=== PATIENT | male | born 1950 | race Caucasian/White ===

== ENCOUNTER 2017-03-31 11:46 | Inpatient (IN) | payer MEDICARE, OTHER ==
[2017-03-31] MEDS ORDERED: HYDROmorphone 1 MG/ML 1 ML SYRINGE IVP STA (12:28)
[2017-03-31] MEDS: ONDANSETRON 4 MG/2 ML VIAL IVP STA (12:55)
--- NOTE | 2017-03-31 13:01 | XR ---
EXAMINATION TYPE: XR Hip Complete RT DATE OF EXAM: 03/31/2017 CLINICAL HISTORY: Fall and right hip pain with concern for fracture TECHNIQUE: AP and frogleg views of the right hip are obtained. COMPARISON: CT abdomen pelvis dated 09/21/2015 FINDINGS: There is concern for an impacted basicervical femoral neck fracture as the lateral femoral head neck junction appears protuberant with questionable cortical discontinuity and there is abnormal linear lucency in the femoral neck. No cam deformity is seen on the prior CT abdomen pelvis to corre spond to this head neck junction protuberance. Overlying soft tissues are unremarkable. Mild right f emoral acetabular arthrosis changes are seen as medial joint space narrowing and acetabular sclerosis . IMPRESSION: Findings concerning for impacted basicervical right femoral neck fracture. Additional vie ws of the right hip are recommended with AP, internal and external rotation views.
--- NOTE | 2017-03-31 13:01 | XR ---
EXAMINATION TYPE: XR chest 2V DATE OF EXAM: 03/31/2017 COMPARISON: Chest x-ray 09/26/2015, CT of the chest 03/03/2016 HISTORY: Shortness of breath, fall TECHNIQUE: Frontal and lateral views of the chest are obtained on 3 images. FINDINGS: There is no focal air space opacity, pleural effusion, or pneumothorax seen. The cardiac silhouette size is within normal limits. Prominent lung volumes suggest underlying COPD. The osseou s structures are intact. IMPRESSION: No acute cardiopulmonary process.
--- NOTE | 2017-03-31 13:02 | XR ---
EXAMINATION TYPE: XR knee limited RT DATE OF EXAM: 03/31/2017 CLINICAL HISTORY: Fall and right knee pain. TECHNIQUE: Frontal and lateral views of the right knee are obtained. COMPARISON: None. FINDINGS: There is no acute fracture/dislocation evident in right knee. Medial compartment joint spa ce narrowing is appreciated with tibial plateau sclerosis and marginal medial femoral condyle osteoph ytes. Chondrocalcinosis is seen of the lateral compartment and to a lesser degree at the medial katerin rtment suggestive of CPPD.. The overlying soft tissue appears unremarkable. IMPRESSION: 1. There is no acute fracture or dislocation in the right knee. 2. Findings suggestive of CPPD. 3. Unicompartmental osteoarthrosis.
[2017-03-31 13:15] LABS: ALT 48 U/L (21-72); AST 37 U/L (17-59); Alkaline Phosphatase 117 U/L (38-126); Anion Gap 9 mmol/L; Blood Urea Nitrogen 26 mg/dL (9-20); Calcium 8.7 mg/dL (8.4-10.2); Carbon Dioxide 21 mmol/L (22-30); Chloride 107 mmol/L (98-107); Glucose 98 mg/dL (74-99); Non-African American GFR(MDRD) >60 (>60 ml/min/1.73 sqM); Potassium 4.6 mmol/L (3.5-5.1); Sodium 137 mmol/L (137-145); Total Bilirubin 2.4 mg/dL (0.2-1.3); Total Protein 7.2 g/dL (6.3-8.2)
[2017-03-31 13:16] LABS: INR 1.2 (<1.2); Partial Thromboplastin Time 28.4 sec (22.0-30.0); Prothrombin Time 11.8 sec (9.0-12.0)
[2017-03-31 13:18] LABS: Basophils # (A) 0.1 k/uL (0-0.2); Basophils % (A) 1 %; CH 31.7; CHCM 32.5; Eosinophils # (A) 0.8 k/uL (0-0.7); Eosinophils % (A) 7 %; HDW 2.33; HGB 12.5 gm/dL (13.0-17.5); Luc # (Auto) 0.35; Luc % (Auto) 3; Lymphocytes # (A) 2.2 k/uL (1.0-4.8); Lymphocytes % (A) 21 %; MCH 32.3 pg (25.0-35.0); MCHC 32.9 g/dL (31.0-37.0); MCV 98.3 fL (80.0-100.0); Mean Platelet Volume 8.4; Monocytes % (A) 10 %; Neutrophils # (A) 5.9 k/uL (1.3-7.7); Neutrophils % (A) 57 %; RBC 3.86 m/uL (4.30-5.90); RDW 13.7 % (11.5-15.5); WBC 10.2 k/uL (3.8-10.6); WBC (Perox) 9.94
--- NOTE | 2017-03-31 14:41 | ED ---
Fall HPI - General Chief Complaint: Fall Stated Complaint: Fall Time Seen by Provider: 03/31/17 11:58 Source: patient, EMS Mode of arrival: EMS - History of Present Illness Initial Comments: This 66-year-old white male presents with a complaint of right hip pain. He states that he fell approximately 2 days ago on his right side. He is also complaining of some mild pain to his right knee. He has not been able to ambulate since that time. He states that the pain is fairly severe in nature. He denies any other injuries or complaints or modifying factors. He does not have an orthopedic physician currently. No other complaints or modifying factors. - Related Data Home Medications Medication Instructions Recorded Confirmed Atenolol [Tenormin] 50 mg PO BID 09/21/15 03/31/17 Cyclobenzaprine HCl 10 mg PO TID 03/31/17 03/31/17 [Cyclobenzaprine HCl] HYDROcodone/APAP 7.5-325MG [[place] 1 tab PO QID PRN 03/31/17 03/31/17 7.5-325] Omeprazole [PriLOSEC] 20 mg PO BID 03/31/17 03/31/17 Primidone [Mysoline] 50 mg PO TID 03/31/17 03/31/17 Allergies Allergy/AdvReac Type Severity Reaction Status Date / Time Penicillins Allergy Rash/Hives Verified 03/31/17 12:23 peginterferon peg-2a AdvReac Unknown Verified 03/31/17 12:23 [From Pegasys] Review of Systems ROS Statement: Those systems with pertinent positive or pertinent negative responses have been documented in the HPI. ROS Other: All systems not noted in ROS Statement are negative. Past Medical History Past Medical History: COPD, Hypertension, Myocardial Infarction ([place]) Last Myocardial Infarction Date:: 2007 History of Any Multi-Drug Resistant Organisms: None Reported Additional Past Surgical History / Comment(s): vasectomy, cataract Past Anesthesia/Blood Transfusion Reactions: No Reported Reaction Past Psychological History: No Psychological Hx Reported Smoking Status: Current every day smoker Past Alcohol Use History: None Reported Past Drug Use History: None Reported - Past Family History Mother History Unknown: Yes Family Medical History: Cancer, Diabetes Mellitus, Hypertension Father History Unknown: Yes Family Medical History: Liver Disease, Seizure Disorder Additional Family Medical History / Comment(s): alcoholic Brother(s) History Unknown: Yes Family Medical History: Liver Disease Additional Family Medical History / Comment(s): aneurysm General Exam - General Exam Comments Initial Comments: GENERAL: The patient is well nourished and well hydrated. VITAL SIGNS: Heart rate, blood pressure, respiratory rate reviewed as recorded in nurse's notes. EYES: Pupils are round and reactive. Extraocular movements are intact. No conjunctival / lid redness or swelling. ENT: No external evidence of injury, swelling, or ecchymosis. Airway is patent. Throat is clear. NECK: Nontender. No swelling or evidence of injury. No subcutaneous emphysema. Trachea is midline. No thyroid mass. HEART: Regular rate and rhythm. Good peripheral pulses. LUNGS/CHEST: Breath sounds clear and equal bilaterally. No rales, rhonchi, or wheezes. No ecchymosis, subcutaneous emphysema, or tenderness. ABDOMEN: Abdomen soft without tenderness. No palpable masses or organomegaly. No peritoneal signs. There is abdominal wall distention consistent with ascites. EXTREMITIES: There is significant tenderness noted to the right hip upon palpation. There is extreme tenderness with any attempted range of motion. There is some mild tenderness noted diffusely to the right knee without any effusion. Normal muscle tone and function. No thoracolumbar tenderness. NEUROLOGIC: Sensation is grossly intact. Cranial nerve exam reveals face is symmetrical, tongue is midline, speech is clear. SKIN: No abrasions or ecchymosis is noted. No induration or masses noted. There are multiple spider telangestasias noted. PSYCHIATRIC: Alert and oriented. Appropriate behavior and judgment. Limitations: no limitations Course Vital Signs 03/31/17 03/31/17 12:04 15:00 Temperature 99.6 F 98.2 F Pulse Rate 89 91 Respiratory 18 18 Rate Blood Pressure 188/77 153/73 O2 Sat by Pulse 98 95 Oximetry Medical Decision Making - Medical Decision Making The patient was seen and examined. All diagnostics are reviewed. He had an x- ray done of his right hip which does show findings concerning for impacted basicervical right femoral neck fracture. The patient also had an x-ray of the right knee and this does not show any evidence of fracture but there is some arthritic changes. The chest x-ray did not show any evidence of acute process. The patient had an EKG done as well and this shows a normal sinus rhythm with T-wave inversions in lead's to 3 and aVF. There is no ST elevation. The NC interval is 80, QRS duration is 94, and QTc interval is 444. The patient had an IV established and receives 1 mg of Dilaudid IV and his feeling much improved on recheck. He also received 4 mg of Zofran for nausea prophylaxis. The case will be discussed with orthopedic surgery in the near future and patient will be admitted to the hospital for further definitive treatment. The laboratory is reviewed and this does show some evidence of anemia as well as elevation of the bilirubin. Given patient's physical exam findings of ascites and spider telangiectasias, it is felt as though he does have some liver disease. He states that he previously was told by his primary care physician that he has hepatitis C. He then followed up with hepatology at [facility] and was told that he does not have hepatitis C. He denies drinking any alcohol. Exact cause of suspected hepatic disease therefore is not definitively determined but it is felt as though it should be looked into further. The case is discussed with Dr. Ugalde and he is agreeable to admission with orthopedics to consult. - Lab Data Result diagrams: 03/31/17 12:41 03/31/17 12:41 Lab Results 03/31/17 03/31/17 03/31/17 Range/Units 12:41 12:41 12:41 WBC 10.2 (3.8-10.6) k/uL RBC 3.86 L (4.30-5.90) m/uL Hgb 12.5 L (13.0-17.5) gm/dL Hct 38.0 L (39.0-53.0) % MCV 98.3 (80.0-100.0) fL MCH 32.3 (25.0-35.0) pg MCHC 32.9 (31.0-37.0) g/dL RDW 13.7 (11.5-15.5) % Plt Count 217 (150-450) k/uL Neutrophils % 57 % Lymphocytes % 21 % Monocytes % 10 % Eosinophils % 7 % Basophils % 1 % Neutrophils # 5.9 (1.3-7.7) k/uL Lymphocytes # 2.2 (1.0-4.8) k/uL Monocytes # 1.0 (0-1.0) k/uL Eosinophils # 0.8 H (0-0.7) k/uL Basophils # 0.1 (0-0.2) k/uL PT 11.8 (9.0-12.0) sec INR 1.2 H (<1.2) APTT 28.4 (22.0-30.0) sec Sodium 137 (137-145) mmol/L Potassium 4.6 (3.5-5.1) mmol/L Chloride 107 (98-107) mmol/L Carbon Dioxide 21 L (22-30) mmol/L Anion Gap 9 mmol/L BUN 26 H (9-20) mg/dL Creatinine 1.00 (0.66-1.25) mg/dL Est GFR (MDRD) Af Amer >60 (>60 ml/min/1.73 sqM) Est GFR (MDRD) Non-Af >60 (>60 ml/min/1.73 sqM) Glucose 98 (74-99) mg/dL Calcium 8.7 (8.4-10.2) mg/dL Total Bilirubin 2.4 H (0.2-1.3) mg/dL AST 37 (17-59) U/L ALT 48 (21-72) U/L Alkaline Phosphatase 117 (38-126) U/L Total Protein 7.2 (6.3-8.2) g/dL Albumin 3.0 L (3.5-5.0) g/dL Disposition Clinical Impression: Closed right hip fracture, Fall, Right knee sprain, Hepatic disease, Ascites Disposition: ADMITTED IP TO THIS [facility] Condition: Fair Time of Disposition: 14:43 Decision Date: 03/31/17 Decision Time: 14:44
[2017-03-31] MEDS ORDERED: ONDANSETRON 4 MG/2 ML VIAL IVP PRN (15:19)
[2017-03-31] MEDS ORDERED: NALOXONE 0.4 MG/ML 1 ML VIAL IV PRN (15:19)
[2017-03-31] MEDS ORDERED: ACETAMINOPHEN TAB 325 MG TAB PO PRN (15:19)
[2017-03-31] MEDS ORDERED: HYDROcodone/APAP 7.5-325MG 1 EACH TAB PO PRN (15:23)
--- NOTE | 2017-03-31 17:09 | P.HPOR ---
History of Present Illness H&P Date: 03/31/17 Chief Complaint: Right femoral neck fracture This is a 66-year-old male who is seen and evaluated today Santosh Dowd [place]. Patient was brought to the hospital due to extreme pain in his right hip. Patient had a fall about 2 days ago, and has been unable to weight-bear on it since then. Patient fell in his home. He is unable to put any weight on that right leg. Upon arrival to the hospital, imaging and lab studies were done. Images demonstrated a impacted nondisplaced right femoral neck fracture. I was contacted by the emergency room staff regarding this patient, he was admitted under our care. Medical and cardiac of both on for clearances. He is examined today at bedside, there was concern of a bedbug infection. I was properly down during the exam. Patients belongings have been properly sealed. The patient was showered in the emergency room before coming to the floor. Patient states he only has pain in the right hip. She denies pain in the left lower extremity, bilateral upper extremities, cervical, lumbar thoracic pain. Patient denies any previous surgery involving the right lower extremity. Review of Systems Constitutional: Reports as per HPI Past Medical History Past Medical History: Coronary Artery Disease (CAD), COPD, GERD/Reflux, Hypertension, Myocardial Infarction ([place]), Osteoarthritis (OA) Additional Past Medical History / Comment(s): perforatic gastric ulcer 2015(had sx), ddd lumbar, hemorrhoids, per past medical hx from 2008 hep c. Last Myocardial Infarction Date:: 2007 History of Any Multi-Drug Resistant Organisms: None Reported Additional Past Surgical History / Comment(s): vasectomy, cataracts,per pmh from 2008 liver bx 2006- found hep c. antrectomy w/gastroenterostomy 2015 Past Anesthesia/Blood Transfusion Reactions: No Reported Reaction Smoking Status: Current every day smoker - Past Family History Mother History Unknown: Yes Family Medical History: Cancer, Diabetes Mellitus, Hypertension Father History Unknown: Yes Family Medical History: Liver Disease, Seizure Disorder Additional Family Medical History / Comment(s): alcoholic Brother(s) History Unknown: Yes Family Medical History: Liver Disease Additional Family Medical History / Comment(s): aneurysm Medications and Allergies Home Medications Medication Instructions Recorded Confirmed Type Atenolol [Tenormin] 50 mg PO BID 09/21/15 03/31/17 History Cyclobenzaprine HCl 10 mg PO TID 03/31/17 03/31/17 History [Cyclobenzaprine HCl] HYDROcodone/APAP 7.5-325MG [[place] 1 tab PO QID PRN 03/31/17 03/31/17 History 7.5-325] Omeprazole [PriLOSEC] 20 mg PO BID 03/31/17 03/31/17 History Primidone [Mysoline] 50 mg PO TID 03/31/17 03/31/17 History Allergies Allergy/AdvReac Type Severity Reaction Status Date / Time Penicillins Allergy Rash/Hives Verified 03/31/17 12:23 peginterferon peg-2a AdvReac Unknown Verified 03/31/17 12:23 [From Pegasys] Physical Examination Right lower extremity: No obvious open lesions or sores present. There are multiple small erythematous papules on the anterior aspect of the thigh. These are also noted throughout the patient's left lower extremity, chest, and bilateral upper extremities. No significant malformation nor malalignment noted when compared to the opposite extremity Patient is unable to straight leg raise, logroll maneuver reproduces pain Calf is soft, no tenderness with palpation Plantar flexion, dorsiflexion, EHL, FHL are intact Sensory exam to light touch throughout the extremity is intact Dorsal pedis pulses 2+ Results - Labs Labs: Abnormal Lab Results - Last 24 Hours (Table) 03/31/17 03/31/17 03/31/17 Range/Units 12:41 12:41 12:41 RBC 3.86 L (4.30-5.90) m/uL Hgb 12.5 L (13.0-17.5) gm/dL Hct 38.0 L (39.0-53.0) % Eosinophils # 0.8 H (0-0.7) k/uL INR 1.2 H (<1.2) Carbon Dioxide 21 L (22-30) mmol/L BUN 26 H (9-20) mg/dL Total Bilirubin 2.4 H (0.2-1.3) mg/dL Albumin 3.0 L (3.5-5.0) g/dL H & H 03/31/17 Range/Units 12:41 Hgb 12.5 L (13.0-17.5) gm/dL Hct 38.0 L (39.0-53.0) % Coagulation 03/31/17 Range/Units 12:41 INR 1.2 H (<1.2) Result Diagrams: 03/31/17 12:41 03/31/17 12:41 - Diagnostic results Hip x-ray: report reviewed, image reviewed Assessment and Plan Plan: Imaging: Images reviewed of the right hip, images demonstrate a nondisplaced impacted right femoral neck fracture Assessment: 1. Right nondisplaced femoral neck fracture 2. Status post fall from standing 3. Likely bedbug infection 4. Other medical comorbidities Plan: 1. I was able to discuss the case with Dr. James, including both physical exam findings and imaging studies. We would like to proceed with surgical intervention tomorrow afternoon. More specifically a closed reduction with percutaneous pinning of the right hip. I did discuss the procedure with the patient today at bedside, including risk and benefits. He is in agreement and would like to proceed 2. Medical and cardiac clearance 3. Nonweightbearing 4. Nothing by mouth after midnight 5. Pain control 6. GI and DVT prophylaxis, utilize subcu medication at this time 7. Plan for surgery tomorrow afternoon 8. Further recommendations to follow Time with Patient: Less than 30
[2017-03-31] MEDS: CYCLOBENZAPRINE 10 MG TAB PO SCH ×2 (17:15→23:15)
[2017-03-31] MEDS: PRIMIDONE 50 MG TAB PO SCH ×2 (17:15→23:14)
[2017-03-31] MEDS: HYDROmorphone 1 MG/ML 1 ML SYRINGE IV PRN (17:18)
[2017-03-31] MEDS: ATENOLOL 50 MG TAB PO SCH (23:15)
[2017-04-01] MEDS: HYDROmorphone 1 MG/ML 1 ML SYRINGE IV PRN ×2 (03:47→12:08)
[2017-04-01] MEDS ORDERED: FUROSEMIDE 10 MG/ML 2 ML VIAL IV STA (08:27)
[2017-04-01] MEDS: PANTOPRAZOLE 40 MG/10 ML VIAL IV SCH (08:47)
[2017-04-01] MEDS: ATENOLOL 50 MG TAB PO SCH ×2 (08:47→22:22)
--- NOTE | 2017-04-01 08:49 | P.CONS ---
History of Present Illness - Reason for Consult Consult date: 04/01/17 - History of Present Illness This is a consultation note on a 66-year-old white male who we've been trying to get a power wheelchair device 4, unfortunately he states with his normal daily activities yesterday he fell resulting in hip fracture. Has normal history and COPD with DJD elements. Review of Systems Constitutional: Denies chills, Denies fever Eyes: denies blurred vision, denies pain Cardiovascular: Reports shortness of breath, Denies dyspnea on exertion Respiratory: Reports cough Gastrointestinal: Denies abdominal pain, Denies diarrhea, Denies nausea, Denies vomiting Musculoskeletal: Denies myalgias Past Medical History Past Medical History: Coronary Artery Disease (CAD), COPD, GERD/Reflux, Hypertension, Myocardial Infarction ([place]), Osteoarthritis (OA) Additional Past Medical History / Comment(s): perforatic gastric ulcer 2015(had sx), ddd lumbar, hemorrhoids, per past medical hx from 2008 hep c. Last Myocardial Infarction Date:: 2007 History of Any Multi-Drug Resistant Organisms: None Reported Additional Past Surgical History / Comment(s): vasectomy, cataracts,per pmh from 2008 liver bx 2006- found hep c. antrectomy w/gastroenterostomy 2016 Past Anesthesia/Blood Transfusion Reactions: No Reported Reaction Smoking Status: Current every day smoker - Past Family History Mother History Unknown: Yes Family Medical History: Cancer, Diabetes Mellitus, Hypertension Father History Unknown: Yes Family Medical History: Liver Disease, Seizure Disorder Additional Family Medical History / Comment(s): alcoholic Brother(s) History Unknown: Yes Family Medical History: Liver Disease Additional Family Medical History / Comment(s): aneurysm Medications and Allergies Home Medications Medication Instructions Recorded Confirmed Type Atenolol [Tenormin] 50 mg PO BID 09/21/15 03/31/17 History Cyclobenzaprine HCl 10 mg PO TID 03/31/17 03/31/17 History [Cyclobenzaprine HCl] HYDROcodone/APAP 7.5-325MG [[place] 1 tab PO QID PRN 03/31/17 03/31/17 History 7.5-325] Omeprazole [PriLOSEC] 20 mg PO BID 03/31/17 03/31/17 History Primidone [Mysoline] 50 mg PO TID 03/31/17 03/31/17 History Allergies Allergy/AdvReac Type Severity Reaction Status Date / Time Penicillins Allergy Rash/Hives Verified 03/31/17 12:23 peginterferon peg-2a AdvReac Unknown Verified 03/31/17 12:23 [From Pegasys] Physical Exam Vitals: Vital Signs Temp Pulse Pulse Resp BP BP Pulse Ox 04/01/17 07:00 97.8 F 74 12 128/61 98 04/01/17 04:06 96.0 F L 73 16 122/58 93 L 03/31/17 20:00 97.6 F 63 16 146/81 93 L 03/31/17 18:16 18 03/31/17 15:00 98.2 F 91 18 153/73 95 03/31/17 12:04 99.6 F 89 18 188/77 98 Intake and Output 03/31/17 04/01/17 04/01/17 22:59 06:59 14:59 Intake Total 150 Balance 150 Intake: IV 150 150 150 Other: Voiding Method Indwelling Catheter - Constitutional General appearance: no acute distress, thin - EENT Eyes: EOMI - Neck Neck: no lymphadenopathy - Respiratory Respiratory: bilateral: diminished - Cardiovascular Rhythm: regular Heart sounds: normal: S1, S2 - Gastrointestinal General gastrointestinal: soft, no tenderness - Neurologic Neurologic: CNII-XII intact Results CBC & Chem 7: 03/31/17 12:41 03/31/17 12:41 Labs: Abnormal Lab Results - Last 24 Hours (Table) 03/31/17 03/31/17 03/31/17 Range/Units 12:41 12:41 12:41 RBC 3.86 L (4.30-5.90) m/uL Hgb 12.5 L (13.0-17.5) gm/dL Hct 38.0 L (39.0-53.0) % Eosinophils # 0.8 H (0-0.7) k/uL INR 1.2 H (<1.2) Carbon Dioxide 21 L (22-30) mmol/L BUN 26 H (9-20) mg/dL Total Bilirubin 2.4 H (0.2-1.3) mg/dL Albumin 3.0 L (3.5-5.0) g/dL Assessment and Plan (1) Closed right hip fracture Status: Acute (2) Fall Status: Acute (3) Nicotine dependence Status: Acute Plan: Chest x-ray is nominal. We had a long discussion regarding tobacco cessation. Medically cleared for appropriate procedure for hip fracture repair. We'll continue to follow. Dr. Trent group will be covering for the weekend. CBC and CMP in a.m.
[2017-04-01] MEDS: PRIMIDONE 50 MG TAB PO SCH ×3 (08:52→21:20)
[2017-04-01] MEDS: CYCLOBENZAPRINE 10 MG TAB PO SCH ×3 (08:54→21:20)
[2017-04-01] MEDS: ENOXAPARIN 40 MG/0.4 ML SYRINGE SQ SCH (08:54)
--- NOTE | 2017-04-01 10:54 | ECHOF ---
Referral Reason:surgical clearance MEASUREMENTS -------- HEIGHT: 180.3 cm WEIGHT: 68.0 kg BP: 122/58 RVIDd: 3.2 cm (< 3.3) IVSd: 1.0 cm (0.6 - 1.1) LVIDd: 4.8 cm (3.9 - 5.3) LVPWd: 1.1 cm (0.6 - 1.1) IVSs: 1.4 cm LVIDs: 3.3 cm LVPWs: 1.6 cm LA Diam: 3.8 cm (2.7 - 3.8) LAESV Index (A-L): 25.83 ml/m Ao Diam: 2.9 cm (2.0 - 3.7) MV EXCURSION: 22.256 mm (> 18.000) MV EF SLOPE: 134 mm/s (70 - 150) EPSS: 2.4 cm MV E Tj: 0.98 m/s MV DecT: 257 ms MV A Tj: 0.60 m/s MV E/A Ratio: 1.63 AV maxP.81 mmHg AV meanP.83 mmHg RAP: 5.00 mmHg RVSP: 40.98 mmHg FINDINGS -------- Sinus rhythm. This was a technically adequate study. The left ventricular size is normal. Left ventricular wall thickness is normal. Overall left ventricular systolic function is normal with, an EF between 55 - 60 %. The right ventricle is normal in size. Normal LA size by volume 22+/-6 ml/m2. The right atrium is normal in size. There is mild to moderate aortic valve sclerosis. There is mild aortic stenosis present. Peak/mean gradient across the Aortic Valve is 25.81mmHg / 11.83mmHg. Mild mitral annular calcification present. There is trace to mild mitral regurgitation. Mild tricuspid regurgitation present. There is mild pulmonary hypertension. The right ventricular systolic pressure, as measured by Doppler, is 40.98mmHg. There is no pulmonic regurgitation present. The aortic root size is normal. Normal inferior vena cava with normal inspiratory collapse consistent with estimated right atrial pressure of 5 mmHg. There is no pericardial effusion. CONCLUSIONS -------- 1. Sinus rhythm. 2. Peak/mean gradient across the Aortic Valve is 25.81mmHg / 11.83mmHg. 3. Mild mitral annular calcification present. 4. There is trace to mild mitral regurgitation. 5. Mild tricuspid regurgitation present. 6. There is mild pulmonary hypertension. 7. The right ventricular systolic pressure, as measured by Doppler, is 40.98mmHg. 8. There is no pulmonic regurgitation present. 9. The aortic root size is normal. 10. Normal inferior vena cava with normal inspiratory collapse consistent with estimated right atrial pressure of 5 mmHg. 11. There is no pericardial effusion. 12. This was a technically adequate study. 13. The left ventricular size is normal. 14. Left ventricular wall thickness is normal. 15. The right ventricle is normal in size. 16. Normal LA size by volume 22+/-6 ml/m2. 17. The right atrium is normal in size. 18. There is mild to moderate aortic valve sclerosis. 19. There is mild aortic stenosis present. GROCERY STOCKER: Ailyn Whitaker RDCS
[2017-04-01] MEDS: ONDANSETRON 4 MG/2 ML VIAL IVP STA (14:14)
[2017-04-01] MEDS ORDERED: IV FLUID CONTINUATION 1,000 ML IV ONE (14:14)
[2017-04-01] MEDS ORDERED: DEXAMETHASONE SOD PHOSPHATE 10 MG/ML 1 ML VIAL IV ONE (14:20)
[2017-04-01] MEDS ORDERED: MIDAZOLAM 2 MG/2 ML VIAL ONE (15:04)
[2017-04-01] MEDS ORDERED: ePHEDrine SULFATE/0.9% NACL/PF 50 MG/5 ML SYRINGE IV ONE (15:04)
[2017-04-01] MEDS ORDERED: SUCCINYLCHOLINE CHLORIDE 100 MG/5 ML SYR IV ONE (15:04)
[2017-04-01] MEDS ORDERED: PROPOFOL 10 MG/ML 20 ML VIAL IV ONE (15:04)
[2017-04-01] MEDS ORDERED: KETAMINE 10 MG/ML 20 ML VIAL ONE (15:04)
[2017-04-01] MEDS ORDERED: fentaNYL (PF) 50 MCG/ML 2 ML AMP ONE (15:04)
[2017-04-01] MEDS ORDERED: PHENYLEPHRINE-0.9% NACL SYG 1 MG/10 ML SYRINGE ONE (15:04)
[2017-04-01] MEDS ORDERED: SODIUM CHLORIDE 0.9% 50 ML with ceFAZolin 2,000 MG IV ONE ×2 (15:15)
--- NOTE | 2017-04-01 15:20 | CONS ---
This is a 66-year-old gentleman who is known to me, since I see him in the office on a regular basis. This gentleman has history of hypertension and smoking. He also has previous history of alcoholism, with which he has cardiomyopathy, but since he quit alcohol LV function has improved. He does not ambulate much. He uses a wheelchair and complains of discomfort in his back. He is not a very ambulatory person. Apparently 2 days ago he tripped and fell, and since then he has been having a lot of hip pain. He has a right hip fracture and is going for surgery. I was asked to see him from a preoperative standpoint. He denies any chest pain. Stable shortness of breath. Continues to smoke one pack a day. He has a history of remote atrial fibrillation more than 10 years ago. He has history of smoking, COPD and a stress test that was negative within the last one year; and also had a preserved ejection fraction on echo that was performed today in the range of 55%. At the time of my evaluation he is resting comfortably without symptoms. PAST MEDICAL HISTORY: 1. Smoking and COPD. 2. Hypertension. 3. Hypercholesterolemia. 4. Remote history of atrial fibrillation. 5. History of alcoholism; he has finally quit alcohol and cardiomyopathy has resolved. There is also a question of hepatitis C. On examination, blood pressure is 120/70. Pulse rate is about 70, regular. HEENT: Unremarkable. Fundus was not examined by me. Neck is supple. There is JVD of 1 cm. No carotid bruit. Heart exam reveals S1, S2 heard normally. Short systolic murmur at left lower sternal border. Lungs reveal bilateral diminished air entry. Abdomen is soft, non-tender. Lower extremities reveal diminished pulses. CENTRAL NERVOUS SYSTEM: Grossly no focal deficits. Right hip and right lower extremity exam was not performed. EKG revealed sinus mechanism, non-specific ST-T changes, short UT interval. IMPRESSION: 1. History of hypertension. 2. Right hip fracture; going for hip arthroplasty. 3. History of smoking and chronic obstructive pulmonary disease. RECOMMENDATIONS: There is no contraindication, but the risk is moderate to high , given his comorbid conditions. I would recommend all his medications, including Tenormin. Given his pulmonary status, spinal anesthesia would be better. Cautious fluid administration and optimal blood pressure control are advised. Discussed my thoughts in detail with the patient. Thank you very much for the consult. MARSHALL
--- NOTE | 2017-04-01 16:14 | XR ---
Limited right hip HISTORY: Fracture 2 intraoperative C-arm images document the procedure
--- NOTE | 2017-04-01 16:15 | FL ---
Fluoroscopy HISTORY: Fracture 1 minute 7 seconds fluoroscopy time supplied to the referring clinician. 2 intraoperative C-arm imag es document the procedure. See dictated report from orthopedic surgery.
[2017-04-01] MEDS ORDERED: HYDROmorphone 1 MG/ML 1 ML SYRINGE IVP PRN ×2 (16:21)
[2017-04-01] MEDS ORDERED: ONDANSETRON 4 MG/2 ML VIAL IVP PRN (16:21)
[2017-04-01] MEDS ORDERED: HYDROcodone/APAP 5-325MG 1 EACH TAB PO PRN (16:21)
[2017-04-01] MEDS ORDERED: NALOXONE 0.4 MG/ML 1 ML VIAL IV PRN (16:21)
--- NOTE | 2017-04-01 16:21 | P.OP ---
Date of Procedure: 04/01/17 Preoperative Diagnosis: Right hip femoral neck fracture Postoperative Diagnosis: Same Procedure(s) Performed: Open reduction and fixation right hip femoral neck fracture Implants: 2-6.5 cannulated screws Anesthesia: CATHY Surgeon: Malcolm James Visual Basic .Net Developer #1: Shiraz Montoya Estimated Blood Loss (ml): 35 Pathology: none sent Condition: stable Disposition: PACU Indications for Procedure: 66-year-old patient seen with a right hip femoral neck fracture. I discussed options with the patient. I reviewed open reduction and internal fixation. The procedure, risks, complications and recovery were discussed thoroughly and and simple layman's terms with the patient. The patient was agreeable and consent was obtained. Clearances were obtained. Operative Findings: see description of procedure Description of Procedure: Patient was taken to the operative suite. Patient underwent a general anesthetic by the department of anesthesia. The patient was transferred to a fracture table. The right lower extremity was placed in standard longitudinal traction. Left lower extremity was placed in well-padded well-leg sprague. The patient received preoperative IV antibiotics. The C-arm was brought in confirming adequate alignment of the fracture. The right hip area was prepped and draped in normal sterile orthopedic fashion. A lateral incision was made sharply through skin. Dissection was taken down to the IT band. An incision was made through the IT band. A small incision made through the fascia. I introduced a guidewire into the head neck/complex and confirmed adequate alignment and positioning under AP and lateral intraoperative imaging. A parallel a second guidewire was introduced superior and posteriorly. At this point I didn't think more than 2 screws would fit appropriately into the head that 2 screws would give us good overall stability. I probably depth gauged both the guidewires. I now introduced to 6.5 cannulated screws both having good bite and purchase. The guidewires were removed. We noted continued adequate alignment of the fracture and good position of our cannulated hip screws. This was confirmed both under AP and lateral intraoperative imaging. The wound was irrigated. The IT band was were approximated with Vicryl suture. The subcu soft tissues were proximal Vicryl suture. The skin was approximated with nori. Sterile dressings were applied. The patient was transferred to bed and then recovery. Pato MORENO assisted procedure.
[2017-04-01] MEDS: LACTATED RINGERS 1,000 ML IV SCH (17:48)
[2017-04-01 19:14] LABS: Basophils % (A) 0 %; CH 31.6; CHCM 31.5; Eosinophils # (A) 0.3 k/uL (0-0.7); Eosinophils % (A) 4 %; HCT 35.4 % (39.0-53.0); HGB 11.5 gm/dL (13.0-17.5); Luc # (Auto) 0.09; Luc % (Auto) 1; Lymphocytes # (A) 0.5 k/uL (1.0-4.8); Lymphocytes % (A) 8 %; MCH 32.8 pg (25.0-35.0); MCHC 32.5 g/dL (31.0-37.0); Mean Platelet Volume 7.9; Monocytes # (A) 0.2 k/uL (0-1.0); Monocytes % (A) 3 %; Neutrophils # (A) 5.5 k/uL (1.3-7.7); Neutrophils % (A) 83 %; RDW 13.4 % (11.5-15.5); WBC 6.6 k/uL (3.8-10.6); WBC (Perox) 6.61
[2017-04-01] MEDS: SENNOSIDES-DOCUSATE SODIUM 1 EACH TAB PO SCH (21:20)
[2017-04-01] MEDS: ceFAZolin 2 GM in SODIUM CHLORIDE 0.9% 100 ML IVPB SCH (23:31)
[2017-04-02] MEDS: LACTATED RINGERS 1,000 ML IV SCH ×2 (05:39→20:04)
[2017-04-02] MEDS: CYCLOBENZAPRINE 10 MG TAB PO SCH ×3 (08:57→22:26)
[2017-04-02] MEDS: ATENOLOL 50 MG TAB PO SCH ×2 (08:57→22:13)
[2017-04-02] MEDS: ceFAZolin 2 GM in SODIUM CHLORIDE 0.9% 100 ML IVPB SCH (08:57)
[2017-04-02] MEDS: PRIMIDONE 50 MG TAB PO SCH ×3 (08:58→22:26)
[2017-04-02] MEDS: ENOXAPARIN 40 MG/0.4 ML SYRINGE SQ SCH (08:58)
[2017-04-02] MEDS: PANTOPRAZOLE 40 MG/10 ML VIAL IV SCH (08:58)
[2017-04-02] MEDS ORDERED: ENOXAPARIN 40 MG/0.4 ML SYRINGE SQ SCH (09:00)
[2017-04-02] MEDS ORDERED: IPRATROPIUM-ALBUTEROL 3 ML NEB INHALATION PRN (10:32)
--- NOTE | 2017-04-02 12:17 | P.PN ---
Subjective Principal diagnosis: s/p closed reduction percutaneous pinning right hip Patient is seen today on selective care unit, he was transferred there from recovery room. He appears comfortable, pain is controlled. He remains non weightbearing at this time. He denies chest pain or shortness of breath. Objective - Vital Signs Vital signs: Vital Signs Temp 96.8 F L 04/02/17 08:00 Pulse 74 04/02/17 08:00 Resp 18 04/02/17 08:00 BP 101/51 04/02/17 08:00 Pulse Ox 95 04/02/17 08:00 Intake & Output 04/01/17 04/02/17 04/02/17 18:59 06:59 18:59 Intake Total 650 100 Output Total 635 650 Balance 15 -550 Weight 68.5 kg Intake: IV 650 Intake, IV Titration 100 Amount ceFAZolin 2 gm In Sodium 100 Chloride 0.9% 100 ml @ 100 mls/hr IVPB Q8HR [facility] Rx#:[id number] Output: Urine 600 650 Estimated Blood Loss 35 Other: Voiding Method Indwelling Catheter Indwelling Catheter Indwelling Catheter # Voids 2 - Exam Right lower extremity: Postop bandage in place, no significant swelling throughout the extremity. Calf is soft, no tenderness with palpation. Plantar flexion, dorsiflexion, EHL , FHL are intact. Sensory exam light touch throughout the extremity is intact. Logroll maneuver reproduces minimal pain in the right hip region. Dorsal pedis pulses 2+ - Labs CBC & Chem 7: 04/01/17 18:47 03/31/17 12:41 Labs: Abnormal Lab Results - Last 24 Hours (Table) 04/01/17 Range/Units 18:47 RBC 3.50 L (4.30-5.90) m/uL Hgb 11.5 L (13.0-17.5) gm/dL Hct 35.4 L (39.0-53.0) % MCV 101.0 H (80.0-100.0) fL Lymphocytes # 0.5 L (1.0-4.8) k/uL Assessment and Plan Plan: Assessment: 1. Postop day #1 status post closed reduction and percutaneous pinning right hip Plan: 1. Pain control, continue supportive oral medication 2. Nonweightbearing right lower extremity 3. Daily dressing changes 4. Ice and elevate 5. GI and DVT prophylaxis, continue subcu medication 6. Medical and cardiac recommendations 7. Discharge planning: Patient will be likely discharged to a rehab facility Tuesday Time with Patient: Less than 30
--- NOTE | 2017-04-02 13:12 | P.CNPUL ---
History of Present Illness Consult date: 04/02/17 Requesting physician: Johnny Ugalde Reason for consult: COPD Chief complaint: Status post fall and right hip fracture. History of present illness: This is a 66-year-old white male with history of COPD, underlying coronary artery disease, previous OR, hypertension, gastric ulcer disease, history of hepatitis C, patient was admitted on 03/31/2018, and he was mostly admitted with right hip fracture secondary to fall at home. Patient was seen by cardiology preoperatively, and he was cleared for surgery. On 04/01/2017, patient underwent open reduction and fixation of right hip femoral neck fracture. Postoperatively he was admitted to a monitored bed on selective, and I was asked to see him on consultation. During my evaluation, patient felt well, he had no pulmonary symptoms whatsoever. No cough no wheezing no shortness of breath no chest pain. Patient is known to have history of underlying COPD, severity of which is unclear. Patient has been a heavy smoker over the years. And he had a previous history of alcoholism. Review of Systems 14 point review of systems were obtained, please refer to HPI. Past Medical History Past Medical History: Coronary Artery Disease (CAD), COPD, GERD/Reflux, Hypertension, Myocardial Infarction ([place]), Osteoarthritis (OA) Additional Past Medical History / Comment(s): perforatic gastric ulcer 2016(had sx), ddd lumbar, hemorrhoids, per past medical hx from 2008 hep c. Last Myocardial Infarction Date:: 2007 History of Any Multi-Drug Resistant Organisms: None Reported Additional Past Surgical History / Comment(s): vasectomy, cataracts,per pmh from 2008 liver bx 2006- found hep c. antrectomy w/gastroenterostomy 2016 Past Anesthesia/Blood Transfusion Reactions: No Reported Reaction Smoking Status: Current every day smoker - Past Family History Mother History Unknown: Yes Family Medical History: Cancer, Diabetes Mellitus, Hypertension Father History Unknown: Yes Family Medical History: Liver Disease, Seizure Disorder Additional Family Medical History / Comment(s): alcoholic Brother(s) History Unknown: Yes Family Medical History: Liver Disease Additional Family Medical History / Comment(s): aneurysm Medications and Allergies Home Medications Medication Instructions Recorded Confirmed Type Atenolol [Tenormin] 50 mg PO BID 09/21/15 03/31/17 History Cyclobenzaprine HCl 10 mg PO TID 03/31/17 03/31/17 History [Cyclobenzaprine HCl] HYDROcodone/APAP 7.5-325MG [[place] 1 tab PO QID PRN 03/31/17 03/31/17 History 7.5-325] Omeprazole [PriLOSEC] 20 mg PO BID 03/31/17 03/31/17 History Primidone [Mysoline] 50 mg PO TID 03/31/17 03/31/17 History Allergies Allergy/AdvReac Type Severity Reaction Status Date / Time Penicillins Allergy Rash/Hives Verified 03/31/17 12:23 peginterferon peg-2a AdvReac Unknown Verified 03/31/17 12:23 [From Pegasys] Physical Exam Vitals: Vital Signs Temp Pulse Pulse Pulse Resp BP BP 04/02/17 08:00 96.8 F L 74 18 101/51 04/02/17 04:00 97.8 F 74 18 102/53 04/02/17 00:00 97.4 F L 64 18 95/54 04/01/17 20:00 97.3 F L 70 18 91/54 04/01/17 18:20 97.3 F L 71 18 101/57 04/01/17 17:50 69 16 94/52 04/01/17 17:34 68 16 91/52 04/01/17 17:19 68 14 95/51 04/01/17 17:04 66 14 95/54 04/01/17 16:49 69 16 100/52 04/01/17 16:34 98.1 F 73 10 L 111/58 04/01/17 13:53 98.5 F 75 16 103/54 Pulse Ox 04/02/17 08:00 95 04/02/17 04:00 98 04/02/17 00:00 98 04/01/17 20:00 96 04/01/17 18:20 96 04/01/17 17:50 95 04/01/17 17:34 98 04/01/17 17:19 99 04/01/17 17:04 99 04/01/17 16:49 100 04/01/17 16:34 99 04/01/17 13:53 95 Intake and Output 04/01/17 04/02/17 04/02/17 22:59 06:59 14:59 Intake Total 550 100 Output Total 885 400 Balance -335 -300 Intake: IV 550 Intake, IV Titration 100 Amount ceFAZolin 2 gm In Sodium 100 Chloride 0.9% 100 ml @ 100 mls/hr IVPB Q8HR [facility] Rx#:[id number] Output: Urine 850 400 Estimated Blood Loss 35 Other: Voiding Method Indwelling Catheter Indwelling Catheter Indwelling Catheter Weight 68.5 kg Physical Exam: Revealed a 66-year-old white male in no distress. HEENT:[Neck is supple.] [No neck masses.] [No thyromegaly.] [No JVD.] Chest: [Clear throughout, no crackles, no rhonchi, no wheezes.] Cardiac Exam: [Normal S1 and S2, no S3 gallop, no murmur.] Abdomen: [Soft, nontender, no megaly, no rebound, no guarding, normal bowel sounds.] Extremities: [No clubbing, no edema, no cyanosis. Evidence of multiple spider angiomas related to alcoholism throughout his whole body. Neurological Exam: [No focal neurologic deficit.] Results - Laboratory Findings CBC and BMP: 04/01/17 18:47 03/31/17 12:41 PT/INR, D-dimer PT 11.8 sec (9.0-12.0) 03/31/17 12:41 INR 1.2 (<1.2) H 03/31/17 12:41 Abnormal lab findings: Abnormal Labs 03/31/17 03/31/17 03/31/17 12:41 12:41 12:41 RBC 3.86 L Hgb 12.5 L Hct 38.0 L MCV Lymphocytes # Eosinophils # 0.8 H INR 1.2 H Carbon Dioxide 21 L BUN 26 H Total Bilirubin 2.4 H Albumin 3.0 L 04/01/17 18:47 RBC 3.50 L Hgb 11.5 L Hct 35.4 L MCV 101.0 H Lymphocytes # 0.5 L Eosinophils # INR Carbon Dioxide BUN Total Bilirubin Albumin - Diagnostic Findings Chest x-ray: image reviewed (No evidence of active disease.) Assessment and Plan Plan: Impression: 1 status post open reduction and internal fixation of right hip femoral neck fracture. Postoperative day #1. 2 history of underlying COPD, but relatively under control at present. Patient will be placed on DuoNeb updrafts 4 times a day and when necessary. 3 multiple comorbidities including history of coronary artery disease, hepatitis C, remote history of alcoholism and remote history of atrial fibrillation. History of hypertension, and history of hypercholesterolemia. History of osteoarthritis, history of perforated gastric ulcer disease. Recommendation: Agree with present treatment plan, continue bronchodilators, continue incentive spirometry, will follow. Time with Patient: Greater than 30
[2017-04-02] MEDS: HYDROcodone/APAP 5-325MG 1 EACH TAB PO PRN (13:30)
[2017-04-02] MEDS: MULTIVITAMINS, THERA 1 EACH TAB PO SCH (13:31)
[2017-04-02] MEDS: HYDROmorphone 1 MG/ML 1 ML SYRINGE IVP PRN (17:51)
[2017-04-02] MEDS: SENNOSIDES-DOCUSATE SODIUM 1 EACH TAB PO SCH (22:26)
[2017-04-03 07:53] LABS: Aty Lym Flag Slight; CH 32.1; CHCM 32.1; HCT 31.1 % (39.0-53.0); HDW 2.33; HGB 10.2 gm/dL (13.0-17.5); MCH 32.9 pg (25.0-35.0); MCHC 32.8 g/dL (31.0-37.0); MCV 100.4 fL (80.0-100.0); Macrocytosis Slight; Mean Platelet Volume 7.9; RDW 13.8 % (11.5-15.5); WBC 8.2 k/uL (3.8-10.6); WBC (Perox) 7.36
[2017-04-03] MEDS: LACTATED RINGERS 1,000 ML IV SCH (08:05)
[2017-04-03] MEDS: HYDROcodone/APAP 5-325MG 1 EACH TAB PO PRN ×2 (08:06→18:10)
[2017-04-03] MEDS: ENOXAPARIN 40 MG/0.4 ML SYRINGE SQ SCH (08:06)
[2017-04-03] MEDS: PANTOPRAZOLE 40 MG/10 ML VIAL IV SCH (08:06)
[2017-04-03] MEDS: ATENOLOL 50 MG TAB PO SCH ×2 (08:06→21:32)
[2017-04-03] MEDS: CYCLOBENZAPRINE 10 MG TAB PO SCH ×3 (08:06→21:32)
[2017-04-03] MEDS: PRIMIDONE 50 MG TAB PO SCH ×3 (08:06→21:32)
[2017-04-03 08:18] LABS: Add Differential Manual Differential
[2017-04-03 08:21] LABS: Nucleated Red Blood Cells 0 /100 WBC (0-0); Total Cells Counted 100
[2017-04-03 08:22] LABS: Target Cells Present
[2017-04-03] MEDS: HYDROmorphone 1 MG/ML 1 ML SYRINGE IVP PRN (10:45)
[2017-04-03] MEDS: MULTIVITAMINS, THERA 1 EACH TAB PO SCH (11:40)
--- NOTE | 2017-04-03 11:41 | P.PN ---
Subjective Principal diagnosis: Status post fall and right hip fracture requiring repair. This is a 66-year-old white male with history of COPD, underlying coronary artery disease, previous AR, hypertension, gastric ulcer disease, history of hepatitis C, patient was admitted on 03/31/2018, and he was mostly admitted with right hip fracture secondary to fall at home. Patient was seen by cardiology preoperatively, and he was cleared for surgery. On 04/01/2017, patient underwent open reduction and fixation of right hip femoral neck fracture. Postoperatively he was admitted to a monitored bed on selective, and I was asked to see him on consultation. During my evaluation, patient felt well, he had no pulmonary symptoms whatsoever. No cough no wheezing no shortness of breath no chest pain. Patient is known to have history of underlying COPD, severity of which is unclear. Patient has been a heavy smoker over the years. And he had a previous history of alcoholism. Patient was reevaluated today on 04/03/2017, seems to be doing relatively well, relatively asymptomatic, no cough no wheezing no shortness of breath. Remains on bronchodilators for his underlying COPD. Objective - Vital Signs Vital signs: Vital Signs Temp 97.0 F L 04/03/17 08:00 Pulse 63 04/03/17 08:00 Resp 18 04/03/17 08:00 BP 104/59 04/03/17 08:00 Pulse Ox 96 04/03/17 08:00 Intake & Output 04/02/17 04/03/17 04/03/17 18:59 06:59 18:59 Intake Total 1020 550 Output Total 400 1100 550 Balance 620 -550 -550 Weight 68.5 kg 68.5 kg Intake: Intake, IV Titration 500 Amount Sodium Chloride 0.9% 50 500 ml As IV .STK-MED ONE with ceFAZolin 2,000 mg Rx#:[id number] Oral 520 550 Output: Urine 400 1100 550 Other: Voiding Method Indwelling Catheter Indwelling Catheter Indwelling Catheter # Voids 2 2 2 - Exam Physical Exam: Revealed a 66-year-old white male in no distress. HEENT:[Neck is supple.] [No neck masses.] [No thyromegaly.] [No JVD.] Chest: [Clear throughout, no crackles, no rhonchi, no wheezes.] Cardiac Exam: [Normal S1 and S2, no S3 gallop, no murmur.] Abdomen: [Soft, nontender, no megaly, no rebound, no guarding, normal bowel sounds.] Extremities: [No clubbing, no edema, no cyanosis. Evidence of multiple spider angiomas related to alcoholism throughout his whole body. Neurological Exam: [No focal neurologic deficit.] - Labs CBC & Chem 7: 04/03/17 06:58 03/31/17 12:41 Labs: Abnormal Lab Results - Last 24 Hours (Table) 04/03/17 Range/Units 06:58 RBC 3.10 L (4.30-5.90) m/uL Hgb 10.2 L (13.0-17.5) gm/dL Hct 31.1 L (39.0-53.0) % MCV 100.4 H (80.0-100.0) fL Eosinophils # (Manual) 1.07 H (0-0.7) k/uL Assessment and Plan Plan: Impression: 1 status post open reduction and internal fixation of right hip femoral neck fracture. Postoperative day #2 2 history of underlying COPD, but relatively under control at present. Patient will be placed on DuoNeb updrafts 4 times a day and when necessary. 3 multiple comorbidities including history of coronary artery disease, hepatitis C, remote history of alcoholism and remote history of atrial fibrillation. History of hypertension, and history of hypercholesterolemia. History of osteoarthritis, history of perforated gastric ulcer disease. Recommendation: Continue present treatment plan, consider referral to rehab early next week, will follow on when necessary basis. Time with Patient: Less than 30
--- NOTE | 2017-04-03 13:34 | P.PN ---
Subjective Principal diagnosis: s/p closed reduction percutaneous pinning right hip Patient seen today resting on the 3 surgical floor. He appears comfortable. He has no significant pain involving the right hip. He denies any chest pain or shortness of breath. Objective - Vital Signs Vital signs: Vital Signs Temp 97.0 F L 04/03/17 08:00 Pulse 63 04/03/17 08:00 Resp 18 04/03/17 08:00 BP 104/59 04/03/17 08:00 Pulse Ox 96 04/03/17 08:00 Intake & Output 04/02/17 04/03/17 04/03/17 18:59 06:59 18:59 Intake Total 1020 550 Output Total 400 1100 550 Balance 620 -550 -550 Weight 68.5 kg 68.5 kg Intake: Intake, IV Titration 500 Amount Sodium Chloride 0.9% 50 500 ml As IV .STK-MED ONE with ceFAZolin 2,000 mg Rx#:[id number] Oral 520 550 Output: Urine 400 1100 550 Other: Voiding Method Indwelling Catheter Indwelling Catheter Indwelling Catheter # Voids 2 2 2 - Exam Right lower extremity: Incision is clean, dry and intact.. Calf is soft, no tenderness with palpation. Plantar flexion, dorsiflexion, EHL, FHL are intact. Sensory exam light touch throughout the extremity is intact. Logroll maneuver reproduces minimal pain in the right hip region. Dorsal pedis pulses 2+ - Labs CBC & Chem 7: 04/03/17 06:58 03/31/17 12:41 Labs: Abnormal Lab Results - Last 24 Hours (Table) 04/03/17 Range/Units 06:58 RBC 3.10 L (4.30-5.90) m/uL Hgb 10.2 L (13.0-17.5) gm/dL Hct 31.1 L (39.0-53.0) % MCV 100.4 H (80.0-100.0) fL Eosinophils # (Manual) 1.07 H (0-0.7) k/uL Assessment and Plan Plan: Assessment: 1. Postop day #2 status post closed reduction and percutaneous pinning right hip Plan: 1. Pain control, continue oral medication 2. Nonweightbearing right lower extremity 3. Daily dressing changes 4. Ice and elevate 5. GI and DVT prophylaxis, continue subcu medication 6. Medical and cardiac recommendations 7. Discharge planning: Anticipated discharge to rehab tomorrow Time with Patient: Less than 30
[2017-04-03] MEDS: SENNOSIDES-DOCUSATE SODIUM 1 EACH TAB PO SCH (21:32)
--- NOTE | 2017-04-04 00:40 | P.PN ---
Subjective Principal diagnosis: Status post repair of right hip This is a consultation note on a 66-year-old white male who we've been trying to get a power wheelchair device 4, unfortunately he states with his normal daily activities yesterday he fell resulting in hip fracture. Has normal history and COPD with DJD elements. 04/03/2017 Patient denied any worsening right hip pain. No chest pain no short of breath. No acute overnight issues. Objective - Vital Signs Vital signs: Vital Signs Temp 97.7 F 04/03/17 14:12 Pulse 63 04/03/17 16:00 Resp 17 04/03/17 16:00 BP 104/55 04/03/17 14:12 Pulse Ox 94 L 04/03/17 14:12 Intake & Output 04/03/17 04/03/17 04/04/17 06:59 18:59 06:59 Intake Total 550 1437 Output Total 1100 2400 Balance -550 -963 Weight 68.5 kg Intake: Intake, IV Titration 800 Amount Sodium Chloride 0.9% 50 800 ml As IV .STK-MED ONE with ceFAZolin 2,000 mg Rx#:[id number] Oral 550 637 Output: Urine 1100 2400 Other: Voiding Method Indwelling Catheter Indwelling Catheter # Voids 2 2 - Exam PHYSICAL EXAMINATION: Patient is lying in the bed comfortably, no acute distress, awake alert and oriented.. HEENT: Normocephalic. Neck is supple. Pupils reactive. Nostrils clear. Oral cavity is moist. Ears reveal no drainage. Neck reveals no JVD, carotid bruits, or thyromegaly. CHEST EXAMINATION: Trachea is central. Symmetrical expansion. Lung clark clear to auscultation and percussion. CARDIAC: Normal S1, S2 with no gallops. No murmurs ABDOMEN: Soft. Bowel sounds normal. No organomegaly. No abdominal bruits. Extremities reveal no edema. No clubbing or cyanosis Neurologically awake, alert, oriented x3 with well-coordinated movements. Skin: no rash or skin lesions Musculoskeletal: no joint swelling or deformity. Right hip decreased range of motion due to pain - Labs CBC & Chem 7: 04/03/17 06:58 03/31/17 12:41 Labs: Abnormal Lab Results - Last 24 Hours (Table) 04/03/17 Range/Units 06:58 RBC 3.10 L (4.30-5.90) m/uL Hgb 10.2 L (13.0-17.5) gm/dL Hct 31.1 L (39.0-53.0) % MCV 100.4 H (80.0-100.0) fL Eosinophils # (Manual) 1.07 H (0-0.7) k/uL Assessment and Plan Plan: Postop day #2 status post closed reduction and percutaneous pinning right hip Nicotine addiction Hepatitis C History of perforated gastric ulcer Multiple medical problems including CAD, COPD, GERD/Reflux, Hypertension, Myocardial Infarction ([place]), Osteoarthritis (OA) Plan: Patient will continue her current management and then medications and bowel regimen. Encouraged ambulation and incentive spirometry. Anticipate discharge to rehab in in 1-2 days
[2017-04-04] MEDS: ENOXAPARIN 40 MG/0.4 ML SYRINGE SQ SCH (08:09)
[2017-04-04] MEDS: PRIMIDONE 50 MG TAB PO SCH (08:09)
[2017-04-04] MEDS: PANTOPRAZOLE 40 MG/10 ML VIAL IV SCH (08:09)
[2017-04-04] MEDS: CYCLOBENZAPRINE 10 MG TAB PO SCH (08:09)
[2017-04-04] MEDS: ATENOLOL 50 MG TAB PO SCH (08:09)
--- NOTE | 2017-04-04 08:48 | P.PN ---
Subjective Principal diagnosis: Hip fracture. The patient is postop day #4 for hip fracture. He wishes to go home with home health. No significant chest pain stated at this time. No other voiding difficulty stated. We need to start rehabilitation. I did suggest rehab facility, but he is adamant about going home. Pain is seems to be fairly well- controlled. Objective - Vital Signs Vital signs: Vital Signs Temp 96.9 F L 04/04/17 07:12 Pulse 71 04/04/17 07:12 Resp 14 04/04/17 07:12 BP 116/54 04/04/17 07:12 Pulse Ox 97 04/04/17 07:12 Intake & Output 04/03/17 04/04/17 04/04/17 18:59 06:59 18:59 Intake Total 1437 Output Total 2400 Balance -963 Weight 68.5 kg Intake: Intake, IV Titration 800 Amount Sodium Chloride 0.9% 50 800 ml As IV .STK-MED ONE with ceFAZolin 2,000 mg Rx#:[id number] Oral 637 Output: Urine 2400 Other: Voiding Method Indwelling Catheter Indwelling Catheter # Voids 2 - Constitutional General appearance: Present: thin - Respiratory Respiratory: bilateral: diminished - Cardiovascular Rhythm: regular Heart sounds: normal: S1, S2 - Gastrointestinal General gastrointestinal: Present: soft. Absent: tenderness - Psychiatric Psychiatric: Present: A&O x's 3 - Labs CBC & Chem 7: 04/03/17 06:58 03/31/17 12:41 Assessment and Plan (1) Closed right hip fracture Status: Acute (2) Fall Status: Acute (3) Nicotine dependence Status: Acute Plan: Advance activity per rehab. We'll continue to follow. I anticipate discharge in the next several days.
--- NOTE | 2017-04-04 10:31 | P.PN ---
Subjective Principal diagnosis: s/p closed reduction percutaneous pinning right hip Patient seen today resting on the 3 surgical floor. He appears comfortable. He has no significant pain involving the right hip. He denies any chest pain or shortness of breath. Objective - Vital Signs Vital signs: Vital Signs Temp 96.9 F L 04/04/17 07:12 Pulse 70 04/04/17 08:00 Resp 15 04/04/17 08:00 BP 116/54 04/04/17 07:12 Pulse Ox 97 04/04/17 07:12 Intake & Output 04/03/17 04/04/17 04/04/17 18:59 06:59 18:59 Intake Total 1437 Output Total 2400 Balance -963 Weight 68.5 kg Intake: Intake, IV Titration 800 Amount Sodium Chloride 0.9% 50 800 ml As IV .STK-MED ONE with ceFAZolin 2,000 mg Rx#:[id number] Oral 637 Output: Urine 2400 Other: Voiding Method Indwelling Catheter Indwelling Catheter Indwelling Catheter # Voids 2 - Exam Right lower extremity: Incision is clean, dry and intact.. Calf is soft, no tenderness with palpation. Plantar flexion, dorsiflexion, EHL, FHL are intact. Sensory exam light touch throughout the extremity is intact. Logroll maneuver reproduces minimal pain in the right hip region. Dorsal pedis pulses 2+ - Labs CBC & Chem 7: 04/03/17 06:58 03/31/17 12:41 Assessment and Plan Plan: Assessment: 1. Postop day #3 status post closed reduction and percutaneous pinning right hip Plan: 1. Pain control, continue oral medication 2. Nonweightbearing right lower extremity 3. Daily dressing changes 4. Ice and elevate 5. GI and DVT prophylaxis, continue subcu medication 6. Medical and cardiac recommendations 7. Discharge planning: Anticipate discharge to rehab today Time with Patient: Less than 30
--- NOTE | 2017-04-04 10:39 | P.DS ---
Providers Date of admission: 03/31/17 15:19 Expected date of discharge: 04/04/17 Attending physician: Malcolm James Consults: 03/31/17 15:20 Consult Physician Urgent Consulting Provider: Johnny Ugalde Consult Reason/Comments: medical mgmt Do you want consulting provider notified?: Yes 04/01/17 07:28 Consult Physician Urgent Consulting Provider: Jayson Harmon Consult Reason/Comments: surgical clearance Do you want consulting provider notified?: Yes 04/01/17 16:53 Consult Physician Urgent Consulting Provider: Tino Pierce Consult Reason/Comments: COPD Do you want consulting provider notified?: Yes Primary care physician: Johnny Ugalde Hospital Course: Date of admission: 03/31/2017 Date of discharge: 04/04/2017 Admission diagnosis: Nondisplaced impacted right femoral neck fracture Discharge diagnosis: Status post closed reduction with percutaneous pinning right hip Attending physician: Dr. James Surgical procedures: Closed reduction with percutaneous pinning right hip Brief history: Patient is a 66-year-old male who is seen and evaluated to [facility] on 03/31/2017 with regards to right hip pain. Apparently the patient had fallen a few days before at his house. Since the fall patient has noted increasing pain and inability to weight-bear on that leg. Imaging studies were done at the hospital, they demonstrated a nondisplaced impacted right femoral neck fracture. Patient was admitted under orthopedic care, proper consults were placed for clearance. Patient underwent surgery on 2016. Hospital course: Details of patient's surgery can be found in operative report. Patient tolerated the procedure well and was subsequently transported to orthopedic floor. Patient's orthopeidc and medical care was provided daily. Patient had daily laboratory tests performed for evaluation of overall blood counts. Patient had daily physical therapy to include strengthening range of motion as well as education with walker ambulation. Patient was treated with Lovenox for their postoperative DVT prophylaxis during their inpatient stay. Patient was noted to have a relatively uneventful postoperative course. Patient reported satisfactory pain control with oral pain medications by postoperative day 0. Patient showed satisfactory progress with physical therapy. Patient moved steadily through the program and had no difficulty meeting the goals by postoperative day 3. Given patient's otherwise satisfactory course and having met physical therapy goals, plan is to discharge patient rehab on postoperative day 3. Discharge condition/disposition: Patient will be discharged to rehab in stable condition. Discharge medications: Instructions are given on resumption of patient's normal daily medications per primary care recommendation, in addition patient will be prescribed [place] 5 mg/325 mg, Colace 100 mg, Lovenox 40 mg. Discharge instructions: 1. Wound care and infection precautions, keep incision dry and covered while showering, no lotions, creams, moisturizers. No soaking, tubs, pools, hottubs. Do not scrub over the incision. 2. Nonweightbearing right lower extremity 3. Ice and elevate when necessary. Do not exceed 20 minutes per hour with ice pack. 4. Utilize compression sleeve until seen at first follow up appointment. 5. Visiting nursing care. 6. Home physical therapy. 7. Pain meds and anticoagulants per prescription. 8. Pain medication has potential to cause constipation. Increase oral fluid and fiber intake. Contact primary care provider if you have not had a bowel movement within 48 hours after discharge 9. No anti-inflammatory medication until discussed at first post operative visit, this including Motrin, Aleve, Mobic, Diclofenac. 10. Follow up in office at 2 weeks postop with Pato Montoya PA-C 11. Follow up with your primary care doctor 7-10 days after discharge. 12. Contact [facility] with any questions, . Procedures: Closed reduction and percutaneous pinning of right femoral neck fracture Patient Condition at Discharge: Fair Plan - Discharge Summary New Discharge Prescriptions: New Docusate [Colace] 100 mg PO DAILY #30 capsule Enoxaparin [Lovenox] 40 mg SQ DAILY #30 syringe Hydrocodone/Acetaminophen [[place] 5-325] 1 - 2 each PO Q6HR PRN #60 tab PRN Reason: Pain No Action Atenolol [Tenormin] 50 mg PO BID Omeprazole [PriLOSEC] 20 mg PO BID Cyclobenzaprine HCl [Cyclobenzaprine HCl] 10 mg PO TID Primidone [Mysoline] 50 mg PO TID Discharge Medication List Atenolol [Tenormin] 50 mg PO BID 09/21/15 [History] Cyclobenzaprine HCl [Cyclobenzaprine HCl] 10 mg PO TID 03/31/17 [History] Omeprazole [PriLOSEC] 20 mg PO BID 03/31/17 [History] Primidone [Mysoline] 50 mg PO TID 03/31/17 [History] Docusate [Colace] 100 mg PO DAILY #30 capsule 04/04/17 [Rx] Enoxaparin [Lovenox] 40 mg SQ DAILY #30 syringe 04/04/17 [Rx] Hydrocodone/Acetaminophen [[place] 5-325] 1 - 2 each PO Q6HR PRN #60 tab 04/04/17 [Rx] Follow up Appointment(s)/Referral(s): Johnny Ugalde MD [Primary Care Provider] - 1-2 days [facility], [NON-STAFF] - Shiraz Montoya PAC [PHYSICIAN FRAME HAND] - 2 Weeks Activity/Diet/Wound Care/Special Instructions: Wheelchair through [facility] [phone]. Orthopedic Discharge Instructions: 1. Wound care and infection precautions, keep incision dry and covered while showering, no lotions, creams, moisturizers. No soaking, pools, hot tubs. Do not scrub over incision. 2. Nonweightbearing right lower extremity 3. Ice and elevate when necessary. Do not exceed 20 minutes per hour with ice pack. 4. Utilize compression sleeve until seen at first follow up appointment. 5. Visiting nursing care. 6. Home physical therapy. 7. Pain meds and anticoagulants per prescription. 8. Pain medication has potential to cause constipation. Increase oral fluid and fiber intake. Contact primary care provider if you have not had a bowel movement within 48 hours after discharge. 9. No anti-inflammatory medication until discussed at first post operative visit, this including Motrin, Aleve, Mobic, Diclofenac. 10. Follow up in office at 2 weeks postop with Pato Montoya PA-C 11. Follow up with your primary care doctor 7-10 days after discharge. 12. Contact [facility] with any questions, . Discharge Disposition: TRANSFER TO SNF/ECF
[2017-04-04] MEDS: HYDROcodone/APAP 5-325MG 1 EACH TAB PO PRN (11:28)
[2017-04-04] MEDS: MULTIVITAMINS, THERA 1 EACH TAB PO SCH (11:29)
--- NOTE | 2017-04-04 13:13 | P.PN ---
Subjective Progress note dated 04/04/2017 This a 66-year-old white male with a history of underlying COPD CAD myocardial infarction hypertension gastric ulcer disease hepatitis C. The patient was admitted on March 31 with a right hip fracture secondary to a fall at home. The patient was seen by cardiology and cleared for surgery. On April 01 he underwent an open reduction internal fixation of the right hip femoral neck fracture. The patient was admitted to a monitored bed on and seen by my partner. The patient is doing relatively well. No pulmonary complaints. No shortness of breath or cough no wheezing. Doesn't receive underlying COPD although the severity of his COPD is not well-known. Dr. Weeks start him on bronchodilators. Objective - Vital Signs Vital signs: Vital Signs Temp 96.9 F L 04/04/17 07:12 Pulse 70 04/04/17 08:00 Resp 15 04/04/17 08:00 BP 116/54 04/04/17 07:12 Pulse Ox 97 04/04/17 07:12 Intake & Output 04/03/17 04/04/17 04/04/17 18:59 06:59 18:59 Intake Total 1437 Output Total 2400 Balance -963 Weight 68.5 kg Intake: Intake, IV Titration 800 Amount Sodium Chloride 0.9% 50 800 ml As IV .STK-MED ONE with ceFAZolin 2,000 mg Rx#:[id number] Oral 637 Output: Urine 2400 Other: Voiding Method Indwelling Catheter Indwelling Catheter Indwelling Catheter # Voids 2 # Bowel Movements 0 - Exam No acute distress, oriented 3. Was talking on the phone. H EENT examination is grossly unremarkable. Mixed membranes are moist. Neck Supple. Full range of motion. No adenopathy or thyromegaly. Cardiovascular examination reveals regular rhythm rate. S1-S2 normal. No S3- S4 or murmur. Lungs reveal clear but diminished breath sounds. No wheezes or rhonchi. No crackles. Abdomen soft bowel sounds are heard. Extremities are intact. No cyanosis clubbing or edema. Skin without rash. Neurologic examination is nonfocal. - Labs CBC & Chem 7: 04/03/17 06:58 03/31/17 12:41 Assessment and Plan (1) Hepatitis C Status: Acute (2) CAD (coronary artery disease) Status: Acute (3) Atrial fibrillation Status: Acute (4) Hypertension Status: Acute (5) Closed right hip fracture Status: Acute (6) Nicotine dependence Status: Acute Plan: Plan dated 04/04/2017 The patient's doing well. We'll continue treatment with bronchodilators. Rehab soon. Pulmonary status is stable. We'll continue to follow as needed. Time with Patient: Less than 30
[2017-04-04 14:37] VITALS: BP 97/58; PULSE 66; RESP 18; TEMP 98.9
== END 2017-04-04 15:44 | DRG 481 ==
LOC: EC 11:46 → 3SUR 15:19 → 6SEL 04-01 17:02 → 3SUR 04-02 11:24 → 6SEL 04-02 11:42 → 3SUR 04-02 12:40
PROVIDERS: ADMIT Orthopaedic Surgery; ATTEND Orthopaedic Surgery
PROC: 0QH634Z Insertion of Internal Fixation Device into Right Upper Femur, Percutaneous Approach (ICD-10-PCS; principal; 2017-04-01 07:30)
DX: S72.001A Fracture of unspecified part of neck of right femur, initial encounter for closed fracture (principal); R18.8 Other ascites; D62 Acute posthemorrhagic anemia; J44.9 Chronic obstructive pulmonary disease, unspecified; I10 Essential (primary) hypertension; B19.20 Unspecified viral hepatitis C without hepatic coma; S83.91XA Sprain of unspecified site of right knee, initial encounter; E78.00 Pure hypercholesterolemia, unspecified; F10.21 Alcohol dependence, in remission; I25.10 Atherosclerotic heart disease of native coronary artery without angina pectoris; I25.2 Old myocardial infarction; K21.9 Gastro-esophageal reflux disease without esophagitis; M19.90 Unspecified osteoarthritis, unspecified site; K64.9 Unspecified hemorrhoids; M51.36 Other intervertebral disc degeneration, lumbar region; R01.1 Cardiac murmur, unspecified; F17.200 Nicotine dependence, unspecified, uncomplicated; S80.862A Insect bite (nonvenomous), left lower leg, initial encounter; S80.861A Insect bite (nonvenomous), right lower leg, initial encounter; S20.369A Insect bite (nonvenomous) of unspecified front wall of thorax, initial encounter; S40.862A Insect bite (nonvenomous) of left upper arm, initial encounter; S40.861A Insect bite (nonvenomous) of right upper arm, initial encounter; Z79.899 Other long term (current) drug therapy; Z88.0 Allergy status to penicillin; Z88.8 Allergy status to other drugs, medicaments and biological substances; Z82.49 Family history of ischemic heart disease and other diseases of the circulatory system; W01.0XXA Fall on same level from slipping, tripping and stumbling without subsequent striking against object, initial encounter; Y92.009 Unspecified place in unspecified non-institutional (private) residence as the place of occurrence of the external cause
CPT/HCPCS: 36415; 71020; 73502; 80053; 85025; 85610; 85730; 93005; 93306; 96374; 96375; 99285

== ENCOUNTER 2017-04-15 10:51 | Inpatient (IN) | payer MEDICARE, OTHER ==
[2017-04-15 11:55] LABS: Appearance,Urine Clear (Clear); Bilirubin,Urine Negative (Negative); Glucose,Urine (UA) Negative (Negative); Ketones,Urine Negative (Negative); Leukocyte Esterase,Urine Trace (Negative); Nitrite,Urine Negative (Negative); Particle Count 2873; Protein,Urine Negative (Negative); RBC,Urine 7 /hpf (0-5); Specific Gravity,Urine 1.012 (1.001-1.035); UA Billing (MACRO vs. MICRO) MICRO; Urobilinogen,Urine <2.0 mg/dL (<2.0); WBC,Urine 13 /hpf (0-5)
[2017-04-15 12:02] LABS: CH 32.1; CHCM 32.8; HCT 32.3 % (39.0-53.0); HDW 2.57; HGB 10.8 gm/dL (13.0-17.5); MCH 32.9 pg (25.0-35.0); MCHC 33.4 g/dL (31.0-37.0); MCV 98.5 fL (80.0-100.0); Macrocytosis Slight; Mean Platelet Volume 8.7; RBC 3.28 m/uL (4.30-5.90); WBC 10.6 k/uL (3.8-10.6)
[2017-04-15 12:13] LABS: Calcium 8.1 mg/dL (8.4-10.2); Potassium 5.7 mmol/L (3.5-5.1); Total Bilirubin 1.7 mg/dL (0.2-1.3); Total Protein 6.6 g/dL (6.3-8.2)
[2017-04-15] MEDS ORDERED: SODIUM POLYSTYRENE SULFONATE 15 GM/60 ML BOTTLE PO STA (12:44)
--- NOTE | 2017-04-15 12:49 | ED ---
Male Urogenital HPI - General Chief complaint: Urogenital Stated complaint: Urinary Retention Time Seen by Provider: 04/15/17 11:15 Source: patient, EMS Mode of arrival: EMS Limitations: no limitations - History of Present Illness Initial comments: 67 years old male resident of a large [facility]ci sent and is warning for urinary retention 24 hours on arrival scan his bladder showed more than 1 L, Martin was inserted and drained more than 1 L. He is legally blind, denies any headaches no neck stiffness no chest pain or shortness of breath no abdominal pain no frequency urgency dysuria - Related Data Home Medications Medication Instructions Recorded Confirmed Atenolol [Tenormin] 50 mg PO BID 09/21/15 04/15/17 Cyclobenzaprine HCl 10 mg PO TID 03/31/17 04/15/17 [Cyclobenzaprine HCl] Omeprazole [PriLOSEC] 20 mg PO BID 03/31/17 04/15/17 Primidone [Mysoline] 50 mg PO TID 03/31/17 04/15/17 Hydrocodone/Acetaminophen [[place] 1 - 2 tab PO Q6HR PRN 04/15/17 04/15/17 5-325] Previous Rx's Medication Instructions Recorded Docusate [Colace] 100 mg PO DAILY #30 capsule 04/04/17 Enoxaparin [Lovenox] 40 mg SQ DAILY #30 syringe 04/04/17 Allergies Allergy/AdvReac Type Severity Reaction Status Date / Time Penicillins Allergy Rash/Hives Verified 04/15/17 11:40 peginterferon peg-2a AdvReac Unknown Verified 04/15/17 11:40 [From Pegasys] Review of Systems ROS Statement: Those systems with pertinent positive or pertinent negative responses have been documented in the HPI. ROS Other: All systems not noted in ROS Statement are negative. Past Medical History Past Medical History: Coronary Artery Disease (CAD), COPD, GERD/Reflux, Hypertension, Myocardial Infarction ([place]), Osteoarthritis (OA) Additional Past Medical History / Comment(s): perforatic gastric ulcer 2015(had sx), ddd lumbar, hemorrhoids, per past medical hx from 2008 hep c. Last Myocardial Infarction Date:: 2007 History of Any Multi-Drug Resistant Organisms: None Reported Additional Past Surgical History / Comment(s): vasectomy, cataracts,per pmh from 2009 liver bx 2007- found hep c. antrectomy w/gastroenterostomy 2016 Past Anesthesia/Blood Transfusion Reactions: No Reported Reaction Past Psychological History: No Psychological Hx Reported Smoking Status: Current every day smoker - Past Family History Mother History Unknown: Yes Family Medical History: Cancer, Diabetes Mellitus, Hypertension Father History Unknown: Yes Family Medical History: Liver Disease, Seizure Disorder Additional Family Medical History / Comment(s): alcoholic Brother(s) History Unknown: Yes Family Medical History: Liver Disease Additional Family Medical History / Comment(s): aneurysm General Exam - General Exam Comments Initial Comments: General: The patient is awake and alert, in no distress, and does not appear acutely ill. Skin: Skin is warm and dry and no rashes or lesions are noted. Eye: Patient is legally blind, he is not keeping his eyes open for the Ears, nose, mouth and throat: Exam is normal Neck: The neck is supple, there is no tenderness or JVD. Cardiovascular: There is a regular rate and rhythm. No murmur, rub or gallop is appreciated. Respiratory: To auscultation bilateral, no wheezing no rhonchi no distress respiratory guido noticed Gastrointestinal: Soft, non-distended, non-tender abdomen without masses or organomegaly noted. There is no rebound or guarding present. Bowel sounds are unremarkable. Back: There is no tenderness to palpation in the midline. There is no obvious deformity. Musculoskeletal: Normal ROM, no tenderness, There is no pedal edema. There is no calf tenderness or swelling. No cords were appreciated. Neurological: CN II-XII intact, Cranial nerves III through XII are intact. There are no obvious motor or sensory deficits. Coordination appears grossly intact. Speech is normal. Psychiatric: Cooperative, appropriate mood & affect, normal judgment. Limitations: no limitations Course Vital Signs 04/15/17 04/15/17 11:02 11:55 Temperature 97.1 F L Pulse Rate 63 61 Respiratory 18 18 Rate Blood Pressure 103/55 102/68 O2 Sat by Pulse 96 96 Oximetry Medical Decision Making - Lab Data Result diagrams: 04/15/17 11:53 04/15/17 11:53 Lab Results 04/15/17 04/15/17 04/15/17 Range/Units 11:30 11:53 11:53 WBC 10.6 (3.8-10.6) k/uL RBC 3.28 L (4.30-5.90) m/uL Hgb 10.8 L (13.0-17.5) gm/dL Hct 32.3 L (39.0-53.0) % MCV 98.5 (80.0-100.0) fL MCH 32.9 (25.0-35.0) pg MCHC 33.4 (31.0-37.0) g/dL RDW 15.0 (11.5-15.5) % Plt Count 317 (150-450) k/uL Macrocytosis Slight Sodium 139 (137-145) mmol/L Potassium 5.7 H (3.5-5.1) mmol/L Chloride 106 (98-107) mmol/L Carbon Dioxide 16 L (22-30) mmol/L Anion Gap 17 mmol/L BUN 130 H* (9-20) mg/dL Creatinine 12.19 H* (0.66-1.25) mg/dL Est GFR (MDRD) Af Amer 5 (>60 ml/min/1.73 sqM) Est GFR (MDRD) Non-Af 4 (>60 ml/min/1.73 sqM) Glucose 102 H (74-99) mg/dL Calcium 8.1 L (8.4-10.2) mg/dL Total Bilirubin 1.7 H (0.2-1.3) mg/dL AST 55 (17-59) U/L ALT 75 H (21-72) U/L Alkaline Phosphatase 87 (38-126) U/L Total Protein 6.6 (6.3-8.2) g/dL Albumin 2.6 L (3.5-5.0) g/dL Urine Color Dark Brown Urine Appearance Clear (Clear) Urine pH 5.0 (5.0-8.0) Ur Specific [place] 1.012 (1.001-1.035) Urine Protein Negative (Negative) Urine Glucose (UA) Negative (Negative) Urine Ketones Negative (Negative) Urine Blood Moderate H (Negative) Urine Nitrite Negative (Negative) Urine Bilirubin Negative (Negative) Urine Urobilinogen <2.0 (<2.0) mg/dL Ur Leukocyte Esterase Trace H (Negative) Urine RBC 7 H (0-5) /hpf Urine WBC 13 H (0-5) /hpf Disposition Clinical Impression: Acute renal failure, Urinary retention, Hyperkalemia, Metabolic acidosis Disposition: ADMITTED IP TO THIS HOSP Referrals: Ana Cristina Lorenz MD [Primary Care Provider] - 1-2 days
[2017-04-15] MEDS ORDERED: NALOXONE 0.4 MG/ML 1 ML VIAL IV PRN (12:57)
[2017-04-15] MEDS ORDERED: ONDANSETRON 4 MG/2 ML VIAL IVP PRN (12:57)
[2017-04-15] MEDS: SODIUM CHLORIDE 0.9% 1,000 ML IV SCH ×2 (13:33→23:23)
[2017-04-15] MEDS: CYCLOBENZAPRINE 10 MG TAB PO SCH ×2 (14:53→21:37)
[2017-04-15] MEDS: PRIMIDONE 50 MG TAB PO SCH ×2 (15:54→21:37)
[2017-04-15] MEDS: HYDROcodone/APAP 5-325MG 1 EACH TAB PO PRN (20:10)
[2017-04-15] MEDS: ATENOLOL 50 MG TAB PO SCH (20:11)
[2017-04-16] MEDS: HYDROcodone/APAP 5-325MG 1 EACH TAB PO PRN (06:34)
[2017-04-16 08:12] LABS: Basophils % (A) 0 %; CH 31.8; CHCM 32.2; Eosinophils # (A) 0.4 k/uL (0-0.7); Eosinophils % (A) 5 %; HCT 30.9 % (39.0-53.0); HDW 2.68; HGB 10.3 gm/dL (13.0-17.5); Luc # (Auto) 0.31; Luc % (Auto) 4; Lymphocytes # (A) 1.3 k/uL (1.0-4.8); Lymphocytes % (A) 17 %; MCH 33.1 pg (25.0-35.0); MCHC 33.2 g/dL (31.0-37.0); MCV 99.5 fL (80.0-100.0); Macrocytosis Slight; Mean Platelet Volume 8.6; Monocytes # (A) 0.6 k/uL (0-1.0); Monocytes % (A) 8 %; Neutrophils # (A) 5.1 k/uL (1.3-7.7); Neutrophils % (A) 66 %; RDW 15.5 % (11.5-15.5); WBC 7.7 k/uL (3.8-10.6); WBC (Perox) 7.32
[2017-04-16 08:18] LABS: Calcium 7.8 mg/dL (8.4-10.2); Potassium 3.9 mmol/L (3.5-5.1); Total Bilirubin 1.3 mg/dL (0.2-1.3)
[2017-04-16] MEDS: CYCLOBENZAPRINE 10 MG TAB PO SCH ×3 (08:22→21:27)
[2017-04-16] MEDS: DOCUSATE 100 MG CAP PO SCH (08:22)
[2017-04-16] MEDS: PANTOPRAZOLE 40 MG TABLET PO SCH (08:22)
[2017-04-16] MEDS: ATENOLOL 50 MG TAB PO SCH ×2 (08:22→21:27)
[2017-04-16] MEDS: SODIUM CHLORIDE 0.9% 1,000 ML IV SCH ×2 (08:23→21:27)
[2017-04-16] MEDS: PRIMIDONE 50 MG TAB PO SCH ×3 (08:23→21:27)
[2017-04-16 08:38] LABS: Polychromasia Present
[2017-04-16] MEDS ORDERED: ENOXAPARIN 40 MG/0.4 ML SYRINGE SQ SCH (09:00)
[2017-04-16] MEDS ORDERED: Potassium Replacement Protocol 1 EACH MISC MISCELLANE PRN (11:26)
[2017-04-16] MEDS ORDERED: Magnesium Replacement Protocol 1 EACH MISC MISCELLANE PRN (11:26)
--- NOTE | 2017-04-16 11:35 | P.HPIM ---
History of Present Illness H&P Date: 04/16/17 Chief Complaint: Confusion This is a 67-year-old gentleman with very complex past medical history who presented to the emergency room from a local group home with worsening confusion and altered mental status. Patient was having difficulty urinating for the past few days and upon arrival to the emergency room was found to be in significant kidney failure with creatinine up to 12. He was also noted to have approximately a liter of urine retained status post Martin catheter insertion. Patient was admitted to the hospital for further evaluation. His creatinine has improved significantly since admission. He was awake and alert today. He appeared slow and confused. He was able to answer simple questions only. He is oriented to himself and to the place. He was noted to have significant lower extremity edema and a distended abdomen. He is known to have history of liver cirrhosis. Review of Systems Review of system: 14 points review of systems were obtained and were negative except to what were mentioned in the HPI. Past Medical History Past Medical History: Coronary Artery Disease (CAD), COPD, GERD/Reflux, Hypertension, Liver Disease, Myocardial Infarction ([place]), Osteoarthritis (OA) Additional Past Medical History / Comment(s): 03/31/17 R hip fracture with surgery (still has nori), perforatic gastric ulcer 2016(had sx), ddd lumbar, hemorrhoids, hep c, legally blind, past alcoholism. Last Myocardial Infarction Date:: 2007 History of Any Multi-Drug Resistant Organisms: None Reported Past Surgical History: Orthopedic Surgery Additional Past Surgical History / Comment(s): 04/01/17 closed reduction percutaneous pinning R hip, vasectomy, cataracts, liver bx 2006, antrectomy w/ gastroenterostomy 2015 Past Anesthesia/Blood Transfusion Reactions: No Reported Reaction Smoking Status: Current every day smoker - Past Family History Mother History Unknown: Yes Family Medical History: Cancer, Diabetes Mellitus, Hypertension Father History Unknown: Yes Family Medical History: Liver Disease, Seizure Disorder Additional Family Medical History / Comment(s): alcoholic Brother(s) History Unknown: Yes Family Medical History: Liver Disease Additional Family Medical History / Comment(s): aneurysm Medications and Allergies Home Medications Medication Instructions Recorded Confirmed Type Atenolol [Tenormin] 50 mg PO BID 09/21/15 04/15/17 History Cyclobenzaprine HCl 10 mg PO TID 03/31/17 04/15/17 History [Cyclobenzaprine HCl] Omeprazole [PriLOSEC] 20 mg PO BID 03/31/17 04/15/17 History Primidone [Mysoline] 50 mg PO TID 03/31/17 04/15/17 History Docusate [Colace] 100 mg PO DAILY #30 capsule 04/04/17 04/15/17 Rx Enoxaparin [Lovenox] 40 mg SQ DAILY #30 syringe 04/04/17 04/15/17 Rx Hydrocodone/Acetaminophen [[place] 1 - 2 tab PO Q6HR PRN 04/15/17 04/15/17 History 5-325] Allergies Allergy/AdvReac Type Severity Reaction Status Date / Time Penicillins Allergy Rash/Hives Verified 04/15/17 11:40 peginterferon peg-2a AdvReac Unknown Verified 04/15/17 11:40 [From Pegasys] Physical Exam Vitals: Vital Signs Temp Pulse Pulse Pulse Resp BP BP 04/16/17 07:00 97.4 F L 70 18 119/69 04/16/17 00:00 18 04/15/17 23:00 97.8 F 65 18 109/53 04/15/17 21:07 106/68 04/15/17 20:01 68 16 120/62 04/15/17 17:11 76 16 04/15/17 15:00 96.4 F L 63 19 94/51 04/15/17 14:57 18 04/15/17 14:06 97.8 F 68 20 116/68 04/15/17 11:55 61 18 102/68 Pulse Ox 04/16/17 07:00 96 04/16/17 00:00 04/15/17 23:00 97 04/15/17 21:07 04/15/17 20:01 04/15/17 17:11 04/15/17 15:00 97 04/15/17 14:57 04/15/17 14:06 95 04/15/17 11:55 96 Intake and Output 04/15/17 04/16/17 04/16/17 22:59 06:59 14:59 Output Total 2500 500 Balance -2500 -500 Output: Urine 2500 500 Other: Voiding Method Indwelling Catheter Indwelling Catheter Indwelling Catheter Weight 69.5 kg 74 kg General: The patient is awake and alert, in no distress. He appeared confused and slow. Eye: there is normal conjunctiva bilaterally. Neck: The neck is supple, there is no JVD. Cardiovascular: Normal S1-S2, no S3-S4, no murmurs. Respiratory: Lungs clear to auscultation bilaterally Gastrointestinal: Abdomen is distended but nontender Musculoskeletal: There is +1-2 pedal edema. Neurological:. There is no obvious neurological deficit Skin: Skin is warm and dry Results CBC & Chem 7: 04/16/17 07:30 04/16/17 07:30 Labs: Abnormal Lab Results - Last 24 Hours (Table) 04/15/17 04/15/17 04/15/17 Range/Units 11:30 11:53 11:53 RBC 3.28 L (4.30-5.90) m/uL Hgb 10.8 L (13.0-17.5) gm/dL Hct 32.3 L (39.0-53.0) % Potassium 5.7 H (3.5-5.1) mmol/L Chloride (98-107) mmol/L Carbon Dioxide 16 L (22-30) mmol/L BUN 130 H* (9-20) mg/dL Creatinine 12.19 H* (0.66-1.25) mg/dL Glucose 102 H (74-99) mg/dL Calcium 8.1 L (8.4-10.2) mg/dL Total Bilirubin 1.7 H (0.2-1.3) mg/dL ALT 75 H (21-72) U/L Total Protein (6.3-8.2) g/dL Albumin 2.6 L (3.5-5.0) g/dL Urine Blood Moderate H (Negative) Ur Leukocyte Esterase Trace H (Negative) Urine RBC 7 H (0-5) /hpf Urine WBC 13 H (0-5) /hpf 04/16/17 04/16/17 Range/Units 07:30 07:30 RBC 3.10 L (4.30-5.90) m/uL Hgb 10.3 L (13.0-17.5) gm/dL Hct 30.9 L (39.0-53.0) % Potassium (3.5-5.1) mmol/L Chloride 116 H (98-107) mmol/L Carbon Dioxide 20 L (22-30) mmol/L BUN 73 H (9-20) mg/dL Creatinine 2.77 H (0.66-1.25) mg/dL Glucose (74-99) mg/dL Calcium 7.8 L (8.4-10.2) mg/dL Total Bilirubin (0.2-1.3) mg/dL ALT (21-72) U/L Total Protein 6.0 L (6.3-8.2) g/dL Albumin 2.3 L (3.5-5.0) g/dL Urine Blood (Negative) Ur Leukocyte Esterase (Negative) Urine RBC (0-5) /hpf Urine WBC (0-5) /hpf Thrombosis Risk Factor Assmnt - Choose All That Apply Any of the Below Risk Factors Present?: Yes Each Factor Represents 1 point: Abnormal pulmonary function (COPD) Other Risk Factors: Yes Each Risk Factor Represents 2 Points: Age 61-74 years Other congenital or acquired thrombophilia - If yes, enter type in comment: No Each Risk Factor Represents 5 Points: Hip, pelvis, or leg fracture (< 1 month) Thrombosis Risk Factor Assessment Total Risk Factor Score: 8 Thrombosis Risk Factor Assessment Level: High Risk Assessment and Plan Plan: 1. Acute kidney failure 2. Obstructive uropathy 3. Altered mental status 4. Toxo metabolic encephalopathy attributed to #1 and 2 5. Suspected hepatic encephalopathy 6. History of alcoholic cirrhosis 7. History of perforated antral ulcer status post enterectomy in September 2015 8. Recent right hip fracture status post ORIF 9. Essential hypertension: Blood pressure well controlled 10. Underlying COPD with no evidence of exacerbation Today, I reviewed his medication list and lab work results. I would obtain an ammonia level. Start lactulose 3 times a day scheduled. Obtain computed tomography scan of the abdomen with oral contrast for further evaluation of abdominal distention and to rule out large ascites. Continue IV fluid hydration and monitor for fluid overload. Kidney function is improving. Nephrology consulted appreciate recommendations. Repeat lab work in the morning.
--- NOTE | 2017-04-16 12:00 | P.NPCON ---
History of Present Illness - Reason for Consult Consult date: 04/16/17 acute renal failure - Chief Complaint Acute kidney injury, hyperkalemia - History of Present Illness This is a 67-year-old male who is unable to give me any history. He seems to be somewhat confused. He was recently admitted with a fall and had ORIF done 04/01/2017. He was discharged on 04/04/2017 and went to a long term. He was brought back to the hospital because of confusion. On admission his creatinine was 12 he had urinary retention and a Martin catheter has been inserted and is improving with creatinine coming down. He still unable to answer any question he opens eyes seems to have difficulty focusing and not following any commands She is known with coronary artery disease COPD hypertension liver disease history of [place] and previous perforated peptic ulcer. Past Medical History Past Medical History: Coronary Artery Disease (CAD), COPD, GERD/Reflux, Hypertension, Liver Disease, Myocardial Infarction ([place]), Osteoarthritis (OA) Additional Past Medical History / Comment(s): 03/31/17 R hip fracture with surgery (still has nori), perforatic gastric ulcer 2016(had sx), ddd lumbar, hemorrhoids, hep c, legally blind, past alcoholism. Last Myocardial Infarction Date:: 2007 History of Any Multi-Drug Resistant Organisms: None Reported Past Surgical History: Orthopedic Surgery Additional Past Surgical History / Comment(s): 04/01/17 closed reduction percutaneous pinning R hip, vasectomy, cataracts, liver bx 2006, antrectomy w/ gastroenterostomy 2016 Past Anesthesia/Blood Transfusion Reactions: No Reported Reaction Smoking Status: Current every day smoker - Past Family History Mother History Unknown: Yes Family Medical History: Cancer, Diabetes Mellitus, Hypertension Father History Unknown: Yes Family Medical History: Liver Disease, Seizure Disorder Additional Family Medical History / Comment(s): alcoholic Brother(s) History Unknown: Yes Family Medical History: Liver Disease Additional Family Medical History / Comment(s): aneurysm Medications and Allergies Home Medications Medication Instructions Recorded Confirmed Type Atenolol [Tenormin] 50 mg PO BID 09/21/15 04/15/17 History Cyclobenzaprine HCl 10 mg PO TID 03/31/17 04/15/17 History [Cyclobenzaprine HCl] Omeprazole [PriLOSEC] 20 mg PO BID 03/31/17 04/15/17 History Primidone [Mysoline] 50 mg PO TID 03/31/17 04/15/17 History Docusate [Colace] 100 mg PO DAILY #30 capsule 04/04/17 04/15/17 Rx Enoxaparin [Lovenox] 40 mg SQ DAILY #30 syringe 04/04/17 04/15/17 Rx Hydrocodone/Acetaminophen [Roma 1 - 2 tab PO Q6HR PRN 04/15/17 04/15/17 History 5-325] Allergies Allergy/AdvReac Type Severity Reaction Status Date / Time Penicillins Allergy Rash/Hives Verified 04/15/17 11:40 peginterferon peg-2a AdvReac Unknown Verified 04/15/17 11:40 [From Pegasys] Physical Exam Vitals: Vital Signs Temp Pulse Pulse Pulse Resp BP BP 04/16/17 07:00 97.4 F L 70 18 119/69 04/16/17 00:00 18 04/15/17 23:00 97.8 F 65 18 109/53 04/15/17 21:07 106/68 04/15/17 20:01 68 16 120/62 04/15/17 17:11 76 16 04/15/17 15:00 96.4 F L 63 19 94/51 04/15/17 14:57 18 04/15/17 14:06 97.8 F 68 20 116/68 04/15/17 11:55 61 18 102/68 Pulse Ox 04/16/17 07:00 96 04/16/17 00:00 04/15/17 23:00 97 04/15/17 21:07 04/15/17 20:01 04/15/17 17:11 04/15/17 15:00 97 04/15/17 14:57 04/15/17 14:06 95 04/15/17 11:55 96 Intake and Output 04/15/17 04/16/17 04/16/17 22:59 06:59 14:59 Output Total 2500 500 Balance -2500 -500 Output: Urine 2500 500 Other: Voiding Method Indwelling Catheter Indwelling Catheter Indwelling Catheter Weight 69.5 kg 74 kg Currently on exam arousable and opens eyes and mumbles some response but is unintelligible. A chin exam no JVP neck is supple no facial asymmetry. Difficult to examine his eyes might have some problem with his left eye. No carotid bruit. Lungs are clear but poor air entry bilaterally because of poor inspiratory effort. Heart sounds are unremarkable for any murmur rub gallop Abdomen soft nontender nondistended no masses felt Extremity exam was mild edema Neurologically as mentioned above. He seems to move all his legs Results - Lab Results Most recent lab results Calcium 7.8 mg/dL (8.4-10.2) L 04/16/17 07:30 04/16/17 07:30 04/16/17 07:30 Assessment and Plan Plan: Impression. 1. Urinary retention with acute kidney injury secondary to outlet obstruction, creatinine was normal a month ago, 0.58 on 09/26/2015, and was 1 dated 2016. His ago, and now came in with creatinine of 12 and is improved to creatinine of 2.7 this morning. 2. Mild hyperkalemia potassium was 5.7 secondary to obstructive nephropathy. Improved to 3.9. 3. Moderate amount of gap and non-gap acidosis, bicarb was 16 and anion gap was 17. Etiology was acute kidney injury resolving, bicarb is up to 20 and gap is down to 8. 4. Confusion, might be explained by the acute kidney injury but other causes should be looked at, including sepsis, CT brain scan. 5. History of ASHD, 6. past history of hep C 7. COPD, Recommendation. 1. Maintain IV fluids normal saline 100 mL an hour. We will watch his bicarb seems to have significantly improved 2. Workup for other causes of confusion and encephalopathy including rule out sepsis and obtain a CT brain scan if one has not been ordered. 3. Monitor labs closely. 4. Avoid any nephrotoxic medication. Thank you for this consultation
[2017-04-16] MEDS: LACTULOSE 20 GM/30 ML CUP PO SCH ×3 (12:35→21:27)
[2017-04-16] MEDS: IOHEXOL 350 MG/ML 25 ML BOTTLE (ORAL USE) PO PRN ×2 (12:35→13:34)
[2017-04-16] MEDS ORDERED: ENOXAPARIN 30 MG/0.3 ML SYRINGE SQ SCH (13:40)
--- NOTE | 2017-04-16 14:43 | CT ---
EXAMINATION TYPE: CT abdomen pelvis wo con DATE OF EXAM: 04/16/2017 HISTORY: Patient poor historian. Abdominal distension. Evaluate for ascites. CT DLP: 439.7 mGycm. Automated Exposure Control for Dose Reduction was Utilized. TECHNIQUE: CT scan of the abdomen and pelvis is performed with oral but without IV contrast. COMPARISON: CT abdomen and pelvis September 21, 2015 FINDINGS: Within the limitations of a non-contrast study, the following observations are made. LUNG BASES: There are new small to tiny right greater than left pleural effusions and associated comp ressive atelectasis. LIVER/GB: There are new suspicious vague hypodense lesions scattered throughout the liver, for refere nce a 2.5 cm lesion left hepatic lobe medial segment near interlobar fissure as seen on axial image 1 7. Liver is somewhat small in size with lobulated peripheral nodular contour raising concern for unde rlying cirrhosis. PANCREAS: No significant abnormality is seen. SPLEEN: No significant abnormality is seen. ADRENALS: New oval 4.2 cm hyperdense lesion left adrenal gland Hounsfield units averaging 41 raises c oncern for mass versus hematoma KIDNEYS: Martin catheter is seen within decompressed bladder. Central vascular calcifications in both kidneys are redemonstrated. BOWEL: Oral contrast reaches level of redundant sigmoid colon. There are several ingested pills noted in the left and sigmoid colon. There is no suspicious small or large bowel dilatation. GENITAL ORGANS: No gross abnormality seen. LYMPH NODES: No greater than 1cm abdominal or pelvic lymph nodes are appreciated. OSSEOUS STRUCTURES: Mild height loss superior L2 endplate is noted. 2 large fixating nails through ri ght femoral neck fracture are now present. OTHER: There is small amount of ascites in the right pelvis on axial image 63. IMPRESSION: 1. Small amount of ascites in the right pelvis. No significant abdominal ascites. New small to tiny r ight greater than left pleural effusions. 2. Small lobulated liver which could reflect cirrhosis, clinical and lab correlation advised. New het erogeneous hypodense lesions are felt present. New Left adrenal hyperdense mass. Consider new neoplas m or metastatic disease. Further investigation with multi phase contrast-enhanced CT or MRI can asses s both findings.
[2017-04-17] MEDS: SODIUM CHLORIDE 0.9% 1,000 ML IV SCH (06:22)
[2017-04-17 09:18] LABS: Aty Lym Flag Slight; CH 31.5; CHCM 31.6; HCT 30.9 % (39.0-53.0); HDW 2.84; Hypochromasia Slight; MCH 32.8 pg (25.0-35.0); MCHC 32.5 g/dL (31.0-37.0); MCV 100.8 fL (80.0-100.0); Macrocytosis Slight; RBC 3.07 m/uL (4.30-5.90); RDW 15.5 % (11.5-15.5); WBC 7.6 k/uL (3.8-10.6); WBC (Perox) 8.11
[2017-04-17 09:45] LABS: ALT 54 U/L (21-72); AST 38 U/L (17-59); Alkaline Phosphatase 81 U/L (38-126); Anion Gap 6 mmol/L; Blood Urea Nitrogen 28 mg/dL (9-20); Calcium 7.5 mg/dL (8.4-10.2); Carbon Dioxide 22 mmol/L (22-30); Glucose 92 mg/dL (74-99); Magnesium 1.6 mg/dL (1.6-2.3); Non-African American GFR(MDRD) >60 (>60 ml/min/1.73 sqM); Phosphorous 2.1 mg/dL (2.5-4.5); Potassium 3.9 mmol/L (3.5-5.1); Sodium 148 mmol/L (137-145); Total Bilirubin 1.4 mg/dL (0.2-1.3); Total Protein 5.9 g/dL (6.3-8.2)
[2017-04-17 09:51] LABS: Chloride 120 mmol/L (98-107)
[2017-04-17 09:55] LABS: Add Differential Manual Differential
[2017-04-17 09:59] LABS: Band Neutrophils % 1 %; Metamyelocytes % 1 %; Nucleated Red Blood Cells 0 /100 WBC (0-0); Polychromasia Present; Total Cells Counted 200
[2017-04-17] MEDS: PANTOPRAZOLE 40 MG TABLET PO SCH (10:01)
[2017-04-17] MEDS: DOCUSATE 100 MG CAP PO SCH (10:02)
[2017-04-17] MEDS: CYCLOBENZAPRINE 10 MG TAB PO SCH ×3 (10:02→20:53)
[2017-04-17] MEDS: ATENOLOL 50 MG TAB PO SCH ×2 (10:02→20:53)
[2017-04-17] MEDS: LACTULOSE 20 GM/30 ML CUP PO SCH (10:03)
[2017-04-17] MEDS: PRIMIDONE 50 MG TAB PO SCH ×3 (10:03→20:53)
[2017-04-17] MEDS ORDERED: LACTULOSE 20 GM/30 ML CUP PO PRN (13:40)
--- NOTE | 2017-04-17 13:42 | P.PN ---
Subjective Patient mentation is significantly better today. He is awake and alert 3. Objective - Vital Signs Vital signs: Vital Signs Temp 97.8 F 04/17/17 07:00 Pulse 82 04/17/17 07:00 Resp 16 04/17/17 07:00 BP 124/70 04/17/17 07:00 Pulse Ox 100 04/17/17 07:00 Intake & Output 04/16/17 04/17/17 04/17/17 18:59 06:59 18:59 Output Total 800 400 Balance -800 -400 Weight 67.5 kg Output: Urine 800 400 Other: Voiding Method Indwelling Catheter Indwelling Catheter Indwelling Catheter # Voids 1 # Bowel Movements 1 1 - Exam General: The patient is awake and alert, in no distress Eye: there is normal conjunctiva bilaterally. Neck: The neck is supple, there is no JVD. Cardiovascular: Normal S1-S2, no S3-S4, no murmurs. Respiratory: Lungs clear to auscultation bilaterally Gastrointestinal: Abdomen is soft, nontender Musculoskeletal: There is no pedal edema. Neurological:. Speech is normal. Skin: Skin is warm and dry - Labs CBC & Chem 7: 04/17/17 08:05 04/17/17 08:05 Labs: Abnormal Lab Results - Last 24 Hours (Table) 04/17/17 04/17/17 Range/Units 08:05 08:05 RBC 3.07 L (4.30-5.90) m/uL Hgb 10.0 L (13.0-17.5) gm/dL Hct 30.9 L (39.0-53.0) % MCV 100.8 H (80.0-100.0) fL Metamyelocytes # (Man) 0.08 H (0) k/uL Sodium 148 H (137-145) mmol/L Chloride 120 H* (98-107) mmol/L BUN 28 H (9-20) mg/dL Calcium 7.5 L (8.4-10.2) mg/dL Phosphorus 2.1 L (2.5-4.5) mg/dL Total Bilirubin 1.4 H (0.2-1.3) mg/dL Total Protein 5.9 L (6.3-8.2) g/dL Albumin 2.2 L (3.5-5.0) g/dL Microbiology - Last 24 Hours (Table) 04/16/17 12:48 Urine Culture - Final Urine,Catheterized Assessment and Plan Plan: 1. Acute kidney failure 2. Obstructive uropathy 3. Altered mental status 4. Toxo metabolic encephalopathy attributed to #1 and 2 5. Suspected hepatic encephalopathy 6. History of alcoholic cirrhosis 7. History of perforated antral ulcer status post enterectomy in September 2015 8. Recent right hip fracture status post ORIF 9. Essential hypertension: Blood pressure well controlled 10. Underlying COPD with no evidence of exacerbation 11. Suspected hypodense lesion of the liver with known left adrenal hyperdense mass noted on computed tomography scan of the abdomen concerning for possible underlying malignancy. I would consider obtaining abdominal MRI for further evaluation within the next day or 2 awaiting his kidney function to recover. Today, I reviewed his medication list and lab work results. Discontinue IV fluid hydration. Kidney function is improving. Nephrology consulted appreciate recommendations. Repeat lab work in the morning.
--- NOTE | 2017-04-17 14:14 | P.PN ---
Subjective This is a 67-year-old male who was seen in consultation because of acute kidney injury secondary to outlet obstruction. With insertion of Martin his creatinine has come down from 12 mg 2.75. Urine output is significantly increased. His mental status is improved to the point that he is able to converse and give me the date and the month accurately. He did not know which hospital he was then. He said he is eating better. Denies any other complaints such as cough shortness of breath fever chills. No abdominal pain he has a Martin catheter. 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 HEENT exam is unremarkable with no JVP neck is supple no facial asymmetry. Lungs are clear to auscultation and percussion good air entry bilaterally. Heart sounds are unremarkable for any murmur rub gallop Abdomen is soft slightly protuberant. He is cachectic. Extremity examination reveals no edema. Neurologically awake alert and moves all his extremities. - Labs CBC & Chem 7: 04/17/17 08:05 04/17/17 08:05 Labs: Abnormal Lab Results - Last 24 Hours (Table) 04/17/17 04/17/17 Range/Units 08:05 08:05 RBC 3.07 L (4.30-5.90) m/uL Hgb 10.0 L (13.0-17.5) gm/dL Hct 30.9 L (39.0-53.0) % MCV 100.8 H (80.0-100.0) fL Metamyelocytes # (Man) 0.08 H (0) k/uL Sodium 148 H (137-145) mmol/L Chloride 120 H* (98-107) mmol/L BUN 28 H (9-20) mg/dL Calcium 7.5 L (8.4-10.2) mg/dL Phosphorus 2.1 L (2.5-4.5) mg/dL Total Bilirubin 1.4 H (0.2-1.3) mg/dL Total Protein 5.9 L (6.3-8.2) g/dL Albumin 2.2 L (3.5-5.0) g/dL Microbiology - Last 24 Hours (Table) 04/16/17 12:48 Urine Culture - Final Urine,Catheterized Assessment and Plan Plan: Impression. 1. Urinary retention with acute kidney injury secondary to outlet obstruction, creatinine was normal a month ago, 0.58 on 09/26/2015, and was 1 dated 2016. His ago, and now came in with creatinine of 12 and is improved to creatinine of 0.7 this morning. 2. Mild hyperkalemia potassium was 5.7 secondary to obstructive nephropathy. Improved to 3.9. 3. gap and non-gap acidosis, Etiology was acute kidney injury resolving, bicarb is up to 22 and gap 6 . 4. 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 History of ASHD, 6. past history of hep C 7. COPD, Recommendation. 1. Increase free water intake orally. 2. DC IV fluids We will watch his sodium and bicarb 3. Monitor labs closely. 4. Avoid any nephrotoxic medication.
[2017-04-17] MEDS: HYDROcodone/APAP 5-325MG 1 EACH TAB PO PRN (20:53)
[2017-04-17] MEDS: ACETAMINOPHEN TAB 325 MG TAB PO PRN (23:09)
[2017-04-18] MEDS: DOCUSATE 100 MG CAP PO SCH (08:02)
[2017-04-18] MEDS: PANTOPRAZOLE 40 MG TABLET PO SCH (08:02)
[2017-04-18] MEDS: PRIMIDONE 50 MG TAB PO SCH ×3 (08:02→21:00)
[2017-04-18] MEDS: CYCLOBENZAPRINE 10 MG TAB PO SCH ×3 (08:02→21:00)
[2017-04-18] MEDS: ATENOLOL 50 MG TAB PO SCH ×2 (08:02→20:18)
[2017-04-18] MEDS: ENOXAPARIN 40 MG/0.4 ML SYRINGE SQ SCH (08:02)
[2017-04-18 08:23] LABS: Aty Lym Flag Slight; CH 31.6; CHCM 31.1; HCT 29.7 % (39.0-53.0); HDW 2.89; HGB 9.5 gm/dL (13.0-17.5); Hypochromasia Moderate; MCH 32.7 pg (25.0-35.0); MCHC 31.9 g/dL (31.0-37.0); MCV 102.6 fL (80.0-100.0); Macrocytosis Slight; RBC 2.89 m/uL (4.30-5.90); RDW 15.6 % (11.5-15.5); WBC 6.9 k/uL (3.8-10.6); WBC (Perox) 6.27
[2017-04-18 08:24] LABS: ALT 41 U/L (21-72); AST 29 U/L (17-59); Alkaline Phosphatase 72 U/L (38-126); Anion Gap 4 mmol/L; Blood Urea Nitrogen 19 mg/dL (9-20); Calcium 7.4 mg/dL (8.4-10.2); Carbon Dioxide 23 mmol/L (22-30); Glucose 88 mg/dL (74-99); Magnesium 1.7 mg/dL (1.6-2.3); Non-African American GFR(MDRD) >60 (>60 ml/min/1.73 sqM); Potassium 3.6 mmol/L (3.5-5.1); Sodium 147 mmol/L (137-145); Total Bilirubin 1.2 mg/dL (0.2-1.3); Total Protein 5.6 g/dL (6.3-8.2)
[2017-04-18 08:25] LABS: Chloride 120 mmol/L (98-107)
[2017-04-18 08:44] LABS: Add Differential Manual Differential
[2017-04-18 08:46] LABS: Band Neutrophils % 2 %; Metamyelocytes % 1 %; Nucleated Red Blood Cells 0 /100 WBC (0-0); Polychromasia Present; Total Cells Counted 100
--- NOTE | 2017-04-18 12:43 | P.PN ---
Subjective Patient mentation is significantly better today. He is awake and alert 3. Objective - Vital Signs Vital signs: Vital Signs Temp 97.0 F L 04/18/17 07:00 Pulse 96 04/18/17 07:00 Resp 22 04/18/17 07:00 BP 119/70 04/18/17 07:00 Pulse Ox 96 04/18/17 07:00 Intake & Output 04/17/17 04/18/17 04/18/17 18:59 06:59 18:59 Output Total 600 325 Balance -600 -325 Weight 65 kg Output: Urine 600 325 Other: Voiding Method Indwelling Catheter Indwelling Catheter Indwelling Catheter # Voids 1 # Bowel Movements 1 - Exam General: The patient is awake and alert, in no distress Eye: there is normal conjunctiva bilaterally. Neck: The neck is supple, there is no JVD. Cardiovascular: Normal S1-S2, no S3-S4, no murmurs. Respiratory: Lungs clear to auscultation bilaterally Gastrointestinal: Abdomen is soft, nontender Musculoskeletal: There is no pedal edema. Neurological:. Speech is normal. Skin: Skin is warm and dry - Labs CBC & Chem 7: 04/18/17 07:25 04/18/17 07:25 Labs: Abnormal Lab Results - Last 24 Hours (Table) 04/18/17 04/18/17 Range/Units 07:25 07:25 RBC 2.89 L (4.30-5.90) m/uL Hgb 9.5 L (13.0-17.5) gm/dL Hct 29.7 L (39.0-53.0) % MCV 102.6 H (80.0-100.0) fL RDW 15.6 H (11.5-15.5) % Eosinophils # (Manual) 1.04 H (0-0.7) k/uL Metamyelocytes # (Man) 0.07 H (0) k/uL Sodium 147 H (137-145) mmol/L Chloride 120 H* (98-107) mmol/L Calcium 7.4 L (8.4-10.2) mg/dL Phosphorus 2.0 L (2.5-4.5) mg/dL Total Protein 5.6 L (6.3-8.2) g/dL Albumin 2.0 L (3.5-5.0) g/dL Microbiology - Last 24 Hours (Table) 04/16/17 12:28 Blood Culture - Preliminary Blood No Growth after 24 hours 04/16/17 12:48 Urine Culture - Final Urine,Catheterized Assessment and Plan Plan: 1. Acute kidney failure 2. Obstructive uropathy 3. Altered mental status 4. Toxo metabolic encephalopathy attributed to #1 and 2 5. Suspected hepatic encephalopathy 6. History of alcoholic cirrhosis 7. History of perforated antral ulcer status post enterectomy in September 2015 8. Recent right hip fracture status post ORIF 9. Essential hypertension: Blood pressure well controlled 10. Underlying COPD with no evidence of exacerbation 11. Suspected hypodense lesion of the liver with known left adrenal hyperdense mass noted on computed tomography scan of the abdomen concerning for possible underlying malignancy. Patient told me that he was evaluated previously for those lesions a year ago at and underwent a biopsy of the liver showing no malignancy. May consider obtaining abdominal MRI for further evaluation as an outpatient. Today, I reviewed his medication list and lab work results. We will consult urology for obstructive uropathy. Kidney function is improving. Nephrology consulted appreciate recommendations. Repeat lab work in the morning.
--- NOTE | 2017-04-18 12:44 | P.PN ---
Subjective This is a 67-year-old male who was seen in consultation because of acute kidney injury secondary to outlet obstruction. With insertion of Martin his creatinine has come down from 12 mg to 0.68. His mental status is improved to the point that he is able to converse and give me the date and the month accurately. He did not know which hospital he was then. He said he is eating better. Denies any other complaints such as cough shortness of breath fever chills. No abdominal pain he has a Martin catheter. His sodium has gone up from 144-148 yesterday, and is 147 this morning. 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 Objective - Vital Signs Vital signs: Vital Signs Temp 97.0 F L 04/18/17 07:00 Pulse 96 04/18/17 07:00 Resp 22 04/18/17 07:00 BP 119/70 04/18/17 07:00 Pulse Ox 96 04/18/17 07:00 Intake & Output 04/17/17 04/18/17 04/18/17 18:59 06:59 18:59 Output Total 600 325 Balance -600 -325 Weight 65 kg Output: Urine 600 325 Other: Voiding Method Indwelling Catheter Indwelling Catheter Indwelling Catheter # Voids 1 # Bowel Movements 1 - Labs CBC & Chem 7: 04/18/17 07:25 04/18/17 07:25 Labs: Abnormal Lab Results - Last 24 Hours (Table) 04/18/17 04/18/17 Range/Units 07:25 07:25 RBC 2.89 L (4.30-5.90) m/uL Hgb 9.5 L (13.0-17.5) gm/dL Hct 29.7 L (39.0-53.0) % MCV 102.6 H (80.0-100.0) fL RDW 15.6 H (11.5-15.5) % Eosinophils # (Manual) 1.04 H (0-0.7) k/uL Metamyelocytes # (Man) 0.07 H (0) k/uL Sodium 147 H (137-145) mmol/L Chloride 120 H* (98-107) mmol/L Calcium 7.4 L (8.4-10.2) mg/dL Phosphorus 2.0 L (2.5-4.5) mg/dL Total Protein 5.6 L (6.3-8.2) g/dL Albumin 2.0 L (3.5-5.0) g/dL Microbiology - Last 24 Hours (Table) 04/16/17 12:28 Blood Culture - Preliminary Blood No Growth after 24 hours 04/16/17 12:48 Urine Culture - Final Urine,Catheterized Assessment and Plan Plan: Impression. 1. Urinary retention with acute kidney injury secondary to outlet obstruction, creatinine was normal a month ago, 0.58 on 09/26/2015, and was 1 dated 2016. His ago, and now came in with creatinine of 12 and is improved to creatinine of 0.6 this morning. 3. gap and non-gap acidosis, Etiology was acute kidney injury resolving, bicarb is up to 22 and gap 6 . 4. 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 Confusion, might be explained by the acute kidney injury - resolving 5. History of ASHD, 6. past history of hep C 7. COPD, 8. Hypophosphatemia secondary to decreased intake. Recommendation. 1. Increase free water intake orally. 2. We will give him neutrophos i pkg tid for one day. 3. Monitor labs closely. 4. redo phos tomorrow
[2017-04-18] MEDS: HYDROcodone/APAP 5-325MG 1 EACH TAB PO PRN (13:20)
[2017-04-18] MEDS: POTAS-SOD-PHOS 278-164-250 MG 1 EACH PACKET PO SCH ×3 (13:27→21:00)
[2017-04-18] MEDS ORDERED: TAMSULOSIN 0.4 MG CAP.ER.24H PO STA (19:01)
--- NOTE | 2017-04-18 19:01 | P.GSCN ---
History of Present Illness History of present illness: The patient is a 67-year-old alcoholic who was transferred from the emergency room because of failure to thrive and malaise secondary to renal failure. The renal failure appears to be due to urinary retention. The renal failure has been corrected with an indwelling catheter. The patient is status post hip fracture repair 03/31/2017. He has been in a prison since then. Patient denies problems urinating prior to coming in the hospital. He has not had urologic procedures prior to this. Review of Systems - Constitutional Reports anorexia - Gastrointestinal Reports as per HPI - Genitourinary Reports as per HPI Past Medical History Past Medical History: Coronary Artery Disease (CAD), COPD, GERD/Reflux, Hypertension, Liver Disease, Myocardial Infarction (MD), Osteoarthritis (OA) Additional Past Medical History / Comment(s): 03/31/17 R hip fracture with surgery (still has nori), perforatic gastric ulcer 2015(had sx), ddd lumbar, hemorrhoids, hep c, legally blind, past alcoholism. Last Myocardial Infarction Date:: 2007 History of Any Multi-Drug Resistant Organisms: None Reported Past Surgical History: Orthopedic Surgery Additional Past Surgical History / Comment(s): 04/01/17 closed reduction percutaneous pinning R hip, vasectomy, cataracts, liver bx 2006, antrectomy w/ gastroenterostomy 2015 Past Anesthesia/Blood Transfusion Reactions: No Reported Reaction Smoking Status: Current every day smoker - Past Family History Mother History Unknown: Yes Family Medical History: Cancer, Diabetes Mellitus, Hypertension Father History Unknown: Yes Family Medical History: Liver Disease, Seizure Disorder Additional Family Medical History / Comment(s): alcoholic Brother(s) History Unknown: Yes Family Medical History: Liver Disease Additional Family Medical History / Comment(s): aneurysm Medications and Allergies Home Medications Medication Instructions Recorded Confirmed Type Atenolol [Tenormin] 50 mg PO BID 09/21/15 04/15/17 History Cyclobenzaprine HCl 10 mg PO TID 03/31/17 04/15/17 History [Cyclobenzaprine HCl] Omeprazole [PriLOSEC] 20 mg PO BID 03/31/17 04/15/17 History Primidone [Mysoline] 50 mg PO TID 03/31/17 04/15/17 History Docusate [Colace] 100 mg PO DAILY #30 capsule 04/04/17 04/15/17 Rx Enoxaparin [Lovenox] 40 mg SQ DAILY #30 syringe 04/04/17 04/15/17 Rx Hydrocodone/Acetaminophen [[place] 1 - 2 tab PO Q6HR PRN 04/15/17 04/15/17 History 5-325] Allergies Allergy/AdvReac Type Severity Reaction Status Date / Time Penicillins Allergy Rash/Hives Verified 04/15/17 11:40 peginterferon peg-2a AdvReac Unknown Verified 04/15/17 11:40 [From Pegasys] Surgical - Exam Vital Signs Temp Pulse Resp BP Pulse Ox 97.1 F L 63 18 103/55 96 04/15/17 11:02 04/15/17 11:02 04/15/17 11:02 04/15/17 11:02 04/15/17 11:02 - General well developed, chronically ill - ENT no hearing loss - Neck no masses - Respiratory normal expansion, normal respiratory effort - Abdomen Abdomen: soft, non tender, distended - Genitourinary The penis has an indwelling catheter. He is uncircumcised with a paraphimosis. Testes are descended. The prostate is 20 g benign with some stool in the rectum. - Integumentary no rash, no growths - Neurologic normal sensation - Psychiatric oriented to person, oriented to place Results - Labs 04/18/17 07:25 04/18/17 07:25 Abnormal Lab Results - Last 24 Hours (Table) 04/18/17 04/18/17 Range/Units 07:25 07:25 RBC 2.89 L (4.30-5.90) m/uL Hgb 9.5 L (13.0-17.5) gm/dL Hct 29.7 L (39.0-53.0) % MCV 102.6 H (80.0-100.0) fL RDW 15.6 H (11.5-15.5) % Eosinophils # (Manual) 1.04 H (0-0.7) k/uL Metamyelocytes # (Man) 0.07 H (0) k/uL Sodium 147 H (137-145) mmol/L Chloride 120 H* (98-107) mmol/L Calcium 7.4 L (8.4-10.2) mg/dL Phosphorus 2.0 L (2.5-4.5) mg/dL Total Protein 5.6 L (6.3-8.2) g/dL Albumin 2.0 L (3.5-5.0) g/dL Microbiology - Last 24 Hours (Table) 04/16/17 12:28 Blood Culture - Preliminary Blood No Growth after 48 hours Diabetes panel 04/18/17 Range/Units 07:25 Sodium 147 H (137-145) mmol/L Potassium 3.6 (3.5-5.1) mmol/L Chloride 120 H* (98-107) mmol/L Carbon Dioxide 23 (22-30) mmol/L BUN 19 (9-20) mg/dL Creatinine 0.68 (0.66-1.25) mg/dL Glucose 88 (74-99) mg/dL Calcium 7.4 L (8.4-10.2) mg/dL AST 29 (17-59) U/L ALT 41 (21-72) U/L Alkaline Phosphatase 72 (38-126) U/L Total Protein 5.6 L (6.3-8.2) g/dL Albumin 2.0 L (3.5-5.0) g/dL Calcium panel 04/18/17 Range/Units 07:25 Calcium 7.4 L (8.4-10.2) mg/dL Phosphorus 2.0 L (2.5-4.5) mg/dL Albumin 2.0 L (3.5-5.0) g/dL Pituitary panel 04/18/17 Range/Units 07:25 Sodium 147 H (137-145) mmol/L Potassium 3.6 (3.5-5.1) mmol/L Chloride 120 H* (98-107) mmol/L Carbon Dioxide 23 (22-30) mmol/L BUN 19 (9-20) mg/dL Creatinine 0.68 (0.66-1.25) mg/dL Glucose 88 (74-99) mg/dL Calcium 7.4 L (8.4-10.2) mg/dL Adrenal panel 04/18/17 Range/Units 07:25 Sodium 147 H (137-145) mmol/L Potassium 3.6 (3.5-5.1) mmol/L Chloride 120 H* (98-107) mmol/L Carbon Dioxide 23 (22-30) mmol/L BUN 19 (9-20) mg/dL Creatinine 0.68 (0.66-1.25) mg/dL Glucose 88 (74-99) mg/dL Calcium 7.4 L (8.4-10.2) mg/dL Total Bilirubin 1.2 (0.2-1.3) mg/dL AST 29 (17-59) U/L ALT 41 (21-72) U/L Alkaline Phosphatase 72 (38-126) U/L Total Protein 5.6 L (6.3-8.2) g/dL Albumin 2.0 L (3.5-5.0) g/dL Assessment and Plan Plan: Impression: Urine retention leading to acute renal failure corrected with an indwelling catheter, paraphimosis secondary to catheter placement. Alcoholism with cirrhosis. Multiple medical problems. Recommendations: Reduction of paraphimosis., Alpha lou for urine retention. The patient should be given a voiding trial after he ambulates given that his prostate is small and he had no previous problems urinating.
--- NOTE | 2017-04-18 19:14 | P.PCN ---
Date of Procedure: 04/18/17 Preoperative Diagnosis: Paraphimosis Postoperative Diagnosis: Paraphimosis Procedure(s) Performed: Reduction of paraphimosis Implants: Anesthesia: none Indications for Procedure: Operative Findings: Description of Procedure: The patient has a paraphimosis after an indwelling catheter. I will reduce this. I manually reduce the paraphimosis by placing my thumbs on the glans penis and with my forefinger and middle finger of each and pulled the foreskin over the head of the penis reducing the paraphimosis. The swelling disappears almost immediately.
[2017-04-19] MEDS: PANTOPRAZOLE 40 MG TABLET PO SCH (07:43)
[2017-04-19] MEDS: ATENOLOL 50 MG TAB PO SCH ×2 (07:43→22:08)
[2017-04-19] MEDS: DOCUSATE 100 MG CAP PO SCH (07:44)
[2017-04-19] MEDS: CYCLOBENZAPRINE 10 MG TAB PO SCH ×3 (07:44→22:08)
[2017-04-19] MEDS: ENOXAPARIN 40 MG/0.4 ML SYRINGE SQ SCH (07:44)
[2017-04-19] MEDS: PRIMIDONE 50 MG TAB PO SCH ×3 (07:45→22:09)
[2017-04-19] MEDS: POTAS-SOD-PHOS 278-164-250 MG 1 EACH PACKET PO SCH ×3 (07:45→22:08)
[2017-04-19 08:52] LABS: Basophils # (A) 0.1 k/uL (0-0.2); Basophils % (A) 1 %; CH 31.6; Eosinophils # (A) 0.9 k/uL (0-0.7); Eosinophils % (A) 12 %; HDW 2.85; HGB 11.4 gm/dL (13.0-17.5); Hypochromasia Moderate; Luc # (Auto) 0.15; Luc % (Auto) 2; Lymphocytes # (A) 1.2 k/uL (1.0-4.8); Lymphocytes % (A) 16 %; MCH 33.7 pg (25.0-35.0); MCHC 32.7 g/dL (31.0-37.0); MCV 102.8 fL (80.0-100.0); Macrocytosis Slight; Mean Platelet Volume 8.5; Monocytes # (A) 0.4 k/uL (0-1.0); Monocytes % (A) 5 %; Neutrophils # (A) 4.9 k/uL (1.3-7.7); Neutrophils % (A) 65 %; RDW 15.1 % (11.5-15.5); WBC 7.6 k/uL (3.8-10.6); WBC (Perox) 7.54
[2017-04-19 08:57] LABS: ALT 42 U/L (21-72); AST 29 U/L (17-59); Alkaline Phosphatase 80 U/L (38-126); Anion Gap 5 mmol/L; Blood Urea Nitrogen 16 mg/dL (9-20); Calcium 7.5 mg/dL (8.4-10.2); Carbon Dioxide 23 mmol/L (22-30); Chloride 116 mmol/L (98-107); Glucose 130 mg/dL (74-99); Magnesium 1.6 mg/dL (1.6-2.3); Non-African American GFR(MDRD) >60 (>60 ml/min/1.73 sqM); Potassium 3.9 mmol/L (3.5-5.1); Sodium 144 mmol/L (137-145); Total Bilirubin 1.2 mg/dL (0.2-1.3); Total Protein 6.2 g/dL (6.3-8.2)
[2017-04-19 09:01] LABS: Manual Review Performed
[2017-04-19 09:05] LABS: Large Platelets Present
--- NOTE | 2017-04-19 12:53 | P.DS ---
Providers Date of admission: 04/15/17 12:58 Expected date of discharge: 04/19/17 Attending physician: Ana Cristina Lorenz Consults: 04/15/17 13:06 Consult Physician Routine Consulting Provider: Patty Bolden Consult Reason/Comments: Acute renal failure Do you want consulting provider notified?: Yes 04/18/17 12:08 Consult Physician Routine Consulting Provider: Ayan Castaneda Consult Reason/Comments: retention, penile swelling Do you want consulting provider notified?: Yes Primary care physician: [facility] Course: 1. Acute kidney failure 2. Obstructive uropathy, status post reduction of paraphimosis by urology 3. Altered mental status 4. Toxo metabolic encephalopathy attributed to #1 and 2 5. Suspected hepatic encephalopathy 6. History of alcoholic cirrhosis 7. History of perforated antral ulcer status post enterectomy in September 2015 8. Recent right hip fracture status post ORIF 9. Essential hypertension: Blood pressure well controlled 10. Underlying COPD with no evidence of exacerbation 11. Suspected hypodense lesion of the liver with known left adrenal hyperdense mass noted on computed tomography scan of the abdomen concerning for possible underlying malignancy. Patient told me that he was evaluated previously for those lesions a year ago at [facility] and underwent a biopsy of the liver showing no malignancy. May consider obtaining abdominal MRI for further evaluation as an outpatient. Plan - Discharge Summary New Discharge Prescriptions: New Pantoprazole [Protonix] 40 mg PO AC-BRKFST #30 tab Continue Atenolol [Tenormin] 50 mg PO BID Primidone [Mysoline] 50 mg PO TID Docusate [Colace] 100 mg PO DAILY #30 capsule Enoxaparin [Lovenox] 40 mg SQ DAILY #30 syringe Hydrocodone/Acetaminophen [[place] 5-325] 1 - 2 tab PO Q6HR PRN PRN Reason: Pain Changed Cyclobenzaprine HCl 10 mg PO BID PRN #0 PRN Reason: Muscle Spasm Discontinued Omeprazole [PriLOSEC] 20 mg PO BID Discharge Medication List Atenolol [Tenormin] 50 mg PO BID 09/21/15 [History] Primidone [Mysoline] 50 mg PO TID 03/31/17 [History] Docusate [Colace] 100 mg PO DAILY #30 capsule 04/04/17 [Rx] Enoxaparin [Lovenox] 40 mg SQ DAILY #30 syringe 04/04/17 [Rx] Hydrocodone/Acetaminophen [[place] 5-325] 1 - 2 tab PO Q6HR PRN 04/15/17 [History] Cyclobenzaprine HCl 10 mg PO BID PRN #0 04/19/17 [Rx] Pantoprazole [Protonix] 40 mg PO AC-BRKFST #30 tab 04/19/17 [Rx] Follow up Appointment(s)/Referral(s): Ana Cristina Lorenz MD [Primary Care Provider] - 1-2 days Discharge Disposition: TRANSFER TO SNF/ECF
[2017-04-19] MEDS: HYDROcodone/APAP 5-325MG 1 EACH TAB PO PRN (14:15)
[2017-04-20 07:01] VITALS: BP 126/70; TEMP 99.1
[2017-04-20] MEDS: ATENOLOL 50 MG TAB PO SCH (08:19)
[2017-04-20] MEDS: ENOXAPARIN 40 MG/0.4 ML SYRINGE SQ SCH (08:19)
[2017-04-20] MEDS: PANTOPRAZOLE 40 MG TABLET PO SCH (08:19)
[2017-04-20] MEDS: POTAS-SOD-PHOS 278-164-250 MG 1 EACH PACKET PO SCH (08:19)
[2017-04-20] MEDS: DOCUSATE 100 MG CAP PO SCH (08:19)
[2017-04-20] MEDS: CYCLOBENZAPRINE 10 MG TAB PO SCH (08:19)
[2017-04-20] MEDS: PRIMIDONE 50 MG TAB PO SCH (08:19)
[2017-04-20 09:22] LABS: ALT 38 U/L (21-72); AST 31 U/L (17-59); Alkaline Phosphatase 70 U/L (38-126); Anion Gap 4 mmol/L; Blood Urea Nitrogen 15 mg/dL (9-20); Calcium 7.3 mg/dL (8.4-10.2); Carbon Dioxide 23 mmol/L (22-30); Chloride 116 mmol/L (98-107); Glucose 105 mg/dL (74-99); Magnesium 1.7 mg/dL (1.6-2.3); Non-African American GFR(MDRD) >60 (>60 ml/min/1.73 sqM); Phosphorous 2.1 mg/dL (2.5-4.5); Sodium 143 mmol/L (137-145); Total Bilirubin 0.9 mg/dL (0.2-1.3); Total Protein 5.7 g/dL (6.3-8.2)
[2017-04-20 09:24] VITALS: PULSE 82; RESP 19
[2017-04-20 10:32] LABS: Aty Lym Flag Slight; CH 32.7; CHCM 31.8; HCT 31.1 % (39.0-53.0); HDW 2.84; Hypochromasia Slight; MCH 32.7 pg (25.0-35.0); MCHC 31.4 g/dL (31.0-37.0); Macrocytosis Moderate; Mean Platelet Volume 9.2; RBC 2.99 m/uL (4.30-5.90); RDW 15.5 % (11.5-15.5); WBC 7.2 k/uL (3.8-10.6); WBC (Perox) 7.28
[2017-04-20 10:36] LABS: HGB 9.8 gm/dL (13.0-17.5)
--- NOTE | 2017-04-20 10:52 | P.PN ---
Progress Note - Text Patient discharge was delayed yesterday by receiving ECF. He is frustrated today that his discharge was delayed an extra day for no good reason. I advised to discharge the patient yesterday but he was kept in the hospital. He will be discharged today to [facility] for subacute rehab. I will continue to follow him closely. Please refer to the discharge summary dictated by me on 04/19 for further details about this hospitalization.
[2017-04-20 11:40] LABS: Add Differential Manual Differential
[2017-04-20 11:43] LABS: Manual Review Performed; Metamyelocytes % 1 %; Myelocytes % 1 %; Nucleated Red Blood Cells 0 /100 WBC (0-0); Total Cells Counted 200
[2017-04-20] MEDS: ACETAMINOPHEN TAB 325 MG TAB PO PRN (13:54)
== END 2017-04-20 14:02 | DRG 682 ==
LOC: EC 10:51 → 4MS4W 12:58
PROVIDERS: ADMIT Internal Medicine; ATTEND Internal Medicine
PROC: 0T9B70Z Drainage of Bladder with Drainage Device, Via Natural or Artificial Opening (ICD-10-PCS; principal; 2017-04-15)
DX: N17.8 Other acute kidney failure (principal); G93.41 Metabolic encephalopathy; R64 Cachexia; K70.30 Alcoholic cirrhosis of liver without ascites; J44.9 Chronic obstructive pulmonary disease, unspecified; I25.10 Atherosclerotic heart disease of native coronary artery without angina pectoris; R60.0 Localized edema; R14.0 Abdominal distension (gaseous); N48.89 Other specified disorders of penis; N47.2 Paraphimosis; R53.81 Other malaise; I10 Essential (primary) hypertension; R62.7 Adult failure to thrive; N25.1 Nephrogenic diabetes insipidus; N13.9 Obstructive and reflux uropathy, unspecified; K70.40 Alcoholic hepatic failure without coma; F10.20 Alcohol dependence, uncomplicated; B19.20 Unspecified viral hepatitis C without hepatic coma; R93.8 Abnormal findings on diagnostic imaging of other specified body structures; M19.90 Unspecified osteoarthritis, unspecified site; M51.36 Other intervertebral disc degeneration, lumbar region; I25.2 Old myocardial infarction; R93.2 Abnormal findings on diagnostic imaging of liver and biliary tract; K21.9 Gastro-esophageal reflux disease without esophagitis; H54.8 Legal blindness, as defined in USA; F17.200 Nicotine dependence, unspecified, uncomplicated; Z87.81 Personal history of (healed) traumatic fracture; Z87.11 Personal history of peptic ulcer disease; Z79.899 Other long term (current) drug therapy; Z82.49 Family history of ischemic heart disease and other diseases of the circulatory system; Z83.3 Family history of diabetes mellitus; Z82.0 Family history of epilepsy and other diseases of the nervous system; Z88.0 Allergy status to penicillin; Z88.8 Allergy status to other drugs, medicaments and biological substances; Z79.891 Long term (current) use of opiate analgesic; Z98.52 Vasectomy status; Z98.49 Cataract extraction status, unspecified eye; Z81.1 Family history of alcohol abuse and dependence; Z83.79 Family history of other diseases of the digestive system; Z80.9 Family history of malignant neoplasm, unspecified; Z87.19 Personal history of other diseases of the digestive system; Z68.21 Body mass index [BMI] 21.0-21.9, adult; Z91.81 History of falling; Z98.890 Other specified postprocedural states
CPT/HCPCS: 36415; 51702; 74176; 80053; 81001; 82140; 83735; 84100; 85025; 85027; 87040; 87086; 96360; 99284

== ENCOUNTER → 2017-05-02 | Outpatient (CLI) | payer MEDICARE, OTHER ==
[2017-05-02 12:58] LABS: Potassium 4.1 mmol/L (3.5-5.1)
[2017-05-02 12:59] LABS: INR 1.5 (<1.2); Prothrombin Time 14.4 sec (9.0-12.0)
[2017-05-02 13:20] LABS: CH 31.4; CHCM 31.1; HCT 34.9 % (39.0-53.0); HDW 2.76; HGB 11.1 gm/dL (13.0-17.5); Hypochromasia Moderate; MCH 32.4 pg (25.0-35.0); MCHC 31.8 g/dL (31.0-37.0); MCV 101.8 fL (80.0-100.0); Macrocytosis Slight; Mean Platelet Volume 7.8; RBC 3.43 m/uL (4.30-5.90); RDW 14.7 % (11.5-15.5); WBC 9.2 k/uL (3.8-10.6); WBC (Perox) 9.27
[2017-05-02 14:10] LABS: Add Differential Manual Differential
[2017-05-02 14:12] LABS: Nucleated Red Blood Cells 0 /100 WBC (0-0)
[2017-05-02 14:16] LABS: Total Cells Counted 200
== END | disposition home or self-care (01) ==
LOC: LABPAT 11:45
PROVIDERS: ATTEND Orthopaedic Surgery
DX: Z01.812 Encounter for preprocedural laboratory examination (principal); M16.11 Unilateral primary osteoarthritis, right hip; Z79.01 Long term (current) use of anticoagulants
CPT/HCPCS: 36415; 80051; 85025; 85610; 85730; 87070

== ENCOUNTER 2017-05-25 10:42 | Inpatient (IN) | payer MEDICARE, OTHER ==
[2017-05-25] MEDS ORDERED: SODIUM CHLORIDE 0.9% 1,000 ML IV STA (11:05)
[2017-05-25] MEDS ORDERED: VANCOMYCIN IV PER PHARMACY 1 EACH MISC MISCELLANE PRN (11:05)
[2017-05-25] MEDS ORDERED: CEFEPIME 2 GM in SODIUM CHLORIDE 0.9% 50 ML IVPB STA (11:07)
[2017-05-25 11:33] LABS: Anion Gap 5 mmol/L; Blood Urea Nitrogen 17 mg/dL (9-20); Calcium 7.3 mg/dL (8.4-10.2); Carbon Dioxide 26 mmol/L (22-30); Chloride 108 mmol/L (98-107); Glucose 99 mg/dL (74-99); Non-African American GFR(MDRD) >60 (>60 ml/min/1.73 sqM); Potassium 3.8 mmol/L (3.5-5.1); Sodium 139 mmol/L (137-145)
--- NOTE | 2017-05-25 11:39 | ED ---
Extremity Problem HPI - General Chief complaint: Extremity Problem,Nontraumatic Stated complaint: wound on rt foot Time Seen by Provider: 05/25/17 10:54 Source: patient Mode of arrival: EMS Limitations: no limitations - History of Present Illness Initial comments: This is a 67-year-old male with a history of H of fibrillation, liver cirrhosis , CKD, peripheral vascular disease who presents emergency department for right foot pain and wound. The patient has been battling a right foot wound for the last couple of months. He's been seen by a legal specialist at [facility]. He's been on Ciprofloxacillin as well there. He states that his pain is continued to worsen. He was evaluated by the legal specialist today who advised her to come emergency department for likely amputation. Patient denies any fevers or chills. No chest pain or shortness of breath. No other complaints. - Related Data Home Medications Medication Instructions Recorded Confirmed Atenolol [Tenormin] 50 mg PO BID 09/21/15 05/25/17 Primidone [Mysoline] 50 mg PO TID 03/31/17 05/25/17 HYDROcodone/APAP 5-325MG [[place] 1 tab PO Q6HR PRN 05/25/17 05/25/17 5-325] Multivitamins, Thera [Multivitamin 1 tab PO DAILY 05/25/17 05/25/17 (formulary)] Sennosides-Docusate Sodium 2 tab PO HS 05/25/17 05/25/17 [Senokot-S] Previous Rx's Medication Instructions Recorded Docusate [Colace] 100 mg PO DAILY #30 capsule 04/04/17 Enoxaparin [Lovenox] 40 mg SQ DAILY #30 syringe 04/04/17 Cyclobenzaprine HCl 10 mg PO BID PRN #0 04/19/17 Pantoprazole [Protonix] 40 mg PO AC-BRKFST #30 tab 04/19/17 Acetaminophen Tab [Tylenol] 500 mg PO Q6H PRN #30 tablet 04/20/17 Ciprofloxacin HCl [Cipro] 500 mg PO BID #14 tab 05/17/17 Furosemide [Lasix] 40 mg PO DAILY tab 05/17/17 Tamsulosin [Flomax] 0.8 mg PO PC-BRKFST cap 05/17/17 Allergies Allergy/AdvReac Type Severity Reaction Status Date / Time peginterferon peg-2a Allergy Unknown Verified 05/25/17 10:56 [From Pegasys] Penicillins Allergy Rash/Hives Verified 05/25/17 10:56 Review of Systems ROS Statement: Those systems with pertinent positive or pertinent negative responses have been documented in the HPI. ROS Other: All systems not noted in ROS Statement are negative. Past Medical History Past Medical History: COPD, GERD/Reflux, Hypertension, Liver Disease, Myocardial Infarction (CA), Osteoarthritis (OA) Additional Past Medical History / Comment(s): 04/15/17 admitted to [facility] for acute kidney failure/obstructive uropathy/AMS, admitted 03/31/17 R hip fracture with surgery-needs total replacement soon, pt states he has an "irregular heart beat at times.", perforatic gastric ulcer 2015(had sx), ddd lumbar, herniated discs, hemorrhoids, liver lesions and L adrenal mass which pt states where worked up at [facility] and are benign, hep c, legally blind-sees better with R eye, past alcoholism, current L foot skin issue ?tear/buttock pinkened area. Last Myocardial Infarction Date:: 2007 History of Any Multi-Drug Resistant Organisms: MRSA Date of last positivie culture/infection: 05/08/17 MDRO Source:: ,FOOT Past Surgical History: Orthopedic Surgery Additional Past Surgical History / Comment(s): 04/01/17 closed reduction percutaneous pinning R hip, vasectomy, bilateral cataracts removed with lens implants, liver bxs 2006, antrectomy w/gastroenterostomy 2015, colonoscopy, reduction paraphimosis. Past Anesthesia/Blood Transfusion Reactions: No Reported Reaction Past Psychological History: No Psychological Hx Reported Smoking Status: Current every day smoker Past Alcohol Use History: Occasional Past Drug Use History: None Reported - Past Family History Mother History Unknown: Yes Family Medical History: Cancer, Diabetes Mellitus, Hypertension Father History Unknown: Yes Family Medical History: Liver Disease, Seizure Disorder Additional Family Medical History / Comment(s): alcoholic Brother(s) History Unknown: Yes Family Medical History: Liver Disease Additional Family Medical History / Comment(s): aneurysm General Exam - General Exam Comments Initial Comments: Constitutional: Awake alert Appears comfortable Head: Normocephalic atraumatic Eyes: no conjunctival injection No scleral icterus EOMI Neck: No JVD Supple Heart: Regular rate rhythm normal S1-S2 no murmurs Lungs: Clear to auscultation bilaterally No wheezing No rales Abdomen: Soft nondistended nontender Extremities: Non edematous Radial pulses intact, the patient has a large 4-5 cm diameter yellow and foul odorous wound to the dorsum of the right foot. He also has duskiness and dark fourth and fifth digits on the right foot. There is edema in bilateral lower extremities and difficult to palpate PT pulses. No DP pulses were palpated. Neuro: A&Ox3 No focal neurologic deficits Psych: Appropriate mood and affect Limitations: no limitations Course Vital Signs 05/25/17 05/25/17 10:48 11:49 Temperature 98.5 F Pulse Rate 76 68 Respiratory 18 15 Rate Blood Pressure 113/53 98/57 O2 Sat by Pulse 100 99 Oximetry Medical Decision Making - Medical Decision Making This is a 67-year-old male who presented for right foot wound and black toes. He was sent in for likely foot amputation by legal specialist. The patient does have what appears to be a an infected right foot wound even though is been on ciprofloxacin at the nursing facility. He is to be evaluated by vascular surgery for possible amputation. He also needs infectious disease. Spoke with Dr. Ugalde who agrees with this. The patient was started on vancomycin and cefepime empirically. He is ALLERGIC to penicillins. He will be admitted for further evaluation and treatment. Patient was updated and agrees. - Lab Data Result diagrams: 05/25/17 11:15 05/25/17 11:15 Lab Results 05/25/17 05/25/17 05/25/17 Range/Units 11:15 11:15 11:15 WBC 9.1 (3.8-10.6) k/uL RBC 2.69 L (4.30-5.90) m/uL Hgb 8.3 L (13.0-17.5) gm/dL Hct 28.2 L (39.0-53.0) % MCV 104.9 H (80.0-100.0) fL MCH 30.9 (25.0-35.0) pg MCHC 29.4 L (31.0-37.0) g/dL RDW 15.2 (11.5-15.5) % Plt Count 358 (150-450) k/uL Neutrophils % 52 % Lymphocytes % 19 % Monocytes % 9 % Eosinophils % 17 % Basophils % 1 % Neutrophils # 4.7 (1.3-7.7) k/uL Lymphocytes # 1.7 (1.0-4.8) k/uL Monocytes # 0.8 (0-1.0) k/uL Eosinophils # 1.5 H (0-0.7) k/uL Basophils # 0.1 (0-0.2) k/uL Manual Slide Review Performed Polychromasia Present Hypochromasia Marked Macrocytosis Moderate PT 12.1 H (9.0-12.0) sec INR 1.2 H (<1.2) APTT 34.4 H (22.0-30.0) sec Sodium 139 (137-145) mmol/L Potassium 3.8 (3.5-5.1) mmol/L Chloride 108 H (98-107) mmol/L Carbon Dioxide 26 (22-30) mmol/L Anion Gap 5 mmol/L BUN 17 (9-20) mg/dL Creatinine 0.72 (0.66-1.25) mg/dL Est GFR (MDRD) Af Amer >60 (>60 ml/min/1.73 sqM) Est GFR (MDRD) Non-Af >60 (>60 ml/min/1.73 sqM) Glucose 99 (74-99) mg/dL Calcium 7.3 L (8.4-10.2) mg/dL Disposition Clinical Impression: Foot infection, PVD (peripheral vascular disease) Disposition: ADMITTED IP TO THIS [facility] Condition: Stable
[2017-05-25 11:44] LABS: INR 1.2 (<1.2); Partial Thromboplastin Time 34.4 sec (22.0-30.0); Prothrombin Time 12.1 sec (9.0-12.0)
[2017-05-25 11:46] LABS: Basophils # (A) 0.1 k/uL (0-0.2); Basophils % (A) 1 %; CH 31.5; CHCM 30.3; Eosinophils # (A) 1.5 k/uL (0-0.7); Eosinophils % (A) 17 %; HCT 28.2 % (39.0-53.0); HGB 8.3 gm/dL (13.0-17.5); Hypochromasia Marked; Luc # (Auto) 0.23; Luc % (Auto) 3; Lymphocytes # (A) 1.7 k/uL (1.0-4.8); Lymphocytes % (A) 19 %; MCH 30.9 pg (25.0-35.0); MCHC 29.4 g/dL (31.0-37.0); MCV 104.9 fL (80.0-100.0); Macrocytosis Moderate; Mean Platelet Volume 7.4; Monocytes # (A) 0.8 k/uL (0-1.0); Monocytes % (A) 9 %; Neutrophils # (A) 4.7 k/uL (1.3-7.7); Neutrophils % (A) 52 %; RBC 2.69 m/uL (4.30-5.90); RDW 15.2 % (11.5-15.5); WBC 9.1 k/uL (3.8-10.6); WBC (Perox) 8.94
[2017-05-25] MEDS ORDERED: VANCOMYCIN 1,750 MG in SODIUM CHLORIDE 0.9% 250 ML IVPB ONE (12:00)
--- NOTE | 2017-05-25 12:00 | XR ---
Right foot HISTORY: Right foot pain 3 views of the right foot No comparisons Bone mineralization is reduced. Alignment, joint spaces are maintained. Mild degenerative change pres ent at the first metatarsophalangeal joint. Soft tissue swelling is noted. No periostitis to suggest osteomyelitis. There is a small plantar calcaneus spur. IMPRESSION: Osteopenia and soft tissue swelling.
[2017-05-25 12:03] LABS: Manual Review Performed
[2017-05-25 12:04] LABS: Polychromasia Present
[2017-05-25] MEDS ORDERED: ONDANSETRON 4 MG/2 ML VIAL IVP PRN (12:17)
[2017-05-25] MEDS ORDERED: MORPHINE SULFATE 4 MG/ML SYRINGE IV PRN (12:17)
[2017-05-25] MEDS ORDERED: NALOXONE 0.4 MG/ML 1 ML VIAL IV PRN (12:17)
[2017-05-25] MEDS: MORPHINE SULFATE 2 MG/ML SYRINGE IV PRN (14:26)
--- NOTE | 2017-05-25 14:34 | P.CONS ---
History of Present Illness - Reason for Consult Consult date: 05/25/17 Infected right foot wound - History of Present Illness This is a 67-year-old male known to ID service as he was seen on his last admission May 03 through May 17. He had a previous admission following a fall where he fractured his right hip and he underwent surgical therapy with open reduction internal fixation with . There was concern for hardware failure to the ORIF and he returned to the OR and treated with hemiarthroplasty. Patient sustained an injury to the dorsum of his right foot which resulted in a blister. Patient did not recall any trauma. He was also seen by Dr. Ellison who provided debridement of the right dorsal foot wound. Patient was placed on Ceftaroline due to vancomycin MILDRED of 2. His foot wound culture was positive for MRSA and Flavobacterium odoratum. Patient was discharged to [facility] for subacute rehab and was continued on ciprofloxacin. Patient was seen there by jewel bearing turner and recommended that the patient come into the hospital for amputation of the foot. There is a consult in place with Dr. Ellison. Patient received 1 dose of cefepime and was started on vancomycin in the emergency center. Patient is complaining of severe pain to the right foot. He denies fever or chills. He denies change in appetite. No nausea, vomiting diarrhea diarrhea he denies any chest pain, cough, sputum production. He denies any new injury to the foot. He has noted lower extremity edema and he states this is because he sits in a wheelchair all day. Patient presents with a stage III pressure ulcer in the coccyx area. Review of Systems All systems: negative Constitutional: Denies chills, Denies fever Eyes: denies blurred vision, denies pain Ears, nose, mouth and throat: Denies headache, Denies sore throat Cardiovascular: Reports leg edema, Denies chest pain, Denies shortness of breath Respiratory: Denies cough Gastrointestinal: Denies abdominal pain, Denies diarrhea, Denies nausea, Denies vomiting Musculoskeletal: Denies myalgias Musculoskeletal: right: foot pain Integumentary: Denies pruritus, Denies rash Neurological: Denies numbness, Denies weakness Psychiatric: Denies anxiety, Denies depression Endocrine: Denies fatigue, Denies weight change Past Medical History Past Medical History: Atrial Fibrillation, COPD, GERD/Reflux, Hypertension, Liver Disease, Myocardial Infarction ([place]), Osteoarthritis (OA) Additional Past Medical History / Comment(s): Acute kidney failure/obstructive uropathy-has IDC/AMS, UTI with sepsis, 03/31/17 R hip fracture with surgery twice , perforatic gastric ulcer 2016(had sx), ddd lumbar, herniated discs, hemorrhoids, liver lesions and L adrenal mass which pt states where worked up at [facility] and are benign, hep c, legally blind-sees better with R eye , past alcoholism, PVD, nonocclusive trombosis R lower leg, current R foot infection and decub on coccyx currently being tx. Last Myocardial Infarction Date:: 2007 History of Any Multi-Drug Resistant Organisms: MRSA Year Discovered:: 05/08/17 MDRO Source:: ,FOOT Past Surgical History: Orthopedic Surgery Additional Past Surgical History / Comment(s): 04/01/17 closed reduction percutaneous pinning R hip-then removal of hardware and hemiathroplasty done, vasectomy, bilateral cataracts removed with lens implants, liver bxs 2006, antrectomy w/gastroenterostomy 2015, colonoscopy, reduction paraphimosis. Past Anesthesia/Blood Transfusion Reactions: No Reported Reaction Smoking Status: Current every day smoker - Past Family History Mother History Unknown: Yes Family Medical History: Cancer, Diabetes Mellitus, Hypertension Father History Unknown: Yes Family Medical History: Liver Disease, Seizure Disorder Additional Family Medical History / Comment(s): alcoholic Brother(s) History Unknown: Yes Family Medical History: Liver Disease Additional Family Medical History / Comment(s): aneurysm Medications and Allergies Home Medications Medication Instructions Recorded Confirmed Type Atenolol [Tenormin] 50 mg PO BID 09/21/15 05/25/17 History Primidone [Mysoline] 50 mg PO TID 03/31/17 05/25/17 History Docusate [Colace] 100 mg PO DAILY #30 capsule 04/04/17 05/25/17 Rx Enoxaparin [Lovenox] 40 mg SQ DAILY #30 syringe 04/04/17 05/25/17 Rx Cyclobenzaprine HCl 10 mg PO BID PRN #0 04/19/17 05/25/17 Rx Pantoprazole [Protonix] 40 mg PO AC-BRKFST #30 tab 04/19/17 05/25/17 Rx Acetaminophen Tab [Tylenol] 500 mg PO Q6H PRN #30 tablet 04/20/17 05/25/17 Rx Ciprofloxacin HCl [Cipro] 500 mg PO BID #14 tab 05/17/17 05/25/17 Rx Furosemide [Lasix] 40 mg PO DAILY tab 05/17/17 05/25/17 Rx Tamsulosin [Flomax] 0.8 mg PO PC-BRKFST cap 05/17/17 05/25/17 Rx HYDROcodone/APAP 5-325MG [[place] 1 tab PO Q6HR PRN 05/25/17 05/25/17 History 5-325] Multivitamins, Thera [Multivitamin 1 tab PO DAILY 05/25/17 05/25/17 History (formulary)] Sennosides-Docusate Sodium 2 tab PO HS 05/25/17 05/25/17 History [Senokot-S] Allergies Allergy/AdvReac Type Severity Reaction Status Date / Time peginterferon peg-2a Allergy Unknown Verified 05/25/17 10:56 [From Pegasys] Penicillins Allergy Rash/Hives Verified 05/25/17 10:56 Physical Exam Vitals: Vital Signs Temp Pulse Resp BP Pulse Ox 05/25/17 12:49 99 F 74 16 106/52 100 05/25/17 11:49 68 15 98/57 99 05/25/17 10:48 98.5 F 76 18 113/53 100 Intake and Output 05/24/17 05/25/17 05/25/17 22:59 06:59 14:59 Other: Weight 77.111 kg Patient Weight 05/26/17 06:59 Weight 77.111 kg Gen: This is a disheveled appearing 67-year-old male. HEENT: Head is atraumatic, normocephalic. Pupils right is round and reactive to light, left is abnormally shaped. Sclerae is anicteric. Conjunctiva pink. Mucous membranes of the mouth are slightly dry. Patient is edentulous NECK: Supple. No JVD. No lymphadenopathy. No thyromegaly. LUNGS: Scattered wheezes noted throughout. Good air exchange.. No intercostal retractions. HEART: Regular rate and rhythm. No murmur. ABDOMEN: Soft. Bowel sounds are present. No masses. No tenderness. EXTREMITIES: 2+ pedal edema to the left foot. To the right dorsal foot patient has a large wound covering most of the dorsum area with black fourth and fifth toes as well as a wound to the lateral third toe with blackness from the base to the DIP. NEUROLOGICAL: Patient is awake, alert and oriented x3. Cranial nerves 2 through 12 are grossly intact. Results Results: Laboratory Results WBC 9.1 k/uL (3.8-10.6) 05/25/17 11:15 RBC 2.69 m/uL (4.30-5.90) L 05/25/17 11:15 Hgb 8.3 gm/dL (13.0-17.5) L 05/25/17 11:15 Hct 28.2 % (39.0-53.0) L 05/25/17 11:15 MCV 104.9 fL (80.0-100.0) H 05/25/17 11:15 MCH 30.9 pg (25.0-35.0) 05/25/17 11:15 MCHC 29.4 g/dL (31.0-37.0) L 05/25/17 11:15 RDW 15.2 % (11.5-15.5) 05/25/17 11:15 Plt Count 358 k/uL (150-450) 05/25/17 11:15 Neutrophils % 52 % 05/25/17 11:15 Lymphocytes % 19 % 05/25/17 11:15 Monocytes % 9 % 05/25/17 11:15 Eosinophils % 17 % 05/25/17 11:15 Basophils % 1 % 05/25/17 11:15 Neutrophils # 4.7 k/uL (1.3-7.7) 05/25/17 11:15 Lymphocytes # 1.7 k/uL (1.0-4.8) 05/25/17 11:15 Monocytes # 0.8 k/uL (0-1.0) 05/25/17 11:15 Eosinophils # 1.5 k/uL (0-0.7) H 05/25/17 11:15 Basophils # 0.1 k/uL (0-0.2) 05/25/17 11:15 Manual Slide Review Performed 05/25/17 11:15 Polychromasia Present 05/25/17 11:15 Hypochromasia Marked 05/25/17 11:15 Macrocytosis Moderate 05/25/17 11:15 PT 12.1 sec (9.0-12.0) H 05/25/17 11:15 INR 1.2 (<1.2) H 05/25/17 11:15 APTT 34.4 sec (22.0-30.0) H 05/25/17 11:15 Sodium 139 mmol/L (137-145) 05/25/17 11:15 Potassium 3.8 mmol/L (3.5-5.1) 05/25/17 11:15 Chloride 108 mmol/L (98-107) H 05/25/17 11:15 Carbon Dioxide 26 mmol/L (22-30) 05/25/17 11:15 Anion Gap 5 mmol/L 05/25/17 11:15 BUN 17 mg/dL (9-20) 05/25/17 11:15 Creatinine 0.72 mg/dL (0.66-1.25) 05/25/17 11:15 Est GFR (MDRD) Af Amer >60 (>60 ml/min/1.73 sqM) 05/25/17 11:15 Est GFR (MDRD) Non-Af >60 (>60 ml/min/1.73 sqM) 05/25/17 11:15 Glucose 99 mg/dL (74-99) 05/25/17 11:15 Calcium 7.3 mg/dL (8.4-10.2) L 05/25/17 11:15 CBC & Chem 7: 05/25/17 11:15 05/25/17 11:15 Labs: Abnormal Lab Results - Last 24 Hours (Table) 05/25/17 05/25/17 05/25/17 Range/Units 11:15 11:15 11:15 RBC 2.69 L (4.30-5.90) m/uL Hgb 8.3 L (13.0-17.5) gm/dL Hct 28.2 L (39.0-53.0) % MCV 104.9 H (80.0-100.0) fL MCHC 29.4 L (31.0-37.0) g/dL Eosinophils # 1.5 H (0-0.7) k/uL PT 12.1 H (9.0-12.0) sec INR 1.2 H (<1.2) APTT 34.4 H (22.0-30.0) sec Chloride 108 H (98-107) mmol/L Calcium 7.3 L (8.4-10.2) mg/dL Assessment and Plan Plan: This is a 67-year-old male patient who has presented with nonhealing wound to the dorsum right foot. Patient has been treated with ciprofloxacin and failed treatment with only worsening. He has been given a dose of Rocephin upon and vancomycin and these will be changed to Ceftaroline. Consult in place for Dr. Quintanilla. Blood culture is status received. Continue supportive care. Further recommendations as patient progresses. The above dictated assessment and findings were discussed with Dr. Lagos. The impression and plan of care have been directed as dictated. Eugenie Wilson nurse practitioner acting as scribe for Dr. Lagos.
[2017-05-25] MEDS ORDERED: ACETAMINOPHEN TAB 500 MG TAB PO PRN (16:28)
[2017-05-25] MEDS: CEFTAROLINE FOSAMIL 600 MG in SODIUM CHLORIDE 0.9% 250 ML IVPB SCH (17:16)
[2017-05-25 18:09] VITALS: BMI 24.3
[2017-05-25] MEDS ORDERED: VANCOMYCIN 1,500 MG in SODIUM CHLORIDE 0.9% 250 ML IVPB SCH (21:00)
--- NOTE | 2017-05-25 21:22 | P.CON ---
Consult Note - . Consult date: 05/25/17 Assessment/Plan:: This is a 67-year-old male known to ID service as he was seen on his last admission May 03 through May 17. He had a previous admission following a fall where he fractured his right hip and he underwent surgical therapy with open reduction internal fixation with . There was concern for hardware failure to the ORIF and he returned to the OR and treated with hemiarthroplasty. Patient sustained an injury to the dorsum of his right foot which resulted in a blister. Patient did not recall any trauma. He was also seen by Dr. Ellison who provided debridement of the right dorsal foot wound. Patient was placed on Ceftaroline due to vancomycin MILDRED of 2. His foot wound culture was positive for MRSA and Flavobacterium odoratum. Patient was discharged to [facility] for subacute rehab and was continued on ciprofloxacin. Patient was seen there by assistant counsel and recommended that the patient come into the hospital for amputation of the foot. There is a consult in place with Dr. Ellison. Patient received 1 dose of cefepime and was started on vancomycin in the emergency center. Patient is complaining of severe pain to the right foot. He denies fever or chills. He denies change in appetite. No nausea, vomiting diarrhea diarrhea he denies any chest pain, cough, sputum production. He denies any new injury to the foot. He has noted lower extremity edema and he states this is because he sits in a wheelchair all day. Patient presents with a stage II pressure ulcer in the coccyx area. Please see the consult note is dictated by nurse practitioner Mrs. Eugenie Wilson. The patient relates that the pain in the foot has increased. Doing well with current pain medications. Vascular Surgery consult is in progress. The patient is developed the purple blue discoloration of the fourth and fifth toes with increasing pain. He has known severe peripheral vascular disease. Await the surgical plan. As noted during his last stay he had computed tomography scan that showed the adrenal mass with multiple liver metastasis. He was seen by oncology during his last stay. Unclear how this will impact the surgical plan for the right lower extremity. Antimicrobial therapy is altered to Ceftaroline pending further culture data. I agree with the evaluation, assessment and plan as dictated by nurse practitioner Mrs. Eugenie Wilson.
[2017-05-25] MEDS: PRIMIDONE 50 MG TAB PO SCH (21:38)
[2017-05-25] MEDS: ATENOLOL 50 MG TAB PO SCH (21:39)
[2017-05-26] MEDS: MORPHINE SULFATE 2 MG/ML SYRINGE IV PRN ×2 (02:49→07:04)
[2017-05-26] MEDS: CEFTAROLINE FOSAMIL 600 MG in SODIUM CHLORIDE 0.9% 250 ML IVPB SCH ×2 (06:09→19:07)
--- NOTE | 2017-05-26 07:45 | P.HPIM ---
History of Present Illness H&P Date: 05/26/17 Chief Complaint: cellulitis with peripheral arterial disease in the right lower extremity. This is a history and physical an 67-year-old white male who was recently discharged for hip revision and acute renal failure several weeks ago. He has been to [facility] for rehab secondary to the hip fracture revision. But has had element of cellulitis and foot ulcer of the right lower extremity. Unfortunately, the foot has been becoming worse. He has underlying history of COPD with most likely PAD with [id number] smoking history. He is now readmitted for severe PAD and ulceration of the right lower extremity. Review of Systems Constitutional: Denies chills, Denies fever Eyes: denies blurred vision, denies pain Ears, nose, mouth and throat: Denies headache, Denies sore throat Cardiovascular: Denies chest pain, Denies shortness of breath Respiratory: Denies cough Gastrointestinal: Denies abdominal pain, Denies diarrhea, Denies nausea, Denies vomiting Musculoskeletal: Denies myalgias Integumentary: Reports color changes, Reports rash Neurological: Denies numbness, Denies weakness Past Medical History Past Medical History: Atrial Fibrillation, COPD, GERD/Reflux, Hypertension, Liver Disease, Myocardial Infarction ([place]), Osteoarthritis (OA) Additional Past Medical History / Comment(s): Acute kidney failure/obstructive uropathy-has IDC/AMS, UTI with sepsis, 03/31/17 R hip fracture with surgery twice , perforatic gastric ulcer 2016(had sx), ddd lumbar, herniated discs, hemorrhoids, liver lesions and L adrenal mass which pt states where worked up at [facility] and are benign, hep c, legally blind-sees better with R eye , past alcoholism, PVD, nonocclusive trombosis R lower leg, current R foot infection and decub on coccyx currently being tx. Last Myocardial Infarction Date:: 2007 History of Any Multi-Drug Resistant Organisms: MRSA Date of last positivie culture/infection: 05/08/17 MDRO Source:: ,FOOT Past Surgical History: Orthopedic Surgery Additional Past Surgical History / Comment(s): 04/01/17 closed reduction percutaneous pinning R hip-then removal of hardware and hemiathroplasty done, vasectomy, bilateral cataracts removed with lens implants, liver bxs 2006, antrectomy w/gastroenterostomy 2016, colonoscopy, reduction paraphimosis. Past Anesthesia/Blood Transfusion Reactions: No Reported Reaction Smoking Status: Current every day smoker - Past Family History Mother History Unknown: Yes Family Medical History: Cancer, Diabetes Mellitus, Hypertension Father History Unknown: Yes Family Medical History: Liver Disease, Seizure Disorder Additional Family Medical History / Comment(s): alcoholic Brother(s) History Unknown: Yes Family Medical History: Liver Disease Additional Family Medical History / Comment(s): aneurysm Medications and Allergies Home Medications Medication Instructions Recorded Confirmed Type Atenolol [Tenormin] 50 mg PO BID 09/21/15 05/25/17 History Primidone [Mysoline] 50 mg PO TID 03/31/17 05/25/17 History Docusate [Colace] 100 mg PO DAILY #30 capsule 04/04/17 05/25/17 Rx Enoxaparin [Lovenox] 40 mg SQ DAILY #30 syringe 04/04/17 05/25/17 Rx Cyclobenzaprine HCl 10 mg PO BID PRN #0 04/19/17 05/25/17 Rx Pantoprazole [Protonix] 40 mg PO AC-BRKFST #30 tab 04/19/17 05/25/17 Rx Acetaminophen Tab [Tylenol] 500 mg PO Q6H PRN #30 tablet 04/20/17 05/25/17 Rx Ciprofloxacin HCl [Cipro] 500 mg PO BID #14 tab 05/17/17 05/25/17 Rx Furosemide [Lasix] 40 mg PO DAILY tab 05/17/17 05/25/17 Rx Tamsulosin [Flomax] 0.8 mg PO PC-BRKFST cap 05/17/17 05/25/17 Rx HYDROcodone/APAP 5-325MG [[place] 1 tab PO Q6HR PRN 05/25/17 05/25/17 History 5-325] Multivitamins, Thera [Multivitamin 1 tab PO DAILY 05/25/17 05/25/17 History (formulary)] Sennosides-Docusate Sodium 2 tab PO HS 05/25/17 05/25/17 History [Senokot-S] Allergies Allergy/AdvReac Type Severity Reaction Status Date / Time peginterferon peg-2a Allergy Unknown Verified 05/25/17 10:56 [From Pegasys] Penicillins Allergy Rash/Hives Verified 05/25/17 10:56 Physical Exam Vitals: Vital Signs Temp Pulse Pulse Resp BP BP Pulse Ox 05/26/17 07:00 98.6 F 84 18 104/52 97 05/25/17 23:00 99.9 F H 80 18 95/55 98 05/25/17 16:00 18 05/25/17 15:00 99.1 F 74 18 145/72 96 05/25/17 12:49 99 F 74 16 106/52 100 05/25/17 11:49 68 15 98/57 99 05/25/17 10:48 98.5 F 76 18 113/53 100 Intake and Output 05/25/17 05/26/17 05/26/17 22:59 06:59 14:59 Intake Total 250 Output Total 925 200 Balance -675 -200 Intake: Intake, IV Titration 250 Amount Ceftaroline Fosamil 600 250 mg In Sodium Chloride 0.9 % 250 ml @ 250 mls/hr IVPB Q12H [facility] Rx#: [id number] Output: Urine 925 200 Other: Voiding Method Indwelling Catheter Indwelling Catheter # Voids 1 1 Weight 77.111 kg - Constitutional General appearance: thin - EENT Eyes: EOMI - Neck Neck: no lymphadenopathy - Respiratory Respiratory: bilateral: CTA - Cardiovascular Rhythm: regular Heart sounds: normal: S1, S2 - Gastrointestinal General gastrointestinal: soft, no tenderness - Integumentary gangrenous-appearing toes. Integumentary: cellulitis - Neurologic Neurologic: CNII-XII intact - Musculoskeletal Musculoskeletal: generalized weakness Results CBC & Chem 7: 05/25/17 11:15 05/25/17 11:15 Labs: Abnormal Lab Results - Last 24 Hours (Table) 05/25/17 05/25/17 05/25/17 Range/Units 11:15 11:15 11:15 RBC 2.69 L (4.30-5.90) m/uL Hgb 8.3 L (13.0-17.5) gm/dL Hct 28.2 L (39.0-53.0) % MCV 104.9 H (80.0-100.0) fL MCHC 29.4 L (31.0-37.0) g/dL Eosinophils # 1.5 H (0-0.7) k/uL PT 12.1 H (9.0-12.0) sec INR 1.2 H (<1.2) APTT 34.4 H (22.0-30.0) sec Chloride 108 H (98-107) mmol/L Calcium 7.3 L (8.4-10.2) mg/dL Thrombosis Risk Factor Assmnt - Choose All That Apply Any of the Below Risk Factors Present?: Yes Other Risk Factors: Yes Each Risk Factor Represents 2 Points: Age 61-74 years Each Risk Factor Represents 3 Points: History of DVT/PE Thrombosis Risk Factor Assessment Total Risk Factor Score: 5 Thrombosis Risk Factor Assessment Level: High Risk Assessment and Plan (1) Foot infection Status: Acute (2) PVD (peripheral vascular disease) Status: Acute (3) CAD (coronary artery disease) Status: Acute (4) Paroxysmal a-fib Status: Acute (5) Pedal edema Status: Acute Plan: continue current regimen of antibiotic treatment. Appreciate infectious disease input. Check CBC CMP 80/INR in a.m. I suspect he most likely will need possible amputation. Vascular surgery is been consulted. We'll go ahead and reconcile medications. See orders otherwise. Prognosis is guarded. Time with Patient: Greater than 30
--- NOTE | 2017-05-26 08:09 | P.GSCN ---
History of Present Illness History of present illness: 67-year-old gentleman, who is admitted admitted to [facility] with history of gangrene changes right foot involving the toes and the big toe and a large wound on the dorsal aspect of the foot with exposed tendon. This patient had a wound debridement last admission because of large blister formation, now he has developed gangrene changes in the big toe and fourth and fifth toe. This patient is a wheelchair-bound. History of COPD, history of hypertension, history of heart disease, history of adrenal mass with liver metastases On examination neck is supple no bruit appreciated Chest clear first and second sound present Abdomen distended no peritoneal sign noted Vascular examination femorals are present bilateral posterior tibial dorsal pedis is not palpable bilateral popliteal artery is not palpable bilateral patient has a large wound on the dorsal suspect the right foot with gangrene changes involving the toes Plan is patient will need major amputation I have discussed with the patient detail below-knee versus [id number] because of poor circulation there is a high chance wound wound healed below the knee and he does not want to have a artificial leg so we have discussed about the above-knee amputation discussed with Dr. Alecia Ugalde and we will arrange for amputation risk bleeding infection thrombosis has been discussed Past Medical History Past Medical History: Atrial Fibrillation, COPD, GERD/Reflux, Hypertension, Liver Disease, Myocardial Infarction ([place]), Osteoarthritis (OA) Additional Past Medical History / Comment(s): Acute kidney failure/obstructive uropathy-has IDC/AMS, UTI with sepsis, 03/31/17 R hip fracture with surgery twice , perforatic gastric ulcer 2016(had sx), ddd lumbar, herniated discs, hemorrhoids, liver lesions and L adrenal mass which pt states where worked up at [facility] and are benign, hep c, legally blind-sees better with R eye , past alcoholism, PVD, nonocclusive trombosis R lower leg, current R foot infection and decub on coccyx currently being tx. Last Myocardial Infarction Date:: 2007 History of Any Multi-Drug Resistant Organisms: MRSA Year Discovered:: 05/08/17 MDRO Source:: ,FOOT Past Surgical History: Orthopedic Surgery Additional Past Surgical History / Comment(s): 04/01/17 closed reduction percutaneous pinning R hip-then removal of hardware and hemiathroplasty done, vasectomy, bilateral cataracts removed with lens implants, liver bxs 2006, antrectomy w/gastroenterostomy 2015, colonoscopy, reduction paraphimosis. Past Anesthesia/Blood Transfusion Reactions: No Reported Reaction Smoking Status: Current every day smoker - Past Family History Mother History Unknown: Yes Family Medical History: Cancer, Diabetes Mellitus, Hypertension Father History Unknown: Yes Family Medical History: Liver Disease, Seizure Disorder Additional Family Medical History / Comment(s): alcoholic Brother(s) History Unknown: Yes Family Medical History: Liver Disease Additional Family Medical History / Comment(s): aneurysm Medications and Allergies Home Medications Medication Instructions Recorded Confirmed Type Atenolol [Tenormin] 50 mg PO BID 09/21/15 05/25/17 History Primidone [Mysoline] 50 mg PO TID 03/31/17 05/25/17 History Docusate [Colace] 100 mg PO DAILY #30 capsule 04/04/17 05/25/17 Rx Enoxaparin [Lovenox] 40 mg SQ DAILY #30 syringe 04/04/17 05/25/17 Rx Cyclobenzaprine HCl 10 mg PO BID PRN #0 04/19/17 05/25/17 Rx Pantoprazole [Protonix] 40 mg PO AC-BRKFST #30 tab 04/19/17 05/25/17 Rx Acetaminophen Tab [Tylenol] 500 mg PO Q6H PRN #30 tablet 04/20/17 05/25/17 Rx Ciprofloxacin HCl [Cipro] 500 mg PO BID #14 tab 05/17/17 05/25/17 Rx Furosemide [Lasix] 40 mg PO DAILY tab 05/17/17 05/25/17 Rx Tamsulosin [Flomax] 0.8 mg PO PC-BRKFST cap 05/17/17 05/25/17 Rx HYDROcodone/APAP 5-325MG [[place] 1 tab PO Q6HR PRN 05/25/17 05/25/17 History 5-325] Multivitamins, Thera [Multivitamin 1 tab PO DAILY 05/25/17 05/25/17 History (formulary)] Sennosides-Docusate Sodium 2 tab PO HS 05/25/17 05/25/17 History [Senokot-S] Allergies Allergy/AdvReac Type Severity Reaction Status Date / Time peginterferon peg-2a Allergy Unknown Verified 10/11/17 10:56 [From Pegasys] Penicillins Allergy Rash/Hives Verified 05/25/17 10:56 Surgical - Exam Vital Signs Temp Pulse Resp BP Pulse Ox 98.5 F 76 18 113/53 100 05/25/17 10:48 05/25/17 10:48 05/25/17 10:48 05/25/17 10:48 05/25/17 10:48 Results - Labs 05/25/17 11:15 05/25/17 11:15 Abnormal Lab Results - Last 24 Hours (Table) 05/25/17 05/25/17 05/25/17 Range/Units 11:15 11:15 11:15 RBC 2.69 L (4.30-5.90) m/uL Hgb 8.3 L (13.0-17.5) gm/dL Hct 28.2 L (39.0-53.0) % MCV 104.9 H (80.0-100.0) fL MCHC 29.4 L (31.0-37.0) g/dL Eosinophils # 1.5 H (0-0.7) k/uL PT 12.1 H (9.0-12.0) sec INR 1.2 H (<1.2) APTT 34.4 H (22.0-30.0) sec Chloride 108 H (98-107) mmol/L Calcium 7.3 L (8.4-10.2) mg/dL Diabetes panel 05/25/17 Range/Units 11:15 Sodium 139 (137-145) mmol/L Potassium 3.8 (3.5-5.1) mmol/L Chloride 108 H (98-107) mmol/L Carbon Dioxide 26 (22-30) mmol/L BUN 17 (9-20) mg/dL Creatinine 0.72 (0.66-1.25) mg/dL Glucose 99 (74-99) mg/dL Calcium 7.3 L (8.4-10.2) mg/dL Calcium panel 05/25/17 Range/Units 11:15 Calcium 7.3 L (8.4-10.2) mg/dL Pituitary panel 05/25/17 Range/Units 11:15 Sodium 139 (137-145) mmol/L Potassium 3.8 (3.5-5.1) mmol/L Chloride 108 H (98-107) mmol/L Carbon Dioxide 26 (22-30) mmol/L BUN 17 (9-20) mg/dL Creatinine 0.72 (0.66-1.25) mg/dL Glucose 99 (74-99) mg/dL Calcium 7.3 L (8.4-10.2) mg/dL Adrenal panel 05/25/17 Range/Units 11:15 Sodium 139 (137-145) mmol/L Potassium 3.8 (3.5-5.1) mmol/L Chloride 108 H (98-107) mmol/L Carbon Dioxide 26 (22-30) mmol/L BUN 17 (9-20) mg/dL Creatinine 0.72 (0.66-1.25) mg/dL Glucose 99 (74-99) mg/dL Calcium 7.3 L (8.4-10.2) mg/dL
[2017-05-26 08:22] LABS: INR 1.2 (<1.2); Prothrombin Time 12.3 sec (9.0-12.0)
[2017-05-26 08:34] LABS: Anion Gap 4 mmol/L; Blood Urea Nitrogen 16 mg/dL (9-20); Calcium 7.1 mg/dL (8.4-10.2); Carbon Dioxide 26 mmol/L (22-30); Chloride 110 mmol/L (98-107); Glucose 117 mg/dL (74-99); Non-African American GFR(MDRD) >60 (>60 ml/min/1.73 sqM); Sodium 140 mmol/L (137-145)
[2017-05-26] MEDS: FUROSEMIDE 40 MG TAB PO SCH (08:48)
[2017-05-26] MEDS: TAMSULOSIN 0.4 MG CAP.ER.24H PO SCH (08:48)
[2017-05-26] MEDS: PANTOPRAZOLE 40 MG TABLET PO SCH (08:48)
[2017-05-26] MEDS: DOCUSATE 100 MG CAP PO SCH (08:49)
[2017-05-26] MEDS: PRIMIDONE 50 MG TAB PO SCH ×3 (08:49→21:08)
[2017-05-26] MEDS: ATENOLOL 50 MG TAB PO SCH ×2 (08:49→21:08)
[2017-05-26] MEDS: ENOXAPARIN 40 MG/0.4 ML SYRINGE SQ SCH (08:49)
[2017-05-26] MEDS: MORPHINE SULFATE 4 MG/ML SYRINGE IV PRN (11:22)
[2017-05-26] MEDS: MULTIVITAMINS, THERA 1 EACH TAB PO SCH (11:56)
[2017-05-26] MEDS ORDERED: IV FLUID CONTINUATION 1,000 ML IV ONE ×2 (14:54)
[2017-05-26] MEDS ORDERED: MIDAZOLAM 2 MG/2 ML VIAL ONE (15:26)
[2017-05-26] MEDS ORDERED: SUCCINYLCHOLINE CHLORIDE 100 MG/5 ML SYR IV ONE (15:26)
[2017-05-26] MEDS ORDERED: PROPOFOL 10 MG/ML 20 ML VIAL IV ONE (15:26)
[2017-05-26] MEDS ORDERED: HYDROmorphone (PF) 1 MG/ML ONE (15:26)
[2017-05-26] MEDS ORDERED: PHENYLEPHRINE-0.9% NACL SYG 1 MG/10 ML SYRINGE ONE (15:26)
--- NOTE | 2017-05-26 17:34 | OP ---
OPERATIVE REPORT PREOPERATIVE DIAGNOSIS: Severe peripheral vascular disease and gangrene of the right foot with large wound on the dorsum aspect of the foot with exposed tendon. PROCEDURE: Right above-knee amputation. HISTORY: This patient has history of peripheral vascular disease. He had a right hip surgery done recently and he also has a history of severe peripheral vascular disease with gangrene changes in the right foot toes and large wound on the dorsal aspect of the foot. DESCRIPTION OF PROCEDURE: The patient was brought to the operating room. Right leg was prepped and drapes applied in the usual sterile manner. An incision was made. A circular incision above the patella deepened through skin, fat, and fascia. The anterior compartment muscles were divided and then lateral compartment muscles were divided. After that in the medial compartment muscles. During this dissection we divided the popliteal artery above the knee and suture-ligated with 0-Prolene and popliteal vein was divided and divided with 0 Prolene and then later compartment muscles were divided and then using periosteal elevator we elevated the periosteum from the femur and using Gigli saw we divided the femur and posterior compartment muscles were divided. Sciatic nerves were divided. tied with 0-Prolene and hemostasis was well controlled. The wound was irrigated with saline and hydrogen peroxide. The anterior and posterior compartments were approximated with 0-Vicryl with interrupted sutures around the femur and fascia was approximated with 0-Vicryl with interrupted sutures and skin was closed with 3-0 nylon interrupted suture. Dressing applied. Patient tolerated the procedure well. MMULISESL / IJN: [id number] /
[2017-05-26] MEDS: HYDROmorphone 1 MG/ML 1 ML SYRINGE IVP ONE ×2 (17:45→18:06)
[2017-05-26] MEDS ORDERED: LACTATED RINGERS 1,000 ML IV ONE (17:59)
--- NOTE | 2017-05-26 20:56 | P.PN ---
Subjective Progress Note Date: 05/26/17 Principal diagnosis: Gangrene right foot This is a 67-year-old male known to ID service as he was seen on his last admission May 03 through May 17. He had a previous admission following a fall where he fractured his right hip and he underwent surgical therapy with open reduction internal fixation with . There was concern for hardware failure to the ORIF and he returned to the OR and treated with hemiarthroplasty. Patient sustained an injury to the dorsum of his right foot which resulted in a blister. Patient did not recall any trauma. He was also seen by Dr. Ellison who provided debridement of the right dorsal foot wound. Patient was placed on Ceftaroline due to vancomycin MILDRED of 2. His foot wound culture was positive for MRSA and Flavobacterium odoratum. Patient was discharged to [facility] for subacute rehab and was continued on ciprofloxacin. Patient was seen there by tar roofer and recommended that the patient come into the hospital for amputation of the foot. There is a consult in place with Dr. Ellison. Patient received 1 dose of cefepime and was started on vancomycin in the emergency center. Patient is complaining of severe pain to the right foot. He denies fever or chills. He denies change in appetite. No nausea, vomiting diarrhea diarrhea he denies any chest pain, cough, sputum production. He denies any new injury to the foot. He has noted lower extremity edema and he states this is because he sits in a wheelchair all day. Patient presents with a stage II pressure ulcer in the coccyx area. The patient has been seen by the vascular surgeon have been a pleasure discussing the case. We'll utilize antibiotic therapy for now. However the patient has gangrenous changes to the foot. The patient is aware that he will never walk again. Would like to proceed with an [id number] amputation to limit the amount of surgical interventions. 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 Objective - Vital Signs Vital signs: Vital Signs Temp 98.1 F 05/26/17 18:16 Pulse 69 05/26/17 18:16 Resp 16 05/26/17 18:16 BP 110/62 05/26/17 18:16 Pulse Ox 99 05/26/17 18:16 Intake & Output 10/07/3105/26/17 05/27/17 06:59 18:59 06:59 Intake Total 1150 Output Total 375 850 Balance -375 300 Weight 77.111 kg Intake: IV 910 Oral 240 Output: Urine 375 650 Estimated Blood Loss 200 Other: Voiding Method Indwelling Catheter Indwelling Catheter # Voids 1 - Exam Gen: This is a disheveled appearing 67-year-old male. HEENT: Head is atraumatic, normocephalic. Pupils right is round and reactive to light, left is abnormally shaped. Sclerae is anicteric. Conjunctiva pink. Mucous membranes of the mouth are slightly dry. Patient is edentulous NECK: Supple. No JVD. No lymphadenopathy. No thyromegaly. LUNGS: Scattered wheezes noted throughout. Good air exchange.. No intercostal retractions. HEART: Regular rate and rhythm. No murmur. ABDOMEN: Soft. Bowel sounds are present. No masses. No tenderness. EXTREMITIES: 2+ pedal edema to the left foot. To the right dorsal foot patient has a large necrotic ulcer of the entire dorsum with evidence of the gangrenous changes to the fourth and fifth toes as well as a wound to the lateral third toe with blackness from the base to the DIP. NEUROLOGICAL: Patient is awake, alert and oriented x3. - Labs CBC & Chem 7: 05/25/17 11:15 05/26/17 07:44 Labs: Abnormal Lab Results - Last 24 Hours (Table) 05/26/17 05/26/17 Range/Units 07:44 07:49 PT 12.3 H (9.0-12.0) sec INR 1.2 H (<1.2) Chloride 110 H (98-107) mmol/L Glucose 117 H (74-99) mg/dL Calcium 7.1 L (8.4-10.2) mg/dL Microbiology - Last 24 Hours (Table) 05/25/17 11:15 Blood Culture - Preliminary Blood No Growth after 24 hours Laboratory Results WBC 9.1 k/uL (3.8-10.6) 05/25/17 11:15 RBC 2.69 m/uL (4.30-5.90) L 05/25/17 11:15 Hgb 8.3 gm/dL (13.0-17.5) L 05/25/17 11:15 Hct 28.2 % (39.0-53.0) L 05/25/17 11:15 MCV 104.9 fL (80.0-100.0) H 05/25/17 11:15 MCH 30.9 pg (25.0-35.0) 05/25/17 11:15 MCHC 29.4 g/dL (31.0-37.0) L 05/25/17 11:15 RDW 15.2 % (11.5-15.5) 05/25/17 11:15 Plt Count 358 k/uL (150-450) 05/25/17 11:15 Neutrophils % 52 % 05/25/17 11:15 Lymphocytes % 19 % 05/25/17 11:15 Monocytes % 9 % 05/25/17 11:15 Eosinophils % 17 % 05/25/17 11:15 Basophils % 1 % 05/25/17 11:15 Neutrophils # 4.7 k/uL (1.3-7.7) 05/25/17 11:15 Lymphocytes # 1.7 k/uL (1.0-4.8) 05/25/17 11:15 Monocytes # 0.8 k/uL (0-1.0) 05/25/17 11:15 Eosinophils # 1.5 k/uL (0-0.7) H 05/25/17 11:15 Basophils # 0.1 k/uL (0-0.2) 05/25/17 11:15 Manual Slide Review Performed 05/25/17 11:15 Polychromasia Present 05/25/17 11:15 Hypochromasia Marked 05/25/17 11:15 Macrocytosis Moderate 05/25/17 11:15 PT 12.3 sec (9.0-12.0) H 05/26/17 07:49 INR 1.2 (<1.2) H 05/26/17 07:49 APTT 34.4 sec (22.0-30.0) H 05/25/17 11:15 Sodium 140 mmol/L (137-145) 05/26/17 07:44 Potassium 4.0 mmol/L (3.5-5.1) 05/26/17 07:44 Chloride 110 mmol/L (98-107) H 05/26/17 07:44 Carbon Dioxide 26 mmol/L (22-30) 05/26/17 07:44 Anion Gap 4 mmol/L 05/26/17 07:44 BUN 16 mg/dL (9-20) 05/26/17 07:44 Creatinine 0.72 mg/dL (0.66-1.25) 05/26/17 07:44 Est GFR (MDRD) Af Amer >60 (>60 ml/min/1.73 sqM) 05/26/17 07:44 Est GFR (MDRD) Non-Af >60 (>60 ml/min/1.73 sqM) 05/26/17 07:44 Glucose 117 mg/dL (74-99) H 05/26/17 07:44 Calcium 7.1 mg/dL (8.4-10.2) L 05/26/17 07:44 Blood Type A Positive 05/26/17 14:50 Blood Type Recheck No 05/26/17 14:50 Antibody Screen NEGATIVE 05/26/17 14:50 Spec Expiration Date 05/29/2017 6887 05/26/17 14:50 Microbiology 05/25/17 11:15 Blood Blood Culture - Preliminary No Growth after 24 hours Assessment and Plan (1) Gangrene of right foot Narrative/Plan: 67-year-old male with has a known history of severe peripheral vascular disease is receiving hospitalized after his right hip fracture. He had repair of the hip but then had difficulties and required revision to a hemiarthroplasty. He continues to have increasing difficulties the right lower extremity. Developed extensive bulla on the dorsum of the foot that has progressed into further gangrenous change of the fourth and fifth toes. He's been seen by vascular surgery with plans for the pqnjr-taf-[id number] amputation of the right limb when it can be arranged. Antimicrobial therapy continues with the Ceftaroline based on the prior pathogens. Pain control appears to be adequate. We'll need extensive protein supplementation to help his healing. Further oncology input is in process regarding the adrenal mass and multiple liver metastasis. Status: Acute (2) Adrenal mass, left Status: Acute
[2017-05-27] MEDS: MORPHINE SULFATE 4 MG/ML SYRINGE IV PRN ×4 (00:10→13:24)
[2017-05-27] MEDS: HYDROcodone/APAP 5-325MG 1 EACH TAB PO PRN (03:04)
[2017-05-27] MEDS: CYCLOBENZAPRINE 10 MG TAB PO PRN (04:10)
[2017-05-27] MEDS: CEFTAROLINE FOSAMIL 600 MG in SODIUM CHLORIDE 0.9% 250 ML IVPB SCH ×2 (06:19→17:17)
[2017-05-27] MEDS: FUROSEMIDE 40 MG TAB PO SCH (08:06)
[2017-05-27] MEDS: ENOXAPARIN 40 MG/0.4 ML SYRINGE SQ SCH (08:06)
[2017-05-27] MEDS: PRIMIDONE 50 MG TAB PO SCH ×3 (08:06→21:56)
[2017-05-27] MEDS: TAMSULOSIN 0.4 MG CAP.ER.24H PO SCH (08:07)
[2017-05-27] MEDS: DOCUSATE 100 MG CAP PO SCH (08:07)
[2017-05-27] MEDS: ATENOLOL 50 MG TAB PO SCH ×2 (08:07→21:56)
[2017-05-27] MEDS: PANTOPRAZOLE 40 MG TABLET PO SCH (08:07)
[2017-05-27] MEDS: MULTIVITAMINS, THERA 1 EACH TAB PO SCH (08:07)
[2017-05-27 09:54] LABS: CH 31.7; CHCM 29.8; HCT 28.1 % (39.0-53.0); HDW 2.82; HGB 8.4 gm/dL (13.0-17.5); Hypochromasia Marked; MCH 31.8 pg (25.0-35.0); MCHC 29.7 g/dL (31.0-37.0); MCV 106.9 fL (80.0-100.0); Macrocytosis Moderate; Mean Platelet Volume 8.3; RBC 2.63 m/uL (4.30-5.90); RDW 15.2 % (11.5-15.5)
[2017-05-27 10:40] LABS: ALT 31 U/L (21-72); AST 37 U/L (17-59); Alkaline Phosphatase 99 U/L (38-126); Anion Gap 5 mmol/L; Blood Urea Nitrogen 16 mg/dL (9-20); Calcium 7.3 mg/dL (8.4-10.2); Carbon Dioxide 24 mmol/L (22-30); Chloride 108 mmol/L (98-107); Glucose 147 mg/dL (74-99); Non-African American GFR(MDRD) >60 (>60 ml/min/1.73 sqM); Potassium 3.9 mmol/L (3.5-5.1); Sodium 137 mmol/L (137-145); Total Bilirubin 0.5 mg/dL (0.2-1.3)
--- NOTE | 2017-05-27 18:39 | P.PN ---
Subjective Progress Note Date: 05/27/17 Principal diagnosis: Gangrene right foot This is a 67-year-old male known to ID service as he was seen on his last admission May 03 through May 17. He had a previous admission following a fall where he fractured his right hip and he underwent surgical therapy with open reduction internal fixation with . There was concern for hardware failure to the ORIF and he returned to the OR and treated with hemiarthroplasty. Patient sustained an injury to the dorsum of his right foot which resulted in a blister. Patient did not recall any trauma. He was also seen by Dr. Ellison who provided debridement of the right dorsal foot wound. Patient was placed on Ceftaroline due to vancomycin MILDRED of 2. His foot wound culture was positive for MRSA and Flavobacterium odoratum. Patient was discharged to [facility] for subacute rehab and was continued on ciprofloxacin. Patient was seen there by marking clerk and recommended that the patient come into the hospital for amputation of the foot. There is a consult in place with Dr. Ellison. Patient received 1 dose of cefepime and was started on vancomycin in the emergency center. Patient is complaining of severe pain to the right foot. He denies fever or chills. He denies change in appetite. No nausea, vomiting diarrhea diarrhea he denies any chest pain, cough, sputum production. He denies any new injury to the foot. He has noted lower extremity edema and he states this is because he sits in a wheelchair all day. Patient presents with a stage II pressure ulcer in the coccyx area. The patient has been seen by the vascular surgeon have been a pleasure discussing the case. We'll utilize antibiotic therapy for now. The patient has had the [id number]-[id number]-vdcf amputation of an pain is doing relatively well. Objective - Vital Signs Vital signs: Vital Signs Temp 100.4 F H 05/27/17 15:54 Pulse 70 05/27/17 15:31 Resp 16 05/27/17 15:31 BP 99/56 05/27/17 15:00 Pulse Ox 94 L 05/27/17 15:00 Intake & Output 05/26/17 05/27/17 05/27/17 18:59 06:59 18:59 Intake Total 1150 160 Output Total 850 600 300 Balance 300 -600 -140 Weight 77.111 kg Intake: IV 910 160 Normal saline at KVO 160 Oral 240 Output: Urine 650 600 300 Estimated Blood Loss 200 Other: Voiding Method Indwelling Catheter Indwelling Catheter Indwelling Catheter # Voids 0 # Bowel Movements 0 - Exam Gen: This is a disheveled appearing 67-year-old male. Cachectic. HEENT: Head is atraumatic, normocephalic. Pupils right is round and reactive to light, left is abnormally shaped. Sclerae is anicteric. Conjunctiva pink. Mucous membranes of the mouth are slightly dry. Patient is edentulous NECK: Supple. No JVD. No lymphadenopathy. No thyromegaly. LUNGS: Scattered wheezes noted throughout. Good air exchange.. No intercostal retractions. HEART: Regular rate and rhythm. No murmur. ABDOMEN: Soft. Bowel sounds are present. No masses. No tenderness. EXTREMITIES: 2+ pedal edema to the left foot. The wbihm-pxf-xyve amputation residual limb site is dry at this time in tender. No ascending erythema is seen. No right inguinal lymphadenopathy NEUROLOGICAL: Patient is awake, alert and oriented x3. - Labs CBC & Chem 7: 05/27/17 09:00 05/27/17 09:00 Labs: Abnormal Lab Results - Last 24 Hours (Table) 05/27/17 05/27/17 Range/Units 09:00 09:00 WBC 11.0 H (3.8-10.6) k/uL RBC 2.63 L (4.30-5.90) m/uL Hgb 8.4 L (13.0-17.5) gm/dL Hct 28.1 L (39.0-53.0) % MCV 106.9 H (80.0-100.0) fL MCHC 29.7 L (31.0-37.0) g/dL Chloride 108 H (98-107) mmol/L Glucose 147 H (74-99) mg/dL Calcium 7.3 L (8.4-10.2) mg/dL Total Protein 6.0 L (6.3-8.2) g/dL Albumin 1.9 L (3.5-5.0) g/dL Microbiology - Last 24 Hours (Table) 05/25/17 11:15 Blood Culture - Preliminary Blood No Growth after 48 hours Laboratory Results WBC 11.0 k/uL (3.8-10.6) H 05/27/17 09:00 RBC 2.63 m/uL (4.30-5.90) L 05/27/17 09:00 Hgb 8.4 gm/dL (13.0-17.5) L 05/27/17 09:00 Hct 28.1 % (39.0-53.0) L 05/27/17 09:00 MCV 106.9 fL (80.0-100.0) H 05/27/17 09:00 MCH 31.8 pg (25.0-35.0) 05/27/17 09:00 MCHC 29.7 g/dL (31.0-37.0) L 05/27/17 09:00 RDW 15.2 % (11.5-15.5) 05/27/17 09:00 Plt Count 295 k/uL (150-450) 05/27/17 09:00 Neutrophils % 52 % 05/25/17 11:15 Lymphocytes % 19 % 05/25/17 11:15 Monocytes % 9 % 05/25/17 11:15 Eosinophils % 17 % 05/25/17 11:15 Basophils % 1 % 05/25/17 11:15 Neutrophils # 4.7 k/uL (1.3-7.7) 05/25/17 11:15 Lymphocytes # 1.7 k/uL (1.0-4.8) 05/25/17 11:15 Monocytes # 0.8 k/uL (0-1.0) 05/25/17 11:15 Eosinophils # 1.5 k/uL (0-0.7) H 05/25/17 11:15 Basophils # 0.1 k/uL (0-0.2) 05/25/17 11:15 Manual Slide Review Performed 05/25/17 11:15 Polychromasia Present 05/25/17 11:15 Hypochromasia Marked 05/27/17 09:00 Macrocytosis Moderate 05/27/17 09:00 PT 12.3 sec (9.0-12.0) H 05/26/17 07:49 INR 1.2 (<1.2) H 05/26/17 07:49 APTT 34.4 sec (22.0-30.0) H 05/25/17 11:15 Sodium 137 mmol/L (137-145) 05/27/17 09:00 Potassium 3.9 mmol/L (3.5-5.1) 05/27/17 09:00 Chloride 108 mmol/L (98-107) H 05/27/17 09:00 Carbon Dioxide 24 mmol/L (22-30) 05/27/17 09:00 Anion Gap 5 mmol/L 05/27/17 09:00 BUN 16 mg/dL (9-20) 05/27/17 09:00 Creatinine 0.70 mg/dL (0.66-1.25) 05/27/17 09:00 Est GFR (MDRD) Af Amer >60 (>60 ml/min/1.73 sqM) 05/27/17 09:00 Est GFR (MDRD) Non-Af >60 (>60 ml/min/1.73 sqM) 05/27/17 09:00 Glucose 147 mg/dL (74-99) H 05/27/17 09:00 Calcium 7.3 mg/dL (8.4-10.2) L 05/27/17 09:00 Total Bilirubin 0.5 mg/dL (0.2-1.3) 05/27/17 09:00 AST 37 U/L (17-59) 05/27/17 09:00 ALT 31 U/L (21-72) 05/27/17 09:00 Alkaline Phosphatase 99 U/L (38-126) 05/27/17 09:00 Total Protein 6.0 g/dL (6.3-8.2) L 05/27/17 09:00 Albumin 1.9 g/dL (3.5-5.0) L 05/27/17 09:00 Blood Type A Positive 05/26/17 14:50 Blood Type Recheck No 05/26/17 14:50 Antibody Screen NEGATIVE 05/26/17 14:50 Spec Expiration Date 05/29/2017 - 90305/26/17 14:50 Microbiology 05/25/17 11:15 Blood Blood Culture - Preliminary No Growth after 48 hours Assessment and Plan (1) Gangrene of right foot Narrative/Plan: 67-year-old male with has a known history of severe peripheral vascular disease is receiving hospitalized after his right hip fracture. He had repair of the hip but then had difficulties and required revision to a hemiarthroplasty. As noted the patient has now had the right pqygt-woz-tiqi amputation and his hemodynamic stable. Antimicrobial therapy continues with the Ceftaroline based on the prior pathogens. Pain control appears to be adequate. We'll need extensive protein supplementation to help his healing. Further oncology input is in process regarding the adrenal mass and multiple liver metastasis. We'll not be planning on long-term outpatient intravenous antibiotic therapy. Status: Acute (2) Adrenal mass, left Status: Acute
[2017-05-28] MEDS: CEFTAROLINE FOSAMIL 600 MG in SODIUM CHLORIDE 0.9% 250 ML IVPB SCH ×2 (06:05→17:42)
[2017-05-28 08:55] LABS: Anion Gap 5 mmol/L; Blood Urea Nitrogen 16 mg/dL (9-20); Calcium 7.2 mg/dL (8.4-10.2); Carbon Dioxide 25 mmol/L (22-30); Chloride 108 mmol/L (98-107); Glucose 96 mg/dL (74-99); Non-African American GFR(MDRD) >60 (>60 ml/min/1.73 sqM); Sodium 138 mmol/L (137-145)
[2017-05-28] MEDS: TAMSULOSIN 0.4 MG CAP.ER.24H PO SCH (09:14)
[2017-05-28] MEDS: ENOXAPARIN 40 MG/0.4 ML SYRINGE SQ SCH (09:14)
[2017-05-28] MEDS: DOCUSATE 100 MG CAP PO SCH (09:14)
[2017-05-28] MEDS: PRIMIDONE 50 MG TAB PO SCH ×3 (09:14→20:55)
[2017-05-28] MEDS: PANTOPRAZOLE 40 MG TABLET PO SCH (09:14)
[2017-05-28] MEDS: ATENOLOL 50 MG TAB PO SCH ×2 (09:14→20:55)
[2017-05-28] MEDS: FUROSEMIDE 40 MG TAB PO SCH (09:14)
[2017-05-28] MEDS: MORPHINE SULFATE 4 MG/ML SYRINGE IV PRN (09:17)
--- NOTE | 2017-05-28 12:33 | PN ---
PROGRESS NOTE This is a 67-year-old gentleman who had gangrene of the right foot who went for a right above-knee amputation. The patient is doing well. Dressing is intact and dry. We will continue the IV antibiotic and will change the dressing. MMODL / IJN: [id number] /
--- NOTE | 2017-05-28 16:57 | PN ---
PROGRESS NOTE DATE OF SERVICE: 05/28/2017 I am covering for Dr. Ugalde. INTERVAL HISTORY: This 67-year-old gentleman who was admitted after foot infection had right below -knee amputation. There is no history of chest pain. No history of palpitations. Dr. Hedrick is following the patient closely as well as Infectious Disease. The most recent cultures are negative. EXAM: Alert, oriented x3. Pulse 75, blood pressure 106/59, respirations 16, temperature 99.1, pulse ox 97% on room air. HEENT: Conjunctivae normal. NECK: No jugular venous distention. CARDIOVASCULAR: S1, S2. RESPIRATORY: Breath sounds diminished at the bases. A few scattered rhonchi. No crackles. ABDOMEN: Soft. LEGS: Status post amputation. NERVOUS SYSTEM: No focal deficits. LABS: WBC 11, hemoglobin is 8.4, sodium 140, ASSESSMENT: 1. Right foot infection status post right below-knee amputation. 2. Peripheral vascular disease. 3. History of coronary artery disease. 4. Paroxysmal atrial fibrillation. 5. Pedal edema. RECOMMENDATIONS AND DISCUSSION: I recommend to continue current management and symptomatic treatment. Otherwise closely follow with Vascular Surgery and Infectious Disease. Guarded prognosis. Further recommendations recommendations to follow. MMODL / IJN: [id number] / MARSHALL
[2017-05-28] MEDS: MULTIVITAMINS, THERA 1 EACH TAB PO SCH (17:42)
[2017-05-29] MEDS: CEFTAROLINE FOSAMIL 600 MG in SODIUM CHLORIDE 0.9% 250 ML IVPB SCH ×2 (05:18→17:51)
[2017-05-29 08:15] LABS: Anion Gap 3 mmol/L; Blood Urea Nitrogen 15 mg/dL (9-20); Calcium 7.1 mg/dL (8.4-10.2); Carbon Dioxide 25 mmol/L (22-30); Chloride 109 mmol/L (98-107); Glucose 91 mg/dL (74-99); Non-African American GFR(MDRD) >60 (>60 ml/min/1.73 sqM); Potassium 3.8 mmol/L (3.5-5.1); Sodium 137 mmol/L (137-145)
[2017-05-29 08:34] LABS: Basophils % (A) 0 %; CH 30.7; CHCM 30.2; Eosinophils # (A) 1.4 k/uL (0-0.7); Eosinophils % (A) 17 %; HCT 26.2 % (39.0-53.0); HDW 2.91; HGB 7.9 gm/dL (13.0-17.5); Hypochromasia Marked; Luc % (Auto) 2; Lymphocytes # (A) 1.6 k/uL (1.0-4.8); Lymphocytes % (A) 20 %; MCHC 30.3 g/dL (31.0-37.0); MCV 102.4 fL (80.0-100.0); Macrocytosis Slight; Mean Platelet Volume 7.7; Monocytes # (A) 0.8 k/uL (0-1.0); Monocytes % (A) 10 %; Neutrophils # (A) 4.1 k/uL (1.3-7.7); Neutrophils % (A) 51 %; RBC 2.56 m/uL (4.30-5.90); RDW 14.1 % (11.5-15.5); WBC 8.1 k/uL (3.8-10.6); WBC (Perox) 7.64
[2017-05-29 09:09] LABS: Manual Review Performed
[2017-05-29] MEDS: PANTOPRAZOLE 40 MG TABLET PO SCH (10:28)
[2017-05-29] MEDS: TAMSULOSIN 0.4 MG CAP.ER.24H PO SCH (10:29)
[2017-05-29] MEDS: PRIMIDONE 50 MG TAB PO SCH ×3 (10:29→21:24)
[2017-05-29] MEDS: DOCUSATE 100 MG CAP PO SCH (10:29)
[2017-05-29] MEDS: ATENOLOL 50 MG TAB PO SCH ×2 (10:29→21:24)
[2017-05-29] MEDS: FUROSEMIDE 40 MG TAB PO SCH (10:30)
[2017-05-29] MEDS: ENOXAPARIN 40 MG/0.4 ML SYRINGE SQ SCH (10:30)
[2017-05-29] MEDS: HYDROcodone/APAP 5-325MG 1 EACH TAB PO PRN ×2 (10:30→17:52)
[2017-05-29] MEDS: MULTIVITAMINS, THERA 1 EACH TAB PO SCH (15:15)
[2017-05-29] MEDS: CYCLOBENZAPRINE 10 MG TAB PO PRN (15:15)
[2017-05-29] MEDS: FERROUS SULFATE 325 MG TAB PO SCH (15:15)
--- NOTE | 2017-05-29 17:22 | PN ---
PROGRESS NOTE DATE OF SERVICE: 05/29/2017 I am covering for Dr. Ugalde. HISTORY OF PRESENT ILLNESS: This 67-year-old gentleman with a past medical history of multiple medical problems admitted with right above-knee amputation. No chest pain. No palpitations. No fever. EXAM: Alert, oriented x3. Pulse 68, blood pressure 117/69, respiration 16, temperature 98.2, pulse ox 94% on 2 L. HEENT: Conjunctivae normal. NECK: No jugular venous distention. CARDIOVASCULAR: S1, S2. RESPIRATORY: Breath sounds diminished in the bases. No rhonchi, no crackles. ABDOMEN: Soft, nontender. LEGS: No edema. NERVOUS SYSTEM: No focal deficits. LABS: WBC is 8.2, hemoglobin 7.9, and calcium 7.1. ASSESSMENT: 1. Right foot infection status post right above-knee amputation. 2. Peripheral vascular disease. 3. History of coronary artery disease. 4. Paroxysmal atrial ablation. 5. Pedal edema. RECOMMENDATIONS AND DISCUSSION: I recommend to continue current management and symptomatic treatment, otherwise PT and OT evaluation, possible ECF rehab. Otherwise Dr. Ugalde will follow tomorrow. MMODL / IJN: [id number] /
[2017-05-30] MEDS: CEFTAROLINE FOSAMIL 600 MG in SODIUM CHLORIDE 0.9% 250 ML IVPB SCH ×2 (05:37→17:48)
[2017-05-30] MEDS: DOCUSATE 100 MG CAP PO SCH (08:01)
[2017-05-30] MEDS: ENOXAPARIN 40 MG/0.4 ML SYRINGE SQ SCH (08:01)
[2017-05-30] MEDS: PRIMIDONE 50 MG TAB PO SCH ×3 (08:01→22:08)
[2017-05-30] MEDS: MORPHINE SULFATE 2 MG/ML SYRINGE IV PRN ×2 (08:02→14:01)
[2017-05-30] MEDS: FUROSEMIDE 40 MG TAB PO SCH (08:02)
[2017-05-30] MEDS: ATENOLOL 50 MG TAB PO SCH ×2 (08:02→22:08)
[2017-05-30] MEDS: PANTOPRAZOLE 40 MG TABLET PO SCH (08:02)
[2017-05-30] MEDS: TAMSULOSIN 0.4 MG CAP.ER.24H PO SCH (08:02)
--- NOTE | 2017-05-30 08:23 | P.PN ---
Subjective Progress Note Date: 05/30/17 Objective - Vital Signs Vital signs: Vital Signs Temp 98.0 F 05/30/17 07:00 Pulse 68 05/30/17 07:00 Resp 18 05/30/17 07:00 BP 108/64 05/30/17 07:00 Pulse Ox 96 05/30/17 07:00 Intake & Output 05/29/17 05/30/17 05/30/17 18:59 06:59 18:59 Intake Total 1200 Output Total 600 750 Balance 600 -750 Weight 77.111 kg Intake: Oral 1200 Output: Urine 600 750 Other: Voiding Method Indwelling Catheter Indwelling Catheter # Voids 1 - Constitutional General appearance: Present: thin - EENT Eyes: Absent: abnormal pupil - Respiratory Respiratory: bilateral: CTA - Cardiovascular Rhythm: irregularly irregular Heart sounds: normal: S1, S2 - Gastrointestinal General gastrointestinal: Absent: tenderness - Musculoskeletal Musculoskeletal Comment(s): Status post bxejm-zaj-hluo habitation of the right. - Psychiatric Psychiatric: Present: A&O x's 3, appropriate affect, intact judgment & insight - Allied health notes Allied health notes reviewed: case management - Labs CBC & Chem 7: 05/29/17 07:26 05/29/17 07:26 Labs: Abnormal Lab Results - Last 24 Hours (Table) 05/29/17 Range/Units 07:26 RBC 2.56 L (4.30-5.90) m/uL Hgb 7.9 L (13.0-17.5) gm/dL Hct 26.2 L (39.0-53.0) % MCV 102.4 H (80.0-100.0) fL MCHC 30.3 L (31.0-37.0) g/dL Eosinophils # 1.4 H (0-0.7) k/uL Microbiology - Last 24 Hours (Table) 05/25/17 11:15 Blood Culture - Preliminary Blood No Growth after 96 hours Assessment and Plan (1) Foot infection Status: Acute (2) PVD (peripheral vascular disease) Status: Acute (3) CAD (coronary artery disease) Status: Acute (4) Paroxysmal a-fib Status: Acute (5) Pedal edema Status: Acute Plan: Increase Lasix to 40 mg twice a day IV. New. Check CMP in a.m. Anticipate transfer to ECF in next 24-48 hours. Appreciate input from ID and vascular. Time with Patient: Less than 30
[2017-05-30] MEDS ORDERED: FUROSEMIDE 10 MG/ML 4 ML VIAL IV SCH (09:00)
[2017-05-30 10:01] LABS: Basophils % (A) 1 %; CH 30.8; Eosinophils # (A) 1.8 k/uL (0-0.7); Eosinophils % (A) 25 %; HCT 27.2 % (39.0-53.0); HDW 2.96; HGB 8.1 gm/dL (13.0-17.5); Hypochromasia Marked; Luc % (Auto) 3; Lymphocytes # (A) 1.2 k/uL (1.0-4.8); Lymphocytes % (A) 17 %; MCH 30.7 pg (25.0-35.0); MCHC 29.7 g/dL (31.0-37.0); MCV 103.3 fL (80.0-100.0); Macrocytosis Slight; Mean Platelet Volume 7.6; Monocytes # (A) 0.6 k/uL (0-1.0); Monocytes % (A) 8 %; Neutrophils # (A) 3.3 k/uL (1.3-7.7); Neutrophils % (A) 46 %; RBC 2.63 m/uL (4.30-5.90); RDW 14.2 % (11.5-15.5); WBC (Perox) 6.68
[2017-05-30 10:33] LABS: Anion Gap 4 mmol/L; Blood Urea Nitrogen 14 mg/dL (9-20); Calcium 7.1 mg/dL (8.4-10.2); Carbon Dioxide 26 mmol/L (22-30); Chloride 108 mmol/L (98-107); Glucose 112 mg/dL (74-99); Non-African American GFR(MDRD) >60 (>60 ml/min/1.73 sqM); Potassium 3.8 mmol/L (3.5-5.1); Sodium 138 mmol/L (137-145)
[2017-05-30 10:54] LABS: Ovalocytes Present
--- NOTE | 2017-05-30 12:41 | PN ---
PROGRESS NOTE This is a 67-year-old gentleman who had a right above-knee amputation for gangrene right foot. Postoperative day 4. Patient's dressing is changed today. Incision site is healing good. No discharge or redness noted. PLAN: Continue with physical therapy and if the patient goes for rehab, I will follow up in my office in 2 weeks. The dressing should be changed every 48 hours. . BOWEN / TONIA: [id number] /
[2017-05-30] MEDS ORDERED: FUROSEMIDE 10 MG/ML 4 ML VIAL IV ONE (13:00)
[2017-05-30] MEDS: FERROUS SULFATE 325 MG TAB PO SCH (13:56)
[2017-05-30] MEDS: MULTIVITAMINS, THERA 1 EACH TAB PO SCH (13:56)
--- NOTE | 2017-05-30 19:28 | P.PN ---
Subjective Progress Note Date: 05/30/17 Principal diagnosis: Gangrene right foot This is a 67-year-old male known to ID service as he was seen on his last admission May 03 through May 17. He had a previous admission following a fall where he fractured his right hip and he underwent surgical therapy with open reduction internal fixation with . There was concern for hardware failure to the ORIF and he returned to the OR and treated with hemiarthroplasty. Patient sustained an injury to the dorsum of his right foot which resulted in a blister. Patient did not recall any trauma. He was also seen by Dr. Ellison who provided debridement of the right dorsal foot wound. Patient was placed on Ceftaroline due to vancomycin MILDRED of 2. His foot wound culture was positive for MRSA and Flavobacterium odoratum. Patient was discharged to [facility] for subacute rehab and was continued on ciprofloxacin. Patient was seen there by heel seat sander and recommended that the patient come into the hospital for amputation of the foot. There is a consult in place with Dr. Ellison. Patient received 1 dose of cefepime and was started on vancomycin in the emergency center. Patient is complaining of severe pain to the right foot. He denies fever or chills. He denies change in appetite. No nausea, vomiting diarrhea diarrhea he denies any chest pain, cough, sputum production. He denies any new injury to the foot. He has noted lower extremity edema and he states this is because he sits in a wheelchair all day. Patient presents with a stage II pressure ulcer in the coccyx area. The patient has had the zmueq-ehe-jozh amputation of an pain is doing relatively well. Anticipates transfer to extended care facility soon Objective - Vital Signs Vital signs: Vital Signs Temp 97.7 F 05/30/17 15:00 Pulse 75 05/30/17 15:00 Resp 18 05/30/17 15:00 BP 115/66 05/30/17 15:00 Pulse Ox 95 05/30/17 15:00 Intake & Output 05/30/17 05/30/17 05/31/17 06:59 18:59 06:59 Intake Total 640 Output Total 750 1600 Balance -750 -960 Weight 77.111 kg Intake: Oral 640 Output: Urine 750 1600 Other: Voiding Method Indwelling Catheter Indwelling Catheter # Voids 1 # Bowel Movements 0 - Exam Gen: This is a disheveled appearing 67-year-old male. Cachectic. HEENT: Head is atraumatic, normocephalic. Pupils right is round and reactive to light, left is abnormally shaped. Sclerae is anicteric. Conjunctiva pink. Mucous membranes of the mouth are slightly dry. Patient is edentulous NECK: Supple. No JVD. No lymphadenopathy. No thyromegaly. LUNGS: Scattered wheezes noted throughout. Good air exchange.. No intercostal retractions. HEART: Regular rate and rhythm. No murmur. ABDOMEN: Soft. Bowel sounds are present. No masses. No tenderness. EXTREMITIES: 2+ pedal edema to the left foot. The qgfav-dtz-ogge amputation residual limb site is dry at this time in tender. No ascending erythema is seen. No right inguinal lymphadenopathy NEUROLOGICAL: Patient is awake, alert and oriented x3. - Labs CBC & Chem 7: 05/30/17 09:35 05/30/17 09:35 Labs: Abnormal Lab Results - Last 24 Hours (Table) 05/30/17 05/30/17 Range/Units 09:35 09:35 RBC 2.63 L (4.30-5.90) m/uL Hgb 8.1 L (13.0-17.5) gm/dL Hct 27.2 L (39.0-53.0) % MCV 103.3 H (80.0-100.0) fL MCHC 29.7 L (31.0-37.0) g/dL Eosinophils # 1.8 H (0-0.7) k/uL Chloride 108 H (98-107) mmol/L Creatinine 0.62 L (0.66-1.25) mg/dL Glucose 112 H (74-99) mg/dL Calcium 7.1 L (8.4-10.2) mg/dL Microbiology - Last 24 Hours (Table) 05/25/17 11:15 Blood Culture - Preliminary Blood No Growth after 120 hours Laboratory Results WBC 7.0 k/uL (3.8-10.6) 05/30/17 09:35 RBC 2.63 m/uL (4.30-5.90) L 05/30/17 09:35 Hgb 8.1 gm/dL (13.0-17.5) L 05/30/17 09:35 Hct 27.2 % (39.0-53.0) L 05/30/17 09:35 MCV 103.3 fL (80.0-100.0) H 05/30/17 09:35 MCH 30.7 pg (25.0-35.0) 05/30/17 09:35 MCHC 29.7 g/dL (31.0-37.0) L 05/30/17 09:35 RDW 14.2 % (11.5-15.5) 05/30/17 09:35 Plt Count 265 k/uL (150-450) 05/30/17 09:35 Neutrophils % 46 % 05/30/17 09:35 Lymphocytes % 17 % 05/30/17 09:35 Monocytes % 8 % 05/30/17 09:35 Eosinophils % 25 % 05/30/17 09:35 Basophils % 1 % 05/30/17 09:35 Neutrophils # 3.3 k/uL (1.3-7.7) 05/30/17 09:35 Lymphocytes # 1.2 k/uL (1.0-4.8) 05/30/17 09:35 Monocytes # 0.6 k/uL (0-1.0) 05/30/17 09:35 Eosinophils # 1.8 k/uL (0-0.7) H 05/30/17 09:35 Basophils # 0.0 k/uL (0-0.2) 05/30/17 09:35 Manual Slide Review Performed 05/29/17 07:26 Polychromasia Present 05/25/17 11:15 Hypochromasia Marked 05/30/17 09:35 Poikilocytosis (manual Present 05/30/17 09:35 Macrocytosis Slight 05/30/17 09:35 Ovalocytes Present 05/30/17 09:35 PT 12.3 sec (9.0-12.0) H 05/26/17 07:49 INR 1.2 (<1.2) H 05/26/17 07:49 APTT 34.4 sec (22.0-30.0) H 05/25/17 11:15 Sodium 138 mmol/L (137-145) 05/30/17 09:35 Potassium 3.8 mmol/L (3.5-5.1) 05/30/17 09:35 Chloride 108 mmol/L (98-107) H 05/30/17 09:35 Carbon Dioxide 26 mmol/L (22-30) 05/30/17 09:35 Anion Gap 4 mmol/L 05/30/17 09:35 BUN 14 mg/dL (9-20) 05/30/17 09:35 Creatinine 0.62 mg/dL (0.66-1.25) L 05/30/17 09:35 Est GFR (MDRD) Af Amer >60 (>60 ml/min/1.73 sqM) 05/30/17 09:35 Est GFR (MDRD) Non-Af >60 (>60 ml/min/1.73 sqM) 05/30/17 09:35 Glucose 112 mg/dL (74-99) H 05/30/17 09:35 Calcium 7.1 mg/dL (8.4-10.2) L 05/30/17 09:35 Total Bilirubin 0.5 mg/dL (0.2-1.3) 05/27/17 09:00 AST 37 U/L (17-59) 05/27/17 09:00 ALT 31 U/L (21-72) 05/27/17 09:00 Alkaline Phosphatase 99 U/L (38-126) 05/27/17 09:00 Total Protein 6.0 g/dL (6.3-8.2) L 05/27/17 09:00 Albumin 1.9 g/dL (3.5-5.0) L 05/27/17 09:00 Blood Type A Positive 05/26/17 14:50 Blood Type Recheck No 05/26/17 14:50 Antibody Screen NEGATIVE 05/26/17 14:50 Spec Expiration Date 05/29/2017 4480 05/26/17 14:50 Microbiology 05/25/17 11:15 Blood Blood Culture - Preliminary No Growth after 120 hours Assessment and Plan (1) Gangrene of right foot Narrative/Plan: 67-year-old male with has a known history of severe peripheral vascular disease is receiving hospitalized after his right hip fracture. He had repair of the hip but then had difficulties and required revision to a hemiarthroplasty. As noted the patient has now had the right luwhn-xmy-buvu amputation and his hemodynamic stable. Antimicrobial therapy continues with the Ceftaroline based on the prior pathogens. Would plan on completing the Ceftaroline tomorrow. Pain control appears to be adequate. We'll need extensive protein supplementation to help his healing. Further oncology input is in process regarding the adrenal mass and multiple liver metastasis. We'll not be planning on long-term outpatient intravenous antibiotic therapy. Status: Acute (2) Adrenal mass, left Status: Acute
[2017-05-30] MEDS: FUROSEMIDE 10 MG/ML 4 ML VIAL IV SCH (22:08)
[2017-05-31] MEDS: CEFTAROLINE FOSAMIL 600 MG in SODIUM CHLORIDE 0.9% 250 ML IVPB SCH ×2 (06:28→17:45)
[2017-05-31] MEDS: TAMSULOSIN 0.4 MG CAP.ER.24H PO SCH (08:51)
[2017-05-31] MEDS: ATENOLOL 50 MG TAB PO SCH ×2 (08:51→21:12)
[2017-05-31] MEDS: ENOXAPARIN 40 MG/0.4 ML SYRINGE SQ SCH (08:51)
[2017-05-31] MEDS: FUROSEMIDE 10 MG/ML 4 ML VIAL IV SCH ×2 (08:51→21:12)
[2017-05-31] MEDS: PANTOPRAZOLE 40 MG TABLET PO SCH (08:51)
[2017-05-31] MEDS: DOCUSATE 100 MG CAP PO SCH (08:51)
[2017-05-31] MEDS: PRIMIDONE 50 MG TAB PO SCH ×3 (08:51→21:12)
[2017-05-31] MEDS: MORPHINE SULFATE 2 MG/ML SYRINGE IV PRN ×2 (09:13→18:56)
[2017-05-31 09:22] LABS: ALT 41 U/L (21-72); AST 46 U/L (17-59); Alkaline Phosphatase 95 U/L (38-126); Anion Gap 5 mmol/L; Blood Urea Nitrogen 13 mg/dL (9-20); Calcium 7.2 mg/dL (8.4-10.2); Carbon Dioxide 27 mmol/L (22-30); Chloride 106 mmol/L (98-107); Glucose 117 mg/dL (74-99); Non-African American GFR(MDRD) >60 (>60 ml/min/1.73 sqM); Potassium 3.6 mmol/L (3.5-5.1); Sodium 138 mmol/L (137-145); Total Bilirubin 0.4 mg/dL (0.2-1.3); Total Protein 5.8 g/dL (6.3-8.2)
[2017-05-31 09:29] LABS: CH 31.7; CHCM 30.3; HCT 27.7 % (39.0-53.0); HDW 2.93; HGB 8.4 gm/dL (13.0-17.5); Hypochromasia Marked; MCH 31.8 pg (25.0-35.0); MCHC 30.2 g/dL (31.0-37.0); MCV 105.5 fL (80.0-100.0); Macrocytosis Moderate; Mean Platelet Volume 8.4; RBC 2.63 m/uL (4.30-5.90); RDW 15.1 % (11.5-15.5); WBC 6.4 k/uL (3.8-10.6)
[2017-05-31] MEDS ORDERED: RX INFO: IV CONTRAST WAS GIVEN 1 EACH MISC MISCELLANE PRN (12:39)
[2017-05-31] MEDS: MULTIVITAMINS, THERA 1 EACH TAB PO SCH (13:16)
[2017-05-31] MEDS: FERROUS SULFATE 325 MG TAB PO SCH (13:16)
--- NOTE | 2017-05-31 20:54 | P.PN ---
Subjective Progress Note Date: 05/31/17 Principal diagnosis: Status post [id number]-zhj-mzcp habitation secondary to peripheral arterial disease. The patient is here essentially because of significant problems related to gangrene of the right lower 70 related to severe peripheral vascular disease after having arthroplasty with revision. The patient is doing quite well with pain control but has left lower 70s edema and scrotal edema. Were slowly increasing his diuretic as of today. Objective - Vital Signs Vital signs: Vital Signs Temp 97.7 F 05/31/17 16:44 Pulse 97 05/31/17 16:44 Resp 15 05/31/17 16:44 BP 122/58 05/31/17 16:44 Pulse Ox 95 05/31/17 15:00 Intake & Output 05/31/17 05/31/17 06/01/17 06:59 18:59 06:59 Intake Total 200 1200 Output Total 1250 1350 Balance -1050 -150 Intake: Oral 200 1200 Output: Urine 1250 1350 Other: Voiding Method Indwelling Catheter # Voids 1 # Bowel Movements 1 - Constitutional General appearance: Present: thin - EENT Eyes: Absent: abnormal pupil - Neck Neck: Absent: lymphadenopathy - Respiratory Respiratory: bilateral: diminished - Cardiovascular Rhythm: regular Heart sounds: normal: S1, S2 - Gastrointestinal General gastrointestinal: Absent: tenderness - Labs CBC & Chem 7: 05/31/17 08:15 05/31/17 08:15 Labs: Abnormal Lab Results - Last 24 Hours (Table) 05/31/17 05/31/17 Range/Units 08:15 08:15 RBC 2.63 L (4.30-5.90) m/uL Hgb 8.4 L (13.0-17.5) gm/dL Hct 27.7 L (39.0-53.0) % MCV 105.5 H (80.0-100.0) fL MCHC 30.2 L (31.0-37.0) g/dL Glucose 117 H (74-99) mg/dL Calcium 7.2 L (8.4-10.2) mg/dL Total Protein 5.8 L (6.3-8.2) g/dL Albumin 1.8 L (3.5-5.0) g/dL Microbiology - Last 24 Hours (Table) 05/25/17 11:15 Blood Culture - Final Blood No Growth after 144 hours Assessment and Plan (1) Foot infection Current Visit: Yes Status: Acute Code(s): L08.9 - LOCAL INFECTION OF THE SKIN AND SUBCUTANEOUS TISSUE, UNSP SNOMED Code(s): 982160124 (2) PVD (peripheral vascular disease) Current Visit: Yes Status: Acute Code(s): I73.9 - PERIPHERAL VASCULAR DISEASE, UNSPECIFIED SNOMED Code(s): 916555530 (3) CAD (coronary artery disease) Current Visit: No Status: Acute Code(s): I25.10 - ATHSCL HEART DISEASE OF [place] CORONARY ARTERY W/O ANG PCTRS SNOMED Code(s): 07206782 (4) Paroxysmal a-fib Current Visit: No Status: Acute Code(s): I48.0 - PAROXYSMAL ATRIAL FIBRILLATION SNOMED Code(s): 362353579 (5) Pedal edema Current Visit: No Status: Acute Code(s): R60.0 - LOCALIZED EDEMA SNOMED Code(s): 804127344 (6) Above knee amputation of right lower extremity Current Visit: Yes Status: Acute Code(s): Z89.611 - ACQUIRED ABSENCE OF RIGHT LEG ABOVE KNEE SNOMED Code(s): 418903296 Plan: We will go ahead and continue Lasix for today. If edema does decrease appropriately, Anticipate discharge in next 24-48 hours. Check CBC and see me in a.m. See orders otherwise. Time with Patient: Less than 30
--- NOTE | 2017-05-31 21:57 | P.PN ---
Subjective Progress Note Date: 05/31/17 Principal diagnosis: Gangrene right foot This is a 67-year-old male known to ID service as he was seen on his last admission May 03 through May 17. He had a previous admission following a fall where he fractured his right hip and he underwent surgical therapy with open reduction internal fixation with . There was concern for hardware failure to the ORIF and he returned to the OR and treated with hemiarthroplasty. Patient sustained an injury to the dorsum of his right foot which resulted in a blister. Patient did not recall any trauma. He was also seen by Dr. Ellison who provided debridement of the right dorsal foot wound. Patient was placed on Ceftaroline due to vancomycin MILDRED of 2. His foot wound culture was positive for MRSA and Flavobacterium odoratum. Patient was discharged to [facility] for subacute rehab and was continued on ciprofloxacin. Patient was seen there by coat repair inspector and recommended that the patient come into the hospital for amputation of the foot. There is a consult in place with Dr. Ellison. Patient received 1 dose of cefepime and was started on vancomycin in the emergency center. Patient is complaining of severe pain to the right foot. He denies fever or chills. He denies change in appetite. No nausea, vomiting diarrhea diarrhea he denies any chest pain, cough, sputum production. He denies any new injury to the foot. He has noted lower extremity edema and he states this is because he sits in a wheelchair all day. Patient presents with a stage II pressure ulcer in the coccyx area. The patient has had the ftdhq-kyp-zhww amputation of an pain is doing relatively well. Anticipates transfer to extended care facility soon Objective - Vital Signs Vital signs: Vital Signs Temp 97.7 F 05/31/17 16:44 Pulse 88 05/31/17 21:14 Resp 15 05/31/17 16:44 BP 122/58 05/31/17 16:44 Pulse Ox 95 05/31/17 15:00 Intake & Output 05/31/17 05/31/17 06/01/17 06:59 18:59 06:59 Intake Total 200 1200 Output Total 1250 1350 Balance -1050 -150 Intake: Oral 200 1200 Output: Urine 1250 1350 Other: Voiding Method Indwelling Catheter # Voids 1 # Bowel Movements 1 - Exam Gen: This is a disheveled appearing 67-year-old male. Cachectic. HEENT: Head is atraumatic, normocephalic. Pupils right is round and reactive to light, left is abnormally shaped. Sclerae is anicteric. Conjunctiva pink. Mucous membranes of the mouth are slightly dry. Patient is edentulous NECK: Supple. No JVD. No lymphadenopathy. No thyromegaly. LUNGS: Scattered wheezes noted throughout. Good air exchange.. No intercostal retractions. HEART: Regular rate and rhythm. No murmur. ABDOMEN: Soft. Bowel sounds are present. No masses. No tenderness. EXTREMITIES: 2+ pedal edema to the left foot. The hahtq-vbg-fwyc amputation residual limb site is dry at this time in tender. No ascending erythema is seen. No right inguinal lymphadenopathy NEUROLOGICAL: Patient is awake, alert and oriented x3. - Labs CBC & Chem 7: 05/31/17 08:15 05/31/17 08:15 Labs: Abnormal Lab Results - Last 24 Hours (Table) 05/31/17 05/31/17 Range/Units 08: 08:15 RBC 2.63 L (4.30-5.90) m/uL Hgb 8.4 L (13.0-17.5) gm/dL Hct 27.7 L (39.0-53.0) % MCV 105.5 H (80.0-100.0) fL MCHC 30.2 L (31.0-37.0) g/dL Glucose 117 H (74-99) mg/dL Calcium 7.2 L (8.4-10.2) mg/dL Total Protein 5.8 L (6.3-8.2) g/dL Albumin 1.8 L (3.5-5.0) g/dL Microbiology - Last 24 Hours (Table) 05/25/17 11:15 Blood Culture - Final Blood No Growth after 144 hours Laboratory Results WBC 6.4 k/uL (3.8-10.6) 05/31/17 08:15 RBC 2.63 m/uL (4.30-5.90) L 05/31/17 08:15 Hgb 8.4 gm/dL (13.0-17.5) L 05/31/17 08:15 Hct 27.7 % (39.0-53.0) L 05/31/17 08:15 MCV 105.5 fL (80.0-100.0) H 05/31/17 08:15 MCH 31.8 pg (25.0-35.0) 05/31/17 08:15 MCHC 30.2 g/dL (31.0-37.0) L 05/31/17 08:15 RDW 15.1 % (11.5-15.5) 05/31/17 08:15 Plt Count 258 k/uL (150-450) 05/31/17 08:15 Neutrophils % 46 % 05/30/17 09:35 Lymphocytes % 17 % 05/30/17 09:35 Monocytes % 8 % 05/30/17 09:35 Eosinophils % 25 % 05/30/17 09:35 Basophils % 1 % 05/30/17 09:35 Neutrophils # 3.3 k/uL (1.3-7.7) 05/30/17 09:35 Lymphocytes # 1.2 k/uL (1.0-4.8) 05/30/17 09:35 Monocytes # 0.6 k/uL (0-1.0) 05/30/17 09:35 Eosinophils # 1.8 k/uL (0-0.7) H 05/30/17 09:35 Basophils # 0.0 k/uL (0-0.2) 05/30/17 09:35 Manual Slide Review Performed 05/29/17 07:26 Polychromasia Present 05/25/17 11:15 Hypochromasia Marked 05/31/17 08:15 Poikilocytosis (manual Present 05/30/17 09:35 Macrocytosis Moderate 05/31/17 08:15 Ovalocytes Present 05/30/17 09:35 PT 12.3 sec (9.0-12.0) H 05/26/17 07:49 INR 1.2 (<1.2) H 05/26/17 07:49 APTT 34.4 sec (22.0-30.0) H 05/25/17 11:15 Sodium 138 mmol/L (137-145) 05/31/17 08:15 Potassium 3.6 mmol/L (3.5-5.1) 05/31/17 08:15 Chloride 106 mmol/L (98-107) 05/31/17 08:15 Carbon Dioxide 27 mmol/L (22-30) 05/31/17 08:15 Anion Gap 5 mmol/L 05/31/17 08:15 BUN 13 mg/dL (9-20) 05/31/17 08:15 Creatinine 0.68 mg/dL (0.66-1.25) 05/31/17 08:15 Est GFR (MDRD) Af Amer >60 (>60 ml/min/1.73 sqM) 05/31/17 08:15 Est GFR (MDRD) Non-Af >60 (>60 ml/min/1.73 sqM) 05/31/17 08:15 Glucose 117 mg/dL (74-99) H 05/31/17 08:15 Calcium 7.2 mg/dL (8.4-10.2) L 05/31/17 08:15 Total Bilirubin 0.4 mg/dL (0.2-1.3) 05/31/17 08:15 AST 46 U/L (17-59) 05/31/17 08:15 ALT 41 U/L (21-72) 05/31/17 08:15 Alkaline Phosphatase 95 U/L (38-126) 05/31/17 08:15 Total Protein 5.8 g/dL (6.3-8.2) L 05/31/17 08:15 Albumin 1.8 g/dL (3.5-5.0) L 05/31/17 08:15 Blood Type A Positive 05/26/17 14:50 Blood Type Recheck No 05/26/17 14:50 Antibody Screen NEGATIVE 05/26/17 14:50 Spec Expiration Date 05/29/2017234905/26/17 14:50 Microbiology 05/25/17 11:15 Blood Blood Culture - Final No Growth after 144 hours Assessment and Plan (1) Gangrene of right foot Narrative/Plan: 67-year-old male with has a known history of severe peripheral vascular disease is receiving hospitalized after his right hip fracture. He had repair of the hip but then had difficulties and required revision to a hemiarthroplasty. As noted the patient has now had the right mbodq-gnt-abqy amputation and his hemodynamic stable. Antimicrobial therapy continues with the Ceftaroline based on the prior pathogens. Would plan on completing the Ceftaroline tomorrow. Pain control appears to be adequate. We'll need extensive protein supplementation to help his healing. Further oncology input is in process regarding the adrenal mass and multiple liver metastasis. We'll not be planning on long-term outpatient intravenous antibiotic therapy. Current Visit: Yes Status: Acute Code(s): I96 - GANGRENE, NOT ELSEWHERE CLASSIFIED SNOMED Code(s): 70741725938356426 (2) Adrenal mass, left Current Visit: No Status: Acute Priority: High Code(s): E27.9 - DISORDER OF ADRENAL GLAND, UNSPECIFIED SNOMED Code(s): 879876921
[2017-06-01] MEDS: CEFTAROLINE FOSAMIL 600 MG in SODIUM CHLORIDE 0.9% 250 ML IVPB SCH (06:04)
[2017-06-01 07:35] VITALS: BP 96/51; PULSE 68; RESP 18; TEMP 98.1
--- NOTE | 2017-06-01 08:08 | P.DS ---
Providers Date of admission: 05/25/17 12:17 Attending physician: Johnny Ugalde Consults: 05/25/17 12:18 Consult Physician Routine Consulting Provider: Hiren Lagos Consult Reason/Comments: Infected R foot wound Do you want consulting provider notified?: Yes Consult Physician Routine Consulting Provider: Leonard Hedrick Consult Reason/Comments: R foot wound/Peripheral Vascular disease Do you want consulting provider notified?: Yes Primary care physician: Johnny Ugalde - Discharge Diagnosis(es) (1) Foot infection Current Visit: Yes Status: Acute (2) PVD (peripheral vascular disease) Current Visit: Yes Status: Acute (3) CAD (coronary artery disease) Current Visit: No Status: Acute (4) Paroxysmal a-fib Current Visit: No Status: Acute (5) Pedal edema Current Visit: No Status: Acute (6) Above knee amputation of right lower extremity Current Visit: Yes Status: Acute Hospital Course: This is a discharge summary and a 67-year-old white male who was admitted for right foot cellulitis with PAD and gangrene. The patient ended up having above- knee amputation. He was status post hip arthroplasty that failed and had revision about 2 weeks ago. He probably antibiotic treatment. Appreciate Dr. Lagos's consultation. The patient will not be discharged to ECF once bed is available and antibiotic as clarified by Dr. Lagos. He is discharged in stable condition to follow me as soon as his discharge from Patient Condition at Discharge: Stable Plan - Discharge Summary New Discharge Prescriptions: New Ferrous Sulfate [Iron (65 MG Elemental)] 325 mg PO W/LUNCH tab HYDROcodone/APAP 5-325MG [[place] 5-325] 1 each PO Q6HR PRN #120 tab PRN Reason: Pain Scale 1 To 5 Continue Atenolol [Tenormin] 50 mg PO BID Primidone [Mysoline] 50 mg PO TID Docusate [Colace] 100 mg PO DAILY #30 capsule Enoxaparin [Lovenox] 40 mg SQ DAILY #30 syringe Pantoprazole [Protonix] 40 mg PO AC-BRKFST #30 tab Cyclobenzaprine HCl 10 mg PO BID PRN #0 PRN Reason: Muscle Spasm Acetaminophen Tab [Tylenol] 500 mg PO Q6H PRN #30 tablet PRN Reason: Pain Furosemide [Lasix] 40 mg PO DAILY tab Tamsulosin [Flomax] 0.8 mg PO PC-BRKFST cap Sennosides-Docusate Sodium [Senokot-S] 2 tab PO HS Multivitamins, Thera [Multivitamin (formulary)] 1 tab PO DAILY HYDROcodone/APAP 5-325MG [[place] 5-325] 1 tab PO Q6HR PRN PRN Reason: Pain Scale 1 To 5 Discontinued Ciprofloxacin HCl [Cipro] 500 mg PO BID #14 tab Discharge Medication List Atenolol [Tenormin] 50 mg PO BID 09/21/15 [History] Primidone [Mysoline] 50 mg PO TID 03/31/17 [History] Docusate [Colace] 100 mg PO DAILY #30 capsule 04/04/17 [Rx] Enoxaparin [Lovenox] 40 mg SQ DAILY #30 syringe 04/04/17 [Rx] Cyclobenzaprine HCl 10 mg PO BID PRN #0 04/19/17 [Rx] Pantoprazole [Protonix] 40 mg PO AC-BRKFST #30 tab 04/19/17 [Rx] Acetaminophen Tab [Tylenol] 500 mg PO Q6H PRN #30 tablet 04/20/17 [Rx] Furosemide [Lasix] 40 mg PO DAILY tab 05/17/17 [Rx] Tamsulosin [Flomax] 0.8 mg PO PC-BRKFST cap 05/17/17 [Rx] HYDROcodone/APAP 5-325MG [[place] 5-325] 1 tab PO Q6HR PRN 05/25/17 [History] Multivitamins, Thera [Multivitamin (formulary)] 1 tab PO DAILY 05/25/17 [History ] Sennosides-Docusate Sodium [Senokot-S] 2 tab PO HS 05/25/17 [History] Ferrous Sulfate [Iron (65 MG Elemental)] 325 mg PO W/LUNCH tab 06/01/17 [Rx] HYDROcodone/APAP 5-325MG [[place] 5-325] 1 each PO Q6HR PRN #120 tab 06/01/17 [Rx] Patient Instructions/Handouts: How to Stop Smoking (DC)
[2017-06-01] MEDS: ATENOLOL 50 MG TAB PO SCH (08:37)
[2017-06-01] MEDS: FUROSEMIDE 10 MG/ML 4 ML VIAL IV SCH (08:38)
[2017-06-01] MEDS: PRIMIDONE 50 MG TAB PO SCH (08:40)
[2017-06-01] MEDS: DOCUSATE 100 MG CAP PO SCH (08:40)
[2017-06-01] MEDS: PANTOPRAZOLE 40 MG TABLET PO SCH (08:40)
[2017-06-01] MEDS: TAMSULOSIN 0.4 MG CAP.ER.24H PO SCH (08:40)
[2017-06-01] MEDS: HYDROcodone/APAP 5-325MG 1 EACH TAB PO PRN (08:40)
[2017-06-01] MEDS: ENOXAPARIN 40 MG/0.4 ML SYRINGE SQ SCH (08:41)
[2017-06-01 08:49] LABS: CH 31.6; CHCM 30.7; HCT 26.5 % (39.0-53.0); HDW 2.93; HGB 8.2 gm/dL (13.0-17.5); Hypochromasia Moderate; MCH 32.2 pg (25.0-35.0); MCV 103.9 fL (80.0-100.0); Macrocytosis Slight; Mean Platelet Volume 8.2; RBC 2.55 m/uL (4.30-5.90); RDW 14.8 % (11.5-15.5); WBC 6.9 k/uL (3.8-10.6)
[2017-06-01 09:06] LABS: ALT 41 U/L (21-72); AST 44 U/L (17-59); Alkaline Phosphatase 103 U/L (38-126); Anion Gap 4 mmol/L; Blood Urea Nitrogen 14 mg/dL (9-20); Calcium 7.3 mg/dL (8.4-10.2); Carbon Dioxide 29 mmol/L (22-30); Chloride 105 mmol/L (98-107); Glucose 103 mg/dL (74-99); Non-African American GFR(MDRD) >60 (>60 ml/min/1.73 sqM); Potassium 3.6 mmol/L (3.5-5.1); Sodium 138 mmol/L (137-145); Total Bilirubin 0.3 mg/dL (0.2-1.3)
[2017-06-01] MEDS: MULTIVITAMINS, THERA 1 EACH TAB PO SCH (12:32)
[2017-06-01] MEDS: FERROUS SULFATE 325 MG TAB PO SCH (12:32)
== END 2017-06-01 15:39 | DRG 240 ==
LOC: EC 10:42 → 4MS4W 12:17
PROVIDERS: ADMIT Family Medicine; ATTEND Family Medicine
PROC: 0Y6C0Z3 Detachment at Right Upper Leg, Low, Open Approach (ICD-10-PCS; principal; 2017-05-25)
DX: I70.261 Atherosclerosis of native arteries of extremities with gangrene, right leg (principal); C78.7 Secondary malignant neoplasm of liver and intrahepatic bile duct; L89.152 Pressure ulcer of sacral region, stage 2; E27.8 Other specified disorders of adrenal gland; I48.0 Paroxysmal atrial fibrillation; L03.115 Cellulitis of right lower limb; K74.60 Unspecified cirrhosis of liver; L97.519 Non-pressure chronic ulcer of other part of right foot with unspecified severity; J44.9 Chronic obstructive pulmonary disease, unspecified; F10.21 Alcohol dependence, in remission; F17.200 Nicotine dependence, unspecified, uncomplicated; H54.8 Legal blindness, as defined in USA; I12.9 Hypertensive chronic kidney disease with stage 1 through stage 4 chronic kidney disease, or unspecified chronic kidney disease; I25.10 Atherosclerotic heart disease of native coronary artery without angina pectoris; K21.9 Gastro-esophageal reflux disease without esophagitis; N18.9 Chronic kidney disease, unspecified; Z96.649 Presence of unspecified artificial hip joint; Z96.1 Presence of intraocular lens; N50.89 Other specified disorders of the male genital organs; Z82.0 Family history of epilepsy and other diseases of the nervous system; I25.2 Old myocardial infarction; Z82.49 Family history of ischemic heart disease and other diseases of the circulatory system; Z87.11 Personal history of peptic ulcer disease; Z88.0 Allergy status to penicillin; Z99.3 Dependence on wheelchair; Z79.899 Other long term (current) drug therapy; Z88.8 Allergy status to other drugs, medicaments and biological substances; Z79.2 Long term (current) use of antibiotics; Z79.01 Long term (current) use of anticoagulants; Z71.6 Tobacco abuse counseling; Z86.718 Personal history of other venous thrombosis and embolism; Z91.81 History of falling; Z87.81 Personal history of (healed) traumatic fracture; Z86.14 Personal history of Methicillin resistant Staphylococcus aureus infection; Z98.42 Cataract extraction status, left eye; Z96.0 Presence of urogenital implants
CPT/HCPCS: 36415; 80048; 80053; 85025; 85027; 85610; 85730; 86850; 86900; 86901; 87040; 96365; 96367; 99284

== ENCOUNTER 2017-06-30 11:53 | Emergency (ER) | payer MEDICARE, OTHER ==
[2017-06-30 12:01] VITALS: TEMP 97.8
--- NOTE | 2017-06-30 12:49 | ED ---
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 He did have pain when he try to replace it. He denies any fevers chills nausea vomiting sweats or other symptoms at this time. Her for evaluation. - Related Data Home Medications Medication Instructions Recorded Confirmed Atenolol [Tenormin] 50 mg PO BID 09/21/15 06/30/17 Primidone [Mysoline] 50 mg PO TID 03/31/17 06/30/17 HYDROcodone/APAP 5-325MG [Douglas 1 tab PO Q6HR PRN 05/25/17 06/30/17 5-325] Multivitamins, Thera [Multivitamin 1 tab PO DAILY 05/25/17 06/30/17 (formulary)] Sennosides-Docusate Sodium 2 tab PO HS 05/25/17 06/30/17 [Senokot-S] Sulfamethoxazole/Trimethoprim 1 tab PO BID 06/30/17 06/30/17 [Bactrim DS 800-160 mg] Previous Rx's Medication Instructions Recorded Docusate [Colace] 100 mg PO DAILY #30 capsule 04/04/17 Enoxaparin [Lovenox] 40 mg SQ DAILY #30 syringe 04/04/17 Cyclobenzaprine HCl 10 mg PO BID PRN #0 04/19/17 Pantoprazole [Protonix] 40 mg PO AC-BRKFST #30 tab 04/19/17 Acetaminophen Tab [Tylenol] 500 mg PO Q6H PRN #30 tablet 04/20/17 Furosemide [Lasix] 40 mg PO DAILY tab 05/17/17 Tamsulosin [Flomax] 0.8 mg PO PC-BRKFST cap 05/17/17 Ferrous Sulfate [Iron (65 MG 325 mg PO W/LUNCH tab 06/01/17 Elemental)] Allergies Allergy/AdvReac Type Severity Reaction Status Date / Time peginterferon peg-2a Allergy Unknown Verified 06/30/17 12:09 [From Pegasys] Penicillins Allergy Rash/Hives Verified 06/30/17 12:09 Review of Systems ROS Statement: Those systems with pertinent positive or pertinent negative responses have been documented in the HPI. ROS Other: All systems not noted in ROS Statement are negative. Past Medical History Past Medical History: Atrial Fibrillation, COPD, GERD/Reflux, Hypertension, Liver Disease, Myocardial Infarction ([place]), Osteoarthritis (OA) Additional Past Medical History / Comment(s): Acute kidney failure/obstructive uropathy-has IDC/AMS, UTI with sepsis, 03/31/17 R hip fracture with surgery twice , perforatic gastric ulcer 2016(had sx), ddd lumbar, herniated discs, hemorrhoids, liver lesions and L adrenal mass which pt states where worked up at [facility] and are benign, hep c, legally blind-sees better with R eye , past alcoholism, PVD, nonocclusive trombosis R lower leg, current R foot infection and decub on coccyx currently being tx. Last Myocardial Infarction Date:: 2007 History of Any Multi-Drug Resistant Organisms: MRSA Date of last positivie culture/infection: 05/08/17 MDRO Source:: ,FOOT Past Surgical History: Orthopedic Surgery Additional Past Surgical History / Comment(s): 04/01/17 closed reduction percutaneous pinning R hip-then removal of hardware and hemiathroplasty done, vasectomy, bilateral cataracts removed with lens implants, liver bxs 2006, antrectomy w/gastroenterostomy 2015, colonoscopy, reduction paraphimosis. Past Anesthesia/Blood Transfusion Reactions: No Reported Reaction Past Psychological History: No Psychological Hx Reported Smoking Status: Current every day smoker Past Alcohol Use History: None Reported Past Drug Use History: None Reported - Past Family History Mother History Unknown: Yes Family Medical History: Cancer, Diabetes Mellitus, Hypertension Father History Unknown: Yes Family Medical History: Liver Disease, Seizure Disorder Additional Family Medical History / Comment(s): alcoholic Brother(s) History Unknown: Yes Family Medical History: Liver Disease Additional Family Medical History / Comment(s): aneurysm General Exam - General Exam Comments Initial Comments: This is a well-developed well-nourished awake alert oriented 3 male Limitations: no limitations General appearance: alert, in no apparent distress Head exam: Present: atraumatic, normocephalic, normal inspection Eye exam: Present: normal appearance, PERRL, EOMI. Absent: scleral icterus, conjunctival injection, periorbital swelling ENT exam: Present: normal exam, mucous membranes moist Neck exam: Present: normal inspection. Absent: tenderness, meningismus, lymphadenopathy Respiratory exam: Present: normal lung sounds bilaterally. Absent: respiratory distress, wheezes, rales, rhonchi, stridor Cardiovascular Exam: Present: regular rate, normal rhythm, normal heart sounds. Absent: systolic murmur, diastolic murmur, rubs, gallop, clicks GI/Abdominal exam: Present: soft, distended (Distended bladder), normal bowel sounds. Absent: tenderness, guarding, rebound, rigid, pulsatile mass, hernia exam: Present: other (Patient does demonstrate some mild phimosis with difficulty retracting the foreskin initially.). Absent: circumcision Extremities exam: Present: full ROM, normal capillary refill, other (Above-the- knee amputation on the right mild left lower extremity edema). Absent: tenderness, pedal edema, joint swelling, calf tenderness Back exam: Present: normal inspection Neurological exam: Present: alert, oriented X3, CN II-XII intact Psychiatric exam: Present: normal affect, normal mood Skin exam: Present: warm, dry, intact, normal color. Absent: rash Course Vital Signs 06/30/17 06/30/17 06/30/17 11:55 13:38 14:53 Temperature 97.8 F Pulse Rate 99 91 76 Respiratory 17 16 18 Rate Blood Pressure 165/79 164/79 164/78 O2 Sat by Pulse 98 100 100 Oximetry - Reevaluation(s) Reevaluation #1: 06/30/17 15:03 After topical anesthetic was applied the foreskin was retracted by nursing and fully catheter was successfully placed. Medical Decision Making - Medical Decision Making Patient did require a new Martin catheter. A #16 coud tip was successfully placed by nursing staff. Patient does demonstrate some edema to the foreskin. Patient will be discharged he did have urinary retention with over 500 mL of urine. Disposition Clinical Impression: Acute urinary retention, Martin catheter problem, Phimosis Disposition: HOME SELF-CARE Condition: Good Instructions: Phimosis (ED), Urinary Retention in Men (ED), Martin Catheter Placement and Care (ED) Additional Instructions: Follow-up with urology for consideration of circumcision Referrals: Johnny Ugalde MD [Primary Care Provider] - 1-2 days Tony Rico MD [STAFF PHYSICIAN] - 1-2 days
[2017-06-30] MEDS ORDERED: LIDOCAINE/EPINEPHR/TETRACAINE 5 ML BOTTLE TOPICAL ONE (14:17)
[2017-06-30 14:55] VITALS: BP 164/78; PULSE 76; RESP 18
== END 2017-06-30 16:18 | disposition home or self-care (01) ==
LOC: EC 11:53
DX: T83.83XA Hemorrhage due to genitourinary prosthetic devices, implants and grafts, initial encounter (principal); N47.1 Phimosis; R33.9 Retention of urine, unspecified; I48.91 Unspecified atrial fibrillation; I10 Essential (primary) hypertension; I25.2 Old myocardial infarction; F17.200 Nicotine dependence, unspecified, uncomplicated; Z89.611 Acquired absence of right leg above knee; Z88.0 Allergy status to penicillin; Z88.8 Allergy status to other drugs, medicaments and biological substances; Z79.899 Other long term (current) drug therapy
CPT/HCPCS: 51702; 51798; 99284

== ENCOUNTER → 2017-08-05 | Outpatient (CLI) | payer MEDICARE ==
[2017-08-06 15:39] LABS: Non-African American GFR(MDRD) >60 (>60 ml/min/1.73 sqM)
--- NOTE | 2017-08-07 10:10 | MR ---
MR abdomen with and without contrast HISTORY: Liver mass, adrenal mass Multiplanar multisequence and postcontrast images obtained through the abdomen following 100 cc Omni 300 IV. Correlation to prior CT abdomen pelvis dated 04/16/2017, 09/21/2015 There are too numerous to count foci of abnormal signal within the liver which intensely enhances fol lowing contrast administration, delayed imaging shows enhancing capsules with washout of enhancement. Liver shows a persistent nodular contour. Portal vein is patent. Large left adrenal mass shows heterogeneous enhancement and measures approximately 8.5 cm in greatest dimension, some local mass effect on the superior aspect of the left kidney. 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 Small focus of abnormal enhancement has developed in the left adrenal gland measuring approximately 2.5 cm with similar characteristics. Small hyperdense focus is present at the right re nal hilum similar to prior CT measuring approximately 12 mm. There are multiple subcentimeter retrope ritoneal lymph nodes present. The left L5 transverse process shows a focus of enhancement measuring approximately 17 mm. The awning maker and installer ior aspect of the right L2 vertebral body also shows abnormal enhancement following contrast administ ration. T12 shows a focus of enhancement measuring 15 mm. The gallbladder is within normal limits. Pancreas shows stable cystic foci. Spleen is within normal l imits. No evident bowel obstruction. Aorta and inferior vena cava are patent. Small pleural effusions no longer evident. There is no ascites. IMPRESSION: Metastatic disease.
== END | disposition home or self-care (01) ==
LOC: RADMRIMAIN 11:45
PROVIDERS: ATTEND Internal Medicine Hematology & Oncology
DX: C79.02 Secondary malignant neoplasm of left kidney and renal pelvis (principal); C80.1 Malignant (primary) neoplasm, unspecified; R16.0 Hepatomegaly, not elsewhere classified
CPT/HCPCS: 82565; 74183; 36415; A9581

== ENCOUNTER 2017-10-13 09:12 | Day surgery (SDC) | payer MEDICARE, OTHER ==
[~2017-10-13 09:12] MED LIST: ALPRAZolam 0.25 MG TAB PO ONE; HYDROmorphone 0.5 MG/0.5 ML SYRINGE IVP PRN
[2017-10-13 10:05] VITALS: TEMP 98.3
[2017-10-13 10:08] LABS: Mean Platelet Volume 7.2; Platelet Count 329 k/uL (150-450)
[2017-10-13 10:11] LABS: INR 1.3 (<1.2); Prothrombin Time 12.2 sec (9.0-12.0)
[2017-10-13] MEDS ORDERED: HYDROmorphone 2 MG TAB PO STA (10:19)
[2017-10-13] MEDS ORDERED: NALOXONE 0.4 MG/ML 10 ML VIAL IVP PRN (13:54)
[2017-10-13] MEDS: NALOXONE 0.4 MG/ML 1 ML VIAL IV PRN ×2 (14:29→14:36)
[2017-10-13 15:12] VITALS: RESP 14
[2017-10-13 15:46] VITALS: BP 125/66; PULSE 79
--- NOTE | 2017-10-13 15:57 | CT ---
EXAMINATION TYPE: CT biopsy adrenal gland DATE OF EXAM: 10/13/2017 HISTORY: Adrenal mass COMPARISON: NONE Maximal barrier technique was utilized. The skin overlying a suitable path to the lesion was localiz ed using CT and the overlying skin was prepped and draped. Lidocaine used for local anesthesia. A s kin pranav made with a scalpel. Using CT guidance, access was gained to the lesion with an 18-gauge ne edle through 17-gauge guide needle. Core specimen submitted to pathology. 1 passes were performed in all. Following the procedure no immediate complications. The patient is discharged in stable cond ition. Hemostasis achieved. IMPRESSION: SUCCESSFUL CT GUIDED CORE BIOPSY of left adrenal mass. PATHOLOGY PENDING. THIS PROCEDURE WAS PERFOR MED BY THE UNDERSIGNED.
== END 2017-10-13 16:10 | disposition home or self-care (01) ==
LOC: RADPROMAIN 09:12
PROVIDERS: ATTEND Internal Medicine Hematology & Oncology
DX: Z88.8 Allergy status to other drugs, medicaments and biological substances (principal)
CPT/HCPCS: 60699; 77012; 85049; 85610; 88305; 88341; 88342

== ENCOUNTER 2017-10-18 04:51 | Inpatient (IN) | payer MEDICARE ==
--- NOTE | 2017-10-18 05:23 | ED ---
SOB HPI - General Chief Complaint: Shortness of Breath Stated Complaint: Weakness,fever Time Seen by Provider: 10/18/17 04:57 Source: patient, EMS Mode of arrival: EMS Limitations: altered mental status (The patient does appear to be mildly delirious.) - History of Present Illness Initial Comments: This patient is 67-year-old man who presents to be evaluated for shortness of breath that he states is been getting worse over the past 2 days. History is limited as patient does appear to be mildly delirious. He is able to acknowledge fever and cough. MD Complaint: shortness of breath Onset/Timin -: days(s) - Related Data Home Medications Medication Instructions Recorded Confirmed Atenolol [Tenormin] 50 mg PO BID 09/21/15 10/13/17 Primidone [Mysoline] 50 mg PO TID 03/31/17 10/13/17 HYDROcodone/APAP 5-325MG [[place] 1 tab PO Q6HR PRN 05/25/17 08/29/17 5-325] Multivitamins, Thera [Multivitamin 1 tab PO DAILY 05/25/17 08/29/17 (formulary)] Previous Rx's Medication Instructions Recorded Cyclobenzaprine HCl 10 mg PO BID PRN #0 04/19/17 Pantoprazole [Protonix] 40 mg PO AC-BRKFST #30 tab 04/19/17 Acetaminophen Tab [Tylenol] 500 mg PO Q6H PRN #30 tablet 04/20/17 Furosemide [Lasix] 40 mg PO DAILY tab 05/17/17 Ferrous Sulfate [Iron (65 MG 325 mg PO W/LUNCH tab 06/01/17 Elemental)] Allergies Allergy/AdvReac Type Severity Reaction Status Date / Time peginterferon peg-2a Allergy Unknown Verified 10/13/17 09:40 [From Pegasys] Penicillins Allergy Rash/Hives Verified 10/13/17 09:40 Review of Systems ROS Statement: Those systems with pertinent positive or pertinent negative responses have been documented in the HPI. ROS Other: All systems not noted in ROS Statement are negative. Limitations: ROS unobtainable due to patients medical condition (Delirium) Constitutional: Reports: fever Respiratory: Reports: cough Cardiovascular: Denies: chest pain Gastrointestinal: Denies: abdominal pain, vomiting Musculoskeletal: Denies: back pain Past Medical History Past Medical History: Atrial Fibrillation, COPD, GERD/Reflux, Hypertension, Liver Disease, Myocardial Infarction ([place]), Osteoarthritis (OA) Additional Past Medical History / Comment(s): Acute kidney failure/obstructive uropathy-has IDC/AMS, UTI with sepsis, 03/31/17 R hip fracture with surgery twice , perforatic gastric ulcer 2015(had sx), ddd lumbar, herniated discs, hemorrhoids, liver lesions which pt states where worked up at [facility] and are benign, hep c, legally blind-sees better with R eye, past alcoholism, PVD, nonocclusive trombosis R lower leg, current R foot infection and decub on coccyx currently being tx. Last Myocardial Infarction Date:: 2007 History of Any Multi-Drug Resistant Organisms: MRSA Date of last positivie culture/infection: 05/08/17 MDRO Source:: ,FOOT Past Surgical History: Orthopedic Surgery Additional Past Surgical History / Comment(s): 04/01/17 closed reduction percutaneous pinning R hip-then removal of hardware and hemiathroplasty done, vasectomy, bilateral cataracts removed with lens implants, liver bxs 2006, antrectomy w/gastroenterostomy 2015, colonoscopy, reduction paraphimosis. Past Anesthesia/Blood Transfusion Reactions: No Reported Reaction Past Psychological History: No Psychological Hx Reported Smoking Status: Current every day smoker Past Alcohol Use History: None Reported Past Drug Use History: None Reported - Past Family History Mother History Unknown: Yes Family Medical History: Cancer, Diabetes Mellitus, Hypertension Father History Unknown: Yes Family Medical History: Liver Disease, Seizure Disorder Additional Family Medical History / Comment(s): alcoholic Brother(s) History Unknown: Yes Family Medical History: Liver Disease Additional Family Medical History / Comment(s): aneurysm General Exam Limitations: no limitations General appearance: alert, in distress, cachectic Head exam: Present: atraumatic, normocephalic Eye exam: Present: normal appearance. Absent: scleral icterus, conjunctival injection ENT exam: Present: mucous membranes dry Respiratory exam: Present: wheezes, rales, rhonchi, accessory muscle use, decreased breath sounds, prolonged expiratory. Absent: stridor, chest wall tenderness Cardiovascular Exam: Present: normal rhythm, tachycardia, systolic murmur. Absent: diastolic murmur, rubs, gallop GI/Abdominal exam: Present: soft. Absent: tenderness, guarding, rebound, mass, pulsatile mass Extremities exam: Present: normal capillary refill, other (Right leg glove knee amputation). Absent: pedal edema, calf tenderness Back exam: Present: normal inspection. Absent: CVA tenderness (R), CVA tenderness (L) Neurological exam: Present: CN II-XII intact. Absent: oriented X3, motor sensory deficit Skin exam: Present: warm, dry, intact. Absent: rash Course Vital Signs 10/18/17 10/18/17 10/18/17 04:53 05:43 05:46 Temperature 104.1 F H Pulse Rate 141 H 125 H Respiratory 44 H 20 28 H Rate Blood Pressure 108/63 O2 Sat by Pulse 95 98 Oximetry 10/18/17 10/18/17 10/18/17 05:57 06:00 06:06 Temperature Pulse Rate 138 H 130 H 138 H Respiratory 20 Rate Blood Pressure 144/76 O2 Sat by Pulse 97 Oximetry 10/18/17 10/18/17 06:41 07:08 Temperature 100.3 F H Pulse Rate 125 H Respiratory 20 Rate Blood Pressure 136/71 O2 Sat by Pulse 97 Oximetry Procedures - Sepsis Sepsis Focused Exam #1 Sepsis Focused Exam Time: 07:18 Sepsis Focused Exam Complete: Yes Vital Signs & RN Notes Reviewed: Yes Capillary Refill: < 2 Seconds: Fingers Peripheral Pulses: Normal: Radial (R) Skin Color: Normal for Patient Respiratory Exam: wheezes Cardiovascular Exam: tachycardia Medical Decision Making - Lab Data Result diagrams: 10/18/17 05:03 10/18/17 05:03 Lab Results 10/18/17 10/18/17 10/18/17 Range/Units 05:03 05:03 05:03 WBC 3.0 L (3.8-10.6) k/uL RBC 3.93 L (4.30-5.90) m/uL Hgb 12.2 L (13.0-17.5) gm/dL Hct 36.6 L (39.0-53.0) % MCV 93.1 (80.0-100.0) fL MCH 31.2 (25.0-35.0) pg MCHC 33.5 (31.0-37.0) g/dL RDW 13.6 (11.5-15.5) % Plt Count 271 (150-450) k/uL Neutrophils % 63 % Lymphocytes % 17 % Monocytes % 1 % Eosinophils % 17 % Basophils % 0 % Neutrophils # 1.9 (1.3-7.7) k/uL Lymphocytes # 0.5 L (1.0-4.8) k/uL Monocytes # 0.0 (0-1.0) k/uL Eosinophils # 0.5 (0-0.7) k/uL Basophils # 0.0 (0-0.2) k/uL PT (9.0-12.0) sec INR (<1.2) APTT (22.0-30.0) sec D-Dimer (<0.60) mg/L FEU Sample Site ABG pH (7.35-7.45) ABG pCO2 (35-45) mmHg ABG pO2 (83-108) mmHg ABG HCO3 (21-25) mmol/L ABG Total CO2 (19-24) mmol/L ABG O2 Saturation (94-97) % ABG Base Excess mmol/L Abhilash Test FiO2 % Sodium 139 (137-145) mmol/L Potassium 3.3 L (3.5-5.1) mmol/L Chloride 102 (98-107) mmol/L Carbon Dioxide 26 (22-30) mmol/L Anion Gap 11 mmol/L BUN 13 (9-20) mg/dL Creatinine 0.70 (0.66-1.25) mg/dL Est GFR (MDRD) Af Amer >60 (>60 ml/min/1.73 sqM) Est GFR (MDRD) Non-Af >60 (>60 ml/min/1.73 sqM) Glucose 115 H (74-99) mg/dL Plasma Lactic Acid Felipe 4.1 H* (0.7-2.0) mmol/L Calcium 7.8 L (8.4-10.2) mg/dL Magnesium 1.6 (1.6-2.3) mg/dL Total Bilirubin 1.1 (0.2-1.3) mg/dL AST 35 (17-59) U/L ALT 19 L (21-72) U/L Alkaline Phosphatase 91 (38-126) U/L Troponin I (0.000-0.034) ng/mL NT-Pro-B Natriuret Pep pg/mL Total Protein 6.8 (6.3-8.2) g/dL Albumin 2.6 L (3.5-5.0) g/dL Urine Color Urine Appearance (Clear) Urine pH (5.0-8.0) Ur Specific Ford (1.001-1.035) Urine Protein (Negative) Urine Glucose (UA) (Negative) Urine Ketones (Negative) Urine Blood (Negative) Urine Nitrite (Negative) Urine Bilirubin (Negative) Urine Urobilinogen (<2.0) mg/dL Ur Leukocyte Esterase (Negative) Urine RBC (0-5) /hpf Urine WBC (0-5) /hpf Urine WBC Clumps (None) /hpf Urine Bacteria (None) /hpf Urine Mucus (None) /hpf Influenza Type A RNA (Not Detectd) Influenza Type B (PCR) (Not Detectd) 10/18/17 10/18/17 10/18/17 Range/Units 05:03 05:03 05:03 WBC (3.8-10.6) k/uL RBC (4.30-5.90) m/uL Hgb (13.0-17.5) gm/dL Hct (39.0-53.0) % MCV (80.0-100.0) fL MCH (25.0-35.0) pg MCHC (31.0-37.0) g/dL RDW (11.5-15.5) % Plt Count (150-450) k/uL Neutrophils % % Lymphocytes % % Monocytes % % Eosinophils % % Basophils % % Neutrophils # (1.3-7.7) k/uL Lymphocytes # (1.0-4.8) k/uL Monocytes # (0-1.0) k/uL Eosinophils # (0-0.7) k/uL Basophils # (0-0.2) k/uL PT 12.6 H (9.0-12.0) sec INR 1.3 H (<1.2) APTT 25.3 (22.0-30.0) sec D-Dimer 5.01 H (<0.60) mg/L FEU Sample Site ABG pH (7.35-7.45) ABG pCO2 (35-45) mmHg ABG pO2 (83-108) mmHg ABG HCO3 (21-25) mmol/L ABG Total CO2 (19-24) mmol/L ABG O2 Saturation (94-97) % ABG Base Excess mmol/L Abhilash Test FiO2 % Sodium (137-145) mmol/L Potassium (3.5-5.1) mmol/L Chloride (98-107) mmol/L Carbon Dioxide (22-30) mmol/L Anion Gap mmol/L BUN (9-20) mg/dL Creatinine (0.66-1.25) mg/dL Est GFR (MDRD) Af Amer (>60 ml/min/1.73 sqM) Est GFR (MDRD) Non-Af (>60 ml/min/1.73 sqM) Glucose (74-99) mg/dL Plasma Lactic Acid Felipe (0.7-2.0) mmol/L Calcium (8.4-10.2) mg/dL Magnesium (1.6-2.3) mg/dL Total Bilirubin (0.2-1.3) mg/dL AST (17-59) U/L ALT (21-72) U/L Alkaline Phosphatase (38-126) U/L Troponin I 0.034 (0.000-0.034) ng/mL NT-Pro-B Natriuret Pep 575 pg/mL Total Protein (6.3-8.2) g/dL Albumin (3.5-5.0) g/dL Urine Color Urine Appearance (Clear) Urine pH (5.0-8.0) Ur Specific Ford (1.001-1.035) Urine Protein (Negative) Urine Glucose (UA) (Negative) Urine Ketones (Negative) Urine Blood (Negative) Urine Nitrite (Negative) Urine Bilirubin (Negative) Urine Urobilinogen (<2.0) mg/dL Ur Leukocyte Esterase (Negative) Urine RBC (0-5) /hpf Urine WBC (0-5) /hpf Urine WBC Clumps (None) /hpf Urine Bacteria (None) /hpf Urine Mucus (None) /hpf Influenza Type A RNA (Not Detectd) Influenza Type B (PCR) (Not Detectd) 10/18/17 10/18/17 10/18/17 Range/Units 05:41 05:49 06:03 WBC (3.8-10.6) k/uL RBC (4.30-5.90) m/uL Hgb (13.0-17.5) gm/dL Hct (39.0-53.0) % MCV (80.0-100.0) fL MCH (25.0-35.0) pg MCHC (31.0-37.0) g/dL RDW (11.5-15.5) % Plt Count (150-450) k/uL Neutrophils % % Lymphocytes % % Monocytes % % Eosinophils % % Basophils % % Neutrophils # (1.3-7.7) k/uL Lymphocytes # (1.0-4.8) k/uL Monocytes # (0-1.0) k/uL Eosinophils # (0-0.7) k/uL Basophils # (0-0.2) k/uL PT (9.0-12.0) sec INR (<1.2) APTT (22.0-30.0) sec D-Dimer (<0.60) mg/L FEU Sample Site rbrac ABG pH 7.51 H (7.35-7.45) ABG pCO2 34 L (35-45) mmHg ABG pO2 86 (83-108) mmHg ABG HCO3 27 H (21-25) mmol/L ABG Total CO2 28 H (19-24) mmol/L ABG O2 Saturation 97.8 H (94-97) % ABG Base Excess 3.8 mmol/L Abhilash Test Yes FiO2 28 % Sodium (137-145) mmol/L Potassium (3.5-5.1) mmol/L Chloride (98-107) mmol/L Carbon Dioxide (22-30) mmol/L Anion Gap mmol/L BUN (9-20) mg/dL Creatinine (0.66-1.25) mg/dL Est GFR (MDRD) Af Amer (>60 ml/min/1.73 sqM) Est GFR (MDRD) Non-Af (>60 ml/min/1.73 sqM) Glucose (74-99) mg/dL Plasma Lactic Acid Felipe (0.7-2.0) mmol/L Calcium (8.4-10.2) mg/dL Magnesium (1.6-2.3) mg/dL Total Bilirubin (0.2-1.3) mg/dL AST (17-59) U/L ALT (21-72) U/L Alkaline Phosphatase (38-126) U/L Troponin I (0.000-0.034) ng/mL NT-Pro-B Natriuret Pep pg/mL Total Protein (6.3-8.2) g/dL Albumin (3.5-5.0) g/dL Urine Color Yellow Urine Appearance Turbid (Clear) Urine pH 6.0 (5.0-8.0) Ur Specific Ford 1.016 (1.001-1.035) Urine Protein 2+ H (Negative) Urine Glucose (UA) Negative (Negative) Urine Ketones Negative (Negative) Urine Blood Large H (Negative) Urine Nitrite Negative (Negative) Urine Bilirubin Negative (Negative) Urine Urobilinogen 8.0 (<2.0) mg/dL Ur Leukocyte Esterase Large H (Negative) Urine RBC 101 H (0-5) /hpf Urine WBC >182 H (0-5) /hpf Urine WBC Clumps Many H (None) /hpf Urine Bacteria Many H (None) /hpf Urine Mucus Many H (None) /hpf Influenza Type A RNA Not Detected (Not Detectd) Influenza Type B (PCR) Not Detected (Not Detectd) - EKG Data -: EKG Interpreted by Me EKG shows normal: sinus rhythm, axis (Normal), intervals (Normal) Rate: tachycardia (Rate approximately 139 bpm) Interpretation: LVH Disposition Clinical Impression: Urinary tract infection, Sepsis Disposition: ADMITTED IP TO THIS HOSP Condition: Serious
[2017-10-18] MEDS ORDERED: IPRATROPIUM-ALBUTEROL 3 ML NEB INHALATION STA (05:25)
[2017-10-18] MEDS ORDERED: SODIUM CHLORIDE 0.9% 500 ML IV STA (05:25)
[2017-10-18] MEDS ORDERED: ACETAMINOPHEN TAB 325 MG TAB PO STA (05:28)
[2017-10-18] MEDS ORDERED: LEVOFLOXACIN 750MG-D5W PMX 750 MG in DEXTROSE/WATER 1 150ML.BAG IVPB STA (05:29)
[2017-10-18 05:37] LABS: Basophils % (A) 0 %; Eosinophils # (A) 0.5 k/uL (0-0.7); Eosinophils % (A) 17 %; HCT 36.6 % (39.0-53.0); HGB 12.2 gm/dL (13.0-17.5); Lymphocytes # (A) 0.5 k/uL (1.0-4.8); Lymphocytes % (A) 17 %; MCH 31.2 pg (25.0-35.0); MCHC 33.5 g/dL (31.0-37.0); MCV 93.1 fL (80.0-100.0); Mean Platelet Volume 7.4; Monocytes % (A) 1 %; Neutrophils # (A) 1.9 k/uL (1.3-7.7); Neutrophils % (A) 63 %; Platelet Count 271 k/uL (150-450); RBC 3.93 m/uL (4.30-5.90); RDW 13.6 % (11.5-15.5)
--- NOTE | 2017-10-18 05:49 | XR ---
EXAM: XR Chest, 1 View CLINICAL HISTORY: ITS.REASON XR Reason: Fever TECHNIQUE: Frontal view of the chest. COMPARISON: Chest x-ray dated 05/10/2017. FINDINGS: Lungs: Unremarkable. The lungs are clear. Pleural space: Unremarkable. No pneumothorax. Heart: Unremarkable. No cardiomegaly. Mediastinum: Unremarkable. Bones/joints: Unremarkable. Vasculature: Mild calcification of the aortic arch. IMPRESSION: No acute findings.
[2017-10-18 05:51] LABS: ABG Base Excess 3.8 mmol/L; ABG HCO3 27 mmol/L (21-25); ABG Oxygen Saturation 97.8 % (94-97); ABG PCO2 34 mmHg (35-45); ABG PH 7.51 (7.35-7.45); ABG PO2 86 mmHg (83-108); ABG TCO2 28 mmol/L (19-24)
[2017-10-18 05:52] LABS: ALT 19 U/L (21-72); AST 35 U/L (17-59); Albumin 2.6 g/dL (3.5-5.0); Alkaline Phosphatase 91 U/L (38-126); Anion Gap 11 mmol/L; Blood Urea Nitrogen 13 mg/dL (9-20); Calcium 7.8 mg/dL (8.4-10.2); Carbon Dioxide 26 mmol/L (22-30); Chloride 102 mmol/L (98-107); Glucose 115 mg/dL (74-99); Magnesium 1.6 mg/dL (1.6-2.3); Potassium 3.3 mmol/L (3.5-5.1); Sodium 139 mmol/L (137-145); Total Bilirubin 1.1 mg/dL (0.2-1.3); Total Protein 6.8 g/dL (6.3-8.2)
[2017-10-18] MEDS ORDERED: SODIUM CHLORIDE 0.9% 1,500 ML IV ONE (06:00)
[2017-10-18 06:03] LABS: D-Dimer 5.01 mg/L FEU (<0.60); INR 1.3 (<1.2); Partial Thromboplastin Time 25.3 sec (22.0-30.0); Prothrombin Time 12.6 sec (9.0-12.0)
[2017-10-18 06:16] LABS: Appearance,Urine Turbid (Clear); Bacteria,Urine Many /hpf; Bilirubin,Urine Negative (Negative); Blood,Urine Large (Negative); Color,Urine Yellow; Glucose,Urine (UA) Negative (Negative); Ketones,Urine Negative (Negative); Leukocyte Esterase,Urine Large (Negative); Mucus,Urine Many /hpf; Nitrite,Urine Negative (Negative); Protein,Urine 2+ (Negative); RBC,Urine 101 /hpf (0-5); Specific Gravity,Urine 1.016 (1.001-1.035); WBC,Urine >182 /hpf (0-5)
[2017-10-18] MEDS ORDERED: RX INFO: IV CONTRAST WAS GIVEN 1 EACH MISC MISCELLANE PRN (06:54)
[2017-10-18] MEDS ORDERED: POTASSIUM CHLORIDE ER 20 MEQ TAB.ER PO STA (07:11)
[2017-10-18] MEDS ORDERED: SODIUM CHLORIDE 0.9% 1,000 ML IV STA (07:17)
--- NOTE | 2017-10-18 08:00 | CT ---
EXAMINATION TYPE: CT chest angio for PE DATE OF EXAM: 10/18/2017 COMPARISON: 05/16/2017 HISTORY: 67-year-old male Weakness, Fever TECHNIQUE: Contiguous axial scanning of the chest performed with IV Contrast, patient injected with 1 00 ml mL of Omnipaque 350. Coronal/sagittal MIP reconstructions performed. CT DLP: 273.30 mGycm Automated exposure control for dose reduction was used. FINDINGS: Heart is normal size with trace basilar pericardial effusion. Coronary vessel calcifications are pres ent in the remarkable for coronary artery disease. Aorta normal caliber with mild atelectatic arch calcifications and conventional arch vessel branching anatomy. Suboptimal opacification of the pulmonary arterial system for assessment of pulmonary emboli. No larg e central pulmonary embolus. Lobar, segmental, subsegmental, and more distal pulmonary arterial branc hes are nondiagnostic for assessment of emboli. Scattered nonenlarged mediastinal lymph nodes are present. However, there is an enlarging 1.4 cm subc arinal lymph node previously measuring 9 mm. Two right pericardiac lymph nodes are larger measuring 7 mm now versus 6 mm and 4 mm, previously. A right epiphrenic lymph node is larger at 8 mm versus 6 mm , previously. There is a trace left effusion and dependent atelectasis. Mild diffuse bronchial wall thickening is n oted. Mild biapical pleural-parenchymal scarring.. Previous nodular subpleural density posterior left base has resolved compatible with an area of atelectasis. Small hiatal hernia. Somewhat nodular appearance to the liver may reflect underlying cirrhosis. Mild ascites fluid redemon strated. 10 cm left adrenal mass and gastrohepatic ligament lymphadenopathy also redemonstrated measu ring up to 1.2 cm. Anterior splenule. Multiple hepatic lesions seen on prior CT not as well-demonstra jaime on the current phase of imaging. Bones: New irregular density along the mid sternal body as compared to prior exam. There is also a ne w lytic lesion within the left T5 vertebral body. IMPRESSION: 1. SUBOPTIMAL CONTRAST BOLUS FOR ASSESSMENT OF PULMONARY EMBOLUS. NO LARGE CENTRAL EMBOLUS. THE LOBAR , SEGMENTAL, AND MORE DISTAL PULMONARY ARTERY BRANCHES ARE NONDIAGNOSTIC AND PULMONARY EMBOLI AT THES E LEVELS CANNOT BE EXCLUDED ON THE BASIS OF THIS EXAM. 2. REDEMONSTRATED LARGE 10 CM LEFT ADRENAL MASS. THERE IS GASTROHEPATIC LIGAMENT LYMPHADENOPATHY (1.2 CM), NONENLARGED PERICARDIAC AND RIGHT EPIPHRENIC LYMPH NODES (8 MM) THAT ARE INCREASING IN SIZE, A BORDERLINE SIZED SUBCARINAL LYMPH NODE (1.4 CM) INCREASED IN SIZE, AND NEW LYTIC LESION WITHIN THE T5 VERTEBRAL BODY. FINDINGS SUGGEST METASTATIC DISEASE. NEW IRREGULARITY OF THE MID STERNAL BODY MAY AL SO REFLECT OSSEOUS METASTATIC DISEASE OR INTERVAL POSTTRAUMATIC SEQUELA. CLINICALLY CORRELATE. 3. CIRRHOTIC APPEARANCE TO THE LIVER. PREVIOUSLY SEEN MULTIPLE LIVER LESIONS NOT WELL DEMONSTRATED ON THIS PHASE OF IMAGING. TRACE UPPER ABDOMINAL ASCITES. TRACE LEFT EFFUSION.
[2017-10-18] MEDS ORDERED: METOCLOPRAMIDE 5 MG/ML 2 ML VIAL IVP STA (09:37)
[2017-10-18] MEDS: HEPARIN SODIUM,PORCINE 5,000 UNIT/ML 1 ML VIAL SQ SCH ×3 (10:12→23:33)
[2017-10-18] MEDS ORDERED: CYCLOBENZAPRINE 10 MG TAB PO PRN (16:37)
--- NOTE | 2017-10-18 16:41 | P.HPIM ---
History of Present Illness H&P Date: 10/18/17 Chief Complaint: UTI with sepsis. This is a history of physical 67-year-old white male with known history of COPD and recent below-knee amputation secondary to osteomyelitis and PAD. The patient is now been admitted after having dysuria and UTI with sepsis. The patient states significant shortness of breath. We will go ahead and add albuterol/Atrovent as necessary. The patient has been showing significant signs of sepsis with elevated lactic acid and tachycardia. The patient is now on IV hydration with appropriate antibiotic treatment. Urinary cultures are pending. Review of Systems Constitutional: Denies chills, Denies fever Eyes: denies blurred vision, denies pain Ears, nose, mouth and throat: Denies headache, Denies sore throat Cardiovascular: Denies chest pain, Denies shortness of breath Respiratory: Reports cough, Reports dyspnea, Reports pleurisy, Reports respiratory infections Gastrointestinal: Denies abdominal pain, Denies diarrhea, Denies nausea, Denies vomiting Genitourinary: Reports as per HPI Musculoskeletal: Denies myalgias Past Medical History Past Medical History: Atrial Fibrillation, COPD, GERD/Reflux, Hypertension, Liver Disease, Myocardial Infarction ([place]), Osteoarthritis (OA) Additional Past Medical History / Comment(s): Acute kidney failure/obstructive uropathy-has IDC last changed 10/16/17, UTI with sepsis, AMS, 03/31/17 R hip fracture with surgery twice, perforatic gastric ulcer 2015(had sx), ddd lumbar, herniated discs, hemorrhoids, liver lesions and L adrenal mass which pt states where worked up at [facility] and in the past pt states he was told they are benign-pt had left adrenal biopsy 10/13/17 and does not have results yet, hep c, legally blind-sees better with R eye, past alcoholism, PVD, nonocclusive trombosis R lower leg, past R foot infection now has R aka amputation and decub on coccyx is now healed per pt. Last Myocardial Infarction Date:: 2007 History of Any Multi-Drug Resistant Organisms: MRSA Date of last positivie culture/infection: 05/08/17 MDRO Source:: ,FOOT Past Surgical History: Orthopedic Surgery Additional Past Surgical History / Comment(s): 10/13/17 L adrenal mass bx, 8/18/ 17 closed reduction percutaneous pinning R hip-then removal of hardware and hemiathroplasty done, vasectomy, bilateral cataracts removed with lens implants , liver bxs 2006, antrectomy w/gastroenterostomy 2015, colonoscopy, reduction paraphimosis. Past Anesthesia/Blood Transfusion Reactions: No Reported Reaction Smoking Status: Current every day smoker - Past Family History Mother History Unknown: Yes Family Medical History: Cancer, Diabetes Mellitus, Hypertension Additional Family Medical History / Comment(s): Pt believes that mother had stomach cancer. Father History Unknown: Yes Family Medical History: Liver Disease, Seizure Disorder Additional Family Medical History / Comment(s): alcoholic Brother(s) History Unknown: Yes Family Medical History: Liver Disease Additional Family Medical History / Comment(s): aneurysm Medications and Allergies Home Medications Medication Instructions Recorded Confirmed Type Primidone [Mysoline] 50 mg PO TID 03/31/17 10/18/17 History Cyclobenzaprine HCl 10 mg PO BID PRN #0 04/19/17 10/18/17 Rx Furosemide [Lasix] 40 mg PO DAILY tab 05/17/17 10/18/17 Rx Lisinopril [Zestril] 20 mg PO BID 10/18/17 10/18/17 History Metoprolol Tartrate [Lopressor] 50 mg PO BID 10/18/17 10/18/17 History Omeprazole [Omeprazole] 20 mg PO BID 10/18/17 10/18/17 History Potassium Chloride [K-Tab ER] 10 meq PO DAILY 10/18/17 10/18/17 History Allergies Allergy/AdvReac Type Severity Reaction Status Date / Time peginterferon peg-2a Allergy Unknown Verified 10/18/17 08:42 [From Pegasys] Penicillins Allergy Rash/Hives Verified 10/18/17 08:42 Physical Exam Vitals: Vital Signs Temp Pulse Resp BP Pulse Ox 10/18/17 16:10 98.1 F 80 17 107/64 98 10/18/17 14:46 114 H 18 97/59 98 10/18/17 13:13 118 H 18 109/65 95 10/18/17 09:43 129 H 18 107/68 98 10/18/17 08:37 121 H 20 109/60 99 10/18/17 07:57 96 10/18/17 07:51 98.8 F 123 H 19 120/78 94 L 10/18/17 07:08 100.3 F H 10/18/17 06:41 125 H 20 136/71 97 10/18/17 06:06 138 H 10/18/17 06:00 130 H 20 144/76 97 10/18/17 05:57 138 H 10/18/17 05:46 28 H 10/18/17 05:43 125 H 20 108/63 98 10/18/17 04:53 104.1 F H 141 H 44 H 95 Intake and Output 10/18/17 10/18/17 10/18/17 06:59 14:59 22:59 Other: Weight 68.039 kg - Constitutional General appearance: thin - EENT Eyes: no abnormal pupil - Neck Neck: no lymphadenopathy - Respiratory Respiratory: bilateral: diminished - Cardiovascular Rhythm: irregularly irregular Heart sounds: normal: S1, S2 Abnormal Heart Sounds: no S3 Gallop - Gastrointestinal General gastrointestinal: soft, no tenderness - Neurologic Neurologic: CNII-XII intact - Musculoskeletal Musculoskeletal: generalized weakness - Psychiatric Psychiatric: A&O x's 3 Results CBC & Chem 7: 10/18/17 05:03 10/18/17 05:03 Labs: Abnormal Lab Results - Last 24 Hours (Table) 10/18/17 10/18/17 10/18/17 Range/Units 05:03 05:03 05:03 WBC 3.0 L (3.8-10.6) k/uL RBC 3.93 L (4.30-5.90) m/uL Hgb 12.2 L (13.0-17.5) gm/dL Hct 36.6 L (39.0-53.0) % Lymphocytes # 0.5 L (1.0-4.8) k/uL PT (9.0-12.0) sec INR (<1.2) D-Dimer (<0.60) mg/L FEU ABG pH (7.35-7.45) ABG pCO2 (35-45) mmHg ABG HCO3 (21-25) mmol/L ABG Total CO2 (19-24) mmol/L ABG O2 Saturation (94-97) % Potassium 3.3 L (3.5-5.1) mmol/L Glucose 115 H (74-99) mg/dL Plasma Lactic Acid Felipe 4.1 H* (0.7-2.0) mmol/L Calcium 7.8 L (8.4-10.2) mg/dL ALT 19 L (21-72) U/L Albumin 2.6 L (3.5-5.0) g/dL Urine Protein (Negative) Urine Blood (Negative) Ur Leukocyte Esterase (Negative) Urine RBC (0-5) /hpf Urine WBC (0-5) /hpf Urine WBC Clumps (None) /hpf Urine Bacteria (None) /hpf Urine Mucus (None) /hpf 10/18/17 10/18/17 10/18/17 Range/Units 05:03 05:41 05:49 WBC (3.8-10.6) k/uL RBC (4.30-5.90) m/uL Hgb (13.0-17.5) gm/dL Hct (39.0-53.0) % Lymphocytes # (1.0-4.8) k/uL PT 12.6 H (9.0-12.0) sec INR 1.3 H (<1.2) D-Dimer 5.01 H (<0.60) mg/L FEU ABG pH 7.51 H (7.35-7.45) ABG pCO2 34 L (35-45) mmHg ABG HCO3 27 H (21-25) mmol/L ABG Total CO2 28 H (19-24) mmol/L ABG O2 Saturation 97.8 H (94-97) % Potassium (3.5-5.1) mmol/L Glucose (74-99) mg/dL Plasma Lactic Acid Felipe (0.7-2.0) mmol/L Calcium (8.4-10.2) mg/dL ALT (21-72) U/L Albumin (3.5-5.0) g/dL Urine Protein 2+ H (Negative) Urine Blood Large H (Negative) Ur Leukocyte Esterase Large H (Negative) Urine RBC 101 H (0-5) /hpf Urine WBC >182 H (0-5) /hpf Urine WBC Clumps Many H (None) /hpf Urine Bacteria Many H (None) /hpf Urine Mucus Many H (None) /hpf 10/18/17 Range/Units 08:35 WBC (3.8-10.6) k/uL RBC (4.30-5.90) m/uL Hgb (13.0-17.5) gm/dL Hct (39.0-53.0) % Lymphocytes # (1.0-4.8) k/uL PT (9.0-12.0) sec INR (<1.2) D-Dimer (<0.60) mg/L FEU ABG pH (7.35-7.45) ABG pCO2 (35-45) mmHg ABG HCO3 (21-25) mmol/L ABG Total CO2 (19-24) mmol/L ABG O2 Saturation (94-97) % Potassium (3.5-5.1) mmol/L Glucose (74-99) mg/dL Plasma Lactic Acid Felipe 3.3 H* (0.7-2.0) mmol/L Calcium (8.4-10.2) mg/dL ALT (21-72) U/L Albumin (3.5-5.0) g/dL Urine Protein (Negative) Urine Blood (Negative) Ur Leukocyte Esterase (Negative) Urine RBC (0-5) /hpf Urine WBC (0-5) /hpf Urine WBC Clumps (None) /hpf Urine Bacteria (None) /hpf Urine Mucus (None) /hpf Microbiology - Last 24 Hours (Table) 10/18/17 05:41 Urine Culture - Preliminary Urine,Catheterized Thrombosis Risk Factor Assmnt - Choose All That Apply Any of the Below Risk Factors Present?: Yes Each Factor Represents 1 point: Abnormal pulmonary function (COPD), Sepsis (< 1month) Other Risk Factors: Yes Each Risk Factor Represents 2 Points: Age 61-74 years Each Risk Factor Represents 3 Points: History of DVT/PE Other congenital or acquired thrombophilia - If yes, enter type in comment: No Thrombosis Risk Factor Assessment Total Risk Factor Score: 7 Thrombosis Risk Factor Assessment Level: High Risk Assessment and Plan (1) COPD (chronic obstructive pulmonary disease) Current Visit: Yes Status: Acute Code(s): J44.9 - CHRONIC OBSTRUCTIVE PULMONARY DISEASE, UNSPECIFIED SNOMED Code(s): 29048108 (2) Sepsis Current Visit: Yes Status: Acute Code(s): A41.9 - SEPSIS, UNSPECIFIED ORGANISM SNOMED Code(s): 94267395 (3) Urinary tract infection Current Visit: Yes Status: Acute Code(s): N39.0 - URINARY TRACT INFECTION, SITE NOT SPECIFIED SNOMED Code(s): 43434916 (4) Above knee amputation of right lower extremity Current Visit: No Status: Acute Code(s): Z89.611 - ACQUIRED ABSENCE OF RIGHT LEG ABOVE KNEE SNOMED Code(s): 809288639 (5) Atrial fibrillation Current Visit: No Status: Acute Code(s): I48.91 - UNSPECIFIED ATRIAL FIBRILLATION SNOMED Code(s): 89896218 (6) CAD (coronary artery disease) Current Visit: No Status: Acute Code(s): I25.10 - ATHSCL HEART DISEASE OF [place] CORONARY ARTERY W/O ANG PCTRS SNOMED Code(s): 50438564 Plan: Continue current regimen of antibiotic treatment. [facility] See orders otherwise. Time with Patient: Less than 30
[2017-10-18] MEDS: PANTOPRAZOLE 40 MG TABLET PO SCH (17:48)
[2017-10-18] MEDS: IPRATROPIUM-ALBUTEROL 3 ML NEB INHALATION SCH ×2 (20:29→23:40)
[2017-10-18] MEDS: METOPROLOL TARTRATE 50 MG TAB PO SCH (20:35)
[2017-10-18] MEDS: PRIMIDONE 50 MG TAB PO SCH (20:35)
[2017-10-18] MEDS: LISINOPRIL 20 MG TAB PO SCH (20:35)
[2017-10-18] MEDS: SODIUM CHLORIDE 0.9% 1,000 ML IV SCH (21:47)
[2017-10-18] MEDS: ACETAMINOPHEN TAB 325 MG TAB PO PRN (21:47)
[2017-10-19] MEDS: ACETAMINOPHEN TAB 325 MG TAB PO PRN ×2 (03:22→08:54)
[2017-10-19] MEDS: IPRATROPIUM-ALBUTEROL 3 ML NEB INHALATION SCH ×5 (03:32→19:25)
[2017-10-19] MEDS: SODIUM CHLORIDE 0.9% 1,000 ML IV SCH ×4 (06:11→19:15)
[2017-10-19] MEDS: PANTOPRAZOLE 40 MG TABLET PO SCH (06:11)
--- NOTE | 2017-10-19 08:05 | P.PN ---
Subjective Progress Note Date: 10/19/17 Principal diagnosis: UTI with sepsis. This is a continue present 67-year-old white male essentially admitted for UTI with sepsis picture. The patient is currently on Levaquin and has had defervesced since. However, he has an underlying history of COPD and recent [id number] habitation secondary to PAD and ostial myelitis. We will go ahead and asked echo Demnod to see the patient. No sniffing fever since admission. He seems shaky secondary to IV fluid. Hydration status is now improving. Objective - Vital Signs Vital signs: Vital Signs Temp 98.5 F 10/19/17 04:23 Pulse 117 H 10/19/17 03:42 Resp 16 10/19/17 03:30 BP 106/64 10/19/17 03:30 Pulse Ox 98 10/19/17 03:30 Intake & Output 10/18/17 10/19/17 10/19/17 18:59 06:59 18:59 Intake Total 120 90 Output Total 950 Balance 120 -950 90 Weight 62 kg 67 kg Intake: Oral 120 90 Output: Urine 950 Uretheral (Martin) 650 Other: Voiding Method Indwelling Catheter # Bowel Movements 1 - Constitutional General appearance: Present: thin - EENT Eyes: Absent: abnormal pupil - Respiratory Respiratory: bilateral: rhonchi - Cardiovascular Rhythm: regular Heart sounds: normal: S1, S2 Abnormal Heart Sounds: Absent: S3 Gallop - Gastrointestinal General gastrointestinal: Present: soft. Absent: tenderness - Musculoskeletal Musculoskeletal: Present: generalized weakness - Psychiatric Psychiatric: Present: A&O x's 3 - Labs CBC & Chem 7: 10/18/17 05:03 10/18/17 05:03 Labs: Abnormal Lab Results - Last 24 Hours (Table) 10/18/17 10/18/17 10/19/17 Range/Units 08:35 20:36 01:28 Plasma Lactic Acid Felipe 3.3 H* 3.3 H* 2.7 H* (0.7-2.0) mmol/L 10/19/17 Range/Units 05:46 Plasma Lactic Acid Felipe 2.7 H* (0.7-2.0) mmol/L Microbiology - Last 24 Hours (Table) 10/18/17 05:03 Blood Culture - Final Blood 10/17/17 05:03 Blood Culture Gram Stain - Preliminary Blood Blood Culture - Preliminary Gram Neg Bacilli 10/18/17 05:41 Urine Culture - Preliminary Urine,Catheterized Assessment and Plan (1) COPD (chronic obstructive pulmonary disease) Current Visit: Yes Status: Acute Code(s): J44.9 - CHRONIC OBSTRUCTIVE PULMONARY DISEASE, UNSPECIFIED SNOMED Code(s): 16370719 (2) Sepsis Current Visit: Yes Status: Acute Code(s): A41.9 - SEPSIS, UNSPECIFIED ORGANISM SNOMED Code(s): 32433393 (3) Urinary tract infection Current Visit: Yes Status: Acute Code(s): N39.0 - URINARY TRACT INFECTION, SITE NOT SPECIFIED SNOMED Code(s): 85885857 (4) Above knee amputation of right lower extremity Current Visit: No Status: Acute Code(s): Z89.611 - ACQUIRED ABSENCE OF RIGHT LEG ABOVE KNEE SNOMED Code(s): 524496903 (5) Atrial fibrillation Current Visit: No Status: Acute Code(s): I48.91 - UNSPECIFIED ATRIAL FIBRILLATION SNOMED Code(s): 72027842 (6) CAD (coronary artery disease) Current Visit: No Status: Acute Code(s): I25.10 - ATHSCL HEART DISEASE OF [place] CORONARY ARTERY W/O ANG PCTRS SNOMED Code(s): 33184858 Plan: Continue current regimen of treatment. Urinary cultures pending with sensitivity. New Check CBC and CMP in a.m. Infectious disease is now consulted.
[2017-10-19] MEDS: FUROSEMIDE 40 MG TAB PO SCH (08:46)
[2017-10-19] MEDS: LISINOPRIL 20 MG TAB PO SCH ×2 (08:46→20:30)
[2017-10-19] MEDS: METOPROLOL TARTRATE 50 MG TAB PO SCH ×2 (08:46→21:18)
[2017-10-19] MEDS: HEPARIN SODIUM,PORCINE 5,000 UNIT/ML 1 ML VIAL SQ SCH ×2 (08:46→15:55)
[2017-10-19] MEDS: PRIMIDONE 50 MG TAB PO SCH ×3 (08:46→21:18)
[2017-10-19] MEDS: POTASSIUM CHLORIDE ER 10 MEQ TAB.ER.PRT PO SCH (08:46)
[2017-10-19] MEDS: LEVOFLOXACIN 750MG-D5W PMX 750 MG in DEXTROSE/WATER 1 150ML.BAG IVPB SCH (08:46)
[2017-10-19] MEDS ORDERED: GENTAMICIN PER PHARMACY MISCELLANE PRN (11:32)
[2017-10-19] MEDS ORDERED: ACETAMINOPHEN TAB 325 MG TAB PO PRN (11:37)
[2017-10-19] MEDS: IBUPROFEN 600 MG TAB PO PRN (12:10)
--- NOTE | 2017-10-19 12:31 | CT ---
EXAMINATION TYPE: CT abdomen pelvis wo con DATE OF EXAM: 10/19/2017 COMPARISON: 04/16/2017 and MRI 08/05/2017 HISTORY: 67-year-old male bloating, Abd distention CT DLP: 562.6 mGycm. Automated exposure control for dose reduction was used. TECHNIQUE: Contiguous axial scanning of the abdomen and pelvis without IV contrast. Coronal and sagit ladonna reconstructions performed. FINDINGS: Heart normal size with trace basilar pericardial fluid. Trace to small effusions redemonstrated. Tiny hiatal hernia. Nodular liver contour. The previous hypodense lesion in segment IVb seems to have improved. Prominen t heterogeneity of the liver remains especially along the inferior right hepatic lobe. Assessment mejia ited without IV contrast. Increased nodularity of the right adrenal gland measuring 2.4 cm as compared to 1.5 cm on 08/05/2017 and largely new from 04/16/2017. The large left adrenal mass has enlarged now measuring 9.6 cm versus 5.6 cm on 04/16/2017 and 8.5 cm on 08/05/2017. Relatively similar peripancreatic and gastrohepatic ligament adenopathy measuring up to 1.0 cm. Lymph node in the erick hepatis measures 1.4 cm versus 1.2 cm on 04/16/2017 and 1.1 cm on 08/05/2017. 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 Diffuse colonic gas is present. There are segmental areas of moderate circumferential wall thickening of the colon especially along the cecum and ascending colon, and splenic flexure. There are some collapsed distal small bowel loops noted however, difficult to identify discrete trans ition point though small bowel loops are dilated up to 4.2 cm. No free air. Mild perihepatic ascites. Kidneys show some faint excreting contrast. Spleen within norm al limits. 1.1 cm cystic lesion in the pancreatic body/tail region is redemonstrated, nonspecific. Moderate pelvic free fluid. Martin catheter is present. Bladder incompletely collapsed. Multiple pelvi c phleboliths. Mild diffuse anasarca and unchanged. Bones: Lytic lesion right L2 vertebral body was present on 08/05/2017 but not on 04/16/2017. IMPRESSION: 1. Difficult to identify a discrete transition point. In addition, there is air seen throughout the c olon. However, small bowel loops are dilated up to 4.2 cm and some distal small bowel loops are colla psed. Follow-up recommended to distinguish between ileus and small bowel obstruction. 2. Segmental areas of moderate wall thickening in the colon. Findings could be secondary to cirrhosis and hypoalbuminemia or nonspecific colitis. 3. Diffuse heterogeneity of the liver compatible with known metastatic disease. One of the dominant s egment IVb lesions seems to have resolved. 4. However, there is overall progression from 08/05/2017 with the left adrenal mass increased in size now at 9.6 cm (versus 8.5 cm) and a right adrenal mass measuring 2.4 cm versus 1.5 cm, previously. 5. Mild diffuse anasarca type changes with trace to small effusions, mild perihepatic ascites, and mo derate pelvic free fluid. 6. Relatively similar peripancreatic and gastrohepatic lymphadenopathy.
[2017-10-19] MEDS ORDERED: Potassium Replacement Protocol 1 EACH MISC MISCELLANE PRN ×2 (13:04→16:59)
[2017-10-19] MEDS: POTASSIUM CHLORIDE ER 20 MEQ TAB.ER PO SCH ×4 (14:26→21:16)
[2017-10-19 16:31] LABS: ABG Base Excess -9.3 mmol/L; ABG HCO3 16 mmol/L (21-25); ABG Oxygen Saturation 97.3 % (94-97); ABG PCO2 28 mmHg (35-45); ABG PH 7.36 (7.35-7.45); ABG PO2 96 mmHg (83-108); ABG TCO2 17 mmol/L (19-24)
[2017-10-19] MEDS: NOREPINEPHRIN 4 MG-0.9% NS PMX 4 MG/250 ML ML IV SCH ×2 (16:38→22:28)
[2017-10-19 16:46] LABS: INR 1.8 (<1.2); Prothrombin Time 16.2 sec (9.0-12.0)
[2017-10-19 16:47] LABS: Partial Thromboplastin Time 51.7 sec (22.0-30.0)
[2017-10-19 16:55] LABS: Albumin 1.8 g/dL (3.5-5.0); Calcium 7.1 mg/dL (8.4-10.2); Magnesium 1.2 mg/dL (1.6-2.3); Phosphorus 2.7 mg/dL (2.5-4.5); Total Bilirubin 0.8 mg/dL (0.2-1.3)
[2017-10-19 17:07] LABS: HCT 28.6 % (39.0-53.0); Hypochromasia Slight; MCH 30.9 pg (25.0-35.0); MCV 96.6 fL (80.0-100.0); Mean Platelet Volume 8.9; RBC 2.96 m/uL (4.30-5.90); WBC 7.9 k/uL (3.8-10.6)
[2017-10-19 17:09] LABS: HGB 9.1 gm/dL (13.0-17.5); Platelet Count 119 k/uL (150-450)
[2017-10-19 17:17] LABS: Glucose,Whole Blood 69 mg/dL (75-99)
--- NOTE | 2017-10-19 19:46 | US ---
EXAMINATION TYPE: US abdomen limited DATE OF EXAM: 10/19/2017 COMPARISON: CT abdomen and pelvis earlier today CLINICAL HISTORY: increased abdominal girth. Swelling and distention Scanning of bilateral upper and lower quadrants is no significant ascites to warrant paracentesis at this time, findings are consistent with recent CT. IMPRESSION: As above.
[2017-10-19] MEDS ORDERED: Magnesium Replacement Protocol 1 EACH MISC MISCELLANE PRN (19:56)
--- NOTE | 2017-10-19 19:56 | P.CNPUL ---
History of Present Illness Reason for consult: other Chief complaint: Critical care evaluation for hypotension and severe sepsis associated with History of present illness: Mr. Christopher clark is seen eval examined in the ICU this patient has been transferred from the selective care related to his hypotension his systolic blood pressure drop down into 60s, patient has been very volume depleted he has a significant ascites, patient has been found to have a lesion in the liver is status post biopsy of the liver lesion back in October final results are not available, known history of COPD and recent below-knee amputation secondary to osteomyelitis and PAD. The patient is now been admitted after having dysuria and UTI with sepsis. The patient states significant shortness of breath being treated with albuterol/Atrovent as necessary. The patient has been showing significant signs of sepsis with elevated lactic acid and tachycardia. The patient is now on IV hydration with appropriate antibiotic treatment. Urinary cultures are pending. Patient is awake and arousable able to give some history, Review of Systems All systems: negative Past Medical History Past Medical History: Atrial Fibrillation, COPD, GERD/Reflux, Hypertension, Liver Disease, Myocardial Infarction ([place]), Osteoarthritis (OA) Additional Past Medical History / Comment(s): Acute kidney failure/obstructive uropathy-has IDC last changed 10/16/17, UTI with sepsis, AMS, 03/31/17 R hip fracture with surgery twice, perforatic gastric ulcer 2015(had sx), ddd lumbar, herniated discs, hemorrhoids, liver lesions and L adrenal mass which pt states where worked up at [facility] and in the past pt states he was told they are benign-pt had left adrenal biopsy 10/13/17 and does not have results yet, hep c, legally blind-sees better with R eye, past alcoholism, PVD, nonocclusive trombosis R lower leg, past R foot infection now has R aka amputation and decub on coccyx is now healed per pt. Last Myocardial Infarction Date:: 2007 History of Any Multi-Drug Resistant Organisms: MRSA Date of last positivie culture/infection: 05/08/17 MDRO Source:: ,FOOT Past Surgical History: Orthopedic Surgery Additional Past Surgical History / Comment(s): 10/13/17 L adrenal mass bx, closed reduction percutaneous pinning R hip-then removal of hardware and hemiathroplasty done, vasectomy, bilateral cataracts removed with lens implants , liver bxs 2006, antrectomy w/gastroenterostomy 2015, colonoscopy, reduction paraphimosis. Past Anesthesia/Blood Transfusion Reactions: No Reported Reaction Smoking Status: Current every day smoker - Past Family History Mother History Unknown: Yes Family Medical History: Cancer, Diabetes Mellitus, Hypertension Additional Family Medical History / Comment(s): Pt believes that mother had stomach cancer. Father History Unknown: Yes Family Medical History: Liver Disease, Seizure Disorder Additional Family Medical History / Comment(s): alcoholic Brother(s) History Unknown: Yes Family Medical History: Liver Disease Additional Family Medical History / Comment(s): aneurysm Medications and Allergies Home Medications Medication Instructions Recorded Confirmed Type Primidone [Mysoline] 50 mg PO TID 03/31/17 10/18/17 History Cyclobenzaprine HCl 10 mg PO BID PRN #0 04/19/17 10/18/17 Rx Furosemide [Lasix] 40 mg PO DAILY tab 05/17/17 10/18/17 Rx Lisinopril [Zestril] 20 mg PO BID 10/18/17 10/18/17 History Metoprolol Tartrate [Lopressor] 50 mg PO BID 10/18/17 10/18/17 History Omeprazole [Omeprazole] 20 mg PO BID 10/18/17 10/18/17 History Potassium Chloride [K-Tab ER] 10 meq PO DAILY 10/18/17 10/18/17 History Allergies Allergy/AdvReac Type Severity Reaction Status Date / Time peginterferon peg-2a Allergy Unknown Verified 10/18/17 08:42 [From Pegasys] Penicillins Allergy Rash/Hives Verified 10/18/17 08:42 Physical Exam Vitals: Vital Signs Temp Pulse Pulse Resp BP BP Pulse Ox 10/19/17 19:35 107 H 10/19/17 19:25 108 H 10/19/17 19:00 109 H 24 95/56 96 10/19/17 18:45 106 H 10/19/17 18:00 108 H 27 H 80/49 97 10/19/17 17:15 108 H 27 H 69/45 97 10/19/17 17:04 106 H 14 74/41 95 10/19/17 16:39 112 H 12 98/43 97 10/19/17 16:26 111 H 12 80/44 95 10/19/17 16:15 12 64/40 95 10/19/17 15:49 96 10/19/17 15:45 12 70/43 98 10/19/17 15:40 110 H 68/41 98 10/19/17 15:37 92 10/19/17 15:35 98.3 F 111 H 12 65/40 98 10/19/17 15:30 98.3 F 106 H 18 68/40 98 10/19/17 14:28 99.6 F 10/19/17 12:20 110 H 10/19/17 12:12 108 H 10/19/17 12:00 101.2 F H 126 H 18 117/60 96 10/19/17 09:05 114 H 10/19/17 08:55 112 H 10/19/17 08:46 101.3 F H 138 H 20 145/71 98 10/19/17 04:23 98.5 F 10/19/17 03:42 117 H 10/19/17 03:32 111 H 10/19/17 03:30 102.1 F H 115 H 16 106/64 98 10/19/17 00:00 98.3 F 97 16 100/53 100 10/18/17 23:49 99 10/18/17 23:40 98 10/18/17 20:40 116 H 10/18/17 20:31 116 H 10/18/17 20:00 100.7 F H 117 H 16 136/74 100 Intake and Output 10/19/17 10/19/17 10/19/17 06:59 14:59 22:59 Intake Total 210 300 Output Total 950 200 130 Balance -950 10 170 Intake: IV 300 Sodium Chloride 0.9% 1, 300 000 ml @ 100 mls/hr IV . Q10H [facility] Rx#:[id number] Oral 210 Output: Urine 950 200 130 Uretheral (Martin) 650 Other: Voiding Method Indwelling Catheter Indwelling Catheter Indwelling Catheter # Bowel Movements 1 Weight 67 kg - Constitutional General appearance: thin male did looks cachectic and ill - EENT Eyes: no abnormal pupil - Neck Neck: no lymphadenopathy supple neck veins are prominent but no JVD is present, no lymphadenopathy - Respiratory Respiratory: bilateral: diminished with poor air entry - Cardiovascular Rhythm: irregularly irregular Heart sounds: normal: S1, S2 Abnormal Heart Sounds: no S3 Gallop - Gastrointestinal General gastrointestinal: soft, no tenderness very distended but tympanic on percussion no tenderness or guarding is present - Neurologic Neurologic: CNII-XII intact arousable opens eyes follow simple command no focal neurological deficit oriented 3 - Musculoskeletal Musculoskeletal: generalized weakness, he may see dated with sequelae of chronic liver disease with spider angiomas especially in the upper torso - Psychiatric Psychiatric: A&O x's 3 Results - Laboratory Findings CBC and BMP: 10/19/17 16:16 10/19/17 16:16 ABG ABG pH 7.36 (7.35-7.45) 10/19/17 16:28 ABG pCO2 28 mmHg (35-45) L 10/19/17 16:28 ABG pO2 96 mmHg (83-108) 10/19/17 16:28 ABG O2 Saturation 97.3 % (94-97) H 10/19/17 16:28 PT/INR, D-dimer PT 16.2 sec (9.0-12.0) H 10/19/17 16:16 INR 1.8 (<1.2) H 10/19/17 16:16 D-Dimer 5.01 mg/L FEU (<0.60) H 10/18/17 05:03 Abnormal lab findings: Abnormal Labs 10/18/17 10/18/17 10/18/17 05:03 05:03 05:03 WBC 3.0 L RBC 3.93 L Hgb 12.2 L Hct 36.6 L Plt Count Lymphocytes # 0.5 L PT INR APTT D-Dimer ABG pH ABG pCO2 ABG HCO3 ABG Total CO2 ABG O2 Saturation Potassium 3.3 L Chloride Carbon Dioxide BUN Glucose 115 H POC Glucose (mg/dL) Plasma Lactic Acid Felipe 4.1 H* Calcium 7.8 L Magnesium AST ALT 19 L Total Protein Albumin 2.6 L Urine Protein Urine Blood Ur Leukocyte Esterase Urine RBC Urine WBC Urine WBC Clumps Urine Bacteria Urine Mucus 10/18/17 10/18/17 10/18/17 05:03 05:41 05:49 WBC RBC Hgb Hct Plt Count Lymphocytes # PT 12.6 H INR 1.3 H APTT D-Dimer 5.01 H ABG pH 7.51 H ABG pCO2 34 L ABG HCO3 27 H ABG Total CO2 28 H ABG O2 Saturation 97.8 H Potassium Chloride Carbon Dioxide BUN Glucose POC Glucose (mg/dL) Plasma Lactic Acid Felipe Calcium Magnesium AST ALT Total Protein Albumin Urine Protein 2+ H Urine Blood Large H Ur Leukocyte Esterase Large H Urine RBC 101 H Urine WBC >182 H Urine WBC Clumps Many H Urine Bacteria Many H Urine Mucus Many H 10/18/17 10/18/17 10/19/17 08:35 20:36 01:28 WBC RBC Hgb Hct Plt Count Lymphocytes # PT INR APTT D-Dimer ABG pH ABG pCO2 ABG HCO3 ABG Total CO2 ABG O2 Saturation Potassium Chloride Carbon Dioxide BUN Glucose POC Glucose (mg/dL) Plasma Lactic Acid Felipe 3.3 H* 3.3 H* 2.7 H* Calcium Magnesium AST ALT Total Protein Albumin Urine Protein Urine Blood Ur Leukocyte Esterase Urine RBC Urine WBC Urine WBC Clumps Urine Bacteria Urine Mucus 10/19/17 10/19/17 10/19/17 05:46 05:46 10:52 WBC RBC Hgb Hct Plt Count Lymphocytes # PT INR APTT D-Dimer ABG pH ABG pCO2 ABG HCO3 ABG Total CO2 ABG O2 Saturation Potassium 3.1 L Chloride Carbon Dioxide BUN Glucose POC Glucose (mg/dL) Plasma Lactic Acid Felipe 2.7 H* 4.7 H* Calcium Magnesium AST ALT Total Protein Albumin Urine Protein Urine Blood Ur Leukocyte Esterase Urine RBC Urine WBC Urine WBC Clumps Urine Bacteria Urine Mucus 10/19/17 10/19/17 10/19/17 15:11 16:16 16:16 WBC RBC 2.96 L Hgb 9.1 L D Hct 28.6 L Plt Count 119 L D Lymphocytes # PT INR APTT D-Dimer ABG pH ABG pCO2 ABG HCO3 ABG Total CO2 ABG O2 Saturation Potassium 3.0 L* Chloride 108 H Carbon Dioxide 18 L BUN 22 H Glucose 73 L POC Glucose (mg/dL) Plasma Lactic Acid Felipe 7.9 H* Calcium 7.1 L Magnesium 1.2 L AST 109 H ALT Total Protein 5.0 L Albumin 1.8 L Urine Protein Urine Blood Ur Leukocyte Esterase Urine RBC Urine WBC Urine WBC Clumps Urine Bacteria Urine Mucus 10/19/17 10/19/17 10/19/17 16:16 16:28 17:15 WBC RBC Hgb Hct Plt Count Lymphocytes # PT 16.2 H INR 1.8 H APTT 51.7 H D-Dimer ABG pH ABG pCO2 28 L ABG HCO3 16 L ABG Total CO2 17 L ABG O2 Saturation 97.3 H Potassium Chloride Carbon Dioxide BUN Glucose POC Glucose (mg/dL) 69 L Plasma Lactic Acid Felipe Calcium Magnesium AST ALT Total Protein Albumin Urine Protein Urine Blood Ur Leukocyte Esterase Urine RBC Urine WBC Urine WBC Clumps Urine Bacteria Urine Mucus - Diagnostic Findings Chest x-ray: report reviewed, image reviewed CT scan - chest: report reviewed, image reviewed Additional studies: Chest x-ray at the time of admission no significant pathology noted, computed tomography scan of the chest significant large pulmonary embolism is seen, 10 cm left adrenal mass along with gastrohepatic lymphadenopathy very guarded and epiphrenic lymph nodes are prominent with subcarinal lymph nodes Lesion seen in the vertebral body suggestive of metastatic disease, sternal lesion is seen along with multiple liver lesions, computed tomography scan of the abdomen pelvis revealed a small bowel obstruction and dilated loops some thickening of the colon findings the liver as noted associated with metastatic disease maternal adrenal mass as noted above Assessment and Plan Assessment: Severe sepsis with hypotension suspect significant adrenal insufficiency however septic process from bowels or bladder cannot be excluded Severe hypertension Multiple lesions in the liver as well as spine lesion the sternal lesion and add renal mass likely suggestive of neoplastic process Abdominal distention likely gases distention related to small bowel dilated loops and obstruction as no significant ascites has been noted on ultrasound of the abdomen Plan: IV aggressive rehydration Vasopressors as needed Broad-spectrum antibiotics Replace electrolytes Obtain PICC line Stress dose steroids Further recommendations pending plan of care as per clinical response of the patient Repeat labs and x-ray tomorrow Time with Patient: Greater than 30
[2017-10-19] MEDS ORDERED: IPRATROPIUM-ALBUTEROL 3 ML NEB INHALATION PRN (20:01)
[2017-10-19] MEDS: HYDROCORTISONE SUCCINATE 100 MG/2 ML VIAL IV SCH (20:18)
[2017-10-19] MEDS: PHYTONADIONE 10 MG in SODIUM CHLORIDE 0.9% 50 ML IVPB SCH (20:18)
[2017-10-19] MEDS: MAGNESIUM SULFATE-D5W PMX 1 GM in DEXTROSE/WATER 1 100ML.BAG IVPB SCH ×3 (21:16→23:53)
--- NOTE | 2017-10-19 23:22 | P.CONS ---
History of Present Illness - Reason for Consult Consult date: 10/19/17 - Chief Complaint Progressive weakness - History of Present Illness 67-year-old male that has multiple medical troubles that includes severe peripheral vascular disease, that is resulted in the right above-knee amputation earlier this year. The patient has been at rehab getting some recovery. The patient however started to become very ill and was transferred to Hospital for concerns to underlying infection. The patient was found evidence of sepsis and was brought to the intensive care unit where he is required fluid resuscitation and vasopressor therapy for his sepsis with shock. Fortunately he is getting somewhat better this evening. His pain is under good control. He believes he had a fever but not currently. He is not having significant chills or rigors. He has a catheter in place at this time. He relates that he has a bit of an appetite and is denying nausea or emesis. He does however feel very weak and ill. Review of Systems Constitutional: Denies chills, Denies fever Eyes: denies blurred vision, denies pain Ears, nose, mouth and throat: Denies headache, Denies sore throat Cardiovascular: Reports leg edema, Denies chest pain, Denies shortness of breath Respiratory: Denies cough Gastrointestinal: Denies abdominal pain, Denies diarrhea, Denies nausea, Denies vomiting Musculoskeletal: Denies myalgias Musculoskeletal: Right residual limb healing well without much pain Integumentary: Denies pruritus, Denies rash Neurological: Denies numbness, Denies weakness Psychiatric: Denies anxiety, Denies depression Endocrine: Significant fatigue, Denies weight change Past Medical History Past Medical History: Atrial Fibrillation, COPD, GERD/Reflux, Hypertension, Liver Disease, Myocardial Infarction (AR), Osteoarthritis (OA) Additional Past Medical History / Comment(s): Acute kidney failure/obstructive uropathy-has IDC last changed 10/16/17, UTI with sepsis, AMS, 03/31/17 R hip fracture with surgery twice, perforatic gastric ulcer 2016(had sx), ddd lumbar, herniated discs, hemorrhoids, liver lesions and L adrenal mass which pt states where worked up at [facility] and in the past pt states he was told they are benign-pt had left adrenal biopsy 10/13/17 and does not have results yet, hep c, legally blind-sees better with R eye, past alcoholism, PVD, nonocclusive trombosis R lower leg, past R foot infection now has R aka amputation and decub on coccyx is now healed per pt. Last Myocardial Infarction Date:: 2007 History of Any Multi-Drug Resistant Organisms: MRSA Year Discovered:: 05/08/17 MDRO Source:: ,FOOT Past Surgical History: Orthopedic Surgery Additional Past Surgical History / Comment(s): 10/13/17 L adrenal mass bx, closed reduction percutaneous pinning R hip-then removal of hardware and hemiathroplasty done, vasectomy, bilateral cataracts removed with lens implants , liver bxs 2006, antrectomy w/gastroenterostomy 2015, colonoscopy, reduction paraphimosis. Past Anesthesia/Blood Transfusion Reactions: No Reported Reaction Smoking Status: Current every day smoker - Past Family History Mother History Unknown: Yes Family Medical History: Cancer, Diabetes Mellitus, Hypertension Additional Family Medical History / Comment(s): Pt believes that mother had stomach cancer. Father History Unknown: Yes Family Medical History: Liver Disease, Seizure Disorder Additional Family Medical History / Comment(s): alcoholic Brother(s) History Unknown: Yes Family Medical History: Liver Disease Additional Family Medical History / Comment(s): aneurysm Medications and Allergies Home Medications and Allergies Comment(s): Current Medications Acetaminophen (Tylenol Tab) 650 mg PO Q4H PRN PRN Reason: Fever and/ or Pain Albuterol/Ipratropium (Duoneb 0.5 Mg-3 Mg/3 Ml Soln) 3 ml INHALATION RT-QID TIANNA Albuterol/Ipratropium (Duoneb 0.5 Mg-3 Mg/3 Ml Soln) 3 ml INHALATION RT-Q2H PRN PRN Reason: Shortness Of Breath Or Wheezing Cyclobenzaprine HCl (Flexeril) 10 mg PO BID PRN PRN Reason: Muscle Spasm Furosemide (Lasix) 40 mg PO DAILY [facility] Last Admin: 10/19/17 08:46 Dose: 40 mg Heparin Sodium (Porcine) (Heparin) 5,000 unit SQ Q8HR [facility] Last Admin: 10/19/17 15:55 Dose: 5,000 unit Hydrocortisone Sodium Succinate (Solu-Cortef) 100 mg IV Q8HR [facility] Last Admin: 10/19/17 20:18 Dose: 100 mg Levofloxacin 750 mg/ IV (Solution) 150 mls @ 100 mls/hr IVPB Q24H [facility] Last Admin: 10/19/17 08:46 Dose: 100 mls/hr Sodium Chloride (Saline 0.9%) 1,000 mls @ 100 mls/hr IV .Q10H [facility] Last Admin: 10/19/17 08:49 Dose: 100 mls/hr Ceftazidime 2 gm/ Sodium (Chloride) 100 mls @ 100 mls/hr IVPB Q8H [facility] Last Admin: 10/19/17 21:17 Dose: 100 mls/hr Norepinephrine Bitartrate (Levophed-0.9% Nacl 4 Mg/250ml Pmx) 4 mg in 250 mls @ 0 mls/hr IV .Q0M [facility]; Titrate PRN Reason: Protocol Last Admin: 10/19/17 22:28 Dose: 10 mcg/min, 37.5 mls/hr Phytonadione 10 mg/ Sodium (Chloride) 51 mls @ 100 mls/hr IVPB DAILY [facility] Last Admin: 10/19/17 20:18 Dose: 100 mls/hr Ibuprofen (Motrin) 600 mg PO Q4HR PRN PRN Reason: Pain Last Admin: 10/19/17 12:10 Dose: 600 mg Lisinopril (Zestril) 20 mg PO BID [facility] Last Admin: 10/19/17 20:30 Dose: Not Given Metoprolol Tartrate (Lopressor) 50 mg PO BID [facility] Last Admin: 10/19/17 21:18 Dose: 50 mg Miscellaneous Information (Rx Info: Iv Contrast Was Given) 1 each MISCELLANE DAILY PRN PRN Reason: Per Protocol Stop: 10/20/17 06:54 Last Admin: 10/18/17 10:15 Dose: 1 each Miscellaneous Information (Potassium Per Protocol) 1 each MISCELLANE DAILY PRN ; Protocol PRN Reason: Per Protocol Miscellaneous Information (Potassium Per Protocol) 1 each MISCELLANE DAILY PRN ; Protocol PRN Reason: Per Protocol Miscellaneous Information (Magnesium Per Protocol) 1 each MISCELLANE DAILY PRN ; Protocol PRN Reason: Per Protocol Pantoprazole Sodium (Protonix) 40 mg PO AC-BRKFST [facility] Last Admin: 10/19/17 06:11 Dose: 40 mg Potassium Chloride (K-Dur 10) 10 meq PO DAILY [facility] Last Admin: 10/19/17 08:46 Dose: 10 meq Primidone (Mysoline) 50 mg PO TID [facility] Last Admin: 10/19/17 21:18 Dose: 50 mg Home Medications Medication Instructions Recorded Confirmed Type Primidone [Mysoline] 50 mg PO TID 03/31/17 10/18/17 History Cyclobenzaprine HCl 10 mg PO BID PRN #0 04/19/17 10/18/17 Rx Furosemide [Lasix] 40 mg PO DAILY tab 05/17/17 10/18/17 Rx Lisinopril [Zestril] 20 mg PO BID 10/18/17 10/18/17 History Metoprolol Tartrate [Lopressor] 50 mg PO BID 10/18/17 10/18/17 History Omeprazole [Omeprazole] 20 mg PO BID 10/18/17 10/18/17 History Potassium Chloride [K-Tab ER] 10 meq PO DAILY 10/18/17 10/18/17 History Allergies Allergy/AdvReac Type Severity Reaction Status Date / Time peginterferon peg-2a Allergy Unknown Verified 10/18/17 08:42 [From Pegasys] Penicillins Allergy Rash/Hives Verified 10/18/17 08:42 Physical Exam Vitals: Vital Signs Temp Pulse Pulse Resp BP BP Pulse Ox 10/19/17 21:00 106 H 24 103/60 96 10/19/17 20:00 97.3 F L 108 H 26 H 98/51 96 10/19/17 19:35 107 H 10/19/17 19:25 108 H 10/19/17 19:00 109 H 24 95/56 96 10/19/17 18:45 106 H 10/19/17 18:00 108 H 27 H 80/49 97 10/19/17 17:15 108 H 27 H 69/45 97 10/19/17 17:04 106 H 14 74/41 95 10/19/17 16:39 112 H 12 98/43 97 10/19/17 16:26 111 H 12 80/44 95 10/19/17 16:15 12 64/40 95 10/19/17 15:49 96 10/19/17 15:45 12 70/43 98 10/19/17 15:40 110 H 68/41 98 10/19/17 15:37 92 10/19/17 15:35 98.3 F 111 H 12 65/40 98 10/19/17 15:30 98.3 F 106 H 18 68/40 98 10/19/17 14:28 99.6 F 10/19/17 12:20 110 H 10/19/17 12:12 108 H 10/19/17 12:00 101.2 F H 126 H 18 117/60 96 10/19/17 09:05 114 H 10/19/17 08:55 112 H 10/19/17 08:46 101.3 F H 138 H 20 145/71 98 10/19/17 04:23 98.5 F 10/19/17 03:42 117 H 10/19/17 03:32 111 H 10/19/17 03:30 102.1 F H 115 H 16 106/64 98 10/19/17 00:00 98.3 F 97 16 100/53 100 10/18/17 23:49 99 10/18/17 23:40 98 Intake and Output 10/19/17 10/19/17 10/20/17 14:59 22:59 06:59 Intake Total 210 1128.875 Output Total 200 220 Balance 10 908.875 Intake: IV 500 Sodium Chloride 0.9% 1, 500 000 ml @ 100 mls/hr IV . Q10H [facility]IANNA Rx#:[id number] Intake, IV Titration 388.875 Amount Magnesium Sulfate-D5w Pmx 100 1 gm In Dextrose/Water 1 100ml.bag @ 100 mls/hr IVPB Q1H TIANNA Rx#: [id number] Norepinephrin 4 mg-0.9% 138.875 Ns Pmx 4 mg In 250 ml @ Titrate IV .Q0M TIANNA Rx#: [id number] Phytonadione 10 mg In 50 Sodium Chloride 0.9% 50 ml @ 100 mls/hr IVPB DAILY [facility]IANNA Rx#:[id number] cefTAZidime 2 gm In 100 Sodium Chloride 0.9% 100 ml @ 100 mls/hr IVPB Q8H TIANNA Rx#:[id number] Oral 210 240 Output: Urine 200 220 Other: Voiding Method Indwelling Catheter Indwelling Catheter # Bowel Movements 1 Gen: This is a disheveled appearing 67-year-old male. HEENT: Head is atraumatic, normocephalic. Pupils right is round and reactive to light, left is abnormally shaped. Sclerae is anicteric. Conjunctiva pink. Mucous membranes of the mouth are slightly dry. Patient is edentulous NECK: Supple. No JVD. No lymphadenopathy. No thyromegaly. LUNGS: Scattered wheezes noted throughout. Good air exchange.. No intercostal retractions. HEART: Regular rate and rhythm. No murmur. ABDOMEN: Soft. Bowel sounds are present. No masses. No tenderness. EXTREMITIES: 2+ pedal edema to the left foot. The residual limb to the right is healing well with no drainage not very tender NEUROLOGICAL: Patient is awake, alert relates is somewhat comfortable Results CBC & Chem 7: 10/19/17 16:16 10/19/17 16:16 Labs: Abnormal Lab Results - Last 24 Hours (Table) 10/19/17 10/19/17 10/19/17 Range/Units 01:28 05:46 05:46 RBC (4.30-5.90) m/uL Hgb (13.0-17.5) gm/dL Hct (39.0-53.0) % Plt Count (150-450) k/uL PT (9.0-12.0) sec INR (<1.2) APTT (22.0-30.0) sec ABG pCO2 (35-45) mmHg ABG HCO3 (21-25) mmol/L ABG Total CO2 (19-24) mmol/L ABG O2 Saturation (94-97) % Potassium 3.1 L (3.5-5.1) mmol/L Chloride (98-107) mmol/L Carbon Dioxide (22-30) mmol/L BUN (9-20) mg/dL Glucose (74-99) mg/dL POC Glucose (mg/dL) (75-99) mg/dL Plasma Lactic Acid Felipe 2.7 H* 2.7 H* (0.7-2.0) mmol/L Calcium (8.4-10.2) mg/dL Magnesium (1.6-2.3) mg/dL AST (17-59) U/L Total Protein (6.3-8.2) g/dL Albumin (3.5-5.0) g/dL 10/19/17 10/19/17 10/19/17 Range/Units 10:52 15:11 16:16 RBC 2.96 L (4.30-5.90) m/uL Hgb 9.1 L D (13.0-17.5) gm/dL Hct 28.6 L (39.0-53.0) % Plt Count 119 L D (150-450) k/uL PT (9.0-12.0) sec INR (<1.2) APTT (22.0-30.0) sec ABG pCO2 (35-45) mmHg ABG HCO3 (21-25) mmol/L ABG Total CO2 (19-24) mmol/L ABG O2 Saturation (94-97) % Potassium (3.5-5.1) mmol/L Chloride (98-107) mmol/L Carbon Dioxide (22-30) mmol/L BUN (9-20) mg/dL Glucose (74-99) mg/dL POC Glucose (mg/dL) (75-99) mg/dL Plasma Lactic Acid Felipe 4.7 H* 7.9 H* (0.7-2.0) mmol/L Calcium (8.4-10.2) mg/dL Magnesium (1.6-2.3) mg/dL AST (17-59) U/L Total Protein (6.3-8.2) g/dL Albumin (3.5-5.0) g/dL 10/19/17 10/19/17 10/19/17 Range/Units 16:16 16:16 16:28 RBC (4.30-5.90) m/uL Hgb (13.0-17.5) gm/dL Hct (39.0-53.0) % Plt Count (150-450) k/uL PT 16.2 H (9.0-12.0) sec INR 1.8 H (<1.2) APTT 51.7 H (22.0-30.0) sec ABG pCO2 28 L (35-45) mmHg ABG HCO3 16 L (21-25) mmol/L ABG Total CO2 17 L (19-24) mmol/L ABG O2 Saturation 97.3 H (94-97) % Potassium 3.0 L* (3.5-5.1) mmol/L Chloride 108 H (98-107) mmol/L Carbon Dioxide 18 L (22-30) mmol/L BUN 22 H (9-20) mg/dL Glucose 73 L (74-99) mg/dL POC Glucose (mg/dL) (75-99) mg/dL Plasma Lactic Acid Felipe (0.7-2.0) mmol/L Calcium 7.1 L (8.4-10.2) mg/dL Magnesium 1.2 L (1.6-2.3) mg/dL AST 109 H (17-59) U/L Total Protein 5.0 L (6.3-8.2) g/dL Albumin 1.8 L (3.5-5.0) g/dL 10/19/17 Range/Units 17:15 RBC (4.30-5.90) m/uL Hgb (13.0-17.5) gm/dL Hct (39.0-53.0) % Plt Count (150-450) k/uL PT (9.0-12.0) sec INR (<1.2) APTT (22.0-30.0) sec ABG pCO2 (35-45) mmHg ABG HCO3 (21-25) mmol/L ABG Total CO2 (19-24) mmol/L ABG O2 Saturation (94-97) % Potassium (3.5-5.1) mmol/L Chloride (98-107) mmol/L Carbon Dioxide (22-30) mmol/L BUN (9-20) mg/dL Glucose (74-99) mg/dL POC Glucose (mg/dL) 69 L (75-99) mg/dL Plasma Lactic Acid Felipe (0.7-2.0) mmol/L Calcium (8.4-10.2) mg/dL Magnesium (1.6-2.3) mg/dL AST (17-59) U/L Total Protein (6.3-8.2) g/dL Albumin (3.5-5.0) g/dL Microbiology - Last 24 Hours (Table) 10/17/17 05:03 Blood Culture Gram Stain - Final Blood Blood Culture - Final Escherichia coli 10/18/17 05:41 Urine Culture - Preliminary Urine,Catheterized Gram Neg Bacilli 10/18/17 05:03 Blood Culture - Final Blood Laboratory Results WBC 7.9 k/uL (3.8-10.6) 10/19/17 16:16 RBC 2.96 m/uL (4.30-5.90) L 10/19/17 16:16 Hgb 9.1 gm/dL (13.0-17.5) L D 10/19/17 16:16 Hct 28.6 % (39.0-53.0) L 10/19/17 16:16 MCV 96.6 fL (80.0-100.0) 10/19/17 16:16 MCH 30.9 pg (25.0-35.0) 10/19/17 16:16 MCHC 32.0 g/dL (31.0-37.0) 10/19/17 16:16 RDW 14.0 % (11.5-15.5) 10/19/17 16:16 Plt Count 119 k/uL (150-450) L D 10/19/17 16:16 Neutrophils % 63 % 10/18/17 05:03 Lymphocytes % 17 % 10/18/17 05:03 Monocytes % 1 % 10/18/17 05:03 Eosinophils % 17 % 10/18/17 05:03 Basophils % 0 % 10/18/17 05:03 Neutrophils # 1.9 k/uL (1.3-7.7) 10/18/17 05:03 Lymphocytes # 0.5 k/uL (1.0-4.8) L 10/18/17 05:03 Monocytes # 0.0 k/uL (0-1.0) 10/18/17 05:03 Eosinophils # 0.5 k/uL (0-0.7) 10/18/17 05:03 Basophils # 0.0 k/uL (0-0.2) 10/18/17 05:03 Hypochromasia Slight 10/19/17 16:16 PT 16.2 sec (9.0-12.0) H 10/19/17 16:16 INR 1.8 (<1.2) H 10/19/17 16:16 APTT 51.7 sec (22.0-30.0) H 10/19/17 16:16 D-Dimer 5.01 mg/L FEU (<0.60) H 10/18/17 05:03 Sample Site R radial 10/19/17 16:28 ABG pH 7.36 (7.35-7.45) 10/19/17 16:28 ABG pCO2 28 mmHg (35-45) L 10/19/17 16:28 ABG pO2 96 mmHg (83-108) 10/19/17 16:28 ABG HCO3 16 mmol/L (21-25) L 10/19/17 16:28 ABG Total CO2 17 mmol/L (19-24) L 10/19/17 16:28 ABG O2 Saturation 97.3 % (94-97) H 10/19/17 16:28 ABG Base Excess -9.3 mmol/L 10/19/17 16:28 Abhilash Test Yes 10/19/17 16:28 FiO2 28 % 10/19/17 16:28 Sodium 138 mmol/L (137-145) 10/19/17 16:16 Potassium 3.0 mmol/L (3.5-5.1) L* 10/19/17 16:16 Chloride 108 mmol/L (98-107) H 10/19/17 16:16 Carbon Dioxide 18 mmol/L (22-30) L 10/19/17 16:16 Anion Gap 12 mmol/L 10/19/17 16:16 BUN 22 mg/dL (9-20) H 10/19/17 16:16 Creatinine 1.10 mg/dL (0.66-1.25) 10/19/17 16:16 Est GFR (MDRD) Af Amer >60 (>60 ml/min/1.73 sqM) 10/18/17 05:03 Est GFR (MDRD) Non-Af >60 (>60 ml/min/1.73 sqM) 10/18/17 05:03 Est GFR (CKD-EPI)AfAm 81 (>60 ml/min/1.73 sqM) 10/19/17 16:16 Est GFR (CKD-EPI)NonAf 70 (>60 ml/min/1.73 sqM) 10/19/17 16:16 Glucose 73 mg/dL (74-99) L 10/19/17 16:16 POC Glucose (mg/dL) 69 mg/dL (75-99) L 10/19/17 17:15 POC Glu [employer] ID Lisa Pearson 10/19/17 17:15 Lactic Ac Sepsis Rflx Y 10/19/17 11:23 Plasma Lactic Acid Felipe 7.9 mmol/L (0.7-2.0) H* 10/19/17 15:11 Calcium 7.1 mg/dL (8.4-10.2) L 10/19/17 16:16 Phosphorus 2.7 mg/dL (2.5-4.5) 10/19/17 16:16 Magnesium 1.2 mg/dL (1.6-2.3) L 10/19/17 16:16 Total Bilirubin 0.8 mg/dL (0.2-1.3) 10/19/17 16:16 AST 109 U/L (17-59) H 10/19/17 16:16 ALT 51 U/L (21-72) 10/19/17 16:16 Alkaline Phosphatase 53 U/L (38-126) 10/19/17 16:16 Troponin I 0.034 ng/mL (0.000-0.034) 10/18/17 05:03 NT-Pro-B Natriuret Pep 575 pg/mL 10/18/17 05:03 Total Protein 5.0 g/dL (6.3-8.2) L 10/19/17 16:16 Albumin 1.8 g/dL (3.5-5.0) L 10/19/17 16:16 Cortisol 38 ug/dL 10/19/17 16:16 Urine Color Yellow 10/18/17 05:41 Urine Appearance Turbid (Clear) 10/18/17 05:41 Urine pH 6.0 (5.0-8.0) 10/18/17 05:41 Ur Specific [place] 1.016 (1.001-1.035) 10/18/17 05:41 Urine Protein 2+ (Negative) H 10/18/17 05:41 Urine Glucose (UA) Negative (Negative) 10/18/17 05:41 Urine Ketones Negative (Negative) 10/18/17 05:41 Urine Blood Large (Negative) H 10/18/17 05:41 Urine Nitrite Negative (Negative) 10/18/17 05:41 Urine Bilirubin Negative (Negative) 10/18/17 05:41 Urine Urobilinogen 8.0 mg/dL (<2.0) 10/18/17 05:41 Ur Leukocyte Esterase Large (Negative) H 10/18/17 05:41 Urine RBC 101 /hpf (0-5) H 10/18/17 05:41 Urine WBC >182 /hpf (0-5) H 10/18/17 05:41 Urine WBC Clumps Many /hpf (None) H 10/18/17 05:41 Urine Bacteria Many /hpf (None) H 10/18/17 05:41 Urine Mucus Many /hpf (None) H 10/18/17 05:41 Influenza Type A RNA Not Detected (Not Detectd) 10/18/17 06:03 Influenza Type B (PCR) Not Detected (Not Detectd) 10/18/17 06:03 Microbiology 10/17/17 05:03 Blood Blood Culture Gram Stain - Final 10/17/17 05:03 Blood Blood Culture - Final Escherichia coli 10/18/17 05:41 Urine,Catheterized Urine Culture - Preliminary Gram Neg Bacilli 10/18/17 05:03 Blood Blood Culture - Final Recent outpatient urine culture with pseudomonas. Assessment and Plan (1) Sepsis due to Gram-negative organism with septic shock Narrative/Plan: 67-year-old male presents to Hospital feeling very poorly from the extended care facility. His thought evidence of significant sepsis but then develops into shock requiring transition to the intensive care unit with fluid resuscitation and vasopressor therapy. The patient is feeling slightly better this evening. His hypotension is improving with intervention. Urine output is improving. The patient has evidence of gram-negative sepsis and with the concern to the recent urinary infection with Pseudomonas antibiotics therapy as transition from quinolone therapy because of concerns to resistance to ceftazidime to ensure coverage for the recently isolated Pseudomonas while cultures are pending. The patient relates he is feeling slightly better this evening. He has been able to ingest a bit of fluids and food. He has had anemia and that has been part of workup due to the abnormality is by his CAT scans with mass. He has had an adrenal biopsy performed and the final result is pending with concerns to metastatic cancer is etiology. With his marked abnormality some liver that would be concerned to a primary source of underlying malignancy contributing to his overall markedly declining status, ascites and marked abnormality is his liver by imaging study. Patient was monitored for clearance of his bacteremia and then plans for the completion course of antibiotic therapy given his current sepsis. Current Visit: Yes Status: Acute Code(s): A41.50 - GRAM-NEGATIVE SEPSIS, UNSPECIFIED; R65.21 - SEVERE SEPSIS WITH SEPTIC SHOCK SNOMED Code(s): 159366617 (2) COPD (chronic obstructive pulmonary disease) Current Visit: Yes Status: Acute Code(s): J44.9 - CHRONIC OBSTRUCTIVE PULMONARY DISEASE, UNSPECIFIED SNOMED Code(s): 14977945 (3) Adrenal mass, left Current Visit: No Status: Acute Priority: High Code(s): E27.9 - DISORDER OF ADRENAL GLAND, UNSPECIFIED SNOMED Code(s): 025652692
[2017-10-20] MEDS: HEPARIN SODIUM,PORCINE 5,000 UNIT/ML 1 ML VIAL SQ SCH ×4 (00:49→23:35)
[2017-10-20] MEDS: HYDROCORTISONE SUCCINATE 100 MG/2 ML VIAL IV SCH ×3 (00:50→23:33)
[2017-10-20] MEDS: SODIUM CHLORIDE 0.9% 1,000 ML IV SCH ×3 (05:23→23:34)
[2017-10-20 05:54] LABS: HCT 30.5 % (39.0-53.0); HGB 9.9 gm/dL (13.0-17.5); MCH 31.1 pg (25.0-35.0); MCHC 32.6 g/dL (31.0-37.0); MCV 95.3 fL (80.0-100.0); Mean Platelet Volume 8.9; Platelet Count 132 k/uL (150-450); RDW 14.2 % (11.5-15.5); WBC 16.7 k/uL (3.8-10.6)
[2017-10-20 06:01] LABS: ALT 103 U/L (21-72); AST 226 U/L (17-59); Albumin 1.8 g/dL (3.5-5.0); Alkaline Phosphatase 69 U/L (38-126); Anion Gap 9 mmol/L; Blood Urea Nitrogen 22 mg/dL (9-20); Calcium 7.2 mg/dL (8.4-10.2); Carbon Dioxide 18 mmol/L (22-30); Chloride 112 mmol/L (98-107); Glucose 97 mg/dL (74-99); Magnesium 2.2 mg/dL (1.6-2.3); Potassium 4.2 mmol/L (3.5-5.1); Sodium 139 mmol/L (137-145); Total Protein 5.3 g/dL (6.3-8.2)
[2017-10-20 06:24] LABS: Band Neutrophils % 43 %; Lymphocytes # (M) 0.33 k/uL (1.0-4.8); Monocytes # (M) 0.17 k/uL (0-1.0); Neutrophils % (M) 54 %; Nucleated Red Blood Cells 0 /100 WBC (0-0); Total Cells Counted 200
[2017-10-20 06:26] LABS: Toxic Granulation Present; Toxic Vacuolation Present
--- NOTE | 2017-10-20 07:00 | P.PN ---
Subjective Principal diagnosis: UTI with sepsis. This is a continue present 67-year-old white male with known history of below- knee" secondary to PAD osteomyelitis who has an underlying history of COPD. He is essentially admitted for UTI with sepsis and declined significantly yesterday and became more hypotensive. Patient is arousable but fatigued today. He does follow commands when awoken. He does not complain of any overt pain. Objective - Vital Signs Vital signs: Vital Signs Temp 97.8 F 10/20/17 04:00 Pulse 86 10/20/17 06:00 Resp 18 10/20/17 06:00 BP 114/70 10/20/17 06:00 Pulse Ox 95 10/20/17 06:00 Intake & Output 10/19/17 10/19/17 10/20/17 06:59 18:59 06:59 Intake Total 410 2172.500 Output Total 950 330 585 Balance -400 78 4666.500 Weight 67 kg 66.8 kg Intake: IV 200 1200 Sodium Chloride 0.9% 1, 200 1200 000 ml @ 100 mls/hr IV . Q10H TIANNA Rx#:[id number] Intake, IV Titration 732.500 Amount Magnesium Sulfate-D5w Pmx 200 1 gm In Dextrose/Water 1 100ml.bag @ 100 mls/hr IVPB Q1H TIANNA Rx#: [id number] Norepinephrin 4 mg-0.9% 282.500 Ns Pmx 4 mg In 250 ml @ Titrate IV .Q0M TIANNA Rx#: [id number] Phytonadione 10 mg In 50 Sodium Chloride 0.9% 50 ml @ 100 mls/hr IVPB DAILY TIANNA Rx#:[id number] cefTAZidime 2 gm In 200 Sodium Chloride 0.9% 100 ml @ 100 mls/hr IVPB Q8H TIANNA Rx#:[id number] Oral 210 240 Output: Urine 950 330 585 Uretheral (Martin) 650 Other: Voiding Method Indwelling Catheter Indwelling Catheter Indwelling Catheter # Bowel Movements 1 1 - Constitutional General appearance: Present: thin - EENT Eyes: Absent: abnormal pupil - Respiratory Respiratory: bilateral: CTA - Cardiovascular Rhythm: regular Heart sounds: normal: S1, S2 Abnormal Heart Sounds: Present: systolic murmur. Absent: S3 Gallop - Gastrointestinal General gastrointestinal: Present: soft. Absent: tenderness - Integumentary Integumentary: Absent: cyanotic - Neurologic Neurologic: Present: CNII-XII intact - Labs CBC & Chem 7: 10/20/17 04:54 10/20/17 04:54 Labs: Abnormal Lab Results - Last 24 Hours (Table) 10/19/17 10/19/17 10/19/17 Range/Units 05:46 10:52 15:11 WBC (3.8-10.6) k/uL RBC (4.30-5.90) m/uL Hgb (13.0-17.5) gm/dL Hct (39.0-53.0) % Plt Count (150-450) k/uL Neutrophils # (Manual) (1.3-7.7) k/uL Lymphocytes # (Manual) (1.0-4.8) k/uL PT (9.0-12.0) sec INR (<1.2) APTT (22.0-30.0) sec ABG pCO2 (35-45) mmHg ABG HCO3 (21-25) mmol/L ABG Total CO2 (19-24) mmol/L ABG O2 Saturation (94-97) % Potassium 3.1 L (3.5-5.1) mmol/L Chloride (98-107) mmol/L Carbon Dioxide (22-30) mmol/L BUN (9-20) mg/dL Glucose (74-99) mg/dL POC Glucose (mg/dL) (75-99) mg/dL Plasma Lactic Acid Felipe 4.7 H* 7.9 H* (0.7-2.0) mmol/L Calcium (8.4-10.2) mg/dL Magnesium (1.6-2.3) mg/dL AST (17-59) U/L ALT (21-72) U/L Total Protein (6.3-8.2) g/dL Albumin (3.5-5.0) g/dL 10/19/17 10/19/17 10/19/17 Range/Units 16:16 16:16 16:16 WBC (3.8-10.6) k/uL RBC 2.96 L (4.30-5.90) m/uL Hgb 9.1 L D (13.0-17.5) gm/dL Hct 28.6 L (39.0-53.0) % Plt Count 119 L D (150-450) k/uL Neutrophils # (Manual) (1.3-7.7) k/uL Lymphocytes # (Manual) (1.0-4.8) k/uL PT 16.2 H (9.0-12.0) sec INR 1.8 H (<1.2) APTT 51.7 H (22.0-30.0) sec ABG pCO2 (35-45) mmHg ABG HCO3 (21-25) mmol/L ABG Total CO2 (19-24) mmol/L ABG O2 Saturation (94-97) % Potassium 3.0 L* (3.5-5.1) mmol/L Chloride 108 H (98-107) mmol/L Carbon Dioxide 18 L (22-30) mmol/L BUN 22 H (9-20) mg/dL Glucose 73 L (74-99) mg/dL POC Glucose (mg/dL) (75-99) mg/dL Plasma Lactic Acid Felipe (0.7-2.0) mmol/L Calcium 7.1 L (8.4-10.2) mg/dL Magnesium 1.2 L (1.6-2.3) mg/dL AST 109 H (17-59) U/L ALT (21-72) U/L Total Protein 5.0 L (6.3-8.2) g/dL Albumin 1.8 L (3.5-5.0) g/dL 10/19/17 10/19/17 10/20/17 Range/Units 16:28 17:15 04:54 WBC 16.7 H (3.8-10.6) k/uL RBC 3.20 L (4.30-5.90) m/uL Hgb 9.9 L (13.0-17.5) gm/dL Hct 30.5 L (39.0-53.0) % Plt Count 132 L (150-450) k/uL Neutrophils # (Manual) 16.10 H (1.3-7.7) k/uL Lymphocytes # (Manual) 0.33 L (1.0-4.8) k/uL PT (9.0-12.0) sec INR (<1.2) APTT (22.0-30.0) sec ABG pCO2 28 L (35-45) mmHg ABG HCO3 16 L (21-25) mmol/L ABG Total CO2 17 L (19-24) mmol/L ABG O2 Saturation 97.3 H (94-97) % Potassium (3.5-5.1) mmol/L Chloride (98-107) mmol/L Carbon Dioxide (22-30) mmol/L BUN (9-20) mg/dL Glucose (74-99) mg/dL POC Glucose (mg/dL) 69 L (75-99) mg/dL Plasma Lactic Acid Felipe (0.7-2.0) mmol/L Calcium (8.4-10.2) mg/dL Magnesium (1.6-2.3) mg/dL AST (17-59) U/L ALT (21-72) U/L Total Protein (6.3-8.2) g/dL Albumin (3.5-5.0) g/dL 10/20/17 Range/Units 04:54 WBC (3.8-10.6) k/uL RBC (4.30-5.90) m/uL Hgb (13.0-17.5) gm/dL Hct (39.0-53.0) % Plt Count (150-450) k/uL Neutrophils # (Manual) (1.3-7.7) k/uL Lymphocytes # (Manual) (1.0-4.8) k/uL PT (9.0-12.0) sec INR (<1.2) APTT (22.0-30.0) sec ABG pCO2 (35-45) mmHg ABG HCO3 (21-25) mmol/L ABG Total CO2 (19-24) mmol/L ABG O2 Saturation (94-97) % Potassium (3.5-5.1) mmol/L Chloride 112 H (98-107) mmol/L Carbon Dioxide 18 L (22-30) mmol/L BUN 22 H (9-20) mg/dL Glucose (74-99) mg/dL POC Glucose (mg/dL) (75-99) mg/dL Plasma Lactic Acid Felipe (0.7-2.0) mmol/L Calcium 7.2 L (8.4-10.2) mg/dL Magnesium (1.6-2.3) mg/dL AST 226 H (17-59) U/L ALT 103 H (21-72) U/L Total Protein 5.3 L (6.3-8.2) g/dL Albumin 1.8 L (3.5-5.0) g/dL Microbiology - Last 24 Hours (Table) 10/17/17 05:03 Blood Culture Gram Stain - Final Blood Blood Culture - Final Escherichia coli 10/18/17 05:41 Urine Culture - Preliminary Urine,Catheterized Gram Neg Bacilli 10/18/17 05:03 Blood Culture - Final Blood Assessment and Plan (1) COPD (chronic obstructive pulmonary disease) Current Visit: Yes Status: Acute Code(s): J44.9 - CHRONIC OBSTRUCTIVE PULMONARY DISEASE, UNSPECIFIED SNOMED Code(s): 35257279 (2) Sepsis Current Visit: Yes Status: Acute Code(s): A41.9 - SEPSIS, UNSPECIFIED ORGANISM SNOMED Code(s): 22998337 (3) Urinary tract infection Current Visit: Yes Status: Acute Code(s): N39.0 - URINARY TRACT INFECTION, SITE NOT SPECIFIED SNOMED Code(s): 16419922 (4) Above knee amputation of right lower extremity Current Visit: No Status: Acute Code(s): Z89.611 - ACQUIRED ABSENCE OF RIGHT LEG ABOVE KNEE SNOMED Code(s): 684740407 (5) Atrial fibrillation Current Visit: No Status: Acute Code(s): I48.91 - UNSPECIFIED ATRIAL FIBRILLATION SNOMED Code(s): 75936624 (6) CAD (coronary artery disease) Current Visit: No Status: Acute Code(s): I25.10 - ATHSCL HEART DISEASE OF [place] CORONARY ARTERY W/O ANG PCTRS SNOMED Code(s): 14998960 Plan: Continue current regimen of Levothroid and pressor support. We'll go ahead and check CBC and CMP in a.m. Hopefully, we can wean off of Levothroid soon. Appreciate ID and pulmonology input. Prognosis is guarded secondary to his multiple comorbidities. See orders otherwise. Time with Patient: Greater than 30
[2017-10-20] MEDS: IPRATROPIUM-ALBUTEROL 3 ML NEB INHALATION SCH ×4 (07:38→21:20)
[2017-10-20] MEDS: PANTOPRAZOLE 40 MG TABLET PO SCH (08:17)
[2017-10-20] MEDS: POTASSIUM CHLORIDE ER 10 MEQ TAB.ER.PRT PO SCH (08:18)
[2017-10-20] MEDS: FUROSEMIDE 40 MG TAB PO SCH (08:18)
[2017-10-20] MEDS: PRIMIDONE 50 MG TAB PO SCH ×3 (08:18→23:34)
[2017-10-20] MEDS: METOPROLOL TARTRATE 50 MG TAB PO SCH ×2 (08:20→23:33)
[2017-10-20] MEDS: LISINOPRIL 20 MG TAB PO SCH ×2 (08:20→23:33)
[2017-10-20 08:26] LABS: INR 1.5 (<1.2); Partial Thromboplastin Time 50.2 sec (22.0-30.0); Prothrombin Time 13.6 sec (9.0-12.0)
[2017-10-20] MEDS: PHYTONADIONE 10 MG in SODIUM CHLORIDE 0.9% 50 ML IVPB SCH (09:24)
[2017-10-20] MEDS: LEVOFLOXACIN 750MG-D5W PMX 750 MG in DEXTROSE/WATER 1 150ML.BAG IVPB SCH (09:25)
--- NOTE | 2017-10-20 10:04 | P.PN ---
Subjective Progress Note Date: 10/20/17 (Critical care time 35 minutes) Principal diagnosis: Severe sepsis, hypertension, metabolic acidosis secondary due to lactic acidosis , metastatic neoplasm of unclear etiology workup is in progress, lesions in the liver lesion adrenal gland, complicated urinary tract infection with E. coli bacteremia and UTI 10/20/2017, patient seen eval examined during the rounds he has been on 15 mics of the levo fed drip a require 2 L of crystalloid followed by 100 mL an hour the levo has been titrated down to 2 mics now blood pressure is 100 to 110 systolic he is more awake and arousable and opens eyes and follows simple commands respiratory status stable this chest x-ray and laboratory data from today reviewed cortisone level is 38 goes again said renal insufficiency, leukocytosis related to UTI and sepsis, cooperative breath he related to chronic liver disease however did respond with vitamin K as INR came down from 1.8-1.5, lactic acid is down to 2.2 as, as blood pressure is improving liver enzymes are rising Mr. Christopher clark is seen eval examined in the ICU this patient has been transferred from the [facility] [place] care related to his hypotension his systolic blood pressure drop down into 60s, patient has been very volume depleted he has a significant ascites, patient has been found to have a lesion in the liver is status post biopsy of the liver lesion back in October final results are not available, known history of COPD and recent below-knee amputation secondary to osteomyelitis and PAD. The patient is now been admitted after having dysuria and UTI with sepsis. The patient states significant shortness of breath being treated with albuterol/Atrovent as necessary. The patient has been showing significant signs of sepsis with elevated lactic acid and tachycardia. The patient is now on IV hydration with appropriate antibiotic treatment. Urinary cultures are pending. Patient is awake and arousable able to give some history, Objective - Vital Signs Vital signs: Vital Signs Temp 97.4 F L 10/20/17 08:00 Pulse 92 10/20/17 09:00 Resp 21 10/20/17 09:00 BP 100/60 10/20/17 09:00 Pulse Ox 96 10/20/17 09:00 Intake & Output 10/19/17 10/20/17 10/20/17 18:59 06:59 18:59 Intake Total 410 2172.500 474.313 Output Total 330 585 220 Balance 80 1587.500 254.313 Weight 66.8 kg Intake: IV 200 1200 400 Sodium Chloride 0.9% 1, 200 1200 400 000 ml @ 100 mls/hr IV . Q10H [facility] Rx#:[id number] Intake, IV Titration 732.500 74.313 Amount Magnesium Sulfate-D5w Pmx 200 1 gm In Dextrose/Water 1 100ml.bag @ 100 mls/hr IVPB Q1H [facility] Rx#: [id number] Norepinephrin 4 mg-0.9% 282.500 74.313 Ns Pmx 4 mg In 250 ml @ Titrate IV .Q0M [facility]IANNA Rx#: [id number] Phytonadione 10 mg In 50 Sodium Chloride 0.9% 50 ml @ 100 mls/hr IVPB DAILY TIANNA Rx#:[id number] cefTAZidime 2 gm In 200 Sodium Chloride 0.9% 100 ml @ 100 mls/hr IVPB Q8H TIANNA Rx#:[id number] Oral 210 240 Output: Urine 330 585 220 Other: Voiding Method Indwelling Catheter Indwelling Catheter # Bowel Movements 1 1 1 - Exam - Constitutional General appearance: thin male did looks cachectic and ill - EENT Eyes: no abnormal pupil - Neck Neck: no lymphadenopathy supple neck veins are prominent but no JVD is present, no lymphadenopathy - Respiratory Respiratory: bilateral: diminished with poor air entry - Cardiovascular Rhythm: irregularly irregular Heart sounds: normal: S1, S2 Abnormal Heart Sounds: no S3 Gallop - Gastrointestinal General gastrointestinal: soft, no tenderness very distended but tympanic on percussion no tenderness or guarding is present - Neurologic Neurologic: CNII-XII intact arousable opens eyes follow simple command no focal neurological deficit oriented 3 - Musculoskeletal Musculoskeletal: generalized weakness, he may see dated with sequelae of chronic liver disease with spider angiomas especially in the upper torso - Psychiatric Psychiatric: A&O x's 3 - Labs CBC & Chem 7: 10/20/17 04:54 10/20/17 04:54 Labs: Abnormal Lab Results - Last 24 Hours (Table) 10/19/17 10/19/17 10/19/17 Range/Units 05:46 10:52 15:11 WBC (3.8-10.6) k/uL RBC (4.30-5.90) m/uL Hgb (13.0-17.5) gm/dL Hct (39.0-53.0) % Plt Count (150-450) k/uL Neutrophils # (Manual) (1.3-7.7) k/uL Lymphocytes # (Manual) (1.0-4.8) k/uL PT (9.0-12.0) sec INR (<1.2) APTT (22.0-30.0) sec ABG pCO2 (35-45) mmHg ABG HCO3 (21-25) mmol/L ABG Total CO2 (19-24) mmol/L ABG O2 Saturation (94-97) % Potassium 3.1 L (3.5-5.1) mmol/L Chloride (98-107) mmol/L Carbon Dioxide (22-30) mmol/L BUN (9-20) mg/dL Glucose (74-99) mg/dL POC Glucose (mg/dL) (75-99) mg/dL Plasma Lactic Acid Felipe 4.7 H* 7.9 H* (0.7-2.0) mmol/L Calcium (8.4-10.2) mg/dL Magnesium (1.6-2.3) mg/dL AST (17-59) U/L ALT (21-72) U/L Total Protein (6.3-8.2) g/dL Albumin (3.5-5.0) g/dL 10/19/17 10/19/17 10/19/17 Range/Units 16:16 16:16 16:16 WBC (3.8-10.6) k/uL RBC 2.96 L (4.30-5.90) m/uL Hgb 9.1 L D (13.0-17.5) gm/dL Hct 28.6 L (39.0-53.0) % Plt Count 119 L D (150-450) k/uL Neutrophils # (Manual) (1.3-7.7) k/uL Lymphocytes # (Manual) (1.0-4.8) k/uL PT 16.2 H (9.0-12.0) sec INR 1.8 H (<1.2) APTT 51.7 H (22.0-30.0) sec ABG pCO2 (35-45) mmHg ABG HCO3 (21-25) mmol/L ABG Total CO2 (19-24) mmol/L ABG O2 Saturation (94-97) % Potassium 3.0 L* (3.5-5.1) mmol/L Chloride 108 H (98-107) mmol/L Carbon Dioxide 18 L (22-30) mmol/L BUN 22 H (9-20) mg/dL Glucose 73 L (74-99) mg/dL POC Glucose (mg/dL) (75-99) mg/dL Plasma Lactic Acid Felipe (0.7-2.0) mmol/L Calcium 7.1 L (8.4-10.2) mg/dL Magnesium 1.2 L (1.6-2.3) mg/dL AST 109 H (17-59) U/L ALT (21-72) U/L Total Protein 5.0 L (6.3-8.2) g/dL Albumin 1.8 L (3.5-5.0) g/dL 10/19/17 10/19/17 10/20/17 Range/Units 16:28 17:15 04:54 WBC 16.7 H (3.8-10.6) k/uL RBC 3.20 L (4.30-5.90) m/uL Hgb 9.9 L (13.0-17.5) gm/dL Hct 30.5 L (39.0-53.0) % Plt Count 132 L (150-450) k/uL Neutrophils # (Manual) 16.10 H (1.3-7.7) k/uL Lymphocytes # (Manual) 0.33 L (1.0-4.8) k/uL PT (9.0-12.0) sec INR (<1.2) APTT (22.0-30.0) sec ABG pCO2 28 L (35-45) mmHg ABG HCO3 16 L (21-25) mmol/L ABG Total CO2 17 L (19-24) mmol/L ABG O2 Saturation 97.3 H (94-97) % Potassium (3.5-5.1) mmol/L Chloride (98-107) mmol/L Carbon Dioxide (22-30) mmol/L BUN (9-20) mg/dL Glucose (74-99) mg/dL POC Glucose (mg/dL) 69 L (75-99) mg/dL Plasma Lactic Acid Felipe (0.7-2.0) mmol/L Calcium (8.4-10.2) mg/dL Magnesium (1.6-2.3) mg/dL AST (17-59) U/L ALT (21-72) U/L Total Protein (6.3-8.2) g/dL Albumin (3.5-5.0) g/dL 10/20/17 10/20/17 10/20/17 Range/Units 04:54 08:05 08:05 WBC (3.8-10.6) k/uL RBC (4.30-5.90) m/uL Hgb (13.0-17.5) gm/dL Hct (39.0-53.0) % Plt Count (150-450) k/uL Neutrophils # (Manual) (1.3-7.7) k/uL Lymphocytes # (Manual) (1.0-4.8) k/uL PT 13.6 H (9.0-12.0) sec INR 1.5 H (<1.2) APTT 50.2 H (22.0-30.0) sec ABG pCO2 (35-45) mmHg ABG HCO3 (21-25) mmol/L ABG Total CO2 (19-24) mmol/L ABG O2 Saturation (94-97) % Potassium (3.5-5.1) mmol/L Chloride 112 H (98-107) mmol/L Carbon Dioxide 18 L (22-30) mmol/L BUN 22 H (9-20) mg/dL Glucose (74-99) mg/dL POC Glucose (mg/dL) (75-99) mg/dL Plasma Lactic Acid Felipe 2.2 H* (0.7-2.0) mmol/L Calcium 7.2 L (8.4-10.2) mg/dL Magnesium (1.6-2.3) mg/dL AST 226 H (17-59) U/L ALT 103 H (21-72) U/L Total Protein 5.3 L (6.3-8.2) g/dL Albumin 1.8 L (3.5-5.0) g/dL Microbiology - Last 24 Hours (Table) 10/17/17 05:03 Blood Culture Gram Stain - Final Blood Blood Culture - Final Escherichia coli 03/06/18 05:41 Urine Culture - Preliminary Urine,Catheterized Gram Neg Bacilli 10/18/17 05:03 Blood Culture - Final Blood Assessment and Plan Assessment: Severe sepsis with hypotension likely related to severe septic process from complicated urinary tract infection Severe hypotension Multiple lesions in the liver as well as spine lesion the sternal lesion and add renal mass likely suggestive of neoplastic process Abdominal distention likely gases distention related to small bowel dilated loops and obstruction as no significant ascites has been noted on ultrasound of the abdomen E. coli bacteremia and urinary tract infection Plan: IV aggressive rehydration Vasopressors as needed, titrate as needed PICC line is pending Broad-spectrum antibiotics Replace electrolytes Obtain PICC line Stress dose steroids, can be tapered and DC Vitamin K for 3 days Further recommendations pending plan of care as per clinical response of the patient Repeat labs and x-ray tomorrow Time with Patient: Greater than 30
--- NOTE | 2017-10-20 12:43 | P.GSCN ---
History of Present Illness Consult date: 10/20/17 Reason for Consult: Abdominal pain History of present illness: 67-year-old male in the ICU being seen at the request of the attending for a surgical eval for abdominal pain possible small bowel obstruction patient currently is sitting up in bed denying abdominal pain states he had a large "explosive bowel movement this morning" nursing reports he did have a moderate amount of brown stooling noted. Patient currently is denying any nausea vomiting or abdominal discomfort when questioning is adamant about not having any pain in his abdomen Is a poor historian has poor past medical history recall health history obtained from reviewing prior reports CAT scan of the abdomen pelvis obtained on October 19 the report was reviewed small bowel loops dilated distal small bowel loops collapsed. Possible ileus versus a small bowel obstruction not excluded per imaging Patient initially presented to the emergency room on October 18 with a chief complaint of developing shortness of breath onset several days prior. Does have an underlying history of COPD. As well as multiple medical issues such as severe peripheral vascular disease which resulted in a right [id number] amputation earlier this year. 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 There was a concern for infection. Patient was transferred to ICU found to have evidence of sepsis likely due to K urinary tract infection with E. coli natremia. required fluid resuscitation and vasopressor therapy for his sepsis with shock. Currently patient is being followed by the architect naval as well as infectious disease Dr. arita Review of Systems Difficult to obtain patient has poor past medical history recall Past Medical History Past Medical History: Atrial Fibrillation, COPD, GERD/Reflux, Hypertension, Liver Disease, Myocardial Infarction ([place]), Osteoarthritis (OA) Additional Past Medical History / Comment(s): Acute kidney failure/obstructive uropathy-has IDC last changed 10/16/17, UTI with sepsis, AMS, 03/31/17 R hip fracture with surgery twice, perforatic gastric ulcer 2016(had sx), ddd lumbar, herniated discs, hemorrhoids, liver lesions and L adrenal mass which pt states where worked up at [facility] and in the past pt states he was told they are benign-pt had left adrenal biopsy 10/13/17 and does not have results yet, hep c, legally blind-sees better with R eye, past alcoholism, PVD, nonocclusive trombosis R lower leg, past R foot infection now has R aka amputation and decub on coccyx is now healed per pt. Last Myocardial Infarction Date:: 2007 History of Any Multi-Drug Resistant Organisms: MRSA Year Discovered:: 05/08/17 MDRO Source:: ,FOOT Past Surgical History: Orthopedic Surgery Additional Past Surgical History / Comment(s): 10/13/17 L adrenal mass bx, closed reduction percutaneous pinning R hip-then removal of hardware and hemiathroplasty done, vasectomy, bilateral cataracts removed with lens implants , liver bxs 2006, antrectomy w/gastroenterostomy 2015, colonoscopy, reduction paraphimosis. Past Anesthesia/Blood Transfusion Reactions: No Reported Reaction Smoking Status: Current every day smoker - Past Family History Mother History Unknown: Yes Family Medical History: Cancer, Diabetes Mellitus, Hypertension Additional Family Medical History / Comment(s): Pt believes that mother had stomach cancer. Father History Unknown: Yes Family Medical History: Liver Disease, Seizure Disorder Additional Family Medical History / Comment(s): alcoholic Brother(s) History Unknown: Yes Family Medical History: Liver Disease Additional Family Medical History / Comment(s): aneurysm Medications and Allergies Home Medications Medication Instructions Recorded Confirmed Type Primidone [Mysoline] 50 mg PO TID 03/31/17 10/18/17 History Cyclobenzaprine HCl 10 mg PO BID PRN #0 04/19/17 10/18/17 Rx Furosemide [Lasix] 40 mg PO DAILY tab 05/17/17 10/18/17 Rx Lisinopril [Zestril] 20 mg PO BID 10/18/17 10/18/17 History Metoprolol Tartrate [Lopressor] 50 mg PO BID 10/18/17 10/18/17 History Omeprazole [Omeprazole] 20 mg PO BID 10/18/17 10/18/17 History Potassium Chloride [K-Tab ER] 10 meq PO DAILY 10/18/17 10/18/17 History Allergies Allergy/AdvReac Type Severity Reaction Status Date / Time peginterferon peg-2a Allergy Unknown Verified 10/18/17 08:42 [From Pegasys] Penicillins Allergy Rash/Hives Verified 10/18/17 08:42 Surgical - Exam Vital Signs Temp Pulse Resp Pulse Ox 104.1 F H 141 H 44 H 95 10/18/17 04:53 10/18/17 04:53 10/18/17 04:53 10/18/17 04:53 GENERAL APPEARANCE: 67-year-old male looking older than stated age slightly unkempt in appearance patient cachectic is alert, oriented, to self and place in no acute distress. VITAL SIGNS: Reviewed HEENT: Head is normocephalic and atraumatic. Pupils are equal and reactive. The nares are patent. Oropharynx is clear without lesions. NECK: Supple without lymphadenopathy. Traches midline. HEART: S1, S2. Regular rate and rhythm positive murmur noted. LUNGS: Diminished at the bases otherwise clear no cough noted sats are 96% on room air ABDOMEN: nontender firm ,distended with a few hypoactive bowel sounds. No peritoneal signs. No palpable organomegaly or masses. Indwelling Martin catheter in place EXTREMITIES: Right BKA. No edema noted to the right lower extremity upper extremities no edema noted Results - Labs 10/20/17 04:54 10/20/17 04:54 Abnormal Lab Results - Last 24 Hours (Table) 10/19/17 10/19/17 10/19/17 Range/Units 05:46 15:11 16:16 WBC (3.8-10.6) k/uL RBC 2.96 L (4.30-5.90) m/uL Hgb 9.1 L D (13.0-17.5) gm/dL Hct 28.6 L (39.0-53.0) % Plt Count 119 L D (150-450) k/uL Neutrophils # (Manual) (1.3-7.7) k/uL Lymphocytes # (Manual) (1.0-4.8) k/uL PT (9.0-12.0) sec INR (<1.2) APTT (22.0-30.0) sec ABG pCO2 (35-45) mmHg ABG HCO3 (21-25) mmol/L ABG Total CO2 (19-24) mmol/L ABG O2 Saturation (94-97) % Potassium 3.1 L (3.5-5.1) mmol/L Chloride (98-107) mmol/L Carbon Dioxide (22-30) mmol/L BUN (9-20) mg/dL Glucose (74-99) mg/dL POC Glucose (mg/dL) (75-99) mg/dL Plasma Lactic Acid Felipe 7.9 H* (0.7-2.0) mmol/L Calcium (8.4-10.2) mg/dL Magnesium (1.6-2.3) mg/dL AST (17-59) U/L ALT (21-72) U/L Total Protein (6.3-8.2) g/dL Albumin (3.5-5.0) g/dL 10/19/17 10/19/17 10/19/17 Range/Units 16:16 16:16 16:28 WBC (3.8-10.6) k/uL RBC (4.30-5.90) m/uL Hgb (13.0-17.5) gm/dL Hct (39.0-53.0) % Plt Count (150-450) k/uL Neutrophils # (Manual) (1.3-7.7) k/uL Lymphocytes # (Manual) (1.0-4.8) k/uL PT 16.2 H (9.0-12.0) sec INR 1.8 H (<1.2) APTT 51.7 H (22.0-30.0) sec ABG pCO2 28 L (35-45) mmHg ABG HCO3 16 L (21-25) mmol/L ABG Total CO2 17 L (19-24) mmol/L ABG O2 Saturation 97.3 H (94-97) % Potassium 3.0 L* (3.5-5.1) mmol/L Chloride 108 H (98-107) mmol/L Carbon Dioxide 18 L (22-30) mmol/L BUN 22 H (9-20) mg/dL Glucose 73 L (74-99) mg/dL POC Glucose (mg/dL) (75-99) mg/dL Plasma Lactic Acid Felipe (0.7-2.0) mmol/L Calcium 7.1 L (8.4-10.2) mg/dL Magnesium 1.2 L (1.6-2.3) mg/dL AST 109 H (17-59) U/L ALT (21-72) U/L Total Protein 5.0 L (6.3-8.2) g/dL Albumin 1.8 L (3.5-5.0) g/dL 10/19/17 10/20/17 10/20/17 Range/Units 17:15 04:54 04:54 WBC 16.7 H (3.8-10.6) k/uL RBC 3.20 L (4.30-5.90) m/uL Hgb 9.9 L (13.0-17.5) gm/dL Hct 30.5 L (39.0-53.0) % Plt Count 132 L (150-450) k/uL Neutrophils # (Manual) 16.10 H (1.3-7.7) k/uL Lymphocytes # (Manual) 0.33 L (1.0-4.8) k/uL PT (9.0-12.0) sec INR (<1.2) APTT (22.0-30.0) sec ABG pCO2 (35-45) mmHg ABG HCO3 (21-25) mmol/L ABG Total CO2 (19-24) mmol/L ABG O2 Saturation (94-97) % Potassium (3.5-5.1) mmol/L Chloride 112 H (98-107) mmol/L Carbon Dioxide 18 L (22-30) mmol/L BUN 22 H (9-20) mg/dL Glucose (74-99) mg/dL POC Glucose (mg/dL) 69 L (75-99) mg/dL Plasma Lactic Acid Felipe (0.7-2.0) mmol/L Calcium 7.2 L (8.4-10.2) mg/dL Magnesium (1.6-2.3) mg/dL AST 226 H (17-59) U/L ALT 103 H (21-72) U/L Total Protein 5.3 L (6.3-8.2) g/dL Albumin 1.8 L (3.5-5.0) g/dL 10/20/17 10/20/17 Range/Units 08:05 08:05 WBC (3.8-10.6) k/uL RBC (4.30-5.90) m/uL Hgb (13.0-17.5) gm/dL Hct (39.0-53.0) % Plt Count (150-450) k/uL Neutrophils # (Manual) (1.3-7.7) k/uL Lymphocytes # (Manual) (1.0-4.8) k/uL PT 13.6 H (9.0-12.0) sec INR 1.5 H (<1.2) APTT 50.2 H (22.0-30.0) sec ABG pCO2 (35-45) mmHg ABG HCO3 (21-25) mmol/L ABG Total CO2 (19-24) mmol/L ABG O2 Saturation (94-97) % Potassium (3.5-5.1) mmol/L Chloride (98-107) mmol/L Carbon Dioxide (22-30) mmol/L BUN (9-20) mg/dL Glucose (74-99) mg/dL POC Glucose (mg/dL) (75-99) mg/dL Plasma Lactic Acid Felipe 2.2 H* (0.7-2.0) mmol/L Calcium (8.4-10.2) mg/dL Magnesium (1.6-2.3) mg/dL AST (17-59) U/L ALT (21-72) U/L Total Protein (6.3-8.2) g/dL Albumin (3.5-5.0) g/dL Microbiology - Last 24 Hours (Table) 10/18/17 05:41 Urine Culture - Preliminary Urine,Catheterized Escherichia coli Gram Neg Bacilli 10/17/17 05:03 Blood Culture Gram Stain - Final Blood Blood Culture - Final Escherichia coli 10/18/17 05:03 Blood Culture - Final Blood Diabetes panel 10/19/17 10/19/17 10/20/17 Range/Units 05:46 16:16 04:54 Sodium 138 139 (137-145) mmol/L Potassium 3.1 L 3.0 L* 4.2 (3.5-5.1) mmol/L Chloride 108 H 112 H (98-107) mmol/L Carbon Dioxide 18 L 18 L (22-30) mmol/L BUN 22 H 22 H (9-20) mg/dL Creatinine 1.10 0.80 (0.66-1.25) mg/dL Glucose 73 L 97 (74-99) mg/dL Calcium 7.1 L 7.2 L (8.4-10.2) mg/dL AST 109 H 226 H (17-59) U/L ALT 51 103 H (21-72) U/L Alkaline Phosphatase 53 69 (38-126) U/L Total Protein 5.0 L 5.3 L (6.3-8.2) g/dL Albumin 1.8 L 1.8 L (3.5-5.0) g/dL Calcium panel 10/19/17 10/20/17 Range/Units 16:16 04:54 Calcium 7.1 L 7.2 L (8.4-10.2) mg/dL Phosphorus 2.7 (2.5-4.5) mg/dL Albumin 1.8 L 1.8 L (3.5-5.0) g/dL Pituitary panel 10/19/17 10/19/17 10/20/17 Range/Units 05:46 16:16 04:54 Sodium 138 139 (137-145) mmol/L Potassium 3.1 L 3.0 L* 4.2 (3.5-5.1) mmol/L Chloride 108 H 112 H (98-107) mmol/L Carbon Dioxide 18 L 18 L (22-30) mmol/L BUN 22 H 22 H (9-20) mg/dL Creatinine 1.10 0.80 (0.66-1.25) mg/dL Glucose 73 L 97 (74-99) mg/dL Calcium 7.1 L 7.2 L (8.4-10.2) mg/dL Adrenal panel 10/19/17 10/19/17 10/20/17 Range/Units 05:46 16:16 04:54 Sodium 138 139 (137-145) mmol/L Potassium 3.1 L 3.0 L* 4.2 (3.5-5.1) mmol/L Chloride 108 H 112 H (98-107) mmol/L Carbon Dioxide 18 L 18 L (22-30) mmol/L BUN 22 H 22 H (9-20) mg/dL Creatinine 1.10 0.80 (0.66-1.25) mg/dL Glucose 73 L 97 (74-99) mg/dL Calcium 7.1 L 7.2 L (8.4-10.2) mg/dL Total Bilirubin 0.8 1.0 (0.2-1.3) mg/dL AST 109 H 226 H (17-59) U/L ALT 51 103 H (21-72) U/L Alkaline Phosphatase 53 69 (38-126) U/L Total Protein 5.0 L 5.3 L (6.3-8.2) g/dL Albumin 1.8 L 1.8 L (3.5-5.0) g/dL Assessment and Plan Assessment: Impression episode of nausea vomiting abdominal pain resolved Present on admission severe sepsis with septic shock likely due to a complicated urinary tract infection with bacteremia E. coli Multiple lesions on the liver as well as the spine with an adrenal mass suspect neoplastic process The right BKA due to peripheral vascular disease Abdominal distention with small bowel loops dilated per imaging likely due to an ileus resolved Debilitated Plan no evidence of an acute surgical abdomen at this time Continue ICU care per the architect naval DVT and GI prophylaxis Further surgical recommendations pending clinical course will follow with you Surgical consultation note dictated for dr flores The above impression and plan of care have been discussed and directed by signing physician. Simona Gale nurse practitioner acting as scribe for signing physician.
[2017-10-20] MEDS ORDERED: SODIUM CHLORIDE 0.9% 500 ML IV ONE (12:56)
--- NOTE | 2017-10-20 23:55 | P.PN ---
Subjective Progress Note Date: 10/20/17 Principal diagnosis: Shortness of breath and weakness 67-year-old male that has multiple medical troubles that includes severe peripheral vascular disease, that is resulted in the right above-knee amputation earlier this year. The patient has been at rehab getting some recovery. The patient however started to become very ill and was transferred to Hospital for concerns to underlying infection. The patient was found evidence of sepsis and was brought to the intensive care unit where he is required fluid resuscitation and vasopressor therapy for his sepsis with shock. Fortunately he is getting somewhat better this evening. His pain is under good control. He believes he had a fever but not currently. He is not having significant chills or rigors. He has a catheter in place at this time. He relates that he has a bit of an appetite and is denying nausea or emesis. He does however feel very weak and ill. 3H thousand 18 reveals the patient to have some improvement. He is off of his vasopressor therapy. Blood pressure is stable and he has good urinary output. He is not able to eat some of his medial he denies nausea or emesis. Objective - Vital Signs Vital signs: Vital Signs Temp 98.5 F 10/20/17 16:00 Pulse 92 10/20/17 18:00 Resp 22 10/20/17 18:00 BP 94/64 10/20/17 18:00 Pulse Ox 98 10/20/17 18:00 Intake & Output 10/20/17 10/20/17 10/21/17 06:59 18:59 06:59 Intake Total 2172.500 1083.438 Output Total 585 485 Balance 1587.500 598.438 Weight 66.8 kg Intake: IV 1200 1000 Sodium Chloride 0.9% 1, 1200 1000 000 ml @ 100 mls/hr IV . Q10H [facility] Rx#:[id number] Intake, IV Titration 732.500 83.438 Amount Magnesium Sulfate-D5w Pmx 200 1 gm In Dextrose/Water 1 100ml.bag @ 100 mls/hr IVPB Q1H [facility] Rx#: [id number] Norepinephrin 4 mg-0.9% 282.500 83.438 Ns Pmx 4 mg In 250 ml @ Titrate IV .Q0M [facility] Rx#: [id number] Phytonadione 10 mg In 50 Sodium Chloride 0.9% 50 ml @ 100 mls/hr IVPB DAILY [facility] Rx#:[id number] cefTAZidime 2 gm In 200 Sodium Chloride 0.9% 100 ml @ 100 mls/hr IVPB Q8H [facility] Rx#:[id number] Oral 240 Output: Urine 585 485 Other: Voiding Method Indwelling Catheter Indwelling Catheter # Bowel Movements 1 1 - Exam Gen: This is a disheveled appearing 67-year-old male. HEENT: Head is atraumatic, normocephalic. Pupils right is round and reactive to light, left is abnormally shaped. Sclerae is anicteric. Conjunctiva pink. Mucous membranes of the mouth are slightly dry. Patient is edentulous NECK: Supple. No JVD. No lymphadenopathy. No thyromegaly. LUNGS: Scattered wheezes noted throughout. Good air exchange.. No intercostal retractions. HEART: Regular rate and rhythm. No murmur. ABDOMEN: Soft. Bowel sounds are present. No masses. No tenderness. EXTREMITIES: 2+ pedal edema to the left foot. The residual limb to the right is healing well with no drainage not very tender NEUROLOGICAL: Patient is awake, alert relates is somewhat comfortable - Labs CBC & Chem 7: 10/20/17 04:54 10/20/17 04:54 Labs: Abnormal Lab Results - Last 24 Hours (Table) 10/20/17 10/20/17 10/20/17 Range/Units 04:54 04:54 08:05 WBC 16.7 H (3.8-10.6) k/uL RBC 3.20 L (4.30-5.90) m/uL Hgb 9.9 L (13.0-17.5) gm/dL Hct 30.5 L (39.0-53.0) % Plt Count 132 L (150-450) k/uL Neutrophils # (Manual) 16.10 H (1.3-7.7) k/uL Lymphocytes # (Manual) 0.33 L (1.0-4.8) k/uL PT (9.0-12.0) sec INR (<1.2) APTT (22.0-30.0) sec Chloride 112 H (98-107) mmol/L Carbon Dioxide 18 L (22-30) mmol/L BUN 22 H (9-20) mg/dL Plasma Lactic Acid Felipe 2.2 H* (0.7-2.0) mmol/L Calcium 7.2 L (8.4-10.2) mg/dL AST 226 H (17-59) U/L ALT 103 H (21-72) U/L Total Protein 5.3 L (6.3-8.2) g/dL Albumin 1.8 L (3.5-5.0) g/dL 10/20/17 10/20/17 Range/Units 08:05 11:57 WBC (3.8-10.6) k/uL RBC (4.30-5.90) m/uL Hgb (13.0-17.5) gm/dL Hct (39.0-53.0) % Plt Count (150-450) k/uL Neutrophils # (Manual) (1.3-7.7) k/uL Lymphocytes # (Manual) (1.0-4.8) k/uL PT 13.6 H (9.0-12.0) sec INR 1.5 H (<1.2) APTT 50.2 H (22.0-30.0) sec Chloride (98-107) mmol/L Carbon Dioxide (22-30) mmol/L BUN (9-20) mg/dL Plasma Lactic Acid Felipe 2.8 H* (0.7-2.0) mmol/L Calcium (8.4-10.2) mg/dL AST (17-59) U/L ALT (21-72) U/L Total Protein (6.3-8.2) g/dL Albumin (3.5-5.0) g/dL Microbiology - Last 24 Hours (Table) 10/18/17 05:41 Urine Culture - Preliminary Urine,Catheterized Escherichia coli Gram Neg Bacilli 10/17/17 05:03 Blood Culture Gram Stain - Final Blood Blood Culture - Final Escherichia coli Laboratory Results WBC 16.7 k/uL (3.8-10.6) H 10/20/17 04:54 RBC 3.20 m/uL (4.30-5.90) L 10/20/17 04:54 Hgb 9.9 gm/dL (13.0-17.5) L 10/20/17 04:54 Hct 30.5 % (39.0-53.0) L 10/20/17 04:54 MCV 95.3 fL (80.0-100.0) 10/20/17 04:54 MCH 31.1 pg (25.0-35.0) 10/20/17 04:54 MCHC 32.6 g/dL (31.0-37.0) 10/20/17 04:54 RDW 14.2 % (11.5-15.5) 10/20/17 04:54 Plt Count 132 k/uL (150-450) L 10/20/17 04:54 Neutrophils % 63 % 10/18/17 05:03 Neutrophils % (Manual) 54 % 10/20/17 04:54 Band Neutrophils % 43 % 10/20/17 04:54 Lymphocytes % 17 % 10/18/17 05:03 Lymphocytes % (Manual) 2 % 10/20/17 04:54 Monocytes % 1 % 10/18/17 05:03 Monocytes % (Manual) 1 % 10/20/17 04:54 Eosinophils % 17 % 10/18/17 05:03 Basophils % 0 % 10/18/17 05:03 Neutrophils # 1.9 k/uL (1.3-7.7) 10/18/17 05:03 Neutrophils # (Manual) 16.10 k/uL (1.3-7.7) H 10/20/17 04:54 Lymphocytes # 0.5 k/uL (1.0-4.8) L 10/18/17 05:03 Lymphocytes # (Manual) 0.33 k/uL (1.0-4.8) L 10/20/17 04:54 Monocytes # 0.0 k/uL (0-1.0) 10/18/17 05:03 Monocytes # (Manual) 0.17 k/uL (0-1.0) 10/20/17 04:54 Eosinophils # 0.5 k/uL (0-0.7) 10/18/17 05:03 Basophils # 0.0 k/uL (0-0.2) 10/18/17 05:03 Nucleated RBCs 0 /100 WBC (0-0) 10/20/17 04:54 Manual Slide Review Performed 10/20/17 04:54 Toxic Granulation Present 10/20/17 04:54 Toxic Vacuolation Present 10/20/17 04:54 Hypochromasia Slight 10/19/17 16:16 PT 13.6 sec (9.0-12.0) H 10/20/17 08:05 INR 1.5 (<1.2) H 10/20/17 08:05 APTT 50.2 sec (22.0-30.0) H 10/20/17 08:05 D-Dimer 5.01 mg/L FEU (<0.60) H 10/18/17 05:03 Sample Site R radial 10/19/17 16:28 ABG pH 7.36 (7.35-7.45) 10/19/17 16:28 ABG pCO2 28 mmHg (35-45) L 10/19/17 16:28 ABG pO2 96 mmHg (83-108) 10/19/17 16:28 ABG HCO3 16 mmol/L (21-25) L 10/19/17 16:28 ABG Total CO2 17 mmol/L (19-24) L 10/19/17 16:28 ABG O2 Saturation 97.3 % (94-97) H 10/19/17 16:28 ABG Base Excess -9.3 mmol/L 10/19/17 16:28 Abhilash Test Yes 10/19/17 16:28 FiO2 28 % 10/19/17 16:28 Sodium 139 mmol/L (137-145) 10/20/17 04:54 Potassium 4.2 mmol/L (3.5-5.1) 10/20/17 04:54 Chloride 112 mmol/L (98-107) H 10/20/17 04:54 Carbon Dioxide 18 mmol/L (22-30) L 10/20/17 04:54 Anion Gap 9 mmol/L 10/20/17 04:54 BUN 22 mg/dL (9-20) H 10/20/17 04:54 Creatinine 0.80 mg/dL (0.66-1.25) 10/20/17 04:54 Est GFR (MDRD) Af Amer >60 (>60 ml/min/1.73 sqM) 10/18/17 05:03 Est GFR (MDRD) Non-Af >60 (>60 ml/min/1.73 sqM) 10/18/17 05:03 Est GFR (CKD-EPI)AfAm >90 (>60 ml/min/1.73 sqM) 10/20/17 04:54 Est GFR (CKD-EPI)NonAf >90 (>60 ml/min/1.73 sqM) 10/20/17 04:54 Glucose 97 mg/dL (74-99) 10/20/17 04:54 POC Glucose (mg/dL) 69 mg/dL (75-99) L 10/19/17 17:15 POC Glu Project Management Analyst ID Lisa Pearson 10/19/17 17:15 Lactic Ac Sepsis Rflx Y 10/20/17 08:42 Plasma Lactic Acid Felipe 2.8 mmol/L (0.7-2.0) H* 10/20/17 11:57 Calcium 7.2 mg/dL (8.4-10.2) L 10/20/17 04:54 Phosphorus 2.7 mg/dL (2.5-4.5) 10/19/17 16:16 Magnesium 2.2 mg/dL (1.6-2.3) 10/20/17 04:54 Total Bilirubin 1.0 mg/dL (0.2-1.3) 10/20/17 04:54 AST 226 U/L (17-59) H 10/20/17 04:54 ALT 103 U/L (21-72) H 10/20/17 04:54 Alkaline Phosphatase 69 U/L (38-126) 10/20/17 04:54 Troponin I 0.034 ng/mL (0.000-0.034) 10/18/17 05:03 NT-Pro-B Natriuret Pep 575 pg/mL 10/18/17 05:03 Total Protein 5.3 g/dL (6.3-8.2) L 10/20/17 04:54 Albumin 1.8 g/dL (3.5-5.0) L 10/20/17 04:54 Cortisol 38 ug/dL 10/19/17 16:16 Urine Color Yellow 10/18/17 05:41 Urine Appearance Turbid (Clear) 10/18/17 05:41 Urine pH 6.0 (5.0-8.0) 10/18/17 05:41 Ur Specific Warren 1.016 (1.001-1.035) 10/18/17 05:41 Urine Protein 2+ (Negative) H 10/18/17 05:41 Urine Glucose (UA) Negative (Negative) 10/18/17 05:41 Urine Ketones Negative (Negative) 10/18/17 05:41 Urine Blood Large (Negative) H 10/18/17 05:41 Urine Nitrite Negative (Negative) 10/18/17 05:41 Urine Bilirubin Negative (Negative) 10/18/17 05:41 Urine Urobilinogen 8.0 mg/dL (<2.0) 10/18/17 05:41 Ur Leukocyte Esterase Large (Negative) H 10/18/17 05:41 Urine RBC 101 /hpf (0-5) H 10/18/17 05:41 Urine WBC >182 /hpf (0-5) H 10/18/17 05:41 Urine WBC Clumps Many /hpf (None) H 10/18/17 05:41 Urine Bacteria Many /hpf (None) H 10/18/17 05:41 Urine Mucus Many /hpf (None) H 10/18/17 05:41 Influenza Type A RNA Not Detected (Not Detectd) 10/18/17 06:03 Influenza Type B (PCR) Not Detected (Not Detectd) 10/18/17 06:03 Microbiology 10/18/17 05:41 Urine,Catheterized Urine Culture - Preliminary Escherichia coli Gram Neg Bacilli 10/17/17 05:03 Blood Blood Culture Gram Stain - Final 10/17/17 05:03 Blood Blood Culture - Final Escherichia coli 10/18/17 05:03 Blood Blood Culture - Final Assessment and Plan (1) Sepsis due to Gram-negative organism with septic shock Narrative/Plan: 67-year-old male presents to Hospital feeling very poorly from the extended care facility. His thought evidence of significant sepsis but then develops into shock requiring transition to the intensive care unit with fluid resuscitation and vasopressor therapy. The patient is feeling slightly better this evening. His hypotension is improving with intervention. Urine output is improving. The patient has evidence of gram-negative sepsis and with the concern to the recent urinary infection with Pseudomonas antibiotics therapy as transition from quinolone therapy because of concerns to resistance to ceftazidime to ensure coverage for the recently isolated Pseudomonas while cultures are pending. The patient relates he is feeling slightly better this evening. He has been able to ingest a bit of fluids and food. He has had anemia and that has been part of workup due to the abnormality is by his CAT scans with mass. He has had an adrenal biopsy performed and the final result is pending with concerns to metastatic cancer is etiology. With his marked abnormality some liver that would be concerned to a primary source of underlying malignancy contributing to his overall markedly declining status, ascites and marked abnormality is his liver by imaging study. Patient was monitored for clearance of his bacteremia and then plans for the completion course of antibiotic therapy given his current sepsis. 10/20/2017 reveals the patient is improving. He is showing hemodynamic stability off of vasopressor therapy doing well with current antibiotic therapy with Fortaz. This will continue while further culture data is pending. Blood culture is positive for E. coli. Urine culture does have another gram-negative pathogen awaiting the final data. 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 Current Visit: Yes Status: Acute Code(s): A41.50 - GRAM-NEGATIVE SEPSIS, UNSPECIFIED; R65.21 - SEVERE SEPSIS WITH SEPTIC SHOCK SNOMED Code(s): 750174951 (2) COPD (chronic obstructive pulmonary disease) Current Visit: Yes Status: Acute Code(s): J44.9 - CHRONIC OBSTRUCTIVE PULMONARY DISEASE, UNSPECIFIED SNOMED Code(s): 74377893 (3) Adrenal mass, left Current Visit: No Status: Acute Priority: High Code(s): E27.9 - DISORDER OF ADRENAL GLAND, UNSPECIFIED SNOMED Code(s): 224836048
[2017-10-21] MEDS: SODIUM CHLORIDE 0.9% 1,000 ML IV SCH ×2 (06:20→20:57)
[2017-10-21] MEDS: PANTOPRAZOLE 40 MG TABLET PO SCH (06:20)
[2017-10-21 06:58] LABS: ALT 162 U/L (21-72); AST 254 U/L (17-59); Albumin 1.6 g/dL (3.5-5.0); Alkaline Phosphatase 93 U/L (38-126); Anion Gap 4 mmol/L; Blood Urea Nitrogen 26 mg/dL (9-20); Calcium 7.1 mg/dL (8.4-10.2); Carbon Dioxide 21 mmol/L (22-30); Chloride 115 mmol/L (98-107); Glucose 108 mg/dL (74-99); Magnesium 2.2 mg/dL (1.6-2.3); Sodium 140 mmol/L (137-145); Total Bilirubin 0.8 mg/dL (0.2-1.3); Total Protein 4.8 g/dL (6.3-8.2)
[2017-10-21 07:05] LABS: Basophils % (A) 0 %; Eosinophils % (A) 0 %; HCT 30.6 % (39.0-53.0); HGB 9.8 gm/dL (13.0-17.5); Lymphocytes # (A) 0.7 k/uL (1.0-4.8); Lymphocytes % (A) 5 %; MCH 30.6 pg (25.0-35.0); MCHC 32.1 g/dL (31.0-37.0); MCV 95.6 fL (80.0-100.0); Mean Platelet Volume 9.2; Monocytes # (A) 0.6 k/uL (0-1.0); Monocytes % (A) 4 %; Neutrophils # (A) 11.6 k/uL (1.3-7.7); Neutrophils % (A) 87 %; RDW 14.2 % (11.5-15.5); WBC 13.4 k/uL (3.8-10.6)
[2017-10-21] MEDS: IPRATROPIUM-ALBUTEROL 3 ML NEB INHALATION SCH ×4 (08:47→21:08)
[2017-10-21 09:07] LABS: Platelet Count 87 k/uL (150-450); Poikilocytosis (M) Present
[2017-10-21] MEDS: HEPARIN SODIUM,PORCINE 5,000 UNIT/ML 1 ML VIAL SQ SCH ×2 (10:19→16:02)
[2017-10-21] MEDS: POTASSIUM CHLORIDE ER 10 MEQ TAB.ER.PRT PO SCH (10:20)
[2017-10-21] MEDS: METOPROLOL TARTRATE 50 MG TAB PO SCH ×2 (10:20→20:52)
[2017-10-21] MEDS: LEVOFLOXACIN 750 MG TAB PO SCH (10:20)
[2017-10-21] MEDS: HYDROCORTISONE SUCCINATE 100 MG/2 ML VIAL IV SCH (10:21)
[2017-10-21] MEDS: PRIMIDONE 50 MG TAB PO SCH ×3 (10:21→20:52)
[2017-10-21] MEDS: FUROSEMIDE 40 MG TAB PO SCH (10:21)
[2017-10-21] MEDS: LISINOPRIL 20 MG TAB PO SCH ×2 (10:23→20:52)
--- NOTE | 2017-10-21 10:40 | P.PN ---
<BaljinderSimona M - Last Filed: 10/21/17 11:43> Subjective Progress Note Date: 10/21/17 67-year-old seen and examined at bedside. Patient currently is denying any abdominal pain. Patient stated he did have a bowel movement this morning. Nursing reports patient was incontinent a moderate amount of soft stool this morning no nausea no vomiting. States tolerating diet. being evaluated by surgical service at the request of the attending for CAT scan abdomen and pelvis october report reviewed indicated ileus versus questionable small bowel could obstruction could not be excluded Objective - Vital Signs Vital signs: Vital Signs Temp 96.9 F L 10/21/17 08:45 Pulse 81 10/21/17 08:58 Resp 16 10/21/17 08:58 BP 98/64 10/21/17 08:45 Pulse Ox 98 10/21/17 08:48 Intake & Output 10/20/17 10/21/17 10/21/17 18:59 06:59 18:59 Intake Total 1962.118 8685 1018 Output Total 485 0 Balance 172.285 4711 1018 Weight 74 kg Intake: IV 1000 1100 800 Sodium Chloride 0.9% 1, 1000 1100 800 000 ml @ 100 mls/hr IV . Q10H [facility] Rx#:[id number] Intake, IV Titration 83.438 200 Amount Norepinephrin 4 mg-0.9% 83.438 Ns Pmx 4 mg In 250 ml @ Titrate IV .Q0M [facility] Rx#: [id number] cefTAZidime 2 gm In 200 Sodium Chloride 0.9% 100 ml @ 100 mls/hr IVPB Q8H [facility] Rx#:[id number] Oral 200 218 Output: Urine 485 0 Stool 0 Other: Voiding Method Indwelling Catheter Indwelling Catheter Indwelling Catheter # Voids 1 # Bowel Movements 1 - Exam Exam adbomen nontender slightly distended with positive scrotal edema few hypoactive bowel tones with palpitation no facial grimacing patient states has no abdominal pain when questioning indwelling Martin catheter in place patient states had a bowel movement this morning and is passing gas - Labs CBC & Chem 7: 10/21/17 06:03 10/21/17 06:03 Labs: Abnormal Lab Results - Last 24 Hours (Table) 10/20/17 10/21/17 10/21/17 Range/Units 11:57 06:03 06:03 WBC 13.4 H (3.8-10.6) k/uL RBC 3.20 L (4.30-5.90) m/uL Hgb 9.8 L (13.0-17.5) gm/dL Hct 30.6 L (39.0-53.0) % Plt Count 87 L (150-450) k/uL Neutrophils # 11.6 H (1.3-7.7) k/uL Lymphocytes # 0.7 L (1.0-4.8) k/uL Chloride 115 H (98-107) mmol/L Carbon Dioxide 21 L (22-30) mmol/L BUN 26 H (9-20) mg/dL Creatinine 0.60 L (0.66-1.25) mg/dL Glucose 108 H (74-99) mg/dL Plasma Lactic Acid Felipe 2.8 H* (0.7-2.0) mmol/L Calcium 7.1 L (8.4-10.2) mg/dL AST 254 H (17-59) U/L ALT 162 H (21-72) U/L Total Protein 4.8 L (6.3-8.2) g/dL Albumin 1.6 L (3.5-5.0) g/dL Microbiology - Last 24 Hours (Table) 10/18/17 05:41 Urine Culture - Final Urine,Catheterized Escherichia coli Pseudomonas aeruginosa Assessment and Plan Assessment: Impression episode of nausea vomiting abdominal pain resolved Present on admission severe sepsis with septic shock likely due to a complicated urinary tract infection with bacteremia E. coli Multiple lesions on the liver as well as the spine with an adrenal mass suspect neoplastic process The right BKA due to peripheral vascular disease Abdominal distention with small bowel loops dilated per imaging likely due to an ileus resolved Debilitated Plan no evidence of an acute surgical abdomen at this time DVT and GI prophylaxis Further surgical recommendations pending clinical course will follow with you note dictated for Dr. Ibarra rounding on behalf of dr flores The above impression and plan of care have been discussed and directed by signing physician. Simona Gale nurse practitioner acting as scribe for signing physician. <Jimbo Ibarra - Last Filed: 10/21/17 17:04> Objective - Vital Signs Vital signs: Vital Signs Temp 97.0 F L 10/21/17 11:45 Pulse 84 10/21/17 11:45 Resp 18 10/21/17 11:45 BP 102/62 10/21/17 11:45 Pulse Ox 98 10/21/17 11:45 Intake & Output 10/20/17 10/21/17 10/21/17 18:59 06:59 18:59 Intake Total 4905.874 2756 1254 Output Total 485 0 1200 Balance 018.631 4140 54 Weight 74 kg Intake: IV 1000 1100 800 Sodium Chloride 0.9% 1, 1000 1100 800 000 ml @ 100 mls/hr IV . Q10H [facility] Rx#:[id number] Intake, IV Titration 83.438 200 Amount Norepinephrin 4 mg-0.9% 83.438 Ns Pmx 4 mg In 250 ml @ Titrate IV .Q0M [facility] Rx#: [id number] cefTAZidime 2 gm In 200 Sodium Chloride 0.9% 100 ml @ 100 mls/hr IVPB Q8H [facility] Rx#:[id number] Oral 200 454 Output: Urine 485 0 1200 Stool 0 Other: Voiding Method Indwelling Catheter Indwelling Catheter Indwelling Catheter # Voids 1 # Bowel Movements 1 1 - Labs CBC & Chem 7: 10/21/17 06:03 10/21/17 06:03 Labs: Abnormal Lab Results - Last 24 Hours (Table) 10/21/17 10/21/17 Range/Units 06:03 06:03 WBC 13.4 H (3.8-10.6) k/uL RBC 3.20 L (4.30-5.90) m/uL Hgb 9.8 L (13.0-17.5) gm/dL Hct 30.6 L (39.0-53.0) % Plt Count 87 L (150-450) k/uL Neutrophils # 11.6 H (1.3-7.7) k/uL Lymphocytes # 0.7 L (1.0-4.8) k/uL Chloride 115 H (98-107) mmol/L Carbon Dioxide 21 L (22-30) mmol/L BUN 26 H (9-20) mg/dL Creatinine 0.60 L (0.66-1.25) mg/dL Glucose 108 H (74-99) mg/dL Calcium 7.1 L (8.4-10.2) mg/dL AST 254 H (17-59) U/L ALT 162 H (21-72) U/L Total Protein 4.8 L (6.3-8.2) g/dL Albumin 1.6 L (3.5-5.0) g/dL Microbiology - Last 24 Hours (Table) 10/18/17 05:41 Urine Culture - Final Urine,Catheterized Escherichia coli Pseudomonas aeruginosa Assessment and Plan Assessment: As above. Patient now having multiple bowel movements. Abdominal distention improved. Tolerating diet thus far. Metastatic hepatocellular carcinoma on recent biopsy. No surgical intervention planned at this time. We'll sign off. Please contact if needed.
[2017-10-21] MEDS: PHYTONADIONE 10 MG in SODIUM CHLORIDE 0.9% 50 ML IVPB SCH (11:16)
--- NOTE | 2017-10-21 12:03 | P.PN ---
Subjective Progress Note Date: 10/21/17 [facility] is covering for Dr. Farr. Patient is being seen examined and evaluated today follow-up on rounds is fair covering for Dr. Farr. Patient was admitted to the hospital with severe sepsis, hypertension, metabolic acidosis secondary to lactic acidosis, metastatic neoplasm and lesions of his liver. He also has a UTI with E. coli and bacteremia. Patient has infectious disease on consult as well. Patient is supposed to go for a PICC line insertion today. Upon examination the patient's resting up in bed on room air. He does have some shortness of breath with exertion. He is weak. Patient is being seen by surgical services as well regarding a CAT scan of the abdomen and pelvis which showed ileus versus questionable small bowel obstruction. Patient did have a small bowel movement this morning. He has been tolerating his diet. No labs to report been reviewed. Objective - Vital Signs Vital signs: Vital Signs Temp 96.9 F L 10/21/17 08:45 Pulse 81 10/21/17 08:58 Resp 16 10/21/17 08:58 BP 98/64 10/21/17 08:45 Pulse Ox 98 10/21/17 08:48 Intake & Output 10/20/17 10/21/17 10/21/17 18:59 06:59 18:59 Intake Total 2105.921 5709 1018 Output Total 485 0 Balance 517.279 9602 1018 Weight 74 kg Intake: IV 1000 1100 800 Sodium Chloride 0.9% 1, 1000 1100 800 000 ml @ 100 mls/hr IV . Q10H [facility] Rx#:[id number] Intake, IV Titration 83.438 200 Amount Norepinephrin 4 mg-0.9% 83.438 Ns Pmx 4 mg In 250 ml @ Titrate IV .Q0M [facility] Rx#: [id number] cefTAZidime 2 gm In 200 Sodium Chloride 0.9% 100 ml @ 100 mls/hr IVPB Q8H [facility] Rx#:[id number] Oral 200 218 Output: Urine 485 0 Stool 0 Other: Voiding Method Indwelling Catheter Indwelling Catheter Indwelling Catheter # Voids 1 # Bowel Movements 1 - Exam GENERAL EXAM: Alert, cachectic HEAD: Normocephalic. EYES: Normal reaction of pupils, equal size. NOSE: Clear with pink turbinates. THROAT: No erythema or exudates. NECK: No masses, no JVD. CHEST: No chest wall deformity. LUNGS: Poor air entry with no crackles, wheeze, rhonchi or dullness. CVS: S1 and S2 normal with no audible mumurs, irregular rhythm. ABDOMEN: No hepatosplenomegaly, hypoactive bowel sounds, no guarding or rigidity. EXTREMITIES: No edema noted, pedal pulses palpable. Generalized Weak CENTRAL NERVOUS SYSTEM: No focal deficits, tone is normal in all 4 extremities, weak. - Labs CBC & Chem 7: 10/21/17 06:03 10/21/17 06:03 Labs: Abnormal Lab Results - Last 24 Hours (Table) 10/20/17 10/21/17 10/21/17 Range/Units 11:57 06:03 06:03 WBC 13.4 H (3.8-10.6) k/uL RBC 3.20 L (4.30-5.90) m/uL Hgb 9.8 L (13.0-17.5) gm/dL Hct 30.6 L (39.0-53.0) % Plt Count 87 L (150-450) k/uL Neutrophils # 11.6 H (1.3-7.7) k/uL Lymphocytes # 0.7 L (1.0-4.8) k/uL Chloride 115 H (98-107) mmol/L Carbon Dioxide 21 L (22-30) mmol/L BUN 26 H (9-20) mg/dL Creatinine 0.60 L (0.66-1.25) mg/dL Glucose 108 H (74-99) mg/dL Plasma Lactic Acid Felipe 2.8 H* (0.7-2.0) mmol/L Calcium 7.1 L (8.4-10.2) mg/dL AST 254 H (17-59) U/L ALT 162 H (21-72) U/L Total Protein 4.8 L (6.3-8.2) g/dL Albumin 1.6 L (3.5-5.0) g/dL Microbiology - Last 24 Hours (Table) 10/18/17 05:41 Urine Culture - Final Urine,Catheterized Escherichia coli Pseudomonas aeruginosa Assessment and Plan Assessment: Assessment Severe sepsis with hypotension likely related to severe septic process from complicated urinary tract infection Severe hypotension Multiple lesions in the liver as well as spine lesion the sternal lesion and add renal mass likely suggestive of neoplastic process Abdominal distention likely gases distention related to small bowel dilated loops and obstruction as no significant ascites has been noted on ultrasound of the abdomen E. coli bacteremia and urinary tract infection Severe protein malnutrition Plan IV aggressive rehydration Broad-spectrum antibiotics Replace electrolytes Obtain PICC line Steroid taper Vitamin K for 3 days Further recommendations pending plan of care as per clinical response of the patient Appreciate recommendations from infectious disease and surgical services Repeat labs tomorrow I performed an examination of the patient and discussed their management with the nurse practitioner. I have reviewed the nurse practitioner's note and agree with the documented findings and plan of care.
--- NOTE | 2017-10-21 22:44 | P.PN ---
Subjective Progress Note Date: 10/21/17 Principal diagnosis: Shortness of breath and weakness 67-year-old male that has multiple medical troubles that includes severe peripheral vascular disease, that is resulted in the right above-knee amputation earlier this year. The patient has been at rehab getting some recovery. The patient however started to become very ill and was transferred to Hospital for concerns to underlying infection. The patient was found evidence of sepsis and was brought to the intensive care unit where he is required fluid resuscitation and vasopressor therapy for his sepsis with shock. Fortunately he is getting somewhat better this evening. His pain is under good control. He believes he had a fever but not currently. He is not having significant chills or rigors. He has a catheter in place at this time. He relates that he has a bit of an appetite and is denying nausea or emesis. He does however feel very weak and ill. 10/20/2017 reveals the patient to have some improvement. He is off of his vasopressor therapy. Blood pressure is stable and he has good urinary output. He is not able to eat some of his medial he denies nausea or emesis. 10/21/2017 reveals the patient has been moved out of the intensive care unit. He is feeling somewhat better and is looking forward to his transfer to extended care the next few days as he is improved. The patient's appetite is poor but he is attempting to improve his protein intake. Denies nausea or emesis. Denies shortness of breath. No further hypotension. The patient responding well to hepatic therapy for his sepsis. Objective - Vital Signs Vital signs: Vital Signs Temp 97.5 F L 10/21/17 19:56 Pulse 88 10/21/17 21:08 Resp 20 10/21/17 19:56 BP 111/62 10/21/17 19:56 Pulse Ox 97 10/21/17 19:56 Intake & Output 10/21/17 10/21/17 10/22/17 06:59 18:59 06:59 Intake Total 1500 1494 Output Total 0 1200 Balance 1500 294 Weight 74 kg 74 kg Intake: IV 1100 800 Sodium Chloride 0.9% 1, 1100 800 000 ml @ 100 mls/hr IV . Q10H [facility] Rx#:[id number] Intake, IV Titration 200 Amount cefTAZidime 2 gm In 200 Sodium Chloride 0.9% 100 ml @ 100 mls/hr IVPB Q8H [facility] Rx#:[id number] Oral 200 694 Output: Urine 0 1200 Stool 0 Other: Voiding Method Indwelling Catheter Indwelling Catheter # Voids 1 # Bowel Movements 1 - Exam Gen: This is a disheveled appearing 67-year-old male. HEENT: Head is atraumatic, normocephalic. Pupils right is round and reactive to light, left is abnormally shaped. Sclerae is anicteric. Conjunctiva pink. Mucous membranes of the mouth are slightly dry. Patient is edentulous NECK: Supple. No JVD. No lymphadenopathy. No thyromegaly. LUNGS: Scattered wheezes noted throughout. Good air exchange.. No intercostal retractions. HEART: Regular rate and rhythm. No murmur. ABDOMEN: Soft. Bowel sounds are present. No masses. No tenderness. Continues to have the significant ascites but not much tenderness EXTREMITIES: 2+ pedal edema to the left foot. The residual limb to the right is healing well with no drainage not very tender NEUROLOGICAL: Patient is awake, alert relates is somewhat comfortable - Labs CBC & Chem 7: 10/21/17 06:03 10/21/17 06:03 Labs: Abnormal Lab Results - Last 24 Hours (Table) 10/21/17 10/21/17 Range/Units 06:03 06:03 WBC 13.4 H (3.8-10.6) k/uL RBC 3.20 L (4.30-5.90) m/uL Hgb 9.8 L (13.0-17.5) gm/dL Hct 30.6 L (39.0-53.0) % Plt Count 87 L (150-450) k/uL Neutrophils # 11.6 H (1.3-7.7) k/uL Lymphocytes # 0.7 L (1.0-4.8) k/uL Chloride 115 H (98-107) mmol/L Carbon Dioxide 21 L (22-30) mmol/L BUN 26 H (9-20) mg/dL Creatinine 0.60 L (0.66-1.25) mg/dL Glucose 108 H (74-99) mg/dL Calcium 7.1 L (8.4-10.2) mg/dL AST 254 H (17-59) U/L ALT 162 H (21-72) U/L Total Protein 4.8 L (6.3-8.2) g/dL Albumin 1.6 L (3.5-5.0) g/dL Microbiology - Last 24 Hours (Table) 10/18/17 05:41 Urine Culture - Final Urine,Catheterized Escherichia coli Pseudomonas aeruginosa Laboratory Results WBC 13.4 k/uL (3.8-10.6) H 10/21/17 06:03 RBC 3.20 m/uL (4.30-5.90) L 10/21/17 06:03 Hgb 9.8 gm/dL (13.0-17.5) L 10/21/17 06:03 Hct 30.6 % (39.0-53.0) L 10/21/17 06:03 MCV 95.6 fL (80.0-100.0) 10/21/17 06:03 MCH 30.6 pg (25.0-35.0) 10/21/17 06:03 MCHC 32.1 g/dL (31.0-37.0) 10/21/17 06:03 RDW 14.2 % (11.5-15.5) 10/21/17 06:03 Plt Count 87 k/uL (150-450) L 10/21/17 06:03 Neutrophils % 87 % 10/21/17 06:03 Neutrophils % (Manual) 54 % 10/20/17 04:54 Band Neutrophils % 43 % 10/20/17 04:54 Lymphocytes % 5 % 10/21/17 06:03 Lymphocytes % (Manual) 2 % 10/20/17 04:54 Monocytes % 4 % 10/21/17 06:03 Monocytes % (Manual) 1 % 10/20/17 04:54 Eosinophils % 0 % 10/21/17 06:03 Basophils % 0 % 10/21/17 06:03 Neutrophils # 11.6 k/uL (1.3-7.7) H 10/21/17 06:03 Neutrophils # (Manual) 16.10 k/uL (1.3-7.7) H 10/20/17 04:54 Lymphocytes # 0.7 k/uL (1.0-4.8) L 10/21/17 06:03 Lymphocytes # (Manual) 0.33 k/uL (1.0-4.8) L 10/20/17 04:54 Monocytes # 0.6 k/uL (0-1.0) 10/21/17 06:03 Monocytes # (Manual) 0.17 k/uL (0-1.0) 10/20/17 04:54 Eosinophils # 0.0 k/uL (0-0.7) 10/21/17 06:03 Basophils # 0.0 k/uL (0-0.2) 10/21/17 06:03 Nucleated RBCs 0 /100 WBC (0-0) 10/20/17 04:54 Manual Slide Review Performed 10/21/17 06:03 Toxic Granulation Present 10/20/17 04:54 Toxic Vacuolation Present 10/20/17 04:54 Hypochromasia Slight 10/19/17 16:16 Poikilocytosis (manual Present 10/21/17 06:03 PT 13.6 sec (9.0-12.0) H 10/20/17 08:05 INR 1.5 (<1.2) H 10/20/17 08:05 APTT 50.2 sec (22.0-30.0) H 10/20/17 08:05 D-Dimer 5.01 mg/L FEU (<0.60) H 10/18/17 05:03 Sample Site R radial 10/19/17 16:28 ABG pH 7.36 (7.35-7.45) 10/19/17 16:28 ABG pCO2 28 mmHg (35-45) L 10/19/17 16:28 ABG pO2 96 mmHg (83-108) 10/19/17 16:28 ABG HCO3 16 mmol/L (21-25) L 10/19/17 16:28 ABG Total CO2 17 mmol/L (19-24) L 10/19/17 16:28 ABG O2 Saturation 97.3 % (94-97) H 10/19/17 16:28 ABG Base Excess -9.3 mmol/L 10/19/17 16:28 Abhilash Test Yes 10/19/17 16:28 FiO2 28 % 10/19/17 16:28 Sodium 140 mmol/L (137-145) 10/21/17 06:03 Potassium 4.0 mmol/L (3.5-5.1) 10/21/17 06:03 Chloride 115 mmol/L (98-107) H 10/21/17 06:03 Carbon Dioxide 21 mmol/L (22-30) L 10/21/17 06:03 Anion Gap 4 mmol/L 10/21/17 06:03 BUN 26 mg/dL (9-20) H 10/21/17 06:03 Creatinine 0.60 mg/dL (0.66-1.25) L 10/21/17 06:03 Est GFR (MDRD) Af Amer >60 (>60 ml/min/1.73 sqM) 10/18/17 05:03 Est GFR (MDRD) Non-Af >60 (>60 ml/min/1.73 sqM) 10/18/17 05:03 Est GFR (CKD-EPI)AfAm >90 (>60 ml/min/1.73 sqM) 10/21/17 06:03 Est GFR (CKD-EPI)NonAf >90 (>60 ml/min/1.73 sqM) 10/21/17 06:03 Glucose 108 mg/dL (74-99) H 10/21/17 06:03 POC Glucose (mg/dL) 69 mg/dL (75-99) L 10/19/17 17:15 POC Glu Outsole Cutter Machine ID Lisa Pearson 10/19/17 17:15 Lactic Ac Sepsis Rflx Y 10/20/17 08:42 Plasma Lactic Acid Felipe 2.8 mmol/L (0.7-2.0) H* 10/20/17 11:57 Calcium 7.1 mg/dL (8.4-10.2) L 10/21/17 06:03 Phosphorus 2.7 mg/dL (2.5-4.5) 10/19/17 16:16 Magnesium 2.2 mg/dL (1.6-2.3) 10/21/17 06:03 Total Bilirubin 0.8 mg/dL (0.2-1.3) 10/21/17 06:03 AST 254 U/L (17-59) H 10/21/17 06:03 ALT 162 U/L (21-72) H 10/21/17 06:03 Alkaline Phosphatase 93 U/L (38-126) 10/21/17 06:03 Troponin I 0.034 ng/mL (0.000-0.034) 10/18/17 05:03 NT-Pro-B Natriuret Pep 575 pg/mL 10/18/17 05:03 Total Protein 4.8 g/dL (6.3-8.2) L 10/21/17 06:03 Albumin 1.6 g/dL (3.5-5.0) L 10/21/17 06:03 Cortisol 38 ug/dL 10/19/17 16:16 Urine Color Yellow 10/18/17 05:41 Urine Appearance Turbid (Clear) 10/18/17 05:41 Urine pH 6.0 (5.0-8.0) 10/18/17 05:41 Ur Specific [place] 1.016 (1.001-1.035) 10/18/17 05:41 Urine Protein 2+ (Negative) H 10/18/17 05:41 Urine Glucose (UA) Negative (Negative) 10/18/17 05:41 Urine Ketones Negative (Negative) 10/18/17 05:41 Urine Blood Large (Negative) H 10/18/17 05:41 Urine Nitrite Negative (Negative) 10/18/17 05:41 Urine Bilirubin Negative (Negative) 10/18/17 05:41 Urine Urobilinogen 8.0 mg/dL (<2.0) 10/18/17 05:41 Ur Leukocyte Esterase Large (Negative) H 10/18/17 05:41 Urine RBC 101 /hpf (0-5) H 10/18/17 05:41 Urine WBC >182 /hpf (0-5) H 10/18/17 05:41 Urine WBC Clumps Many /hpf (None) H 10/18/17 05:41 Urine Bacteria Many /hpf (None) H 10/18/17 05:41 Urine Mucus Many /hpf (None) H 10/18/17 05:41 Influenza Type A RNA Not Detected (Not Detectd) 10/18/17 06:03 Influenza Type B (PCR) Not Detected (Not Detectd) 10/18/17 06:03 Microbiology 10/18/17 05:41 Urine,Catheterized Urine Culture - Final Escherichia coli Pseudomonas aeruginosa 10/17/17 05:03 Blood Blood Culture Gram Stain - Final 10/17/17 05:03 Blood Blood Culture - Final Escherichia coli 10/18/17 05:03 Blood Blood Culture - Final Assessment and Plan (1) Sepsis due to Gram-negative organism with septic shock Narrative/Plan: 67-year-old male presents to Hospital feeling very poorly from the extended care facility. His thought evidence of significant sepsis but then develops into shock requiring transition to the intensive care unit with fluid resuscitation and vasopressor therapy. The patient is feeling slightly better this evening. His hypotension is improving with intervention. Urine output is improving. The patient has evidence of gram-negative sepsis and with the concern to the recent urinary infection with Pseudomonas antibiotics therapy as transition from quinolone therapy because of concerns to resistance to ceftazidime to ensure coverage for the recently isolated Pseudomonas while cultures are pending. The patient relates he is feeling slightly better this evening. He has been able to ingest a bit of fluids and food. He has had anemia and that has been part of workup due to the abnormality is by his CAT scans with mass. He has had an adrenal biopsy performed and the final result is pending with concerns to metastatic cancer is etiology. With his marked abnormality some liver that would be concerned to a primary source of underlying malignancy contributing to his overall markedly declining status, ascites and marked abnormality is his liver by imaging study. Patient was monitored for clearance of his bacteremia and then plans for the completion course of antibiotic therapy given his current sepsis. 10/20/2017 reveals the patient is improving. He is showing hemodynamic stability off of vasopressor therapy doing well with current antibiotic therapy with Fortaz. This will continue while further culture data is pending. Blood culture is positive for E. coli. Urine culture does have another gram-negative pathogen awaiting the final data. 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 10/21/2017 shows a patient is a bit more improved today. The moved out of the intensive care unit. Tolerating the intravenous antibiotic therapy with ceftazidime well. We'll plan to weeks of this antibiotic therapy for his bacteremic urinary tract infection. He will be going to extended care. Will need intravenous access to complete his course of antibiotic therapy. May be a candidate for a midline catheter. Current Visit: Yes Status: Acute Code(s): A41.50 - GRAM-NEGATIVE SEPSIS, UNSPECIFIED; R65.21 - SEVERE SEPSIS WITH SEPTIC SHOCK SNOMED Code(s): 061067148 (2) COPD (chronic obstructive pulmonary disease) Current Visit: Yes Status: Acute Code(s): J44.9 - CHRONIC OBSTRUCTIVE PULMONARY DISEASE, UNSPECIFIED SNOMED Code(s): 28888126 (3) Adrenal mass, left Current Visit: No Status: Acute Priority: High Code(s): E27.9 - DISORDER OF ADRENAL GLAND, UNSPECIFIED SNOMED Code(s): 267635119
[2017-10-22] MEDS: SODIUM CHLORIDE 0.9% 1,000 ML IV SCH ×3 (05:33→22:37)
[2017-10-22 06:24] LABS: Basophils % (A) 0 %; Eosinophils # (A) 0.1 k/uL (0-0.7); Eosinophils % (A) 0 %; HCT 32.9 % (39.0-53.0); HGB 10.3 gm/dL (13.0-17.5); Hypochromasia Moderate; Lymphocytes # (A) 1.1 k/uL (1.0-4.8); Lymphocytes % (A) 9 %; MCH 30.3 pg (25.0-35.0); MCHC 31.4 g/dL (31.0-37.0); MCV 96.5 fL (80.0-100.0); Mean Platelet Volume 9.8; Monocytes # (A) 0.6 k/uL (0-1.0); Monocytes % (A) 5 %; Neutrophils # (A) 10.8 k/uL (1.3-7.7); Neutrophils % (A) 84 %; RBC 3.41 m/uL (4.30-5.90); RDW 14.5 % (11.5-15.5); WBC 12.8 k/uL (3.8-10.6)
[2017-10-22 06:28] LABS: Platelet Count 62 k/uL (150-450)
[2017-10-22 06:36] LABS: ALT 113 U/L (21-72); AST 91 U/L (17-59); Albumin 1.7 g/dL (3.5-5.0); Alkaline Phosphatase 109 U/L (38-126); Anion Gap 5 mmol/L; Blood Urea Nitrogen 24 mg/dL (9-20); Calcium 7.3 mg/dL (8.4-10.2); Carbon Dioxide 22 mmol/L (22-30); Chloride 115 mmol/L (98-107); Glucose 94 mg/dL (74-99); Potassium 3.6 mmol/L (3.5-5.1); Sodium 142 mmol/L (137-145); Total Bilirubin 0.7 mg/dL (0.2-1.3); Total Protein 4.8 g/dL (6.3-8.2)
[2017-10-22] MEDS: PANTOPRAZOLE 40 MG TABLET PO SCH (06:51)
[2017-10-22] MEDS: IPRATROPIUM-ALBUTEROL 3 ML NEB INHALATION SCH ×4 (08:25→21:34)
[2017-10-22] MEDS: FUROSEMIDE 40 MG TAB PO SCH (09:05)
[2017-10-22] MEDS: HEPARIN SODIUM,PORCINE 5,000 UNIT/ML 1 ML VIAL SQ SCH ×4 (09:05→23:25)
[2017-10-22] MEDS: HYDROCORTISONE SUCCINATE 100 MG/2 ML VIAL IV SCH (09:05)
[2017-10-22] MEDS: POTASSIUM CHLORIDE ER 10 MEQ TAB.ER.PRT PO SCH (09:06)
[2017-10-22] MEDS: METOPROLOL TARTRATE 50 MG TAB PO SCH ×2 (09:06→20:44)
[2017-10-22] MEDS: PRIMIDONE 50 MG TAB PO SCH ×3 (09:06→20:44)
[2017-10-22] MEDS: LEVOFLOXACIN 750 MG TAB PO SCH (09:06)
[2017-10-22] MEDS: LISINOPRIL 20 MG TAB PO SCH ×2 (09:06→20:44)
[2017-10-22] MEDS: PHYTONADIONE 10 MG in SODIUM CHLORIDE 0.9% 50 ML IVPB SCH (09:59)
[2017-10-22] MEDS: IBUPROFEN 600 MG TAB PO PRN (10:56)
[2017-10-22] MEDS ORDERED: FUROSEMIDE 10 MG/ML 10 ML VIAL IV STA (15:29)
--- NOTE | 2017-10-22 16:16 | PN ---
PROGRESS NOTE DATE OF SERVICE: 10/22/2017 This patient has shortness of breath. He is sleepy but arousable. He has significant distention of his abdomen. On physical examination, his blood pressure is 103/61, respiratory rate of 24, pulse rate of 83, temperature 97.3. Oxygen saturation on 3 L by nasal cannula is 98%. HEENT is unremarkable. Chest reveals occasional rhonchi with crackles in the bases. Cardiovascular system reveals an S1, S2. Abdomen is distended. Bowel sounds are heard. There is 1+ pedal edema. Labs reveal a white count of 12.8, hemoglobin of 10.3. Microbiological cultures have shown E coli and pseudomonas in the urine, but blood cultures from the 10/17/2017 have shown E coli; from 10/18/2017 are negative. IMPRESSION AT THIS TIME: 1. Sepsis with septic shock secondary to urinary source. 2. Metastatic hepatocellular cancer. 3. Medical debility. 4. Acute respiratory failure which may in part be due to fluid overload and compression of the lungs by elevation of the hemidiaphragm from abdominal distention. At this point in time, continue antibiotics, give him a single dose of Lasix, have him seen by Oncology. Would recommend a no-code status once seen by Oncology, depending on his prognosis, which seems guarded at this time. MMODL / IJN: [id number] /
--- NOTE | 2017-10-22 21:59 | P.PN ---
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 The patient has been at rehab getting some recovery. The patient however started to become very ill and was transferred to Hospital for concerns to underlying infection. The patient was found evidence of sepsis and was brought to the intensive care unit where he is required fluid resuscitation and vasopressor therapy for his sepsis with shock. Fortunately he is getting somewhat better this evening. His pain is under good control. He believes he had a fever but not currently. He is not having significant chills or rigors. He has a catheter in place at this time. He relates that he has a bit of an appetite and is denying nausea or emesis. He does however feel very weak and ill. 10/20/2017 reveals the patient to have some improvement. He is off of his vasopressor therapy. Blood pressure is stable and he has good urinary output. He is not able to eat some of his medial he denies nausea or emesis. 10/21/2017 reveals the patient has been moved out of the intensive care unit. He is feeling somewhat better and is looking forward to his transfer to extended care the next few days as he is improved. The patient's appetite is poor but he is attempting to improve his protein intake. Denies nausea or emesis. Denies shortness of breath. No further hypotension. The patient responding well to hepatic therapy for his sepsis. 10/22/2017 reveals the patient to have no new complaints now that he is out of the intensive care unit. Is tolerating the current antibiotic therapy well. It remains unclear if any change of treatment plans are occurring in the bases of his documented metastatic cancer. Specifically wondering if he was going to palliative or hospice care. Objective - Vital Signs Vital signs: Vital Signs Temp 97.5 F L 10/22/17 18:37 Pulse 94 10/22/17 21:47 Resp 20 10/22/17 18:37 BP 96/54 10/22/17 18:37 Pulse Ox 100 10/22/17 18:37 Intake & Output 10/22/17 10/22/17 10/23/17 06:59 18:59 07:59 Intake Total 474 Output Total 500 0 Balance -500 474 Weight 74 kg Intake: Oral 474 Output: Urine 500 0 Stool 0 Other: Voiding Method Indwelling Catheter - Exam Gen: This is a disheveled appearing 67-year-old male. HEENT: Head is atraumatic, normocephalic. Pupils right is round and reactive to light, left is abnormally shaped. Sclerae is anicteric. Conjunctiva pink. Mucous membranes of the mouth are slightly dry. Patient is edentulous NECK: Supple. No JVD. No lymphadenopathy. No thyromegaly. LUNGS: Scattered wheezes noted throughout. Good air exchange.. No intercostal retractions. HEART: Regular rate and rhythm. No murmur. ABDOMEN: Soft. Bowel sounds are present. No masses. No tenderness. Continues to have the significant ascites but not much tenderness EXTREMITIES: 2+ pedal edema to the left foot. The residual limb to the right is healing well with no drainage not very tender NEUROLOGICAL: Patient is awake, alert relates is somewhat comfortable - Labs CBC & Chem 7: 10/22/17 05:41 10/22/17 05:41 Labs: Abnormal Lab Results - Last 24 Hours (Table) 10/22/17 10/22/17 Range/Units 05:41 05:41 WBC 12.8 H (3.8-10.6) k/uL RBC 3.41 L (4.30-5.90) m/uL Hgb 10.3 L (13.0-17.5) gm/dL Hct 32.9 L (39.0-53.0) % Plt Count 62 L (150-450) k/uL Neutrophils # 10.8 H (1.3-7.7) k/uL Chloride 115 H (98-107) mmol/L BUN 24 H (9-20) mg/dL Creatinine 0.60 L (0.66-1.25) mg/dL Calcium 7.3 L (8.4-10.2) mg/dL AST 91 H (17-59) U/L ALT 113 H (21-72) U/L Total Protein 4.8 L (6.3-8.2) g/dL Albumin 1.7 L (3.5-5.0) g/dL Laboratory Results WBC 12.8 k/uL (3.8-10.6) H 10/22/17 05:41 RBC 3.41 m/uL (4.30-5.90) L 10/22/17 05:41 Hgb 10.3 gm/dL (13.0-17.5) L 10/22/17 05:41 Hct 32.9 % (39.0-53.0) L 10/22/17 05:41 MCV 96.5 fL (80.0-100.0) 10/22/17 05:41 MCH 30.3 pg (25.0-35.0) 10/22/17 05:41 MCHC 31.4 g/dL (31.0-37.0) 10/22/17 05:41 RDW 14.5 % (11.5-15.5) 10/22/17 05:41 Plt Count 62 k/uL (150-450) L 10/22/17 05:41 Neutrophils % 84 % 10/22/17 05:41 Neutrophils % (Manual) 54 % 10/20/17 04:54 Band Neutrophils % 43 % 10/20/17 04:54 Lymphocytes % 9 % 10/22/17 05:41 Lymphocytes % (Manual) 2 % 10/20/17 04:54 Monocytes % 5 % 10/22/17 05:41 Monocytes % (Manual) 1 % 10/20/17 04:54 Eosinophils % 0 % 10/22/17 05:41 Basophils % 0 % 10/22/17 05:41 Neutrophils # 10.8 k/uL (1.3-7.7) H 10/22/17 05:41 Neutrophils # (Manual) 16.10 k/uL (1.3-7.7) H 10/20/17 04:54 Lymphocytes # 1.1 k/uL (1.0-4.8) 10/22/17 05:41 Lymphocytes # (Manual) 0.33 k/uL (1.0-4.8) L 10/20/17 04:54 Monocytes # 0.6 k/uL (0-1.0) 10/22/17 05:41 Monocytes # (Manual) 0.17 k/uL (0-1.0) 10/20/17 04:54 Eosinophils # 0.1 k/uL (0-0.7) 10/22/17 05:41 Basophils # 0.0 k/uL (0-0.2) 10/22/17 05:41 Nucleated RBCs 0 /100 WBC (0-0) 10/20/17 04:54 Manual Slide Review Performed 10/21/17 06:03 Toxic Granulation Present 10/20/17 04:54 Toxic Vacuolation Present 10/20/17 04:54 Hypochromasia Moderate 10/22/17 05:41 Poikilocytosis (manual Present 10/21/17 06:03 PT 13.6 sec (9.0-12.0) H 10/20/17 08:05 INR 1.5 (<1.2) H 10/20/17 08:05 APTT 50.2 sec (22.0-30.0) H 10/20/17 08:05 D-Dimer 5.01 mg/L FEU (<0.60) H 10/18/17 05:03 Sample Site R radial 10/19/17 16:28 ABG pH 7.36 (7.35-7.45) 10/19/17 16:28 ABG pCO2 28 mmHg (35-45) L 10/19/17 16:28 ABG pO2 96 mmHg (83-108) 10/19/17 16:28 ABG HCO3 16 mmol/L (21-25) L 10/19/17 16:28 ABG Total CO2 17 mmol/L (19-24) L 10/19/17 16:28 ABG O2 Saturation 97.3 % (94-97) H 10/19/17 16:28 ABG Base Excess -9.3 mmol/L 10/19/17 16:28 Abhilash Test Yes 10/19/17 16:28 FiO2 28 % 10/19/17 16:28 Sodium 142 mmol/L (137-145) 10/22/17 05:41 Potassium 3.6 mmol/L (3.5-5.1) 10/22/17 05:41 Chloride 115 mmol/L (98-107) H 10/22/17 05:41 Carbon Dioxide 22 mmol/L (22-30) 10/22/17 05:41 Anion Gap 5 mmol/L 10/22/17 05:41 BUN 24 mg/dL (9-20) H 10/22/17 05:41 Creatinine 0.60 mg/dL (0.66-1.25) L 10/22/17 05:41 Est GFR (MDRD) Af Amer >60 (>60 ml/min/1.73 sqM) 10/18/17 05:03 Est GFR (MDRD) Non-Af >60 (>60 ml/min/1.73 sqM) 10/18/17 05:03 Est GFR (CKD-EPI)AfAm >90 (>60 ml/min/1.73 sqM) 10/22/17 05:41 Est GFR (CKD-EPI)NonAf >90 (>60 ml/min/1.73 sqM) 10/22/17 05:41 Glucose 94 mg/dL (74-99) 10/22/17 05:41 POC Glucose (mg/dL) 69 mg/dL (75-99) L 10/19/17 17:15 POC Glu [employer] Assistant ID Lisa Pearson 10/19/17 17:15 Lactic Ac Sepsis Rflx Y 10/20/17 08:42 Plasma Lactic Acid Felipe 2.8 mmol/L (0.7-2.0) H* 10/20/17 11:57 Calcium 7.3 mg/dL (8.4-10.2) L 10/22/17 05:41 Phosphorus 2.7 mg/dL (2.5-4.5) 10/19/17 16:16 Magnesium 2.2 mg/dL (1.6-2.3) 10/21/17 06:03 Total Bilirubin 0.7 mg/dL (0.2-1.3) 10/22/17 05:41 AST 91 U/L (17-59) H 10/22/17 05:41 ALT 113 U/L (21-72) H 10/22/17 05:41 Alkaline Phosphatase 109 U/L (38-126) 10/22/17 05:41 Troponin I 0.034 ng/mL (0.000-0.034) 10/18/17 05:03 NT-Pro-B Natriuret Pep 575 pg/mL 10/18/17 05:03 Total Protein 4.8 g/dL (6.3-8.2) L 10/22/17 05:41 Albumin 1.7 g/dL (3.5-5.0) L 10/22/17 05:41 Cortisol 38 ug/dL 10/19/17 16:16 Urine Color Yellow 10/18/17 05:41 Urine Appearance Turbid (Clear) 10/18/17 05:41 Urine pH 6.0 (5.0-8.0) 10/18/17 05:41 Ur Specific [place] 1.016 (1.001-1.035) 10/18/17 05:41 Urine Protein 2+ (Negative) H 10/18/17 05:41 Urine Glucose (UA) Negative (Negative) 10/18/17 05:41 Urine Ketones Negative (Negative) 10/18/17 05:41 Urine Blood Large (Negative) H 10/18/17 05:41 Urine Nitrite Negative (Negative) 10/18/17 05:41 Urine Bilirubin Negative (Negative) 10/18/17 05:41 Urine Urobilinogen 8.0 mg/dL (<2.0) 10/18/17 05:41 Ur Leukocyte Esterase Large (Negative) H 10/18/17 05:41 Urine RBC 101 /hpf (0-5) H 10/18/17 05:41 Urine WBC >182 /hpf (0-5) H 10/18/17 05:41 Urine WBC Clumps Many /hpf (None) H 10/18/17 05:41 Urine Bacteria Many /hpf (None) H 10/18/17 05:41 Urine Mucus Many /hpf (None) H 10/18/17 05:41 Influenza Type A RNA Not Detected (Not Detectd) 10/18/17 06:03 Influenza Type B (PCR) Not Detected (Not Detectd) 10/18/17 06:03 Microbiology 10/18/17 05:41 Urine,Catheterized Urine Culture - Final Escherichia coli Pseudomonas aeruginosa 10/17/17 05:03 Blood Blood Culture Gram Stain - Final 10/17/17 05:03 Blood Blood Culture - Final Escherichia coli 10/18/17 05:03 Blood Blood Culture - Final Assessment and Plan (1) Sepsis due to Gram-negative organism with septic shock Narrative/Plan: 67-year-old male presents to Hospital feeling very poorly from the extended care facility. His thought evidence of significant sepsis but then develops into shock requiring transition to the intensive care unit with fluid resuscitation and vasopressor therapy. The patient is feeling slightly better this evening. His hypotension is improving with intervention. Urine output is improving. The patient has evidence of gram-negative sepsis and with the concern to the recent urinary infection with Pseudomonas antibiotics therapy as transition from quinolone therapy because of concerns to resistance to ceftazidime to ensure coverage for the recently isolated Pseudomonas while cultures are pending. The patient relates he is feeling slightly better this evening. He has been able to ingest a bit of fluids and food. He has had anemia and that has been part of workup due to the abnormality is by his CAT scans with mass. He has had an adrenal biopsy performed and the final result is pending with concerns to metastatic cancer is etiology. With his marked abnormality some liver that would be concerned to a primary source of underlying malignancy contributing to his overall markedly declining status, ascites and marked abnormality is his liver by imaging study. Patient was monitored for clearance of his bacteremia and then plans for the completion course of antibiotic therapy given his current sepsis. 10/20/2017 reveals the patient is improving. He is showing hemodynamic stability off of vasopressor therapy doing well with current antibiotic therapy with Fortaz. This will continue while further culture data is pending. Blood culture is positive for E. coli. Urine culture does have another gram-negative pathogen awaiting the final data. 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 10/21/2017 shows a patient is a bit more improved today. The moved out of the intensive care unit. Tolerating the intravenous antibiotic therapy with ceftazidime well. We'll plan to weeks of this antibiotic therapy for his bacteremic urinary tract infection. He will be going to extended care. Will need intravenous access to complete his course of antibiotic therapy. May be a candidate for a midline catheter. 10/22/2017 patient is comfortable is tolerating the intravenous antibiotic therapy with Fortaz well with no trouble such as nausea emesis or diarrhea. Appetite remains poor and he continues to have the extensive abdominal distention. Although he is not having severe pain. He does have evidence of the bacteremic urinary tract infection and will need a course of intravenous antibiotic therapy if ongoing aggressive therapy is planned in face of his recently proven metastatic cancer. Placement of [facility] apparently is in process. Current Visit: Yes Status: Acute Code(s): A41.50 - GRAM-NEGATIVE SEPSIS, UNSPECIFIED; R65.21 - SEVERE SEPSIS WITH SEPTIC SHOCK SNOMED Code(s): 413057442 (2) COPD (chronic obstructive pulmonary disease) Current Visit: Yes Status: Acute Code(s): J44.9 - CHRONIC OBSTRUCTIVE PULMONARY DISEASE, UNSPECIFIED SNOMED Code(s): 00302733 (3) Adrenal mass, left Current Visit: No Status: Acute Priority: High Code(s): E27.9 - DISORDER OF ADRENAL GLAND, UNSPECIFIED SNOMED Code(s): 199242775
--- NOTE | 2017-10-22 22:29 | P.PN ---
Subjective Progress Note Date: 10/21/17 Principal diagnosis: Sepsis secondary to urinary tract infection This is a continue present 67-year-old white male with known history of below- knee" secondary to PAD osteomyelitis who has an underlying history of COPD. He is essentially admitted for UTI with sepsis and hypotensive. Patient was also found have ileus which has resolved now. 10/21/2017 Patient says that he feels better. Patient did have multiple bowel movements otherwise. Urine culture showed E. coli and Pseudomonas. Antibiotics as per ID recommendations. Otherwise denied any nausea or vomiting. No shortness of breath. Hypotension resolved by police stable now. Patient is more awake and oriented today All other review of systems negative except the above Current medications reviewed Objective - Vital Signs Vital signs: Vital Signs Temp 97.5 F L 10/21/17 19:56 Pulse 90 10/21/17 19:56 Resp 20 10/21/17 19:56 BP 111/62 10/21/17 19:56 Pulse Ox 97 10/21/17 19:56 Intake & Output 10/21/17 10/21/17 10/22/17 06:59 18:59 06:59 Intake Total 1500 1494 Output Total 0 1200 Balance 1500 294 Weight 74 kg 74 kg Intake: IV 1100 800 Sodium Chloride 0.9% 1, 1100 800 000 ml @ 100 mls/hr IV . Q10H TIANNA Rx#:[id number] Intake, IV Titration 200 Amount cefTAZidime 2 gm In 200 Sodium Chloride 0.9% 100 ml @ 100 mls/hr IVPB Q8H TIANNA Rx#:[id number] Oral 200 694 Output: Urine 0 1200 Stool 0 Other: Voiding Method Indwelling Catheter Indwelling Catheter # Voids 1 # Bowel Movements 1 - Exam PHYSICAL EXAMINATION: Patient is lying in the bed comfortably, no acute distress, awake alert and oriented.. HEENT: Normocephalic. Neck is supple. Pupils reactive. Nostrils clear. Oral cavity is moist. Ears reveal no drainage. Neck reveals no JVD, carotid bruits, or thyromegaly. CHEST EXAMINATION: Trachea is central. Symmetrical expansion. Lung clark clear to auscultation and percussion. CARDIAC: Normal S1, S2 with no gallops. No murmurs ABDOMEN: Soft. Bowel sounds normal. No organomegaly. No abdominal bruits. Extremities: Left lower extremity to 1+ edema . Patient does have right above Knee amputation Neurologically awake, alert, oriented x3 with well-coordinated movements. No focal deficits noted Skin: No rash or skin lesions. Psychiatric: Cooperative. Nonsuicidal Musculoskeletal: No joint swelling or deformity. Normal range of motion. - Labs CBC & Chem 7: 10/22/17 05:41 03 05:41 Labs: Abnormal Lab Results - Last 24 Hours (Table) 10/21/17 10/21/17 Range/Units 06:03 06:03 WBC 13.4 H (3.8-10.6) k/uL RBC 3.20 L (4.30-5.90) m/uL Hgb 9.8 L (13.0-17.5) gm/dL Hct 30.6 L (39.0-53.0) % Plt Count 87 L (150-450) k/uL Neutrophils # 11.6 H (1.3-7.7) k/uL Lymphocytes # 0.7 L (1.0-4.8) k/uL Chloride 115 H (98-107) mmol/L Carbon Dioxide 21 L (22-30) mmol/L BUN 26 H (9-20) mg/dL Creatinine 0.60 L (0.66-1.25) mg/dL Glucose 108 H (74-99) mg/dL Calcium 7.1 L (8.4-10.2) mg/dL AST 254 H (17-59) U/L ALT 162 H (21-72) U/L Total Protein 4.8 L (6.3-8.2) g/dL Albumin 1.6 L (3.5-5.0) g/dL Microbiology - Last 24 Hours (Table) 10/18/17 05:41 Urine Culture - Final Urine,Catheterized Escherichia coli Pseudomonas aeruginosa Assessment and Plan Assessment: Severe sepsis with hypotension likely related to severe septic process from complicated urinary tract infection E. coli and Pseudomonas urinary tract infection Metastatic hepatocellular carcinoma on recent biopsy. Severe hypotension. On stress dose steroids. Improved now. Multiple lesions in the liver as well as spine lesion the sternal lesion and add renal mass likely suggestive of neoplastic process Abdominal distention likely gases distention related to small bowel dilated loops and obstruction as no significant ascites has been noted on ultrasound of the abdomen E. coli bacteremia Severe protein malnutrition Plan Patient will be continued on antibiotics in the form of ceftazidime and Levaquin. ID and pulmonary is following. Continue with steroid taper. Further recommendations based on the clinical course. Anticipate discharged to extended care facility. Time with Patient: Greater than 30
--- NOTE | 2017-10-22 22:33 | P.PN ---
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 He is essentially admitted for UTI with sepsis and hypotensive. Patient was also found have ileus which has resolved now. 10/21/2017 Patient says that he feels better. Patient did have multiple bowel movements otherwise. Urine culture showed E. coli and Pseudomonas. Antibiotics as per ID recommendations. Otherwise denied any nausea or vomiting. No shortness of breath. Hypotension resolved by police stable now. Patient is more awake and oriented today. 10/22/2017 Patient denied any new complaints today. Patient did have bowel movement yesterday. Otherwise no complex of chest pain or shortness of breath. Recent biopsy showed metastatic hepatocellular carcinoma. Otherwise no acute overnight issues. Patient is being continued on IV antibiotics. All other review of systems negative except the above Current medications reviewed Objective - Vital Signs Vital signs: Vital Signs Temp 97.5 F L 10/22/17 18:37 Pulse 88 10/22/17 21:34 Resp 20 10/22/17 18:37 BP 96/54 10/22/17 18:37 Pulse Ox 100 10/22/17 18:37 Intake & Output 10/22/17 10/22/17 10/23/17 06:59 18:59 07:59 Intake Total 474 Output Total 500 0 Balance -500 474 Weight 74 kg Intake: Oral 474 Output: Urine 500 0 Stool 0 Other: Voiding Method Indwelling Catheter - Exam PHYSICAL EXAMINATION: Patient is lying in the bed comfortably, no acute distress, awake alert and oriented.. HEENT: Normocephalic. Neck is supple. Pupils reactive. Nostrils clear. Oral cavity is moist. Ears reveal no drainage. Neck reveals no JVD, carotid bruits, or thyromegaly. CHEST EXAMINATION: Trachea is central. Symmetrical expansion. Lung clark clear to auscultation and percussion. CARDIAC: Normal S1, S2 with no gallops. No murmurs ABDOMEN: Soft. Bowel sounds normal. No organomegaly. No abdominal bruits. Extremities: Left lower extremity to 1+ edema . Patient does have right above Knee amputation Neurologically awake, alert, oriented x3 with well-coordinated movements. No focal deficits noted Skin: No rash or skin lesions. Psychiatric: Cooperative. Nonsuicidal Musculoskeletal: No joint swelling or deformity. Normal range of motion. - Labs CBC & Chem 7: 10/22/17 05:41 10/22/17 05:41 Labs: Abnormal Lab Results - Last 24 Hours (Table) 10/22/17 10/22/17 Range/Units 05:41 05:41 WBC 12.8 H (3.8-10.6) k/uL RBC 3.41 L (4.30-5.90) m/uL Hgb 10.3 L (13.0-17.5) gm/dL Hct 32.9 L (39.0-53.0) % Plt Count 62 L (150-450) k/uL Neutrophils # 10.8 H (1.3-7.7) k/uL Chloride 115 H (98-107) mmol/L BUN 24 H (9-20) mg/dL Creatinine 0.60 L (0.66-1.25) mg/dL Calcium 7.3 L (8.4-10.2) mg/dL AST 91 H (17-59) U/L ALT 113 H (21-72) U/L Total Protein 4.8 L (6.3-8.2) g/dL Albumin 1.7 L (3.5-5.0) g/dL Assessment and Plan Assessment: Severe sepsis with hypotension likely related to severe septic process from complicated urinary tract infection E. coli and Pseudomonas urinary tract infection Metastatic hepatocellular carcinoma on recent biopsy. Severe hypotension. On stress dose steroids. Improved now. Multiple lesions in the liver as well as spine lesion the sternal lesion and add renal mass likely suggestive of neoplastic process Abdominal distention likely gases distention related to small bowel dilated loops and obstruction as no significant ascites has been noted on ultrasound of the abdomen E. coli bacteremia Severe protein malnutrition Plan Patient will be continued on antibiotics in the form of ceftazidime and Levaquin. ID and pulmonary is following. Continue with steroid taper. Further recommendations based on the clinical course. Prognosis is poor with metastatic cancer and multiple other medical problems and comorbid conditions. will discuss CODE STATUS with the patient and a possible transfer to hospice care. Time with Patient: Greater than 30
[2017-10-23] MEDS: PANTOPRAZOLE 40 MG TABLET PO SCH (06:35)
[2017-10-23 07:28] LABS: ALT 70 U/L (21-72); AST 38 U/L (17-59); Albumin 1.6 g/dL (3.5-5.0); Alkaline Phosphatase 71 U/L (38-126); Anion Gap 3 mmol/L; Blood Urea Nitrogen 23 mg/dL (9-20); Calcium 7.4 mg/dL (8.4-10.2); Carbon Dioxide 24 mmol/L (22-30); Chloride 116 mmol/L (98-107); Glucose 88 mg/dL (74-99); Potassium 3.3 mmol/L (3.5-5.1); Sodium 143 mmol/L (137-145); Total Bilirubin 0.8 mg/dL (0.2-1.3); Total Protein 4.7 g/dL (6.3-8.2)
[2017-10-23 07:45] LABS: Basophils # (A) 0.1 k/uL (0-0.2); Basophils % (A) 1 %; Eosinophils # (A) 0.1 k/uL (0-0.7); Eosinophils % (A) 1 %; HCT 30.6 % (39.0-53.0); HGB 9.9 gm/dL (13.0-17.5); Lymphocytes # (A) 1.4 k/uL (1.0-4.8); Lymphocytes % (A) 17 %; MCH 30.7 pg (25.0-35.0); MCHC 32.4 g/dL (31.0-37.0); MCV 94.7 fL (80.0-100.0); Mean Platelet Volume 8.7; Monocytes # (A) 0.6 k/uL (0-1.0); Monocytes % (A) 7 %; Neutrophils # (A) 6.2 k/uL (1.3-7.7); Neutrophils % (A) 72 %; RBC 3.23 m/uL (4.30-5.90); RDW 14.5 % (11.5-15.5); WBC 8.6 k/uL (3.8-10.6)
[2017-10-23] MEDS: IPRATROPIUM-ALBUTEROL 3 ML NEB INHALATION SCH ×4 (08:28→20:51)
[2017-10-23 08:52] LABS: Platelet Count 58 k/uL (150-450); Polychromasia Present
[2017-10-23] MEDS: HYDROcodone/APAP 5-325MG 1 EACH TAB PO PRN ×3 (09:17→20:38)
[2017-10-23] MEDS: FUROSEMIDE 40 MG TAB PO SCH (09:19)
[2017-10-23] MEDS: HYDROCORTISONE SUCCINATE 100 MG/2 ML VIAL IV SCH (09:19)
[2017-10-23] MEDS: POTASSIUM CHLORIDE ER 10 MEQ TAB.ER.PRT PO SCH (09:19)
[2017-10-23] MEDS: HEPARIN SODIUM,PORCINE 5,000 UNIT/ML 1 ML VIAL SQ SCH ×2 (09:19→17:14)
[2017-10-23] MEDS: METOPROLOL TARTRATE 50 MG TAB PO SCH ×2 (09:20→20:38)
[2017-10-23] MEDS: LISINOPRIL 20 MG TAB PO SCH ×2 (09:20→20:40)
[2017-10-23] MEDS: PRIMIDONE 50 MG TAB PO SCH ×3 (09:20→20:38)
[2017-10-23] MEDS: LEVOFLOXACIN 750 MG TAB PO SCH (09:20)
[2017-10-23] MEDS: PHYTONADIONE 10 MG in SODIUM CHLORIDE 0.9% 50 ML IVPB SCH (10:21)
--- NOTE | 2017-10-23 10:45 | P.CONS ---
History of Present Illness - Reason for Consult Consult date: 10/23/17 - History of Present Illness Mr Dial is a 67 yr old WM, with a known h/o Hep C, who had treatment with Interferon in 2007. His routine labs from 04/12/13 showed a relative neutropenia and lymphocytosis. Apparently this was a new finding, and previous CBC's were not available to me. The pt denied any intercurrent illness or h/o blood problems in the past. Additional w/u was ordered. This was negative for any lymphoproliferative disorder. His US did show a suspicious mass in the liver. Thus CT scans and labs were ordered, confirming a suspicious mass, and elevated AFP. He was referred for a liver biopsy and had that on 06/11/13. This was non -diagnostic and the pt was referred to [facility]. After discussion of his case at their [facility], a percutaneous core biopsy was done with CT guidance, on 08/31/13. This was negative for malignancy, and no further f/u was scheduled at [facility]. He was thus placed on surveillance. He did not follow up in the office after late 2013 He was seen in the hospital again in consultation in late 05/01. He had been admitted with swelling in his lower extremities after having a hip replacement about a month prior. Doppler revealed a nonocclusive DVT, but appeared to be old, at the CFV junction and mid femoral vein. He was having difficulty with urination, an ultrasound of the abdomen and bladder incidentally revealed a left adrenal mass. He therefore had a CT scan of the abdomen and pelvis which confirmed the presence of a left adrenal mass in the 6- 7 cm range. However it was not definite evidence this was a hematoma versus an actual mass. He had a CT of the chest done which revealed no significant pathology in the chest. Incidentally mentioned metastatic-appearing lesions in the liver. However nodular fibrosis could not be ruled out. The patient unfortunately during this time, had developed nonhealing ulcer on the right foot. He was diagnosed with gangrene related to severe peripheral vascular disease. He had to have a right above-knee amputation on 05/25/17. He was then transferred to subacute rehabilitation. He was discharged on and seen for follow-up on 06/23/17 He had a MRI of the abdomen ordered, which he finally scheduled in 09/01, after multiple delays on his part.. This confirmed an 8.5 cm mass related to the left adrenal gland, with extension into the left renal vein. An additional 2.5 cm hypodensity was seen in the left adrenal. The liver had innumerable nodules with enhancement suspicious for mets, along with areas of enhancement in L2,L5 and T12. Hep C ab was positive, with Hep B testing negative. An adrenal biopsy was ordered in 09/01. This will also be scheduled multiple times by his brother who is the primary caregiver, and due to logistical reasons related to transportation. Ultimately the patient had that on 10/13/17. This was positive for metastatic hepatocellular carcinoma. The patient was supposed to be seen in the office for follow-up regarding these results He was admitted this time with hypotension due to sepsis. He required ICU care and vasopressor support. The source was felt to be the urine. He has improved with aggressive supportive care. During this admission he has developed progressive abdominal distention and scrotal edema. Consult was placed for further evaluation and recommendations Review of Systems Constitutional: Reports chronic pain, Reports fatigue, Reports poor appetite, Reports weakness, Reports weight loss Eyes: denies blurred vision, denies pain Ears: deny: decreased hearing, ear discharge, earache, tinnitus Ears, nose, mouth and throat: Denies headache, Denies sore throat Cardiovascular: Reports claudication, Reports dyspnea on exertion Respiratory: Denies cough Gastrointestinal: Reports as per HPI Genitourinary: Reports as per HPI (Progressive scrotal edema) Musculoskeletal: Reports as per HPI, Reports prior amputations, Reports shooting leg pain (Ongoing pain in the right stump) Integumentary: Reports dryness, Reports foot/leg ulcers Neurological: Reports weakness Psychiatric: Denies anxiety, Denies depression Endocrine: Reports weight change Hematologic/Lymphatic: Reports as per HPI Past Medical History Past Medical History: Atrial Fibrillation, COPD, GERD/Reflux, Hypertension, Liver Disease, Myocardial Infarction (ND), Osteoarthritis (OA) Additional Past Medical History / Comment(s): Acute kidney failure/obstructive uropathy-has IDC last changed 10/16/17, UTI with sepsis, AMS, 03/31/17 R hip fracture with surgery twice, perforatic gastric ulcer 2016(had sx), ddd lumbar, herniated discs, hemorrhoids, liver lesions and L adrenal mass which pt states where worked up at and in the past pt states he was told they are benign-pt had left adrenal biopsy 10/13/17 and does not have results yet, hep c, legally blind-sees better with R eye, past alcoholism, PVD, nonocclusive trombosis R lower leg, past R foot infection now has R aka amputation and decub on coccyx is now healed per pt. Last Myocardial Infarction Date:: 2007 History of Any Multi-Drug Resistant Organisms: MRSA Year Discovered:: 05/08/17 MDRO Source:: ,FOOT Past Surgical History: Orthopedic Surgery Additional Past Surgical History / Comment(s): 10/13/17 L adrenal mass bx, closed reduction percutaneous pinning R hip-then removal of hardware and hemiathroplasty done, vasectomy, bilateral cataracts removed with lens implants , liver bxs 2006, antrectomy w/gastroenterostomy 2015, colonoscopy, reduction paraphimosis. Past Anesthesia/Blood Transfusion Reactions: No Reported Reaction Smoking Status: Current every day smoker - Past Family History Mother History Unknown: Yes Family Medical History: Cancer, Diabetes Mellitus, Hypertension Additional Family Medical History / Comment(s): Pt believes that mother had stomach cancer. Father History Unknown: Yes Family Medical History: Liver Disease, Seizure Disorder Additional Family Medical History / Comment(s): alcoholic Brother(s) History Unknown: Yes Family Medical History: Liver Disease Additional Family Medical History / Comment(s): aneurysm Medications and Allergies Home Medications Medication Instructions Recorded Confirmed Type Primidone [Mysoline] 50 mg PO TID 03/31/17 10/18/17 History Cyclobenzaprine HCl 10 mg PO BID PRN #0 04/19/17 10/18/17 Rx Furosemide [Lasix] 40 mg PO DAILY tab 05/17/17 10/18/17 Rx Lisinopril [Zestril] 20 mg PO BID 10/18/17 10/18/17 History Metoprolol Tartrate [Lopressor] 50 mg PO BID 10/18/17 10/18/17 History Omeprazole [Omeprazole] 20 mg PO BID 10/18/17 10/18/17 History Potassium Chloride [K-Tab ER] 10 meq PO DAILY 10/18/17 10/18/17 History Allergies Allergy/AdvReac Type Severity Reaction Status Date / Time peginterferon peg-2a Allergy Unknown Verified 10/18/17 08:42 [From Pegasys] Penicillins Allergy Rash/Hives Verified 10/18/17 08:42 Physical Exam Vitals: Vital Signs Temp Pulse Pulse Pulse Resp BP Pulse Ox 10/22/17 21:47 94 10/22/17 21:34 88 10/22/17 18:37 97.5 F L 83 20 96/54 100 10/22/17 16:41 100 10/22/17 16:31 84 10/22/17 15:43 97.3 F L 82 24 105/68 98 10/22/17 13:28 92 10/22/17 13:14 88 10/22/17 12:00 97.3 F L 83 24 103/61 98 10/22/17 10:01 24 96 10/22/17 10:00 26 H 84 L 10/22/17 08:43 90 10/22/17 08:27 84 10/22/17 08:00 97.2 F L 78 24 132/68 95 10/22/17 04:00 97.2 F L 78 78 21 118/72 10/22/17 00:00 98.1 F 82 16 122/72 98 Intake and Output 10/22/17 10/22/17 10/23/17 14:59 22:59 07:59 Intake Total 237 237 Output Total 0 1350 Balance 237 -1113 Intake: Oral 237 237 Output: Urine 0 1350 Stool 0 0 Other: Voiding Method Indwelling Catheter Indwelling Catheter - Constitutional General appearance: mild distress - EENT Eyes: PERRLA ENT: hearing grossly normal, normal oropharynx - Neck Thyroid: bilateral: normal size - Respiratory Respiratory: bilateral: diminished - Cardiovascular Rhythm: regular Heart sounds: normal: S1, S2 - Gastrointestinal Significant ascites by clinical exam General gastrointestinal: distended, normal bowel sounds - Integumentary Dusky discoloration, with dryness and discoloration of the left foot and left toes - Neurologic Neurologic: CNII-XII intact - Musculoskeletal Right above-knee amputation Musculoskeletal: generalized weakness - Psychiatric Psychiatric: A&O x's 3, appropriate affect Results CBC & Chem 7: 10/23/17 06:46 10/23/17 06:46 Labs: Abnormal Lab Results - Last 24 Hours (Table) 10/22/17 10/22/17 Range/Units 05:41 05:41 WBC 12.8 H (3.8-10.6) k/uL RBC 3.41 L (4.30-5.90) m/uL Hgb 10.3 L (13.0-17.5) gm/dL Hct 32.9 L (39.0-53.0) % Plt Count 62 L (150-450) k/uL Neutrophils # 10.8 H (1.3-7.7) k/uL Chloride 115 H (98-107) mmol/L BUN 24 H (9-20) mg/dL Creatinine 0.60 L (0.66-1.25) mg/dL Calcium 7.3 L (8.4-10.2) mg/dL AST 91 H (17-59) U/L ALT 113 H (21-72) U/L Total Protein 4.8 L (6.3-8.2) g/dL Albumin 1.7 L (3.5-5.0) g/dL CT scan - abdomen: report reviewed CT scan - chest: report reviewed CT scan - pelvis: report reviewed US - abdomen: report reviewed Assessment and Plan (1) 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 He has had workup for possible malignancy in the past which was negative, as noted in the HPI. He is now been diagnosed with metastatic hepatocellular carcinoma, via adrenal gland biopsy. As noted, the the workup, including MRI as well as the actual biopsy, had to be delayed and rescheduled multiple times, because of logistical issues on part of the patient's family, who are his caregivers. The diagnosis, and implications were discussed with him in detail. He appears to have progressive disease with further increase in size of the adrenal mass compared to the time of the initial finding. In addition he is also showing enlargement of mediastinal nodes, as well as upper abdominal nodes. The patient thus has stage IV disease, which is not curable. The mainstay of treatment would be systemic targeted therapy, to palliate symptoms and prolong life. However effectiveness of targeted therapy, specifically sorafenib, it is questionable in patients who have liver decompensation, and advanced cirrhosis. In addition the patient's performance status is very poor with multiple comorbidities. He would thus be at increased risk for intolerance and side effects. In addition he states that it is very difficult for him to arrange transportation to get back and forth for doctor visits. Based on the above it is felt that he would not be an optimal candidate for systemic treatment. Therefore comfort care was discussed with him. He is agreeable to the same. This will be discussed with his caregivers, and further arrangements made in this regard as appropriate Current Visit: Yes Status: Acute Code(s): C79.70 - SECONDARY MALIGNANT NEOPLASM OF UNSPECIFIED ADRENAL GLAND; C22.8 - MALIGNANT NEOPLASM OF LIVER, PRIMARY, UNSPECIFIED TO TYPE SNOMED Code(s): 63639660 (2) Ascites Narrative/Plan: Clinically the patient appears to have significant ascites. He also has marked scrotal swelling. Surprisingly abdominal ultrasound and CAT scan did not show enough fluid to tap. This will be reordered. Current Visit: No Status: Acute Code(s): R18.8 - OTHER ASCITES SNOMED Code (s): 268452998 Plan: Defer to the admitting service and other consultants for management of his multiple other medical issues, including recent sepsis, medical debility, and peripheral vascular occlusive disease.
[2017-10-23] MEDS: SODIUM CHLORIDE 0.9% 1,000 ML IV SCH ×2 (11:56→20:41)
[2017-10-23] MEDS: methylPREDNISolone SOD SUCCI 125 MG/2 ML VIAL IV SCH (20:39)
[2017-10-23] MEDS: BUDESONIDE 0.5 MG/2 ML NEBU INHALATION SCH (20:51)
--- NOTE | 2017-10-23 21:53 | PN ---
PROGRESS NOTE DATE OF SERVICE: 10/23/17 He was seen on October 23, 2017. He is more awake, alert, but continues to have some shortness of breath. His pain is under control at this time. PHYSICAL EXAMINATION: Respiratory rate is 20, pulse rate 82, temperature 98.2, blood pressure 104/80. HEENT: Unremarkable. Chest reveals decreased breath sounds at the bases. Cardiovascular system with an S1, S2. ABDOMEN: Abdomen is distended. There is no pedal edema. IMPRESSION: At this time. 1. Metastatic hepatocellular carcinoma. 2. Cirrhosis of the liver. 3. Sepsis with septic shock secondary to urinary source. 4. Acute respiratory failure in part due to fluid overload and bronchospasm. Would start him on a short course of steroids as well. Increase his activity level. We will follow him closely. Continue him on his current medications which were reviewed. MMULISESL / ROSENDON: [id number] /
--- NOTE | 2017-10-24 00:21 | P.PN ---
Subjective Progress Note Date: 10/23/17 Principal diagnosis: Sepsis secondary to urinary tract infection This is a continue present 67-year-old white male with known history of below- knee" secondary to PAD osteomyelitis who has an underlying history of COPD. He is essentially admitted for UTI with sepsis and hypotensive. Patient was also found have ileus which has resolved now. 10/21/2017 Patient says that he feels better. Patient did have multiple bowel movements otherwise. Urine culture showed E. coli and Pseudomonas. Antibiotics as per ID recommendations. Otherwise denied any nausea or vomiting. No shortness of breath. Hypotension resolved by police stable now. Patient is more awake and oriented today. 10/22/2017 Patient denied any new complaints today. Patient did have bowel movement yesterday. Otherwise no complex of chest pain or shortness of breath. Recent biopsy showed metastatic hepatocellular carcinoma. Otherwise no acute overnight issues. Patient is being continued on IV antibiotics. 10/23/2017 Patient is complaining of abdominal pain and discomfort. Abdomen is still distended. Otherwise patient feels very weak and lethargic. Oncology has seen the patient and recommended no further intervention at this time and recommended comfort care. Discussed with patient regarding CODE STATUS and possible comfort care and hospice transfer. Patient is agreeable and is awaiting to discussed with family to make final decision. Prognosis is poor. All other review of systems negative except the above Current medications reviewed Objective - Vital Signs Vital signs: Vital Signs Temp 98.2 F 10/23/17 15:49 Pulse 90 10/23/17 16:12 Resp 20 10/23/17 15:49 BP 104/80 10/23/17 15:49 Pulse Ox 100 10/23/17 15:49 Intake & Output 10/23/17 10/23/17 10/24/17 06:59 18:59 06:59 Intake Total 436 Output Total 0 Balance 436 Weight Intake: Oral 436 Output: Urine Stool 0 Other: Voiding Method Indwelling Catheter # Voids - Exam PHYSICAL EXAMINATION: Patient is lying in the bed comfortably, no acute distress, awake alert and oriented.. HEENT: Normocephalic. Neck is supple. Pupils reactive. Nostrils clear. Oral cavity is moist. Ears reveal no drainage. Neck reveals no JVD, carotid bruits, or thyromegaly. CHEST EXAMINATION: Trachea is central. Symmetrical expansion. Diminished air entry bilateral.. CARDIAC: Normal S1, S2 with no gallops. No murmurs ABDOMEN: Soft. Distended with diminished bowel sounds. No organomegaly. No abdominal bruits. Extremities: Left lower extremity to 2+ edema . Patient does have right above Knee amputation Neurologically awake, alert, oriented x3 with well-coordinated movements. No focal deficits noted Skin: No rash or skin lesions. Psychiatric: Cooperative. Nonsuicidal Musculoskeletal: No joint swelling or deformity. Normal range of motion. - Labs CBC & Chem 7: 10/23/17 06:46 10/23/17 06:46 Labs: Abnormal Lab Results - Last 24 Hours (Table) 10/23/17 10/23/17 Range/Units 06:46 06:46 RBC 3.23 L (4.30-5.90) m/uL Hgb 9.9 L (13.0-17.5) gm/dL Hct 30.6 L (39.0-53.0) % Plt Count 58 L (150-450) k/uL Potassium 3.3 L (3.5-5.1) mmol/L Chloride 116 H (98-107) mmol/L BUN 23 H (9-20) mg/dL Creatinine 0.60 L (0.66-1.25) mg/dL Calcium 7.4 L (8.4-10.2) mg/dL Total Protein 4.7 L (6.3-8.2) g/dL Albumin 1.6 L (3.5-5.0) g/dL Assessment and Plan Assessment: Severe sepsis with hypotension likely related to severe septic process from complicated urinary tract infection E. coli and Pseudomonas urinary tract infection Metastatic hepatocellular carcinoma on recent biopsy. Severe hypotension. On stress dose steroids. Improved now. Multiple lesions in the liver as well as spine lesion the sternal lesion and add renal mass likely suggestive of neoplastic process Abdominal distention likely gases distention related to small bowel dilated loops and obstruction as no significant ascites has been noted on ultrasound of the abdomen E. coli bacteremia Severe protein malnutrition Plan Patient will be continued on antibiotics in the form of ceftazidime and Levaquin. ID and pulmonary is following. Continue with steroid taper. Further recommendations based on the clinical course. Prognosis is poor with metastatic cancer and multiple other medical problems and comorbid conditions. Patient is a waiting to discuss with his brother who is going to come today to make finalization regarding CODE STATUS and possible transfer to comfort care. Time with Patient: Greater than 30
[2017-10-24] MEDS: SODIUM CHLORIDE 0.9% 1,000 ML IV SCH ×2 (00:33→05:48)
[2017-10-24] MEDS: methylPREDNISolone SOD SUCCI 125 MG/2 ML VIAL IV SCH ×3 (00:35→13:25)
[2017-10-24] MEDS: HEPARIN SODIUM,PORCINE 5,000 UNIT/ML 1 ML VIAL SQ SCH ×2 (00:38→10:01)
[2017-10-24 05:43] VITALS: TEMP 96
[2017-10-24] MEDS: PANTOPRAZOLE 40 MG TABLET PO SCH (07:02)
[2017-10-24 07:10] LABS: HCT 30.2 % (39.0-53.0); HGB 9.2 gm/dL (13.0-17.5); Hypochromasia Marked; MCH 29.9 pg (25.0-35.0); MCHC 30.3 g/dL (31.0-37.0); MCV 98.5 fL (80.0-100.0); Mean Platelet Volume 9.6; RBC 3.07 m/uL (4.30-5.90); RDW 14.6 % (11.5-15.5); WBC 6.3 k/uL (3.8-10.6)
[2017-10-24 07:12] LABS: ALT 55 U/L (21-72); AST 28 U/L (17-59); Albumin 1.6 g/dL (3.5-5.0); Alkaline Phosphatase 76 U/L (38-126); Anion Gap 5 mmol/L; Blood Urea Nitrogen 21 mg/dL (9-20); Calcium 7.5 mg/dL (8.4-10.2); Carbon Dioxide 21 mmol/L (22-30); Chloride 117 mmol/L (98-107); Glucose 159 mg/dL (74-99); Potassium 4.1 mmol/L (3.5-5.1); Sodium 143 mmol/L (137-145); Total Bilirubin 0.5 mg/dL (0.2-1.3); Total Protein 4.8 g/dL (6.3-8.2)
[2017-10-24 07:13] LABS: Platelet Count 69 k/uL (150-450)
--- NOTE | 2017-10-24 07:53 | P.PN ---
Subjective Principal diagnosis: Continue care This is a 67-year-old white male essentially admitted for acute renal failure with sepsis element. The patient was transferred ICU last week and is now more stabilizing. His heart rate is now stable he is more lucid and not complaining of any significant pain. Appetite seems to be nominal. No nausea, vomiting or diarrhea is noted. Objective - Vital Signs Vital signs: Vital Signs Temp 96.0 F L 10/24/17 04:00 Pulse 67 10/24/17 04:00 Resp 20 10/24/17 04:00 BP 97/57 10/24/17 04:00 Pulse Ox 99 10/24/17 04:00 Intake & Output 10/23/17 10/24/17 10/24/17 18:59 06:59 18:59 Intake Total 436 1440 Output Total 0 500 Balance 436 -500 1440 Weight 80 kg Intake: IV 1000 Sodium Chloride 0.9% 1, 1000 000 ml @ 100 mls/hr IV . Q10H TIANNA Rx#:[id number] Intake, IV Titration 200 Amount cefTAZidime 2 gm In 200 Sodium Chloride 0.9% 100 ml @ 100 mls/hr IVPB Q8H TIANNA Rx#:[id number] Oral 436 240 Output: Urine 500 Uretheral (Martin) 200 Stool 0 0 Other: Voiding Method Indwelling Catheter Indwelling Catheter - Constitutional General appearance: Present: thin - EENT Eyes: Absent: abnormal pupil - Respiratory Respiratory: bilateral: CTA - Cardiovascular Rhythm: regular Abnormal Heart Sounds: Absent: S3 Gallop - Gastrointestinal General gastrointestinal: Present: soft. Absent: tenderness - Neurologic Neurologic: Absent: CNII-XII intact - Labs CBC & Chem 7: 10/24/17 05:59 10/24/17 05:59 Labs: Abnormal Lab Results - Last 24 Hours (Table) 10/23/17 10/24/17 10/24/17 Range/Units 06:46 05:59 05:59 RBC 3.23 L 3.07 L (4.30-5.90) m/uL Hgb 9.9 L 9.2 L (13.0-17.5) gm/dL Hct 30.6 L 30.2 L (39.0-53.0) % MCHC 30.3 L (31.0-37.0) g/dL Plt Count 58 L 69 L (150-450) k/uL Chloride 117 H (98-107) mmol/L Carbon Dioxide 21 L (22-30) mmol/L BUN 21 H (9-20) mg/dL Creatinine 0.60 L (0.66-1.25) mg/dL Glucose 159 H (74-99) mg/dL Calcium 7.5 L (8.4-10.2) mg/dL Total Protein 4.8 L (6.3-8.2) g/dL Albumin 1.6 L (3.5-5.0) g/dL Assessment and Plan (1) COPD (chronic obstructive pulmonary disease) Current Visit: Yes Status: Acute Code(s): J44.9 - CHRONIC OBSTRUCTIVE PULMONARY DISEASE, UNSPECIFIED SNOMED Code(s): 90971204 (2) Sepsis Current Visit: Yes Status: Acute Code(s): A41.9 - SEPSIS, UNSPECIFIED ORGANISM SNOMED Code(s): 87351047 (3) Urinary tract infection Current Visit: Yes Status: Acute Code(s): N39.0 - URINARY TRACT INFECTION, SITE NOT SPECIFIED SNOMED Code(s): 39651710 (4) Above knee amputation of right lower extremity Current Visit: No Status: Acute Code(s): Z89.611 - ACQUIRED ABSENCE OF RIGHT LEG ABOVE KNEE SNOMED Code(s): 444943363 (5) Atrial fibrillation Current Visit: No Status: Acute Code(s): I48.91 - UNSPECIFIED ATRIAL FIBRILLATION SNOMED Code(s): 70916671 (6) CAD (coronary artery disease) Current Visit: No Status: Acute Code(s): I25.10 - ATHSCL HEART DISEASE OF [place] CORONARY ARTERY W/O ANG PCTRS SNOMED Code(s): 51617303 Plan: Sepsis-improving. Element of COPD. History of PAD and ostial myelitis with bloating" per We'll transfer to general medical floor today. Check CBC and CMP in a.m. Time with Patient: Less than 30
[2017-10-24] MEDS: BUDESONIDE 0.5 MG/2 ML NEBU INHALATION SCH (08:16)
[2017-10-24] MEDS: IPRATROPIUM-ALBUTEROL 3 ML NEB INHALATION SCH ×2 (08:16→11:43)
[2017-10-24 08:58] VITALS: BP 118/58; RESP 18
[2017-10-24] MEDS: FUROSEMIDE 40 MG TAB PO SCH (10:01)
[2017-10-24] MEDS: LISINOPRIL 20 MG TAB PO SCH (10:02)
[2017-10-24] MEDS: HYDROCORTISONE SUCCINATE 100 MG/2 ML VIAL IV SCH (10:02)
[2017-10-24] MEDS: LEVOFLOXACIN 750 MG TAB PO SCH (10:02)
[2017-10-24] MEDS: METOPROLOL TARTRATE 50 MG TAB PO SCH (10:03)
[2017-10-24] MEDS: PRIMIDONE 50 MG TAB PO SCH (10:03)
[2017-10-24] MEDS: POTASSIUM CHLORIDE ER 10 MEQ TAB.ER.PRT PO SCH (10:03)
[2017-10-24] MEDS: PHYTONADIONE 10 MG in SODIUM CHLORIDE 0.9% 50 ML IVPB SCH (10:14)
[2017-10-24 11:06] LABS: Monocytes # (M) 0.32 k/uL (0-1.0); Neutrophils # (M) 5.48 k/uL (1.3-7.7); Neutrophils % (M) 87 %; Nucleated Red Blood Cells 0 /100 WBC (0-0); Total Cells Counted 100
[2017-10-24 11:14] LABS: Large Platelets Present
[2017-10-24 11:53] VITALS: PULSE 86
[2017-10-24] MEDS: POTASSIUM CHLORIDE 10 MEQ in WATER FOR INJECTION 1 100ML.BAG IVPB SCH ×2 (13:27→15:24)
--- NOTE | 2017-10-24 14:01 | P.PN ---
Subjective Progress Note Date: 10/24/17 [facility] is covering for Dr. Farr. 10/21/17-Patient is being seen examined and evaluated today follow-up on rounds is fair covering for Dr. Farr. Patient was admitted to the hospital with severe sepsis, hypertension, metabolic acidosis secondary to lactic acidosis, metastatic neoplasm and lesions of his liver. He also has a UTI with E. coli and bacteremia. Patient has infectious disease on consult as well. Patient is supposed to go for a PICC line insertion today. Upon examination the patient's resting up in bed on room air. He does have some shortness of breath with exertion. He is weak. Patient is being seen by surgical services as well regarding a CAT scan of the abdomen and pelvis which showed ileus versus questionable small bowel obstruction. Patient did have a small bowel movement this morning. He has been tolerating his diet. No labs to report been reviewed. 10/22/17-10/23/[address] Izzy Robison notes 10/24/17- patient is being seen examined and evaluated today on rounds. The patient is resting up in bed on room air. He has been downgraded to the medical surgical unit today. He has been participating in therapy. Continues to have some shortness of breath with exertion. Objective - Vital Signs Vital signs: Vital Signs Temp 96.0 F L 10/24/17 04:00 Pulse 86 10/24/17 11:53 Resp 18 10/24/17 08:00 BP 118/58 10/24/17 08:00 Pulse Ox 97 10/24/17 08:17 Intake & Output 10/23/17 10/24/17 10/24/17 18:59 06:59 18:59 Intake Total 436 1676 Output Total 0 500 0 Balance 436 -500 1676 Weight 80 kg Intake: IV 1000 Sodium Chloride 0.9% 1, 1000 000 ml @ 100 mls/hr IV . Q10H TIANNA Rx#:[id number] Intake, IV Titration 200 Amount cefTAZidime 2 gm In 200 Sodium Chloride 0.9% 100 ml @ 100 mls/hr IVPB Q8H TIANNA Rx#:[id number] Oral 436 476 Output: Urine 500 Uretheral (Martin) 200 Stool 0 0 0 Other: Voiding Method Indwelling Catheter Indwelling Catheter Indwelling Catheter - Exam GENERAL EXAM: Alert, cachectic HEAD: Normocephalic. EYES: Normal reaction of pupils, equal size. NOSE: Clear with pink turbinates. THROAT: No erythema or exudates. NECK: No masses, no JVD. CHEST: No chest wall deformity. LUNGS: Poor air entry with no crackles, wheeze, rhonchi or dullness. CVS: S1 and S2 normal with no audible mumurs, irregular rhythm. ABDOMEN: No hepatosplenomegaly, hypoactive bowel sounds, no guarding or rigidity. EXTREMITIES: No edema noted, pedal pulses palpable. Generalized Weak CENTRAL NERVOUS SYSTEM: No focal deficits, tone is normal in all 4 extremities, weak. - Labs CBC & Chem 7: 10/24/17 05:59 10/24/17 05:59 Labs: Abnormal Lab Results - Last 24 Hours (Table) 10/24/17 10/24/17 Range/Units 05:59 05:59 RBC 3.07 L (4.30-5.90) m/uL Hgb 9.2 L (13.0-17.5) gm/dL Hct 30.2 L (39.0-53.0) % MCHC 30.3 L (31.0-37.0) g/dL Plt Count 69 L (150-450) k/uL Lymphocytes # (Manual) 0.50 L (1.0-4.8) k/uL Chloride 117 H (98-107) mmol/L Carbon Dioxide 21 L (22-30) mmol/L BUN 21 H (9-20) mg/dL Creatinine 0.60 L (0.66-1.25) mg/dL Glucose 159 H (74-99) mg/dL Calcium 7.5 L (8.4-10.2) mg/dL Total Protein 4.8 L (6.3-8.2) g/dL Albumin 1.6 L (3.5-5.0) g/dL Assessment and Plan Assessment: Assessment Severe sepsis with hypotension likely related to severe septic process from complicated urinary tract infection Severe hypotension Multiple lesions in the liver as well as spine lesion the sternal lesion and add renal mass likely suggestive of neoplastic process Metastatic hepatocellular carcinoma Abdominal distention likely gases distention related to small bowel dilated loops and obstruction as no significant ascites has been noted on ultrasound of the abdomen E. coli bacteremia and urinary tract infection Severe protein malnutrition Liver cirrhosis Plan IV aggressive rehydration Broad-spectrum antibiotics Montior and Replace electrolytes as needed PICC line Steroid taper Further recommendations pending plan of care as per clinical response of the patient Appreciate recommendations from infectious disease and surgical services Repeat labs tomorrow Possible hospice informative meeting, prognosis guarded I performed an examination of the patient and discussed their management with the nurse practitioner. I have reviewed the nurse practitioner's note and agree with the documented findings and plan of care.
--- NOTE | 2017-10-25 12:29 | CDI ---
Last Revision, July 2017 Documentation Clarification Form Date: 10/25/17 From: Jaki Alvarez Phone: If you have a question regarding this query, please contact Lina Douglas Regional Maintenance Manager at [phone] between 8am and 5pm. Admit Date: 10/18/2017 7:11:00 AM Patient Name: Christopher Dial Visit Number: [id number] Discharge Date: ATTENTION: The Clinical Documentation Specialists (CDI) and [facility] Coding Staff appreciate your assistance in clarifying documentation. Please respond to the clarification below the line at the bottom and electronically sign. The CDI & [facility] Coding staff will review the response and follow-up if needed. Please note: Queries are made part of the Legal Health Record. If you have any questions, please contact the author of this message via ITS. Dr. Ravinder Harmon Acute respiratory failure is documented in your 10/22 and 10/23 progress notes. History/Risk Factors: The patient was admitted with sepsis due to a UTI. The patient has a history of COPD. Tobacco use: Current every day smoker. Clinical Indicators: Shortness of breath on exertion, fatigued Vital signs: 104 on admission, 94 to 97.5 on 10/22&10/23, P. 78-100 on 10/22 &10/23 , R. 16 - 26 on 10/22 &10/23, BP 96-188/54-88 on 10/22 & 10/23. Pulse oximetry: 84 - 100 Lung/Breathing assessment: Diminished at the bases in the 10/20 physical exam ABG/CBG: pH 7.51, pCO2 34, pHCO3 27, Lactate 4.1 Treatment: O2 at 2L Breathing tx Duoneb, Pulmicort, O2: O2 at 2L In your professional opinion, can you please clarify if these findings signify one of the following conditions? Specificity: Respiratory Failure, further specify (if known): With hypercapnia? With hypoxia? Respiratory Distress Respiratory Insufficiency Other Diagnosis, please specify Unable to determine MTDD
--- NOTE | 2017-10-25 12:40 | CDI ---
Last Revision, July 2017 Documentation Clarification Form Date: 10/25/17 From: Jaki Alvarez Phone: If you have a question regarding this query, please contact Lina Douglas at [phone] between 8am and 5pm Admit Date: 10/18/2017 7:11:00 AM Patient Name: Christopher Dial Visit Number: [id number] Discharge Date: ATTENTION: The Clinical Documentation Specialists (CDI) and [facility] Coding Staff appreciate your assistance in clarifying documentation. Please respond to the clarification below the line at the bottom and electronically sign. The CDI & [facility] Coding staff will review the response and follow-up if needed. Please note: Queries are made part of the Legal Health Record. If you have any questions, please contact the author of this message via ITS. Dr. Johnny Ugalde Atrial fibrillation is documented in the past medical history and in your 10/19, and 10/24 progress notes. History/Risk Factors: Patient has a history of hypertension, [place] and CAD. Treatment: Patient is not on an anticoagulant but does take metoprolol tartrate In your professional opinion, can you please clarify the type of atrial fibrillation, if known? Chronic/Permanent Paroxysmal Persistent Other, please specify Unable to determine MTDD
--- NOTE | 2017-11-02 14:27 | CDI ---
Last Revision, July 2017 Documentation Clarification Form Date: 11/02/17 From: Jaki Alvarez Phone: If you have a question regarding this query, please conact Lina Douglas at [phone] between 8am and 5pm Admit Date: 10/18/2017 7:11:00 AM Patient Name: Christopher Dial Visit Number: [id number] Discharge Date: ATTENTION: The Clinical Documentation Specialists (CDI) and [facility] Coding Staff appreciate your assistance in clarifying documentation. Please respond to the clarification below the line at the bottom and electronically sign. The CDI & [facility] Coding staff will review the response and follow-up if needed. Please note: Queries are made part of the Legal Health Record. If you have any questions, please contact the author of this message via ITS. Dr. Ravinder Harmon Acute respiratory failure is documented in your 10/22 and 10/23 progress notes. History/Risk Factors: The patient was admitted with sepsis due to a UTI. The patient has a history of COPD. Tobacco use: Current every day smoker. Clinical Indicators: Shortness of breath on exertion, fatigued Vital signs: 104 on admission, 94 to 97.5 on 10/22&10/23, P. 78-100 on 10/22 &10/23 , R. 16 - 26 on 10/22 &10/23, BP 96-188/54-88 on 10/22 & 10/23. Pulse oximetry: 84 - 100 Lung/Breathing assessment: Diminished at the bases in the 10/20 physical exam ABG/CBG: pH 7.51, pCO2 34, pHCO3 27, Lactate 4.1 Treatment: O2 at 2L Breathing tx Duoneb, Pulmicort, O2: O2 at 2L In your professional opinion, can you please clarify if these findings signify one of the following conditions? Specificity: Respiratory Failure, further specify (if known): With hypercapnia? With hypoxia? Respiratory Distress Respiratory Insufficiency Other Diagnosis, please specify Unable to determine acute respiratory failure with hypoxia on admission MTDD
--- NOTE | 2017-11-07 12:57 | P.DS ---
Providers Date of admission: 10/18/17 07:11 Attending physician: Johnny Ugalde Consults: 10/19/17 08:02 Consult Physician Routine Consulting Provider: Hiren Lagos Consult Reason/Comments: UTI with sepsis. Do you want consulting provider notified?: Yes 10/19/17 15:47 Consult Physician Routine Consulting Provider: Vince Farr Consult Reason/Comments: icu management Do you want consulting provider notified?: Yes 10/19/17 16:16 Consult Physician Routine Consulting Provider: Zaid Woodard Consult Reason/Comments: possible small bowel obstruction in CT Do you want consulting provider notified?: Yes 10/22/17 15:28 Consult Physician Routine Consulting Provider: Ralegih Johnson Consult Reason/Comments: metastatic cancer Do you want consulting provider notified?: Yes Primary care physician: Johnny Ugalde - Discharge Diagnosis(es) (1) COPD (chronic obstructive pulmonary disease) Status: Acute (2) Sepsis Status: Acute (3) Urinary tract infection Status: Acute (4) Above knee amputation of right lower extremity Status: Acute (5) Atrial fibrillation Status: Acute (6) CAD (coronary artery disease) Status: Acute Hospital Course: This is discharge summary 67-year-old wexacerbation of COPD. Unfort evidence of hepatic diffuse Hepatic carcinoma and mass. He was transferred and discharged to hospice. He had an underlying history of paroxysmal atrial fibrillation. The patient then proceeded to after 2 days of hospice type and comfort measure treatment. Patient Condition at Discharge: Serious Plan - Discharge Summary Discharge Rx Participant: No New Discharge Prescriptions: No Action Primidone [Mysoline] 50 mg PO TID Cyclobenzaprine HCl 10 mg PO BID PRN #0 PRN Reason: Muscle Spasm Furosemide [Lasix] 40 mg PO DAILY tab Potassium Chloride [K-Tab ER] 10 meq PO DAILY Omeprazole [Omeprazole] 20 mg PO BID Metoprolol Tartrate [Lopressor] 50 mg PO BID Lisinopril [Zestril] 20 mg PO BID Discharge Medication List Primidone [Mysoline] 50 mg PO TID 03/31/17 [History] Cyclobenzaprine HCl 10 mg PO BID PRN #0 04/19/17 [Rx] Furosemide [Lasix] 40 mg PO DAILY tab 05/17/17 [Rx] Lisinopril [Zestril] 20 mg PO BID 10/18/17 [History] Metoprolol Tartrate [Lopressor] 50 mg PO BID 10/18/17 [History] Omeprazole [Omeprazole] 20 mg PO BID 10/18/17 [History] Potassium Chloride [K-Tab ER] 10 meq PO DAILY 10/18/17 [History] Follow up Appointment(s)/Referral(s): Johnny Ugalde MD [Primary Care Provider] - 1-2 days [facility] Visiting Nurse, [NON-STAFF] - Discharge Disposition: STILL PT- FOR INTERIM BILLING
== END 2017-10-24 15:40 | disposition hospice, inpatient (51) | DRG 871 ==
LOC: EC 04:51 → 6SEL 07:11 → 6ICU 10-19 17:07 → 6SEL 10-20 21:10
PROVIDERS: ADMIT Family Medicine; ATTEND Family Medicine
DX: A41.51 Sepsis due to Escherichia coli [E. coli] (principal); R65.21 Severe sepsis with septic shock; J96.00 Acute respiratory failure, unspecified whether with hypoxia or hypercapnia; E43 Unspecified severe protein-calorie malnutrition; K56.609 Unspecified intestinal obstruction, unspecified as to partial versus complete obstruction; C79.51 Secondary malignant neoplasm of bone; N17.9 Acute kidney failure, unspecified; C79.70 Secondary malignant neoplasm of unspecified adrenal gland; R18.8 Other ascites; E87.2 Acidosis; C22.0 Liver cell carcinoma; N39.0 Urinary tract infection, site not specified; E87.70 Fluid overload, unspecified; J44.9 Chronic obstructive pulmonary disease, unspecified; R15.9 Full incontinence of feces; K21.9 Gastro-esophageal reflux disease without esophagitis; B96.5 Pseudomonas (aeruginosa) (mallei) (pseudomallei) as the cause of diseases classified elsewhere; F10.21 Alcohol dependence, in remission; F17.200 Nicotine dependence, unspecified, uncomplicated; H54.8 Legal blindness, as defined in USA; I10 Essential (primary) hypertension; I25.10 Atherosclerotic heart disease of native coronary artery without angina pectoris; I25.2 Old myocardial infarction; I73.9 Peripheral vascular disease, unspecified; K74.60 Unspecified cirrhosis of liver; N50.89 Other specified disorders of the male genital organs; K64.9 Unspecified hemorrhoids; M19.90 Unspecified osteoarthritis, unspecified site; M51.36 Other intervertebral disc degeneration, lumbar region; E86.9 Volume depletion, unspecified; Z51.5 Encounter for palliative care; Z79.899 Other long term (current) drug therapy; Z88.0 Allergy status to penicillin; Z88.8 Allergy status to other drugs, medicaments and biological substances; Z89.611 Acquired absence of right leg above knee; Z96.641 Presence of right artificial hip joint; Z86.718 Personal history of other venous thrombosis and embolism; Z87.440 Personal history of urinary (tract) infections; Z86.14 Personal history of Methicillin resistant Staphylococcus aureus infection; Z82.49 Family history of ischemic heart disease and other diseases of the circulatory system; Z80.0 Family history of malignant neoplasm of digestive organs; I48.0 Paroxysmal atrial fibrillation
CPT/HCPCS: 36415; 36600; 71045; 71275; 74176; 76705; 80053; 81001; 82533; 82805; 83605; 83735; 83880; 84100; 84132; 84484; 85025; 85027; 85379; 85610; 85730; 87040; 87077; 87086; 87186; 87502; 93005; 94640; 94760; 96361; 96365; 96366; 96372; 96375; 99285

== ENCOUNTER 2017-10-24 15:43 | Inpatient (IN) | payer MEDICAID, MEDICARE, OTHER ==
[2017-10-24] MEDS ORDERED: ACETAMINOPHEN SUPPOSITORY 650 MG SUPP RECTAL PRN (15:47)
[2017-10-24] MEDS ORDERED: ONDANSETRON 4 MG/2 ML VIAL IVP PRN (15:47)
[2017-10-24] MEDS ORDERED: LORazepam 1 MG TAB PO PRN (15:47)
[2017-10-24] MEDS ORDERED: ATROPINE OPHTH SOLN 1% 5ML BTL SUBLINGUAL PRN (15:47)
[2017-10-24] MEDS ORDERED: BISACODYL 10 MG SUPP RECTAL PRN (15:52)
[2017-10-24] MEDS: IPRATROPIUM-ALBUTEROL 3 ML NEB INHALATION SCH ×2 (16:06→21:45)
[2017-10-24] MEDS: MORPHINE ORAL SOLN 10 MG/5 ML CUP PO SCH ×3 (17:44→23:45)
[2017-10-24 18:07] VITALS: BMI 24.5
[2017-10-24] MEDS: BUDESONIDE 0.5 MG/2 ML NEBU INHALATION SCH (21:45)
[2017-10-25] MEDS: IPRATROPIUM-ALBUTEROL 3 ML NEB INHALATION SCH ×6 (00:17→20:15)
[2017-10-25] MEDS: MORPHINE ORAL SOLN 10 MG/5 ML CUP PO SCH (05:20)
--- NOTE | 2017-10-25 07:15 | P.DS ---
Providers Date of admission: 10/24/17 15:43 Attending physician: Johnny Ugalde Primary care physician: Johnny Ugalde Hospital Course: This is a discharge summary an 67-year-old white male essentially admitted for UTI with sepsis. However, he was found to have hepatic mass given his overall prognostic indicators, he was transferred to hospice where he will be discharged. Prognosis is poor secondary to this finding. However, the patient is realistic and will be transferred to hospice/ECF when bed available. Medications haven't otherwise reconciled. Patient Condition at Discharge: Poor Plan - Discharge Summary Discharge Rx Participant: No New Discharge Prescriptions: No Action RX: Primidone [Mysoline] 50 mg PO TID RX: Cyclobenzaprine HCl 10 mg PO BID PRN #0 PRN Reason: Muscle Spasm RX: Furosemide [Lasix] 40 mg PO DAILY tab Potassium Chloride [K-Tab ER] 10 meq PO DAILY Omeprazole [Omeprazole] 20 mg PO BID Metoprolol Tartrate [Lopressor] 50 mg PO BID RX: Lisinopril [Zestril] 20 mg PO BID Discharge Medication List RX: Primidone [Mysoline] 50 mg PO TID 03/31/17 [History] RX: Cyclobenzaprine HCl 10 mg PO BID PRN #0 04/19/17 [Rx] RX: Furosemide [Lasix] 40 mg PO DAILY tab 05/17/17 [Rx] Metoprolol Tartrate [Lopressor] 50 mg PO BID 10/18/17 [History] Omeprazole [Omeprazole] 20 mg PO BID 10/18/17 [History] Potassium Chloride [K-Tab ER] 10 meq PO DAILY 10/18/17 [History] RX: Lisinopril [Zestril] 20 mg PO BID 10/18/17 [History] Discharge Disposition: HOME WITH HOSPICE
[2017-10-25] MEDS: BUDESONIDE 0.5 MG/2 ML NEBU INHALATION SCH ×2 (09:10→20:15)
[2017-10-25] MEDS ORDERED: MORPHINE ORAL SOLN 10 MG/5 ML CUP PO SCH (12:00)
[2017-10-25] MEDS: FUROSEMIDE 40 MG TAB PO SCH ×2 (12:08→12:10)
[2017-10-25] MEDS ORDERED: SCOPOLAMINE 1.5MG/72HR PATCH TRANSDERM SCH (13:15)
[2017-10-25] MEDS: MORPHINE SULFATE 4 MG/ML SYRINGE IVP SCH ×3 (14:49→22:49)
[2017-10-26] MEDS: IPRATROPIUM-ALBUTEROL 3 ML NEB INHALATION SCH ×6 (00:57→21:59)
[2017-10-26] MEDS: MORPHINE SULFATE 4 MG/ML SYRINGE IVP SCH ×4 (03:33→13:38)
[2017-10-26] MEDS: BUDESONIDE 0.5 MG/2 ML NEBU INHALATION SCH ×2 (09:07→21:56)
[2017-10-26] MEDS: LORazepam 2 MG/ML INJ IV PRN ×2 (10:09→13:44)
[2017-10-26 12:33] VITALS: PULSE 118
[2017-10-26] MEDS ORDERED: MORPHINE SULFATE 4 MG/ML SYRINGE IVP PRN (15:26)
[2017-10-26] MEDS ORDERED: MORPHINE SULFATE (100 MG/2 ML) 100 MG in SODIUM CHLORIDE 0.9% 100 ML IV SCH (15:30)
[2017-10-27] MEDS: IPRATROPIUM-ALBUTEROL 3 ML NEB INHALATION SCH (01:29)
[2017-10-27] MEDS ORDERED: IPRATROPIUM-ALBUTEROL 3 ML NEB INHALATION PRN (01:31)
[2017-10-27 05:32] VITALS: RESP 24
--- NOTE | 2017-11-07 12:53 | P.DS ---
Providers Date of admission: 10/24/17 15:43 Attending physician: Johnny Ugalde Primary care physician: Johnny Ugalde Hospital Course: This is a discharge summary on a 67-ye acute exacerbation of COPD. Unfortunately, he hadworsening symptomatology After evaluation of his laboratory wor hepatic carcinoma. He has an underlying history of below the knee amputation secondary to , started to slowly decline and was placed on comfort care hospice. The patient after being treated appropriate for comfort measures. Patient Condition at Discharge: Poor Plan - Discharge Summary Discharge Rx Participant: No New Discharge Prescriptions: No Action Primidone [Mysoline] 50 mg PO TID Cyclobenzaprine HCl 10 mg PO BID PRN #0 PRN Reason: Muscle Spasm Furosemide [Lasix] 40 mg PO DAILY tab Potassium Chloride [K-Tab ER] 10 meq PO DAILY Omeprazole [Omeprazole] 20 mg PO BID Metoprolol Tartrate [Lopressor] 50 mg PO BID Lisinopril [Zestril] 20 mg PO BID Discharge Medication List Primidone [Mysoline] 50 mg PO TID 03/31/17 [History] Cyclobenzaprine HCl 10 mg PO BID PRN #0 04/19/17 [Rx] Furosemide [Lasix] 40 mg PO DAILY tab 05/17/17 [Rx] Lisinopril [Zestril] 20 mg PO BID 10/18/17 [History] Metoprolol Tartrate [Lopressor] 50 mg PO BID 10/18/17 [History] Omeprazole [Omeprazole] 20 mg PO BID 10/18/17 [History] Potassium Chloride [K-Tab ER] 10 meq PO DAILY 10/18/17 [History] Discharge Disposition: - Preliminary Cause of Preliminary Cause of : Hepatic carcinoma
== END 2017-10-27 12:50 | disposition expired | DRG 951 ==
LOC: 6SEL 15:43 → 5ONC 17:21
PROVIDERS: ADMIT Family Medicine; ATTEND Family Medicine
DX: Z51.5 Encounter for palliative care (principal); A41.9 Sepsis, unspecified organism; C22.7 Other specified carcinomas of liver; I50.82 Biventricular heart failure; R16.0 Hepatomegaly, not elsewhere classified; I48.91 Unspecified atrial fibrillation; K21.9 Gastro-esophageal reflux disease without esophagitis; E27.9 Disorder of adrenal gland, unspecified; N39.0 Urinary tract infection, site not specified; J44.9 Chronic obstructive pulmonary disease, unspecified; I10 Essential (primary) hypertension; M19.90 Unspecified osteoarthritis, unspecified site; H54.8 Legal blindness, as defined in USA; I73.9 Peripheral vascular disease, unspecified; I25.10 Atherosclerotic heart disease of native coronary artery without angina pectoris; I25.2 Old myocardial infarction; Z89.611 Acquired absence of right leg above knee; Z86.14 Personal history of Methicillin resistant Staphylococcus aureus infection; Z87.891 Personal history of nicotine dependence; Z84.89 Family history of other specified conditions; Z80.9 Family history of malignant neoplasm, unspecified; Z82.49 Family history of ischemic heart disease and other diseases of the circulatory system; Z88.0 Allergy status to penicillin; Z88.8 Allergy status to other drugs, medicaments and biological substances
CPT/HCPCS: 94640